=== PATIENT | female | born 1950 | race Caucasian/White ===

== ENCOUNTER → 2016-06-29 | Outpatient (CLI) | payer MEDICARE ==
--- NOTE | 2016-07-02 07:48 | MM ---
Reason for exam: additional evaluation requested from prior study. Last mammogram was performed 1 year and 5 months ago. History: Patient is postmenopausal and had first child at age 34. Breast lifts of both breasts, 2002. Took hormonal contraceptives for 2 years. Took progesterone for 3 years beginning at age 52. Physical Findings: Nurse did not find any significant physical abnormalities on exam. MG 3D Diag Mammo W/Cad JESUS ALBERTO Bilateral CC and MLO view(s) were taken. Prior study comparison: January 27, 2015, bilateral MG diagnostic mammo w CAD JESUS ALBERTO. October 23, 2013, bilateral MG diagnostic mammo w CAD JESUS ALBERTO. The breast tissue is heterogeneously dense. This may lower the sensitivity of mammography. Finding #1: There are typically benign round calcifications in both breasts. Finding #2: There is a 46 x 34 mm obscured oval mass in the anterior position of the right breast. There is a chronic nodularity bilaterally. Questionable new 9mm oval lesion middle depth medial position. These results were verbally communicated with the patient and result sheet given to the patient on 06/29/16. ASSESSMENT: Incomplete: need additional imaging evaluation, BI-RAD 0 RECOMMENDATION: Ultrasound of both breasts.
--- NOTE | 2016-07-02 07:49 | USB ---
Reason for exam: additional evaluation requested from abnormal screening. History: Patient is postmenopausal and had first child at age 34. Breast lifts of both breasts, 2002. Took hormonal contraceptives for 2 years. Took progesterone for 3 years beginning at age 52. US Breast Limited BILAT Right breast ultrasound demonstrates no cystic or solid lesion seen. Left breast ultrasound demonstrates no cystic or solid lesion seen. These results were verbally communicated with the patient and result sheet given to the patient on 06/29/16. ASSESSMENT: Benign, BI-RAD 2 RECOMMENDATION: Routine screening mammogram of both breasts in 1 year.
== END | disposition home or self-care (01) ==
LOC: RADMAMWWP 12:42
PROVIDERS: ATTEND Family Medicine
DX: R92.2 Inconclusive mammogram (principal); Z41.1 Encounter for cosmetic surgery
CPT/HCPCS: 76642; G0204; G0279

== ENCOUNTER 2017-05-09 15:23 | Emergency (ER) | payer MEDICARE ==
--- NOTE | 2017-05-09 17:29 | ED ---
General Adult HPI - General Chief complaint: Recheck/Abnormal Lab/Rx Stated complaint: Female Time Seen by Provider: 05/09/17 15:47 Source: patient, RN notes reviewed Mode of arrival: wheelchair Limitations: no limitations - History of Present Illness Initial comments: Patient 66-year-old female who presents emergency room today with chief complaint of swelling to the right groin. She does not that she had a cardiac cath performed yesterday morning. Patient does admit that she noticed some swelling to the area approximately an hour and a half ago. She states swelling seems to be improving as she was holding pressure to the area. She denies any other complaints or associated symptoms. Patient denies any recent fever, chills , shortness of breath, chest pain, back pain, numbness or tingling, dysuria or hematuria, constipation or diarrhea, headaches or visual changes, or any other complaints. - Related Data Home Medications Medication Instructions Recorded Confirmed Citalopram Hydrobromide [CeleXA] 40 mg PO DAILY 05/04/17 05/09/17 Cefuroxime Axetil [Ceftin] 500 mg PO BID 05/07/17 05/09/17 Previous Rx's Medication Instructions Recorded Ondansetron Odt [Zofran Odt] 4 mg PO Q8HR PRN #30 tab 05/05/17 metroNIDAZOLE [Flagyl] 500 mg PO TID #15 tab 05/05/17 Aspirin 81 mg PO DAILY #30 chew 05/09/17 Carvedilol [Coreg] 3.125 mg PO BID-W/MEALS #60 tab 05/09/17 Lisinopril [Zestril] 2.5 mg PO DAILY@1200 #30 tab 05/09/17 Nitroglycerin Sl Tabs [Nitrostat] 0.4 mg SUBLINGUAL Q5M PRN #25 tab 05/09/17 Allergies Allergy/AdvReac Type Severity Reaction Status Date / Time No Known Allergies Allergy Verified 05/09/17 16:11 Review of Systems ROS Statement: Those systems with pertinent positive or pertinent negative responses have been documented in the HPI. ROS Other: All systems not noted in ROS Statement are negative. Past Medical History Past Medical History: Coronary Artery Disease (CAD), COPD, Osteoarthritis (OA), Respiratory Disorder Additional Past Medical History / Comment(s): mild COPD, colitis, uti, anxiety History of Any Multi-Drug Resistant Organisms: None Reported Past Surgical History: Section, Ear Surgery, Heart Catheterization, Orthopedic Surgery, Tonsillectomy, Tubal Ligation Additional Past Surgical History / Comment(s): Right knee, x2, tubes in ears, lumbar fusion L2-S1 Past Anesthesia/Blood Transfusion Reactions: No Reported Reaction Past Psychological History: Anxiety Smoking Status: Former smoker - Past Family History Son(s) Family Medical History: No Reported History Additional Family Medical History / Comment(s): autism Mother History Unknown: Yes Family Medical History: CVA/TIA Father Additional Family Medical History / Comment(s): suicide at 47 Brother(s) Additional Family Medical History / Comment(s): from alcohol and drug use. Sister(s) Family Medical History: Hypertension General Exam - General Exam Comments Initial Comments: General: The patient is awake and alert, in no distress, and does not appear acutely ill. Eye: Pupils are equal, round and reactive to light, extra-ocular movements are intact. No nystagmus. There is normal conjunctiva bilaterally. No signs of icterus. Ears, nose, mouth and throat: There are moist mucous membranes and no oral lesions. Neck: The neck is supple, there is no tenderness or JVD. Cardiovascular: There is a regular rate and rhythm. No murmur, rub or gallop is appreciated. Respiratory: Lungs are clear to auscultation, respirations are non-labored, breath sounds are equal. No wheezes, stridor, rales, or rhonchi. Gastrointestinal: Soft, non-distended, non-tender abdomen without masses or organomegaly noted. There is no rebound or guarding present. No CVA tenderness. Bowel sounds are unremarkable. Musculoskeletal: Normal ROM. Some mild bruising and swelling to the right groin. No bruit. Strength 5/5. Sensation intact. Pulses equal bilaterally 2+. Neurological: A&O x 3. CN II-XII intact, There are no obvious motor or sensory deficits. Coordination appears grossly intact. Speech is normal. Skin: Skin is warm and dry and no rashes or lesions are noted. Psychiatric: Cooperative, appropriate mood & affect, normal judgment. Limitations: no limitations Course Vital Signs 05/09/17 05/09/17 15:25 18:04 Temperature 97.4 F L 98.0 F Pulse Rate 99 92 Respiratory 20 18 Rate Blood Pressure 126/84 149/77 O2 Sat by Pulse 98 98 Oximetry Medical Decision Making - Medical Decision Making Patient's ultrasound reviewed and does show no evidence of a pseudoaneurysm. Does show a area of hypoechoic fluid nonvascular measuring 2 x 1 cm. Results were discussed with the patient. At this time patient will be discharged home to follow-up with her timber faller tomorrow. Advised patient to continue with previous recommendations after cardiac cath. Advised return for any symptoms increase worsen or fail concerns. Disposition Clinical Impression: Hematoma Disposition: HOME SELF-CARE Condition: Good Instructions: Hematoma (ED) Additional Instructions: Please follow-up with the strategic sourcing specialist tomorrow as discussed. Please return here to the emergency room if there is any increased worsening symptoms or any other concerns. Referrals: Tal Almendarez MD [Primary Care Provider] - 1-2 days Diogo Bay MD [STAFF PHYSICIAN] - 1-2 days Time of Disposition: 18:32
--- NOTE | 2017-05-09 17:47 | US ---
EXAMINATION TYPE: US lower ext pseudo artery RT DATE OF EXAM: 05/09/2017 COMPARISON: NONE CLINICAL HISTORY: Pain. Right groin pain following heart cath yesterday EXAM PERFORMED: Grayscale and color Doppler duplex imaging performed of the groin, post cardiac brianna ter to assess for pseudoaneurysm. SIDE PERFORMED: Right Color and Waveform Doppler performed to assess for the presence of pseudoaneurysm; Is there ultrasound evidence of a pseudoaneurysm: no Is there evidence of AV shunting: no Is there a fluid collection present: 2.2 x 0.8 x 1.2cm hypoechoic non vascular area anterior to arter y IMPRESSION: NEGATIVE FOR PSEUDOANEURYSM.
[2017-05-09 18:06] VITALS: BP 149/77; PULSE 92; RESP 18; TEMP 98
== END 2017-05-09 18:46 | disposition home or self-care (01) ==
LOC: EC 15:23
DX: L76.32 Postprocedural hematoma of skin and subcutaneous tissue following other procedure (principal); Z87.891 Personal history of nicotine dependence; Z79.899 Other long term (current) drug therapy; Y83.8 Other surgical procedures as the cause of abnormal reaction of the patient, or of later complication, without mention of misadventure at the time of the procedure
CPT/HCPCS: 93975; 99283

== ENCOUNTER → 2018-01-01 | Outpatient (CLI) | payer MEDICARE ==
--- NOTE | 2018-01-01 13:55 | MM ---
Reason for exam: additional evaluation requested from prior study. Last mammogram was performed 1 year and 6 months ago. History: Patient is postmenopausal and had first child at age 34. Breast lifts of both breasts, 2002. Took hormonal contraceptives for 2 years. Took progesterone for 3 years beginning at age 52. Physical Findings: Nurse did not find any significant physical abnormalities on exam. MG 3D Diag Mammo W/Cad JESUS ALBERTO Bilateral CC and MLO view(s) were taken. Prior study comparison: June 29, 2016, bilateral MG 3d diag mammo w/cad JESUS ALBERTO. January 27, 2015, bilateral MG diagnostic mammo w CAD JESUS ALBERTO. The breast tissue is heterogeneously dense. This may lower the sensitivity of mammography. No significant new findings when compared with previous films. These results were verbally communicated with the patient and result sheet given to the patient on 01/01/18. ASSESSMENT: Benign, BI-RAD 2 RECOMMENDATION: Routine screening mammogram of both breasts in 1 year.
== END | disposition home or self-care (01) ==
LOC: RADMAMWWP 11:00
PROVIDERS: ATTEND Family Medicine
DX: R92.8 Other abnormal and inconclusive findings on diagnostic imaging of breast (principal)
CPT/HCPCS: 77066; G0279; 77062

== ENCOUNTER → 2018-01-23 | Outpatient (CLI) | payer MEDICARE ==
--- NOTE | 2018-01-23 13:53 | BD ---
EXAMINATION TYPE: Axial Bone Density DATE OF EXAM: 01/23/2018 COMPARISON: NONE CLINICAL HISTORY: Height: 63 Weight: 127.0 FRAX RISK QUESTIONS: Alcohol (3 or more units per day): no Family History (Parent hip fracture): no Glucocorticoids (More than 3mos): no (Ex: prednisone, prednisolone, methylprednisolone, dexamethasone, and hydrocortisone). History of Fracture in Adulthood: no Secondary Osteoporosis: 1. Type 1 Diabetes: no 2. Hyperthyroidism: no 3. Menopause before 45: no 4. Malnutrition: no 5. Chronic liver disease: no Rheumatoid Arthritis: no Current Tobacco Use: yes RISK FACTORS HISTORY OF: Surgery to Spine/Hip(right/left)/Wrist (right/left): lumbar surgery When: 2011 Active: sometimes Diet low in dairy products/other sources of calcium: yes Postmenopausal woman: age 49 Lost more than 2 inches in height since high school: just 2 inches MEDICATIONS: Additional History: EXAM MEASUREMENTS: Bone mineral densitometry was performed using the [employer] System. Bone mineral density about the R hip (g/cm2): 0.770 Bone mineral density about the L hip (g/cm2): 0.813 T Score values are as follows: -----R Neck: -1.9 -----L Neck: -1.6 -----R Total: -1.8 -----L Total: -1.6 Bone mineral density : baseline Bone mineral density about the L Wrist (g/cm2): 0.516 T Score values are as follows: -----Dist. R+U: -3.6 -----Prox. R+U: -2.4 -----Radius total: -2.6 Bone mineral density : baseline IMPRESSION: Osteopenia (T Score between -2.5 and -1) in the distal left forearm and bilateral hips. There is slightly increased risk of fracture and the patient may be considered for treatment. Re-Screen 2-5 years. NOTE: T-SCORE=SD OF THE YOUNG ADULT MEAN.
== END ==
LOC: RADBDWWP 12:36
PROVIDERS: ATTEND Family Medicine
DX: M85.851 Other specified disorders of bone density and structure, right thigh (principal); M85.852 Other specified disorders of bone density and structure, left thigh; M85.832 Other specified disorders of bone density and structure, left forearm; Z78.0 Asymptomatic menopausal state
CPT/HCPCS: 77080

== ENCOUNTER → 2018-03-24 | Outpatient (CLI) | payer MEDICARE ==
[2018-03-24 11:26] LABS: LDL Cholesterol,Calculated 126.8 mg/dL (0.0-131.0); VLDL Calculation 21.2 mg/dL (5.00-40.00)
== END | disposition home or self-care (01) ==
LOC: LABWHC1 06:57
PROVIDERS: ATTEND Internal Medicine Interventional Cardiology
DX: E78.2 Mixed hyperlipidemia (principal)
CPT/HCPCS: 36415; 80061; 84450; 84460

== ENCOUNTER → 2018-04-18 | Outpatient (CLI) | payer MEDICARE ==
--- NOTE | 2018-04-18 08:37 | MR ---
EXAMINATION TYPE: MR shoulder RT wo con DATE OF EXAM: 04/18/2018 7:47 AM COMPARISON: NONE HISTORY: M75.101 - Rot Cuff Tear or Rupture of Rt Shoulder TECHNIQUE: Multiplanar multispin echo imaging of the right shoulder was performed. FINDINGS: Rotator cuff : Moderate thickening and heterogeneity of the supraspinatus tendon compatible chronic t endinopathy. Partial undersurface tear noted at the insertion of the supraspinatus tendon. No evidenc e for full-thickness tear or rupture. Tendinosis also noted of the subscapularis tendon and infraspin atus tendon. Bursa: No bursal effusion or thickening is seen. Musculature: There is no muscular tear, contusion, or atrophy. Acromioclavicular joint : Moderate AC joint arthropathy. Small subacromial spur resulting in mild imp ingement. Osseous structures : There are no fractures or regions of abnormal bone marrow signal intensity. Subc hondral cyst humeral greater tuberosity. Long biceps tendon : The biceps tendon is normally situated within the bicipital groove. Tendinosis i ntra-articular biceps tendon with partial tear. Glenohumeral Joint fluid : There is no glenohumeral j oint effusion. Cartilage and Bone : No focal hyaline cartilage defects are noted. No Hill-Sachs, reverse Hill-Sachs, or bony Bankart lesions are seen. Labrum : There are no SLAP or soft tissue Bankart lesions. No paralabral cysts are seen. OTHER FINDINGS : none IMPRESSION: 1. Chronic tendinopathy rotator cuff as discussed above. Partial undersurface tear supraspinatus tend on. 2. Intra-articular tendinosis of the biceps tendon with partial tear noted.
== END | disposition home or self-care (01) ==
LOC: RADMRIMAIN 07:09
PROVIDERS: ATTEND Physician Assistant Medical
DX: M75.111 Incomplete rotator cuff tear or rupture of right shoulder, not specified as traumatic (principal); S46.211A Strain of muscle, fascia and tendon of other parts of biceps, right arm, initial encounter; M75.81 Other shoulder lesions, right shoulder

== ENCOUNTER → 2018-05-12 | Outpatient (CLI) | payer MEDICARE | LOC: LABWHC1 12:02 | PROVIDERS: ATTEND Physical Medicine & Rehabilitation | DX: Z01.812 Encounter for preprocedural laboratory examination (principal); N28.9 Disorder of kidney and ureter, unspecified | CPT/HCPCS: 36415; 82565; 84520 ==

== ENCOUNTER → 2018-08-08 | Outpatient (CLI) | payer MEDICARE ==
--- NOTE | 2018-08-08 10:47 | CT ---
EXAMINATION TYPE: CT lumbar spine wo con DATE OF EXAM: 08/08/2018 10:08 AM COMPARISON: None. HISTORY: Lumbar spondylosis per order. Back pain for years per patient. CT DLP: 780 mGycm Automated exposure control for dose reduction was used. Unenhanced CT of the lumbar spine was performed. Bone and soft tissue window settings are submitted as well as coronal and sagittal reconstructions. 5 lumbar type vertebra are identified. There is levoconvex scoliosis centered at L3 level. There is g rade 1 retrolisthesis of L2 on L3 measured 6 mm from posterior vertebral body margin sagittal image 2 2 there are posterior interpedicular rods and screws transfixing L2-S1 levels bilaterally, right-side d L2 screw extends into the L1-L2 disc space. Vertebral body heights are preserved. There is vacuum d isc phenomenon with mild to moderate anterior disc space narrowing L1-L2 level. There is advanced dis c space narrowing and vacuum disc phenomenon and endplate sclerosis with moderate right lateral spurr ing L2-L3 level. There is advanced disc space narrowing with moderate spurring and disc calcification right L3-L4 level. There is advanced disc space narrowing with disc calcification L4-L5 level diffus abad. There is moderate disc space narrowing and vacuum disc phenomenon and mild/moderate left lateral spurring left L5-S1 level. Axial images show the T12-L1 level to appear within normal limits. Axial images at the L1-L2 level show bilateral laminectomy defect and spinous process resection. Seen best on sagittal image 21 there is small central disc protrusion mildly effacing the anterior thecal sac. Bilateral neural foramina are patent. Axial images at the L2-L3 level show spondylolisthesis. There are bilateral laminectomy defects and s pinous process resection. Spinal canal is preserved. There is asymmetric [id number] right-sided neural foraminal narrowing. Axial images at the L3-L4 level shows bilateral laminectomy defects and spinous process resection. Th ere is mild broad disc bulge. There is asymmetric moderate right-sided neural foraminal narrowing. Le ft-sided neural foramen is patent. Axial images at the L4-L5 level show artifact from surgical hardware including posterior horizontal m etallic component making evaluation suboptimal at this level. Spinal canal is grossly patent. Axial images at L5-S1 level show artifact from surgical hardware. There are bilateral laminectomy def ects and spinous process resection. There is suspected left paracentral disc protrusion. Prominent ep idural fat is noted. There is moderate left-sided neural foraminal narrowing suspected. Right side sh ows more mild narrowing. There is moderate calcified plaque of aorta extending into branch vessels. IMPRESSION: Postsurgical change L2-S1 level. Underlying levoconvex scoliosis. Spondylolisthesis L2-L3 level. Multilevel degenerative changes as detailed above.
== END | disposition home or self-care (01) ==
LOC: RADCTMAIN 09:40
DX: M47.816 Spondylosis without myelopathy or radiculopathy, lumbar region (principal); M43.16 Spondylolisthesis, lumbar region; Z79.899 Other long term (current) drug therapy
CPT/HCPCS: 72131

== ENCOUNTER → 2018-09-15 | Outpatient (CLI) | payer MEDICARE ==
--- NOTE | 2018-09-16 09:18 | XR ---
EXAM TYPE: LUMBAR SPINE X RAY SERIES COMPARISON: 05/12/2013, 07/31/2018 HISTORY: Pain TECHNIQUE: 5 views are submitted including lateral flexion and extension views. FINDINGS: Extensive postsurgical changes are seen with curvature of the spine. Vascular calcifications noted. K yphosis of the spine at the level of the thoracolumbar junction noted. Retrolisthesis of L2 on L3 and L3 and L4 there is similar to the prior exam. Severe degenerative disc disease at the level L1-L2 tr anspedicular screw appears to extend through L2 into the disc space of L1-L2 on the lateral view. Cor relate clinically. Compared to the neutral view there does appear to be increased retrolisthesis of L2 relative to L3 on flexion and extension views. Correlate clinically. IMPRESSION: 1. Postsurgical changes as discussed above.
== END | disposition home or self-care (01) ==
LOC: RADXRMAIN 16:43
DX: M43.16 Spondylolisthesis, lumbar region (principal); M40.295 Other kyphosis, thoracolumbar region; Z98.890 Other specified postprocedural states
CPT/HCPCS: 72110

== ENCOUNTER → 2018-10-02 | Outpatient (CLI) | payer MEDICARE ==
[2018-10-02 15:52] LABS: Basophils % (A) 1 %; Eosinophils # (A) 0.2 k/uL (0-0.7); Eosinophils % (A) 2 %; HCT 35.9 % (34.0-46.0); HGB 11.6 gm/dL (11.4-16.0); Lymphocytes # (A) 1.9 k/uL (1.0-4.8); Lymphocytes % (A) 30 %; MCH 29.2 pg (25.0-35.0); MCHC 32.4 g/dL (31.0-37.0); MCV 90.1 fL (80.0-100.0); Mean Platelet Volume 6.5; Monocytes # (A) 0.3 k/uL (0-1.0); Monocytes % (A) 5 %; Neutrophils # (A) 3.7 k/uL (1.3-7.7); Neutrophils % (A) 60 %; Platelet Count 270 k/uL (150-450); RBC 3.98 m/uL (3.80-5.40); RDW 13.4 % (11.5-15.5); WBC 6.2 k/uL (3.8-10.6)
[2018-10-02 16:03] LABS: INR 0.9 (<1.2); Prothrombin Time 9.7 sec (9.0-12.0)
[2018-10-02 16:08] LABS: Appearance,Urine Clear (Clear); Bilirubin,Urine Negative (Negative); Blood,Urine Negative (Negative); Color,Urine Yellow; Glucose,Urine (UA) Negative (Negative); Ketones,Urine Negative (Negative); Leukocyte Esterase,Urine Negative (Negative); Nitrite,Urine Negative (Negative); PH, Urine 6.5 (5.0-8.0); Protein,Urine Negative (Negative); Specific Gravity,Urine 1.017 (1.001-1.035); Urobilinogen,Urine <2.0 mg/dL (<2.0)
[2018-10-02 19:04] LABS: Albumin 4.3 g/dL (3.80-4.90); Albumin/Globulin Ratio 2.69 (1.60-3.17); Anion Gap 8.1 mmol/L (4.00-12.00); Calcium 9.4 mg/dL (8.7-10.3); Carbon Dioxide 30.9 mmol/L (21.6-31.8); Globulin 1.6 g/dL (1.6-3.3); Potassium 4.2 mmol/L (3.5-5.5); Total Bilirubin 0.2 mg/dL (0.2-1.2); Total Protein 5.9 g/dL (6.2-8.2)
== END | disposition home or self-care (01) ==
LOC: LABWHC1 15:04
DX: Z01.818 Encounter for other preprocedural examination (principal); Z01.812 Encounter for preprocedural laboratory examination; M47.816 Spondylosis without myelopathy or radiculopathy, lumbar region
CPT/HCPCS: 36415; 80053; 81003; 85025; 85610; 85730; 93005

== ENCOUNTER 2018-10-19 09:11 | Emergency (ER) | payer MEDICARE ==
[2018-10-19 09:40] VITALS: TEMP 98.4
[2018-10-19] MEDS ORDERED: ORPHENADRINE 30 MG/ML 2 ML VIAL IVP STA (10:16)
[2018-10-19] MEDS ORDERED: HYDROmorphone 1 MG/ML 1 ML SYRINGE IVP STA ×2 (10:16→12:05)
[2018-10-19] MEDS ORDERED: SODIUM CHLORIDE 0.9% 1,000 ML IV ONE (10:16)
--- NOTE | 2018-10-19 10:21 | ED ---
Back Pain HPI - General Chief Complaint: Back Pain/Injury Stated Complaint: Post Op back pain Time Seen by Provider: 10/19/18 09:46 Source: patient, RN notes reviewed, old records reviewed Limitations: no limitations - History of Present Illness Initial Comments: Patient is a 68-year-old female presents emergency department today approximately 10 days after lumbar and thoracic spinal fusion surgery by Dr. Atkins at [facility]. Patient reports that she was discharged on Saturday. She states that she was healing well at home. She states that last night after resting she developed a sudden worsening lower back pain and spasming. She is on Percocet 5 mg every 4 hours and that has not been controlling her pain. She denies any saddle anesthesia or significant pain rating, legs. She denies any fall or trauma. She has been wearing her back brace as directed. Patient reports that she did have a lengthy surgery. Patient states that she's had no abdominal pain. She denies any fever. She states she's been in severe pain. - Related Data Home Medications Medication Instructions Recorded Confirmed Cyclobenzaprine [Flexeril] 1 - 2 tab PO TID 10/19/18 10/19/18 LORazepam [Ativan] 1 mg PO BID 10/19/18 10/19/18 Risedronate Sodium [Actonel] 35 mg PO Q7D 10/19/18 10/19/18 Rosuvastatin Calcium [Crestor] 5 mg PO DAILY 10/19/18 10/19/18 Sertraline [Zoloft] 100 mg PO DAILY 10/19/18 10/19/18 oxyCODONE-APAP 10-325MG [Percocet 1 tab PO Q6H PRN 10/19/18 10/19/18 10-325 mg] Previous Rx's Medication Instructions Recorded Carvedilol [Coreg] 3.125 mg PO BID-W/MEALS #60 tab 05/09/17 Lisinopril [Zestril] 2.5 mg PO DAILY@1200 #30 tab 05/09/17 Nitroglycerin Sl Tabs [Nitrostat] 0.4 mg SUBLINGUAL Q5M PRN #25 tab 05/09/17 Nitrofurantoin Monohyd/M-Cryst 100 mg PO Q12HR #14 cap 10/19/18 [Macrobid] Allergies Allergy/AdvReac Type Severity Reaction Status Date / Time No Known Allergies Allergy Verified 10/19/18 11:52 Review of Systems ROS Statement: Those systems with pertinent positive or pertinent negative responses have been documented in the HPI. ROS Other: All systems not noted in ROS Statement are negative. Past Medical History Past Medical History: Coronary Artery Disease (CAD), COPD, Osteoarthritis (OA), Respiratory Disorder Additional Past Medical History / Comment(s): mild COPD, colitis, uti, anxiety History of Any Multi-Drug Resistant Organisms: None Reported Past Surgical History: Section, Ear Surgery, Heart Catheterization, Orthopedic Surgery, Tonsillectomy, Tubal Ligation Additional Past Surgical History / Comment(s): Right knee, x2, tubes in ears, lumbar fusion L2-S1 Past Anesthesia/Blood Transfusion Reactions: No Reported Reaction Past Psychological History: Anxiety Smoking Status: Former smoker - Past Family History Son(s) Family Medical History: No Reported History Additional Family Medical History / Comment(s): autism Mother History Unknown: Yes Family Medical History: CVA/TIA Father Additional Family Medical History / Comment(s): suicide at 47 Brother(s) Additional Family Medical History / Comment(s): from alcohol and drug use. Sister(s) Family Medical History: Hypertension General Exam - General Exam Comments Initial Comments: This is a 68-year-old female. Crying. Patient appears in moderate discomfort. Patient is wearing a back brace. Limitations: no limitations General appearance: alert, in no apparent distress Head exam: Present: atraumatic, normocephalic, normal inspection Eye exam: Present: normal appearance, PERRL, EOMI. Absent: scleral icterus, conjunctival injection, periorbital swelling ENT exam: Present: normal exam, mucous membranes moist Neck exam: Present: normal inspection. Absent: tenderness, meningismus, lymphadenopathy Respiratory exam: Present: normal lung sounds bilaterally. Absent: respiratory distress, wheezes, rales, rhonchi, stridor Cardiovascular Exam: Present: regular rate, normal rhythm, normal heart sounds. Absent: systolic murmur, diastolic murmur, rubs, gallop, clicks GI/Abdominal exam: Present: soft, normal bowel sounds. Absent: distended, tenderness, guarding, rebound, rigid Extremities exam: Present: normal inspection, full ROM, normal capillary refill. Absent: tenderness, pedal edema, joint swelling, calf tenderness Back exam: Present: normal inspection, other (Pain incision site over her thoracic or lumbar spine. No evidence of erythema.) Neurological exam: Present: alert, oriented X3, CN II-XII intact Psychiatric exam: Present: normal affect, normal mood Skin exam: Present: warm, dry, intact, normal color. Absent: rash Course Vital Signs 10/19/18 10/19/18 09:38 12:30 Temperature 98.4 F Pulse Rate 118 H 112 H Respiratory 16 20 Rate Blood Pressure 149/73 165/93 O2 Sat by Pulse 98 96 Oximetry - Reevaluation(s) Reevaluation #1: 10/19/18 13:10 Discussed the case with on-call orthopedic surgeon Dr. Gonzalez. He recommended increasing patient's pain medication to 2 Percocet tabs every 4 hours, continued muscle relaxers. He stated be beneficial Patient be admitted for observation for pain management and until she can follow-up with her surgeon possibility of tomorrow or early this week. Medical Decision Making - Medical Decision Making Patient is a 68 year old female presetns today for evaluation for back pain related to surgery 2 weeks ago. She states pain happened suddenly last night. She denies any fall or trauma. She appears is moderate distres on arrival. Given IV fluids, pain mediaction Labs were reviewed, Hgb did decrease to 9.6, she denies bloody stools and this is likely post surgical. Patient has been tachycardic in ED. Blood culture completed. Discussed concern or thoracic back pain and concern for PE. CT angio chest is negative for PE, recon of spine shows no acute process, difficulty to identify due to overlying hardware from lumbar to thoracic spine. UA shows nitrates, will start patient on antibiotic, she did report to catheterizing during her recent hospital stay. Patient case discussed with oncall surgeon, Dr. Gonzalez, recommended increased pain medication or possible observation admission. Offered patient admission, she prefers to be discharged home as she sees her PCP tomorrow and Dr. Gonzalez states she can see the ortho clinic this week. He will inform Dr. Atkins of patient status. Patient felt improved after second dose of dilaudid and will be discharged with strict return parameters. - Lab Data Result diagrams: 10/19/18 10:29 10/19/18 10:29 Lab Results 10/19/18 10/19/18 10/19/18 Range/Units 10:29 10:29 11:15 WBC 11.2 H (3.8-10.6) k/uL RBC 3.23 L (3.80-5.40) m/uL Hgb 9.3 L D (11.4-16.0) gm/dL Hct 28.8 L (34.0-46.0) % MCV 89.0 (80.0-100.0) fL MCH 28.9 (25.0-35.0) pg MCHC 32.4 (31.0-37.0) g/dL RDW 14.3 (11.5-15.5) % Plt Count 738 H D (150-450) k/uL Neutrophils % 84 % Lymphocytes % 11 % Monocytes % 3 % Eosinophils % 1 % Basophils % 0 % Neutrophils # 9.4 H (1.3-7.7) k/uL Lymphocytes # 1.2 (1.0-4.8) k/uL Monocytes # 0.4 (0-1.0) k/uL Eosinophils # 0.1 (0-0.7) k/uL Basophils # 0.0 (0-0.2) k/uL Hypochromasia Slight Sodium 137 (137-145) mmol/L Potassium 4.4 (3.5-5.1) mmol/L Chloride 100 (98-107) mmol/L Carbon Dioxide 27 (22-30) mmol/L Anion Gap 10 mmol/L BUN 18 H (7-17) mg/dL Creatinine 0.54 (0.52-1.04) mg/dL Est GFR (CKD-EPI)AfAm >90 (>60 ml/min/1.73 sqM) Est GFR (CKD-EPI)NonAf >90 (>60 ml/min/1.73 sqM) Glucose 105 H (74-99) mg/dL Plasma Lactic Acid Zi (0.7-2.0) mmol/L Calcium 9.5 (8.4-10.2) mg/dL Total Bilirubin 0.2 (0.2-1.3) mg/dL AST 28 (14-36) U/L ALT 29 (9-52) U/L Alkaline Phosphatase 110 (38-126) U/L Total Protein 6.7 (6.3-8.2) g/dL Albumin 4.0 (3.5-5.0) g/dL Urine Color Light Yellow Urine Appearance Clear (Clear) Urine pH 7.0 (5.0-8.0) Ur Specific [place] 1.008 (1.001-1.035) Urine Protein Negative (Negative) Urine Glucose (UA) Negative (Negative) Urine Ketones Negative (Negative) Urine Blood Negative (Negative) Urine Nitrite Positive H (Negative) Urine Bilirubin Negative (Negative) Urine Urobilinogen <2.0 (<2.0) mg/dL Ur Leukocyte Esterase Small H (Negative) Urine RBC <1 (0-5) /hpf Urine WBC 2 (0-5) /hpf Ur Squamous Epith Cells <1 (0-4) /hpf Urine Bacteria Occasional H (None) /hpf Urine Mucus Rare H (None) /hpf 10/19/18 Range/Units 11:20 WBC (3.8-10.6) k/uL RBC (3.80-5.40) m/uL Hgb (11.4-16.0) gm/dL Hct (34.0-46.0) % MCV (80.0-100.0) fL MCH (25.0-35.0) pg MCHC (31.0-37.0) g/dL RDW (11.5-15.5) % Plt Count (150-450) k/uL Neutrophils % % Lymphocytes % % Monocytes % % Eosinophils % % Basophils % % Neutrophils # (1.3-7.7) k/uL Lymphocytes # (1.0-4.8) k/uL Monocytes # (0-1.0) k/uL Eosinophils # (0-0.7) k/uL Basophils # (0-0.2) k/uL Hypochromasia Sodium (137-145) mmol/L Potassium (3.5-5.1) mmol/L Chloride (98-107) mmol/L Carbon Dioxide (22-30) mmol/L Anion Gap mmol/L BUN (7-17) mg/dL Creatinine (0.52-1.04) mg/dL Est GFR (CKD-EPI)AfAm (>60 ml/min/1.73 sqM) Est GFR (CKD-EPI)NonAf (>60 ml/min/1.73 sqM) Glucose (74-99) mg/dL Plasma Lactic Acid Zi 0.9 (0.7-2.0) mmol/L Calcium (8.4-10.2) mg/dL Total Bilirubin (0.2-1.3) mg/dL AST (14-36) U/L ALT (9-52) U/L Alkaline Phosphatase (38-126) U/L Total Protein (6.3-8.2) g/dL Albumin (3.5-5.0) g/dL Urine Color Urine Appearance (Clear) Urine pH (5.0-8.0) Ur Specific [place] (1.001-1.035) Urine Protein (Negative) Urine Glucose (UA) (Negative) Urine Ketones (Negative) Urine Blood (Negative) Urine Nitrite (Negative) Urine Bilirubin (Negative) Urine Urobilinogen (<2.0) mg/dL Ur Leukocyte Esterase (Negative) Urine RBC (0-5) /hpf Urine WBC (0-5) /hpf Ur Squamous Epith Cells (0-4) /hpf Urine Bacteria (None) /hpf Urine Mucus (None) /hpf - Radiology Data Radiology results: report reviewed Disposition Clinical Impression: Postoperative back pain, UTI (urinary tract infection) Disposition: HOME SELF-CARE Condition: Good Instructions (If sedation given, give patient instructions): Acute Low Back Pain (ED) Additional Instructions: Rx is sent to her primary care pharmacy on file at [facility]. Patient should have close follow-up with primary care doctor tomorrow and with your surgeon. Return to the emergency department if any alarming signs or symptoms occur. Prescriptions: Nitrofurantoin Monohyd/M-Cryst [Macrobid] 100 mg PO Q12HR #14 cap Is patient prescribed a controlled substance at d/c from ED?: No Referrals: Tal Almendarez MD [Primary Care Provider] - 1-2 days Time of Disposition: 13:50
[2018-10-19] MEDS ORDERED: SODIUM CHLORIDE 0.9% 1,000 ML IV SCH (10:30)
[2018-10-19 10:50] LABS: Basophils % (A) 0 %; Eosinophils # (A) 0.1 k/uL (0-0.7); Eosinophils % (A) 1 %; HCT 28.8 % (34.0-46.0); Hypochromasia Slight; Lymphocytes # (A) 1.2 k/uL (1.0-4.8); Lymphocytes % (A) 11 %; MCH 28.9 pg (25.0-35.0); MCHC 32.4 g/dL (31.0-37.0); Mean Platelet Volume 6.6; Monocytes # (A) 0.4 k/uL (0-1.0); Monocytes % (A) 3 %; Neutrophils # (A) 9.4 k/uL (1.3-7.7); Neutrophils % (A) 84 %; RBC 3.23 m/uL (3.80-5.40); RDW 14.3 % (11.5-15.5); WBC 11.2 k/uL (3.8-10.6)
[2018-10-19 10:52] LABS: HGB 9.3 gm/dL (11.4-16.0); Platelet Count 738 k/uL (150-450)
[2018-10-19 11:00] LABS: ALT 29 U/L (9-52); AST 28 U/L (14-36); African American GFR (CKD) >90 (>60 ml/min/1.73 sqM); Alkaline Phosphatase 110 U/L (38-126); Anion Gap 10 mmol/L; Blood Urea Nitrogen 18 mg/dL (7-17); Calcium 9.5 mg/dL (8.4-10.2); Carbon Dioxide 27 mmol/L (22-30); Chloride 100 mmol/L (98-107); Glucose 105 mg/dL (74-99); Potassium 4.4 mmol/L (3.5-5.1); Sodium 137 mmol/L (137-145); Total Bilirubin 0.2 mg/dL (0.2-1.3); Total Protein 6.7 g/dL (6.3-8.2)
[2018-10-19 11:42] LABS: Appearance,Urine Clear (Clear); Bacteria,Urine Occasional /hpf; Bilirubin,Urine Negative (Negative); Blood,Urine Negative (Negative); Color,Urine Light Yellow; Glucose,Urine (UA) Negative (Negative); Ketones,Urine Negative (Negative); Leukocyte Esterase,Urine Small (Negative); Mucus,Urine Rare /hpf; Nitrite,Urine Positive (Negative); Protein,Urine Negative (Negative); RBC,Urine <1 /hpf (0-5); Specific Gravity,Urine 1.008 (1.001-1.035); Squamous Epithelial Cell,Urine <1 /hpf (0-4); Urobilinogen,Urine <2.0 mg/dL (<2.0); WBC,Urine 2 /hpf (0-5)
[2018-10-19 12:40] VITALS: BP 165/93; PULSE 112; RESP 20
--- NOTE | 2018-10-19 12:46 | CT ---
EXAMINATION TYPE: CT chest angio for PE, CT thor lumbar spine w con DATE OF EXAM: 10/19/2018 COMPARISON: Previous there is of the lumbar spine dated 08/08/2018. HISTORY: post op back pain CT DLP: 351.4 mGycm Automated exposure control for dose reduction was used. CONTRAST: CT Chest for pulmonary embolism performed with with IV Contrast, patient injected with 100 mL of Isov ue 370. FINDINGS: CHEST: There are bullous changes in the upper lobes bilaterally. The lungs are otherwise clear. There is no significant axillary, internal mammary or hilar adenopathy. There is some shotty mediasti nal adenopathy. There is no evidence of pulmonary embolus. The aorta is normal in caliber without evidence of dissect ion. There is no pleural or pericardial fluid. The heart is not enlarged. Within the abdomen there is streak artifact from the patient's lumbar fusion. No other abnormality is seen. IMPRESSION: 1. THIS EXAMINATION IS NEGATIVE FOR PULMONARY EMBOLUS. 2. BULLOUS CHANGE IN BOTH UPPER LOBES. THORACOLUMBAR SPINE: There has been extensive posterior fusion extending from T12 to L4. There is a retrograde listhesis o f L2 on L3 measuring approximately 8.7 mm. This is unchanged from previous. There is a mild levoscoli osis. Paraspinal soft tissues are normal with the exception of extensive vascular calcification. At T11-12, no significant compressive discopathy. Intervertebral foramina are widely maintained. The facets are unremarkable. At T12-L1, the examination is nondiagnostic. At L1-2, intervertebral foramina appear well maintained. There is no significant compressive discopat hy. The facets are obscured. At L2-3, the study is nondiagnostic. There is disc space loss. L3-4, there has been a laminectomy. Intervertebral foramina appear well maintained. The facets are ob scured. At L4-5, there is disc space loss. There is been a previous laminectomy. There is no significant comp ressive discopathy. The facets are obscured. At L5-S1, is been a laminectomy. There is some mild, bilateral intervertebral foraminal narrowing. Th ere are hypertrophic changes in the facets. IMPRESSION: 1. EXTENSIVE POSTSURGICAL CHANGE MAKING MANY OF THE LEVELS NONDIAGNOSTIC. 2. LEVOSCOLIOSIS. 3. STABLE ANTEGRADE LISTHESIS OF L2 ON L3.
== END 2018-10-19 14:29 | disposition home or self-care (01) ==
LOC: EC 09:11
DX: G89.18 Other acute postprocedural pain (principal); M54.5 Low back pain; N39.0 Urinary tract infection, site not specified; I25.10 Atherosclerotic heart disease of native coronary artery without angina pectoris; F41.9 Anxiety disorder, unspecified; Z95.818 Presence of other cardiac implants and grafts; Z87.891 Personal history of nicotine dependence; Z98.1 Arthrodesis status; Z79.899 Other long term (current) drug therapy
CPT/HCPCS: 36415; 80053; 83605; 85025; 81001; 87040; 72129; 72132; 71275; 99284; 96374; 96375; 96376; 96361 ×3; J2360; J1170; Q9967

== ENCOUNTER 2018-10-20 09:59 | Inpatient (IN) | payer MEDICARE ==
[2018-10-20 11:02] LABS: Basophils % (A) 0 %; Eosinophils % (A) 0 %; Lymphocytes # (A) 1.5 k/uL (1.0-4.8); Lymphocytes % (A) 9 %; MCH 28.7 pg (25.0-35.0); MCHC 32.4 g/dL (31.0-37.0); MCV 88.5 fL (80.0-100.0); Monocytes # (A) 0.8 k/uL (0-1.0); Monocytes % (A) 5 %; Neutrophils # (A) 14.3 k/uL (1.3-7.7); Neutrophils % (A) 85 %; Platelet Count 888 k/uL (150-450); RBC 3.84 m/uL (3.80-5.40); RDW 13.9 % (11.5-15.5); WBC 16.8 k/uL (3.8-10.6)
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
[2018-10-20 11:11] LABS: INR 0.9 (<1.2); Partial Thromboplastin Time 25.3 sec (22.0-30.0); Prothrombin Time 10.2 sec (9.0-12.0)
[2018-10-20 11:17] LABS: ALT 26 U/L (9-52); AST 31 U/L (14-36); African American GFR (CKD) >90 (>60 ml/min/1.73 sqM); Albumin 4.1 g/dL (3.5-5.0); Alkaline Phosphatase 115 U/L (38-126); Anion Gap 12 mmol/L; Blood Urea Nitrogen 21 mg/dL (7-17); Calcium 9.4 mg/dL (8.4-10.2); Carbon Dioxide 23 mmol/L (22-30); Chloride 100 mmol/L (98-107); Glucose 124 mg/dL (74-99); Sodium 135 mmol/L (137-145); Total Bilirubin 0.3 mg/dL (0.2-1.3); Total Protein 6.9 g/dL (6.3-8.2)
--- NOTE | 2018-10-20 11:35 | CT ---
EXAMINATION TYPE: CT brain desmond wo con DATE OF EXAM: 10/20/2018 COMPARISON: None HISTORY: 68-year-old female Syncope and fall today. CT DLP: 1194.4 mGycm Automated exposure control for dose reduction was used. Technique: Examination of the head was done in axial plane without intravenous contrast. Coronal and sagittal reconstructions performed. CT of the cervical spine was obtained in axial plane without intravenous injection of contrast mater ial. Coronal and sagittal reformatted images were obtained from the axial views for evaluation of f ractures, spinal alignment and canal. FINDINGS: Head: There is no evidence of acute intracranial hemorrhage, acute ischemic changes, mass, mass-effect, or extra-axial fluid collection. There is no effacement of cerebral sulci or basal subarachnoid cister ns. There is no hydrocephalus. There is no midline shift. Wylie-white matter distinction is preserv ed. Mild bifrontal atrophy. Benign basal ganglial calcifications in the right. Rightward nasal septal deviation. Divergent gaze suggesting underlying strabismus. Paranasal sinuses and mastoid air cells are well pneumatized. No calvarial fracture. Cervical spine: No craniocervical junction anomaly, predental space widening, or prevertebral soft tissue swelling. D egenerative changes at the C1 dens articulation. Reversal of the normal cervical lordosis with grade 1 anterolisthesis at C3-C4 and C4-C5 with multile sera hypertrophic facet arthropathy particularly on the left. Disc osteophyte complexes at C5-C6 and C6-C7 cause mild narrowing of the spinal canal. Moderate to severe neuroforaminal stenoses particularly at C5-C6 and C6-C7. No acute fracture of the cervical spine. Sagittal and coronal reformatted images confirm above findings. COMBINED IMPRESSION: 1. No acute intracranial abnormality seen. 2. No acute fracture of the cervical spine. Moderate spondylotic change with grade 1 anterolisthesis at C3-C4 and C4-C5.
--- NOTE | 2018-10-20 11:49 | CT ---
EXAMINATION TYPE: CT thor lumbar spine wo con DATE OF EXAM: 10/20/2018 COMPARISON: 10/19/2018 HISTORY: 68-year-old female with syncope and fall today. 4 days post op lumbar fusion. TECHNIQUE: Contiguous axial scanning of the thoracic and lumbar spine without IV contrast. Coronal an d sagittal reconstructions performed. CT DLP: 1019.6 mGycm Automated exposure control for dose reduction was used. FINDINGS: THORACIC SPINE: Vertebral body heights are preserved and alignment is maintained. There is a levoconvex curvature of the lumbar spine. No acute fracture seen of the thoracic spine. Centrilobular emphysema with biapical pleural-parenchymal scarring in the visualized chest. Lumbar spine: Vertebral body heights are preserved. Extensive laminectomy changes present from T12 through S1 level s. There is posterior fusion hardware from T12 through L4 levels. Right-sided L2 transpedicular screw tract is demonstrated as well as bilateral screw tracts at L5-S1 from prior fusion hardware. Interbody devices are present at L1-L2 and L2-L3 with stable positioning and no retropulsion. Grade 1, nearly grade 2 retrolisthesis at L2-L3 is unchanged. Posterior and laterally positioned bone graft fragments or lateral osseous fusion are redemonstrated. Extensive soft tissue swelling along the laminectomy beds from recent surgery. The overall appearanc e is unchanged. Unchanged positioning of the orthopedic hardware. No acute fracture of the lumbar spine is identified . IMPRESSION: 1. THORACIC SPINE: NO VERTEBRAL COMPRESSION COLLAPSE OR MALALIGNMENT. COPD. 2. LUMBAR SPINE: REDEMONSTRATED RECENT LATERAL OSSEOUS FUSION AND LAMINECTOMY CHANGES SPANNING FROM T 12-S1 LEVELS. THERE IS UNCHANGED POSITIONING OF THE POSTERIOR AND INTERBODY FUSION HARDWARE AND STABL E GRADE 1, NEARLY GRADE 2 RETROLISTHESIS AT L2-L3. NO ACUTE FRACTURE IS SEEN.
--- NOTE | 2018-10-20 13:20 | XR ---
EXAMINATION TYPE: XR chest 2V DATE OF EXAM: 10/20/2018 COMPARISON: 05/03/1970 TECHNIQUE: PA and lateral views submitted. HISTORY: Syncope FINDINGS: The lungs are clear and there is no pneumothorax, pleural effusion, or focal pneumonia. Hyperinflat ion noted and there is biapical pleural thickening. Vague nodular density left upper lobe measuring [address] chest recommended. Postsurgical changes involving vertebral column. Hyperinflation suggests C OPD. IMPRESSION: 1. COPD. There is a vague nodular density in the left upper lobe for which CT of the chest is recomme nded to exclude pulmonary nodule.
[2018-10-20 14:17] LABS: Creatine Kinase MB 1.6 ng/mL (0.0-2.4)
[2018-10-20] MEDS ORDERED: MORPHINE SULFATE 4 MG/ML SYRINGE IVP PRN (15:27)
[2018-10-20 15:48] LABS: Appearance,Urine Cloudy (Clear); Bacteria,Urine Occasional /hpf; Bilirubin,Urine Negative (Negative); Blood,Urine Trace (Negative); Color,Urine Yellow; Glucose,Urine (UA) Negative (Negative); Ketones,Urine 2+ (Negative); Leukocyte Esterase,Urine Large (Negative); Mucus,Urine Many /hpf; Nitrite,Urine Negative (Negative); PH, Urine 6.5 (5.0-8.0); Protein,Urine 1+ (Negative); RBC,Urine 8 /hpf (0-5); Specific Gravity,Urine 1.014 (1.001-1.035); Squamous Epithelial Cell,Urine 1 /hpf (0-4); Urobilinogen,Urine <2.0 mg/dL (<2.0); WBC,Urine 38 /hpf (0-5)
--- NOTE | 2018-10-20 19:08 | P.CNNES ---
History of Present Illness Consult date: 10/20/18 Reason for Consult: Syncope versus seizure. History of Present Illness: Patient is a 68-year-old female, was brought to the hospital by ambulance for a syncopal spell versus seizure. Patient's was present, who provided the history along with the patient. Patient apparently had undergone spinal fusion on 10/08/2018 at [facility]. Patient was discharged home on 10/13/2018. She has been having back pain. Yesterday patient was back in the ER from 9 AM to 3 PM for back pain and her medications were adjusted. Patient went home, was not feeling well, nauseated, not eating although she was trying to drink some fluids. Patient has not slept for a few nights prior. Last night patient went to sleep at 9 PM. At 9 AM she was still in the bed, and her left the room, and patient was sleeping. At around 9:20 AM, patient's heard a loud noise of a fall. He was about 20 feet away in another room. He immediately went inside and saw patient laying on the floor on her back, unresponsive, breathing but her eyes were open, fixed. Her teeth were slightly clenched, but she was not rigid, no convulsive activity noted. There was some loss of control of urine noted. No oral trauma noted. Patient's called the ambulance and patient was brought to the hospital. Patient states that she does remember waking up in the morning and saw the clock was 9:25 AM. Patient had an urged to go for urination. She states that she did get up, made a few steps and then does not remember what happened. Probably was a syncopal spell. Patient was probably dehydrated. Patient denies any slurred speech, facial droop, diplopia, loss of vision, numbness tingling or focal weakness. Patient's blood pressure on arrival was 131/67, pulse rate 115, respiration 18 and saturation 98%. Patient's blood test shows WBC 16.8, hemoglobin 11.0 and platelets 80 T8. Sodium 135 potassium 5.0, renal functions normal. Troponin borderline 0.046. UA showed large amount of leukocyte Estrace, 38 WBCs and occasional bacteria. Patient's also states that 3 days after her back surgery while she was still in the hospital. She had another syncopal type spell. She was getting physical therapy, when patient while walking head a same blank stare, eyes were fixed and was not responding. The therapist laid her down. Patient never passed out completely like this time. No other previous history of syncope or seizures. Patient had history of lumbar fusion in April 2012. The current surgery was revision of previous fusion. Review of Systems Back pain, weakness, nausea, decreased appetite. Denies any new numbness tingling focal weakness. Past Medical History Past Medical History: Coronary Artery Disease (CAD), COPD, Osteoarthritis (OA), Respiratory Disorder Additional Past Medical History / Comment(s): mild COPD, colitis, uti, anxiety History of Any Multi-Drug Resistant Organisms: None Reported Past Surgical History: Section, Ear Surgery, Heart Catheterization, Orthopedic Surgery, Tonsillectomy, Tubal Ligation Additional Past Surgical History / Comment(s): Right knee, x2, tubes in ears, lumbar fusion L2-S1 Past Anesthesia/Blood Transfusion Reactions: No Reported Reaction Past Psychological History: Anxiety Smoking Status: Former smoker Past Alcohol Use History: None Reported Past Drug Use History: None Reported - Past Family History Son(s) Family Medical History: No Reported History Additional Family Medical History / Comment(s): autism Mother History Unknown: Yes Family Medical History: CVA/TIA Father Additional Family Medical History / Comment(s): suicide at 47 Brother(s) Additional Family Medical History / Comment(s): from alcohol and drug use. Sister(s) Family Medical History: Hypertension Medications and Allergies Home Medications Medication Instructions Recorded Confirmed Type Carvedilol [Coreg] 3.125 mg PO BID-W/MEALS #60 tab 05/09/17 10/20/18 Rx Lisinopril [Zestril] 2.5 mg PO DAILY@1200 #30 tab 05/09/17 10/20/18 Rx Nitroglycerin Sl Tabs [Nitrostat] 0.4 mg SUBLINGUAL Q5M PRN #25 tab 05/09/17 10/20/18 Rx Cyclobenzaprine [Flexeril] 1 - 2 tab PO TID 10/19/18 10/20/18 History LORazepam [Ativan] 1 mg PO BID 10/19/18 10/20/18 History Nitrofurantoin Monohyd/M-Cryst 100 mg PO Q12HR #14 cap 10/19/18 10/20/18 Rx [Macrobid] Risedronate Sodium [Actonel] 35 mg PO Q7D 10/19/18 10/20/18 History Rosuvastatin Calcium [Crestor] 5 mg PO DAILY 10/19/18 10/20/18 History Sertraline [Zoloft] 100 mg PO DAILY 10/19/18 10/20/18 History oxyCODONE-APAP 10-325MG [Percocet 1 tab PO Q6H PRN 10/19/18 10/20/18 History 10-325 mg] Allergies Allergy/AdvReac Type Severity Reaction Status Date / Time No Known Allergies Allergy Verified 10/20/18 10:55 Physical Examination - Vital Signs Vital Signs: Vital Signs Temp Pulse Resp BP Pulse Ox 10/20/18 17:52 118 H 18 112/65 99 10/20/18 10:42 120 H 16 131/67 98 10/20/18 10:09 98.6 F 115 H 18 131/67 98 Intake and Output 10/20/18 10/20/18 10/20/18 06:59 14:59 22:59 Other: Weight 58.967 kg On examination patient is an elderly female, appears somewhat dehydrated, thin, in no acute distress, appears slightly encephalopathic. There is no carotid bruit or murmur. Peripheral pulses are present. Her speech and language functions are normal. On cranial nerve examination, pupils are round and reacting, visual lewis are full, extraocular muscles are intact. Face is symmetric and tongue protrudes the midline. Muscle strength is normal in the arms and legs. No ataxia, sensations are equal. Reflexes symmetric and plantars downgoing. Tone and bulk of muscles normal. Gait deferred. Results - Laboratory Findings CBC and BMP: 10/20/18 10:40 10/20/18 10:40 Abnormal Lab Findings: Abnormal Labs 10/20/18 10/20/18 10/20/18 10:40 10:40 10:40 WBC 16.8 H Hgb 11.0 L Plt Count 888 H Neutrophils # 14.3 H Sodium 135 L BUN 21 H Glucose 124 H Troponin I 0.046 H* Urine Appearance Urine Protein Urine Ketones Urine Blood Ur Leukocyte Esterase Urine RBC Urine WBC Urine Bacteria Urine Mucus 10/20/18 15:35 WBC Hgb Plt Count Neutrophils # Sodium BUN Glucose Troponin I Urine Appearance Cloudy H Urine Protein 1+ H Urine Ketones 2+ H Urine Blood Trace H Ur Leukocyte Esterase Large H Urine RBC 8 H Urine WBC 38 H Urine Bacteria Occasional H Urine Mucus Many H Assessment and Plan Assessment: * Syncopal spell, likely vasovagal, or orthostatic. Patient probably was dehydrated, hypovolemic and probable pain medication effect may also contributed to the syncope. Patient probably has UTI, which also contributed to the syncope. * Status post lumbar fusion 10/08/2018. * Leukocytosis. Probable UTI. Plan: * No further neurological workup indicated. * Hydration, increase nutritional intake. * Watch for orthostatics. * Treatment of possible UTI as per internal medicine. * We will follow clinically.
--- NOTE | 2018-10-20 19:18 | ECHOF ---
Referral Reason:hx stress induced cardiomyopathy, syncope MEASUREMENTS -------- HEIGHT: 160.0 cm WEIGHT: 59.0 kg BP: IVSd: 1.2 cm (0.6 - 1.1) LVIDd: 3.0 cm (3.9 - 5.3) LVPWd: 1.5 cm (0.6 - 1.1) IVSs: 1.5 cm LVIDs: 2.1 cm LVPWs: 1.8 cm Ao Diam: 3.1 cm (2.0 - 3.7) LA Diam: 2.0 cm (2.7 - 3.8) AV Cusp: 1.6 cm (1.5 - 2.6) EPSS: 0.3 cm MV E Alin: 0.65 m/s MV DecT: 114 ms MV A Alin: 0.80 m/s MV E/A Ratio: 0.81 RAP: 5.00 mmHg RVSP: 44.48 mmHg MV EF SLOPE: 117.02 mm/s (70 - 150) MV EXCURSION: 21.56 mm (> 18.000) FINDINGS -------- Resting tachycardia (HR>100bpm). This was a technically adequate study. The left ventricular size is normal. There is moderate concentric left ventricular hypertrophy. O verall left ventricular systolic function is normal with, an EF between 60 - 65 %. The right ventricle is normal in size. The left atrial size is normal. The right atrial size is normal. Interatrial and interventricular septum intact. Aortic valve is trileaflet and is mildly thickened. The mitral valve leaflets are mildly thickened. Mild mitral regurgitation is present. Mild tricuspid regurgitation present. There is mild pulmonary hypertension. The right ventricular systolic pressure, as measured by Doppler, is 44.48mmHg. There is no pulmonic regurgitation present. The aortic root size is normal. Normal inferior vena cava with normal inspiratory collapse consistent with estimated right atrial pre ssure of 5 mmHg. There is no pericardial effusion. CONCLUSIONS -------- 1. Resting tachycardia (HR>100bpm). 2. This was a technically adequate study. 3. The left ventricular size is normal. 4. There is moderate concentric left ventricular hypertrophy. 5. Overall left ventricular systolic function is normal with, an EF between 60 - 65 %. 6. The right ventricle is normal in size. 7. The left atrial size is normal. 8. The right atrial size is normal. 9. Interatrial and interventricular septum intact. 10. Aortic valve is trileaflet and is mildly thickened. 11. The mitral valve leaflets are mildly thickened. 12. Mild mitral regurgitation is present. 13. Mild tricuspid regurgitation present. 14. There is mild pulmonary hypertension. 15. The right ventricular systolic pressure, as measured by Doppler, is 44.48mmHg. 16. There is no pulmonic regurgitation present. 17. The aortic root size is normal. 18. Normal inferior vena cava with normal inspiratory collapse consistent with estimated right atrial pressure of 5 mmHg. 19. There is no pericardial effusion. EQUIPMENT MONITOR PHOTOTYPESETTING: Mayte Cr RDCS
[2018-10-20] MEDS ORDERED: cefTRIAXone IN SWFI 1,000 MG/10 ML SYRINGE IVP STA (19:27)
[2018-10-20] MEDS ORDERED: ACETAMINOPHEN TAB 325 MG TAB PO STA (19:55)
[2018-10-20] MEDS ORDERED: VANCOMYCIN IV PER PHARMACY 1 EACH MISC MISCELLANE PRN (20:03)
[2018-10-20] MEDS ORDERED: VANCOMYCIN 1,000 MG in SODIUM CHLORIDE 0.9% 250 ML IVPB STA (20:07)
[2018-10-20] MEDS ORDERED: NITROGLYCERIN SL TABS 0.4 MG TAB SUBLINGUAL PRN (22:10)
[2018-10-20 22:50] VITALS: BMI 23.1
[2018-10-20] MEDS: CARVEDILOL 3.125 MG TAB PO SCH (23:02)
[2018-10-20] MEDS: ENOXAPARIN 40 MG/0.4 ML SYRINGE SQ SCH (23:02)
[2018-10-20] MEDS: oxyCODONE-APAP 10-325MG 1 EACH TAB PO PRN (23:02)
[2018-10-20] MEDS: CYCLOBENZAPRINE 5 MG TAB PO SCH (23:02)
--- NOTE | 2018-10-20 23:16 | HP ---
HISTORY AND PHYSICAL DATE OF ADMISSION: 10/20/2018 DATE OF SERVICE: 10/20/2018 PRESENTING COMPLAINT: Fall. HISTORY OF PRESENTING COMPLAINT: This is a pleasant 68-year-old patient of Dr. Almendarez. Chronic stable medical conditions include stress cardiomyopathy, follows with Dr. Bay, osteoarthritis, anxiety. On October 08 of this year, the patient underwent T12-L3 surgery in the lower back at [facility] by Dr. Atkins. After about 4 days, patient was discharged home. The patient has been having pain at the operative site off and on. The patient apparently did have a followup and incision was healing well. Today, patient's heard a crash in the floor and found the patient back down on the floor. The patient only remembers getting out of bed and maybe walking to the bathroom. Does not remember after that. When came to her, she was somewhat dazed, dazed and then she did urinate on herself. The patient had some urinary frequency. There has been no discharge from the incision site. The charge nurse called me earlier today that they had gotten hold of Dr. Atkins who knew the patient pretty well, and he said there is no need to transfer the patient and currently treat her at our place and we will do the same. There is no chest pain. No palpitation. Patient has no trouble moving her limbs. Able to walk on her own to the bedside commode. Back pain does fluctuate. No respiratory symptoms. REVIEW OF SYSTEMS: CONSTITUTIONAL: Tired. HEENT: None. RESPIRATORY: None. GASTROINTESTINAL none. GENITOURINARY urinary frequency. DERMATOLOGICAL: Incision healing well. LYMPHATICS none. PSYCHIATRY a bit anxious. NEUROLOGICAL: None. PAST MEDICAL HISTORY: Stress cardiomyopathy, osteoarthritis, colitis, anxiety. PAST SURGICAL HISTORY: , ear surgery, cardiac catheterization, she was told no blockage, tubal ligation, right knee surgery, tubes in the ear, lumbar fusion, L2-S1. PSYCH HISTORY: Anxiety. SOCIAL HISTORY: The patient has quit smoking in 98%, started smoking in February of last year due to stress and hardly smoking though. . FAMILY HISTORY: Of autism. HOME MEDICATIONS: 1. Percocet 10 one tablet q.6 p.r.n. 2. Zoloft 100 mg p.o. daily. 3. Crestor 5 mg p.o. daily. 4. Actonel 35 mg every 7 days. 5. Nitrostat 0.4 sublingual q.5 p.r.n. 6. Macrobid 100 mg q.12. 7. Zestril 2.5 mg p.o. daily. 8. Ativan 1 mg b.i.d. 9. Flexeril 1-2 tablets t.i.d. 10.Coreg 3.125 p.o. b.i.d. ALLERGIES: None. PHYSICAL EXAMINATION: VITAL SIGNS: Temperature 101.2, pulse 124, respiratory 18, blood pressure 128/69, pulse Ox 97% on room air. GENERAL APPEARANCE: Average built, lying in bed, somewhat uncomfortable. EYES: Pupils equal. Conjunctivae normal. HEENT: External appearance of nose and ears normal. Oral cavity normal. NECK: JVD not raised. Mass not palpable. RESPIRATORY effort normal. LUNGS slightly decreased breath sounds. CARDIOVASCULAR: 1st and 2nd sounds normal. No edema. ABDOMEN: Soft, nontender. Liver and spleen not palpable. LYMPHATICS: No lymph nodes palpable in the neck and axilla. PSYCHIATRY: Alert and oriented times three. Mood and affect slightly anxious- appearing. NEUROLOGICAL: Pupils equal. Cranial nerves grossly intact. Power and sensation grossly intact. MUSCULOSKELETAL: Evidence of osteoarthritis especially in the hands. DERMATOLOGICAL: The patient's incision is healing well in the lower back with no evidence of any erythema, redness. INVESTIGATIONS: Reviewed in clinical context. White count 16.8, hemoglobin 11, platelets 88 potassium 5, BUN 21 creatinine 0.56. Troponin 0.046, 0.028. ProBNP 3050. UA positive for leukocyte esterase, WBCs, . ASSESSMENT: 1. Patient presented with sepsis, has urinary symptoms most likely urinary tract infection with cystitis secondary to Duffy catheter. Patient did have Duffy catheter placed during surgery it seems he says twice after that. 2. Thoracolumbar surgery on October 08, 2018, cannot entirely rule out infection at this site. The patient had come to the ER yesterday. CT scan could not tell one way or the other, but this incision is healing well. 3. Positive troponin in a patient with known cardiomyopathy, possibly from likely sepsis. Patient has no active cardiac symptoms. 4. Reactive thrombocytosis. 5. Anxiety, not otherwise specified. PLAN: At this point, patient is started on IV ceftriaxone. We will give vancomycin empirically, also get ID opinion. We will also have patient see the Cardiology. Order an EEG to rule out any seizure activity though highly doubt the same. Care was discussed at length with the patient. Questions were answered. Copy to Dr. Almendarez. KASIA / FABIOLA: [id number] /
[2018-10-21] MEDS: VANCOMYCIN 1,000 MG in SODIUM CHLORIDE 0.9% 250 ML IVPB SCH ×3 (04:06→21:22)
[2018-10-21] MEDS: oxyCODONE-APAP 10-325MG 1 EACH TAB PO PRN ×4 (04:34→23:30)
[2018-10-21 05:49] LABS: Cholesterol 173 mg/dL (<200); HDL Cholesterol 57 mg/dL (40-60); LDL Cholesterol,Calculated 99 mg/dL (0-99); Triglycerides 87 mg/dL (<150)
[2018-10-21] MEDS: CARVEDILOL 3.125 MG TAB PO SCH ×2 (06:09→18:03)
[2018-10-21] MEDS: ATORVASTATIN 10 MG TAB PO SCH (10:42)
[2018-10-21] MEDS: ASPIRIN 325 MG TAB PO SCH (10:42)
[2018-10-21] MEDS: LORazepam 1 MG TAB PO SCH ×2 (10:42→20:15)
[2018-10-21] MEDS: SERTRALINE 100 MG TAB PO SCH (10:42)
[2018-10-21] MEDS: CYCLOBENZAPRINE 5 MG TAB PO SCH ×3 (10:43→21:26)
--- NOTE | 2018-10-21 12:15 | P.CRDCN ---
History of Present Illness Consult date: 10/21/18 History of present illness: This is a 68-year-old female with history of of stress-induced Cardec myopathy and also mild coronary artery disease, who underwent surgery for back fusion at [facility]. He was discharged home after 3 days. Apparently last Saturday, that is about 3 days ago, patient came to the emergency room because of severe back pain. She spent several hours in the hospital here and were discharged home later afternoon. Patient went home and apparently slept most of the night. Around 9:25 AM, left her and went to the next room. Harshal hernandez had a sound and went back and saw her unresponsive on the floor. No apparent seizure activity noted. There is some incontinence of the urine. Patient claims that she got up to go to the bathroom and the next thing she knew was that she was on the floor. She was brought to the hospital for further evaluation. Her EKGs did not reveal any acute changes except sinus tachycardia. Her blood pressure on arrival was stable. She doesn't remember having any chest pain or shortness of breath. She did receive pain medication for the back. Patient also hasn't been eating for 24 hours. His felt that most probably had episode of fall most probably secondary to postural hypotension or vasovagal reaction. Neurologist felt that there is no evidence of seizure disorder. No further neurological workup is suggested at this time. Patient troponins are mildly elevated. Echocardiogram was performed and results are pending at this time. We'll continue to monitor her for any postural hypote nsion and also any arrhythmias. We'll also look for any segmental wall motion defects on the echocardiogram. If echo is normal without any wall motion abnormalities, patient probably could be discharged home within next 24 hours. Review of Systems As per the chart Past Medical History Past Medical History: Coronary Artery Disease (CAD), COPD, Osteoarthritis (OA), Respiratory Disorder Additional Past Medical History / Comment(s): mild COPD, colitis, uti, anxiety History of Any Multi-Drug Resistant Organisms: None Reported Past Surgical History: Section, Ear Surgery, Heart Catheterization, Orthopedic Surgery, Tonsillectomy, Tubal Ligation Additional Past Surgical History / Comment(s): Right knee, x2, tubes in ears, lumbar fusion L2-S1, l3-T12 fusin october 08 Past Anesthesia/Blood Transfusion Reactions: No Reported Reaction Past Psychological History: Anxiety Smoking Status: Former smoker Past Alcohol Use History: None Reported Additional Past Alcohol Use History / Comment(s): quit smoking 1997 but in this oct started smoking again (due to stress) smoked 1 cig per day then quit 2 04/23/17. Past Drug Use History: None Reported - Past Family History Son(s) Family Medical History: No Reported History Additional Family Medical History / Comment(s): autism Mother History Unknown: Yes Family Medical History: CVA/TIA Father Additional Family Medical History / Comment(s): suicide at 47 Brother(s) Additional Family Medical History / Comment(s): from alcohol and drug use. Sister(s) Family Medical History: Hypertension Medications and Allergies Home Medications Medication Instructions Recorded Confirmed Type Carvedilol [Coreg] 3.125 mg PO BID-W/MEALS #60 tab 05/09/17 10/20/18 Rx Lisinopril [Zestril] 2.5 mg PO DAILY@1200 #30 tab 05/09/17 10/20/18 Rx Nitroglycerin Sl Tabs [Nitrostat] 0.4 mg SUBLINGUAL Q5M PRN #25 tab 05/09/17 10/20/18 Rx Cyclobenzaprine [Flexeril] 1 - 2 tab PO TID 10/19/18 10/20/18 History LORazepam [Ativan] 1 mg PO BID 10/19/18 10/20/18 History Nitrofurantoin Monohyd/M-Cryst 100 mg PO Q12HR #14 cap 10/19/18 10/20/18 Rx [Macrobid] Risedronate Sodium [Actonel] 35 mg PO Q7D 10/19/18 10/20/18 History Rosuvastatin Calcium [Crestor] 5 mg PO DAILY 10/19/18 10/20/18 History Sertraline [Zoloft] 100 mg PO DAILY 10/19/18 10/20/18 History oxyCODONE-APAP 10-325MG [Percocet 1 tab PO Q6H PRN 10/19/18 10/20/18 History 10-325 mg] Allergies Allergy/AdvReac Type Severity Reaction Status Date / Time No Known Allergies Allergy Verified 10/20/18 10:55 Physical Exam Vitals: Vital Signs Temp Pulse Pulse Resp BP BP Pulse Ox 10/21/18 08:00 98.8 F 105 H 16 144/93 98 10/21/18 03:11 112 H 18 10/21/18 03:08 97.4 F L 112 H 18 150/87 99 10/21/18 00:00 122 H 18 10/20/18 23:57 99.0 F 122 H 18 128/88 95 10/20/18 23:01 98.4 F 115 H 18 141/82 100 10/20/18 22:39 98.4 F 115 H 18 141/82 100 10/20/18 21:06 98.8 F 10/20/18 20:24 121 H 18 128/69 97 10/20/18 19:54 101.2 F H 124 H 18 97 10/20/18 19:39 117 H 18 98 10/20/18 17:52 118 H 18 112/65 99 Intake and Output 10/20/18 10/21/18 10/21/18 22:59 06:59 14:59 Output Total 300 Balance -300 Output: Urine 300 Other: Voiding Method Bedside Commode # Voids 1 1 GENERAL EXAM: Patient is alert and oriented and doesn't appear to be in any acute distress HEENT: Normocephalic. Normal reaction of pupils, equal size, normal range of extraocular motion. No erythema or exudates in the throat. NECK: No masses, no nuchal rigidity. CHEST: No chest wall deformity. LUNGS: Equal air entry with no crackles or wheeze. HEART: S1 and S2 normal with no audible mumurs or gallops. Regular rhythm, femorals equal on both sides.. Distant heart sounds ABDOMEN: No hepatosplenomegaly, normal bowel sounds, no guarding or rigidity. SKIN: No rashes CENTRAL NERVOUS SYSTEM: No focal deficits. EXTREMITIES: No cyanosis, clubbing or edema. Results 10/20/18 10:40 10/20/18 10:40 Cardiac Enzymes 10/20/18 10/20/18 10/20/18 Range/Units 10:40 16:34 22:51 CK-MB (CK-2) 1.6 (0.0-2.4) ng/mL Troponin I 0.028 0.021 (0.000-0.034) ng/mL Lipids 10/20/18 Range/Units 10:40 Triglycerides 87 (<150) mg/dL Cholesterol 173 (<200) mg/dL HDL Cholesterol 57 (40-60) mg/dL Current Medications Generic Name Dose Route Start Last Admin Trade Name Freq PRN Reason Stop Dose Admin Aspirin 325 mg 10/21/18 09:00 10/21/18 10:42 Aspirin PO 325 mg DAILY BIRDIE Administration Atorvastatin Calcium 10 mg 10/21/18 09:00 10/21/18 10:42 Lipitor PO 10 mg DAILY BIRDIE Administration Carvedilol 3.125 mg 10/20/18 22:15 10/21/18 06:09 Coreg PO 3.125 mg BID-W/MEALS BIRDIE Administration Cyclobenzaprine HCl 5 mg 10/20/18 22:30 10/21/18 10:43 Flexeril PO 5 mg TID BIRDIE Administration Enoxaparin Sodium 40 mg 10/20/18 22:15 10/20/18 23:02 Lovenox SQ 40 mg HS BIRDIE Administration Vancomycin HCl 1,000 mg/ 250 mls @ 125 mls/hr 10/21/18 04:00 10/21/18 04:06 Sodium Chloride IVPB 125 mls/hr Q8H BIRDIE Administration Lisinopril 2.5 mg 10/21/18 12:00 Zestril PO DAILY@1200 BIRDIE Lorazepam 1 mg 10/21/18 09:00 10/21/18 10:42 Ativan PO 1 mg BID BIRDIE Administration Miscellaneous Information 0 each 10/22/18 03:00 Vancomycin Trough Due MISCELLANE 10/22/18 03:01 DIRECTED ONE Nitroglycerin 0.4 mg 10/20/18 22:10 Nitrostat SUBLINGUAL Q5M PRN Chest Pain Oxycodone/Acetaminophen 1 each 10/20/18 22:10 10/21/18 10:43 Percocet 10-325 PO 1 each Q6H PRN Administration Pain Sertraline HCl 100 mg 10/21/18 09:00 10/21/18 10:42 Zoloft PO 100 mg DAILY BIRDIE Administration Intake and Output 10/20/18 10/21/18 10/21/18 22:59 06:59 14:59 Output Total 300 Balance -300 Output: Urine 300 Other: Voiding Method Bedside Commode # Voids 1 1 10/20/18 10:40 10/20/18 10:40 EKG Interpretations (text) Sinus tachycardia Assessment and Plan (1) Elevated troponin Current Visit: Yes Status: Acute Code(s): R74.8 - ABNORMAL LEVELS OF OTHER SERUM ENZYMES SNOMED Code(s): 646278016 (2) Syncope Current Visit: Yes Status: Acute Code(s): R55 - SYNCOPE AND COLLAPSE SNOMED Code(s): 779697296 (3) Tachycardia Current Visit: Yes Status: Acute Code(s): R00.0 - TACHYCARDIA, UNSPECIFIED SNOMED Code(s): 9646398 (4) UTI (urinary tract infection) Current Visit: No Status: Acute Code(s): N39.0 - URINARY TRACT INFECTION, SITE NOT SPECIFIED SNOMED Code(s): 20665098 Plan: Her echocardiogram showed normal LV function. Continue monitor for any arrhythmias and check blood pressure for postural changes. Continue with hydration. Further examination depend upon the clinical course
--- NOTE | 2018-10-21 13:55 | P.PN ---
Subjective Progress Note Date: 10/21/18 Patient states she is feeling stronger. Denies any focal symptoms. Patient able to eat and drink, tolerating food and fluids well. No nausea anymore. Patient however has developed some fever, T-max was 101.2 at 8 PM last night Objective - Vital Signs Vital signs: Vital Signs Temp 98.1 F 10/21/18 12:00 Pulse 99 10/21/18 12:00 Resp 16 10/21/18 12:00 BP 109/60 10/21/18 12:00 Pulse Ox 99 10/21/18 12:00 Intake & Output 10/20/18 10/21/18 10/21/18 18:59 06:59 18:59 Output Total 300 Balance -300 Weight 58.967 kg Output: Urine 300 Other: Voiding Method Bedside Commode # Voids 1 - Exam Patient's mental status, speech and language functions are normal. Cranial nerves are normal. Muscle strength is normal in the arms and legs. No weakness in the knee extension, ankles and toes. Hip flexion also appears fairly normal although I did not have patient check with full strength because of recent surgery. Reflexes are symmetric and plantars downgoing. Tone and bulk of muscles normal. - Labs CBC & Chem 7: 10/20/18 10:40 10/20/18 10:40 Labs: Abnormal Lab Results - Last 24 Hours (Table) 10/20/18 Range/Units 15:35 Urine Appearance Cloudy H (Clear) Urine Protein 1+ H (Negative) Urine Ketones 2+ H (Negative) Urine Blood Trace H (Negative) Ur Leukocyte Esterase Large H (Negative) Urine RBC 8 H (0-5) /hpf Urine WBC 38 H (0-5) /hpf Urine Bacteria Occasional H (None) /hpf Urine Mucus Many H (None) /hpf Microbiology - Last 24 Hours (Table) 10/20/18 15:35 Urine Culture - Preliminary Urine,Voided Assessment and Plan Assessment: * Syncopal spell, likely vasovagal, or orthostatic. Patient probably was dehydrated, hypovolemic and probable pain medication effect may also contributed to the syncope. Patient probably has UTI, which also contributed to the syncope. * Status post lumbar fusion 10/08/2018. * Leukocytosis with new onset fever. Possible UTI versus surgical site infection. Plan: * EEG has been ordered, still pending. We will review the results. * Hydration, increase nutritional intake. * Watch for orthostatics. * Treatment of possible UTI as per internal medicine. Patient started on Rocephin and vancomycin. Urine cultures so far negative. * May need to follow-up with the surgeon, if leukocytosis persist and urine cultures stay negative. * We will follow clinically.
--- NOTE | 2018-10-21 17:56 | CT ---
EXAMINATION: CT brain wo con DATE AND TIME: 10/21/2018 5:19 PM CLINICAL INDICATION: [facility]; fall with hard impact to head TECHNIQUE: Standard departmental protocol.; 1074.4; COMPARISON: 10/20/2018 CT FINDINGS: High over the convexity just left of midline is a focus of 5 cm x 5 cm x 1 cm scalp soft tissue swell ing. The underlying calvarium is intact. Remainder of the skull evaluation is negative for fracture. There is no intracranial hemorrhage. There is no intracranial mass or mass effect. No definite new intra-axial or extra-axial attenuation defect. The paranasal sinuses, middle ear cavities, and mastoid sinus air cells are clear. The orbits are unremarkable. IMPRESSION: 1. Scalp hematoma. 2. No cranial or intracranial process.
[2018-10-21] MEDS: LISINOPRIL 2.5 MG TAB PO SCH (18:02)
--- NOTE | 2018-10-21 21:14 | P.CONS ---
History of Present Illness - Reason for Consult Consult date: 10/21/18 Sepsis Requesting physician: Royal Carroll - Chief Complaint Fever and follow-up x 1 day - History of Present Illness Patient is a 68-year-old female who recently did have extensive lumbar spine fusion done at [facility] on 10/08/2018 patient was subsequently discharged home on 10/13/2018, patient seemed to have some problem with postoperative back pain for the same reason the patient was seen at [facility] ER at a a day prior to presenting back to the hospital, on the day of presentation to the hospital apparently the patient woke up and went to the bathroom and did have a fall the heard the noise and found the patient to be on the floor stating no response in breathing and EMS was called and brought the patient to the ER with concern for possible syncopal versus seizure activity, there is no history of any fever at home, and the patient lumbar spine incision seems to be healing well with no evidence of any redness or any drainage from the who provided most of the history, patient subsequently did have a fever of 101F, the patient also have elevated but was 16,000 the patient did have CT of the thoracic lumbar spine with the patient was noticed to have postoperative changes of spinal fusion no evidence of any fluid collection, patient did receive 1 dose of Rocephin in the ER she was continued on vancomycin infection disease was consulted for further recommendation regarding antibiotic therapy. Patient fever has subsequently resolved, the patient is awake and alert and she noticed in the hospital, the patient denies any headache no URI symptoms no chest pain shortness of breath or cough denies any abdominal pain some nausea but no vomiting no diarrhea, pain in the back remains to be excruciating but no worsening and currently controlled with the pain medication Review of Systems Positive points has been mentioned in HPI rest of the systems are negative Past Medical History Past Medical History: Coronary Artery Disease (CAD), COPD, Osteoarthritis (OA), Respiratory Disorder Additional Past Medical History / Comment(s): mild COPD, colitis, uti, anxiety History of Any Multi-Drug Resistant Organisms: None Reported Past Surgical History: Section, Ear Surgery, Heart Catheterization, Orthopedic Surgery, Tonsillectomy, Tubal Ligation Additional Past Surgical History / Comment(s): Right knee, x2, tubes in ears, lumbar fusion L2-S1, l3-T12 fusin october 08 Past Anesthesia/Blood Transfusion Reactions: No Reported Reaction Past Psychological History: Anxiety Smoking Status: Former smoker Past Alcohol Use History: None Reported Additional Past Alcohol Use History / Comment(s): quit smoking 1997 but in this oct started smoking again (due to stress) smoked 1 cig per day then quit 2 04/23/17. Past Drug Use History: None Reported - Past Family History Son(s) Family Medical History: No Reported History Additional Family Medical History / Comment(s): autism Mother History Unknown: Yes Family Medical History: CVA/TIA Father Additional Family Medical History / Comment(s): suicide at 47 Brother(s) Additional Family Medical History / Comment(s): from alcohol and drug use. Sister(s) Family Medical History: Hypertension Medications and Allergies Home Medications Medication Instructions Recorded Confirmed Type Carvedilol [Coreg] 3.125 mg PO BID-W/MEALS #60 tab 05/09/17 10/20/18 Rx Lisinopril [Zestril] 2.5 mg PO DAILY@1200 #30 tab 05/09/17 10/20/18 Rx Nitroglycerin Sl Tabs [Nitrostat] 0.4 mg SUBLINGUAL Q5M PRN #25 tab 05/09/17 10/20/18 Rx Cyclobenzaprine [Flexeril] 1 - 2 tab PO TID 10/19/18 10/20/18 History LORazepam [Ativan] 1 mg PO BID 10/19/18 10/20/18 History Nitrofurantoin Monohyd/M-Cryst 100 mg PO Q12HR #14 cap 10/19/18 10/20/18 Rx [Macrobid] Risedronate Sodium [Actonel] 35 mg PO Q7D 10/19/18 10/20/18 History Rosuvastatin Calcium [Crestor] 5 mg PO DAILY 10/19/18 10/20/18 History Sertraline [Zoloft] 100 mg PO DAILY 10/19/18 10/20/18 History oxyCODONE-APAP 10-325MG [Percocet 1 tab PO Q6H PRN 10/19/18 10/20/18 History 10-325 mg] Allergies Allergy/AdvReac Type Severity Reaction Status Date / Time No Known Allergies Allergy Verified 10/20/18 10:55 Physical Exam Vitals: Vital Signs Temp Pulse Pulse Resp BP BP Pulse Ox 10/21/18 14:11 87 16 115/59 95 10/21/18 12:00 98.1 F 99 16 109/60 99 10/21/18 08:00 98.8 F 105 H 16 144/93 98 10/21/18 03:11 112 H 18 10/21/18 03:08 97.4 F L 112 H 18 150/87 99 10/21/18 00:00 122 H 18 10/20/18 23:57 99.0 F 122 H 18 128/88 95 10/20/18 23:01 98.4 F 115 H 18 141/82 100 10/20/18 22:39 98.4 F 115 H 18 141/82 100 10/20/18 21:06 98.8 F 10/20/18 20:24 121 H 18 128/69 97 10/20/18 19:54 101.2 F H 124 H 18 97 10/20/18 19:39 117 H 18 98 10/20/18 17:52 118 H 18 112/65 99 Intake and Output 10/21/18 10/21/18 10/21/18 06:59 14:59 22:59 Output Total 300 Balance -300 Output: Urine 300 Other: Voiding Method Bedside Commode # Voids 1 GENERAL DESCRIPTION: An elderly female lying in bed, no distress. No tachypnea or accessory muscle of respiration use. HEENT: Shows Pallor , no scleral icterus. Oral mucous membrane is dry. No pharyngeal erythema or thrush NECK: Trachea central, no thyromegaly. LUNGS: Unlabored breathing. Clear to auscultation anteriorly. No wheeze or crackle. HEART: S1, S2, regular rate and rhythm. No loud murmur ABDOMEN: Soft, no tenderness , guarding or rigidity, no organomegaly EXTREMITIES: No edema of feet. SKIN: No rash, no masses palpable. SPINE: The incision looks clean with some Steri-Strips still in place with no redness no drainage NEUROLOGICAL: The patient is awake, alert, oriented x3, mood and affect normal Results CBC & Chem 7: 10/20/18 10:40 10/20/18 10:40 Labs: Microbiology - Last 24 Hours (Table) 10/20/18 15:35 Urine Culture - Preliminary Urine,Voided Assessment and Plan Assessment: 1-patient admitted hospital after the patient did have all the question of possible syncopal episode versus seizure in this patient who did have a features of sepsis or trauma with a fever and elevated white count so far positive on i ncluding a positive UA with UTI not entirely excluded likely from enteric gram- negative pathogen, the patient recently did have extensive spinal surgery with fusion of the spine from T12 to S1, however currently there are no signs of inflammation at the incision site with no redness no drainage making it to be less likely source of infection we'll not entirely excluded and currently with no other clinical focus of infection chest x-ray clear abdominal soft on clinical examination (1) Sepsis Current Visit: Yes Status: Acute Code(s): A41.9 - SEPSIS, UNSPECIFIED ORGANISM SNOMED Code(s): 84401043 (2) UTI (urinary tract infection) Current Visit: No Status: Acute Code(s): N39.0 - URINARY TRACT INFECTION, SITE NOT SPECIFIED SNOMED Code(s): 20862499 Plan: 1-we will start the patient on Rocephin 1 g daily 2-discontinue the vancomycin 3-review the CT with the radiologist in the a.m. we will follow up on clinical condition and cultures to further adjust medication if needed Thank you for this consultation will follow this patient along with you at the bedside all his questions and concerns were answered in Layman terms Time with Patient: Greater than 30
[2018-10-21] MEDS: ENOXAPARIN 40 MG/0.4 ML SYRINGE SQ SCH (21:26)
[2018-10-22] MEDS ORDERED: VANCOMYCIN TROUGH DUE 1 EACH MISC MISCELLANE ONE (03:00)
[2018-10-22] MEDS: oxyCODONE-APAP 10-325MG 1 EACH TAB PO PRN ×3 (05:04→21:37)
[2018-10-22] MEDS: CARVEDILOL 3.125 MG TAB PO SCH ×2 (06:28→16:38)
--- NOTE | 2018-10-22 06:44 | PN ---
PROGRESS NOTE DATE OF SERVICE: 10/21/2018 PRESENTING COMPLAINT: Sepsis. INTERVAL HISTORY: This patient presented with UTI with sepsis also had a fall at home, felt to be weakness. Feels a bit better today. Back pain is better. Did tolerate some diet. Lying in bed. REVIEW OF SYSTEMS: Done for constitutional, cardiovascular, GI, pulmonary; relevant findings as above. CURRENT MEDICATIONS: Current medications are reviewed that include IV ceftriaxone. PHYSICAL EXAMINATION: On examination, afebrile this morning, pulse 105, respiration 16, blood pressure 144/93, pulse ox 98% on room air. GENERAL APPEARANCE: Lying in bed, awake. EYES: Pupils equal. Conjunctivae normal. NECK: JVD not raised. Mass not palpable. RESPIRATORY: Effort normal. LUNGS: Decreased breath sounds. CARDIOVASCULAR: First and second sounds normal. No edema. ABDOMEN: Soft, nontender. Liver and spleen not palpable. PSYCHIATRY: Alert and oriented x3. Mood and affect normal. DERMATOLOGICAL: Incision on the lower back healing well. INVESTIGATIONS: Troponin 0.028 and 0.021. Urine culture pending. ASSESSMENT: 1. Acute urinary tract infection with sepsis from cystitis secondary to recent Duffy catheterization. 2. Thoracolumbar surgery on October 08 that clinically does not appear to be infected. 3. Positive troponin in a patient with known cardiomyopathy, likely from sepsis. No active cardiac symptoms. 4. Reactive thrombocytosis. 5. Anxiety, not otherwise specified. PLAN: Patient was IV vancomycin, discontinued with ID, I agree. The patient is UTI. EEG is pending to rule out a seizure activity. Care was discussed with the patient. The patient does feel better this morning. Continue with IV antibiotics and fluids. The patient's 2D echocardiogram has come back showing EF 60% to 65% with no evidence of cardiomyopathy. MMODL / IJN: [id number] /
[2018-10-22 07:42] LABS: Basophils % (A) 0 %; Eosinophils # (A) 0.1 k/uL (0-0.7); Eosinophils % (A) 1 %; HCT 30.1 % (34.0-46.0); HGB 9.6 gm/dL (11.4-16.0); Hypochromasia Slight; Lymphocytes # (A) 1.4 k/uL (1.0-4.8); Lymphocytes % (A) 14 %; MCH 28.7 pg (25.0-35.0); MCHC 31.8 g/dL (31.0-37.0); MCV 90.2 fL (80.0-100.0); Mean Platelet Volume 6.5; Monocytes # (A) 0.6 k/uL (0-1.0); Monocytes % (A) 5 %; Neutrophils # (A) 8.1 k/uL (1.3-7.7); Neutrophils % (A) 78 %; Platelet Count 713 k/uL (150-450); RBC 3.33 m/uL (3.80-5.40); RDW 14.3 % (11.5-15.5); WBC 10.3 k/uL (3.8-10.6)
[2018-10-22 07:58] LABS: Chloride 105 mmol/L (98-107); Glucose 110 mg/dL (74-99); Potassium 4.4 mmol/L (3.5-5.1); Sodium 137 mmol/L (137-145)
[2018-10-22 07:59] LABS: African American GFR (CKD) >90 (>60 ml/min/1.73 sqM); Anion Gap 6 mmol/L; Blood Urea Nitrogen 24 mg/dL (7-17); Calcium 8.9 mg/dL (8.4-10.2); Carbon Dioxide 26 mmol/L (22-30)
[2018-10-22] MEDS: ATORVASTATIN 10 MG TAB PO SCH (08:50)
[2018-10-22] MEDS: SERTRALINE 100 MG TAB PO SCH (08:50)
[2018-10-22] MEDS: LORazepam 1 MG TAB PO SCH ×2 (08:50→21:38)
[2018-10-22] MEDS: CYCLOBENZAPRINE 5 MG TAB PO SCH ×3 (08:50→21:38)
[2018-10-22] MEDS: ASPIRIN 325 MG TAB PO SCH (08:50)
--- NOTE | 2018-10-22 12:10 | P.PN ---
Subjective Progress Note Date: 10/22/18 This is a 68-year-old female with history of of stress-induced Cardec myopathy and also mild coronary artery disease, who underwent surgery for back fusion at [facility]. He was discharged home after 3 days. Apparently last Saturday, that is about 3 days ago, patient came to the emergency room because of severe back pain. She spent several hours in the hospital here and were discharged home later afternoon. Patient went home and apparently slept most of the night. Around 9:25 AM, left her and went to the next room. Suddenly had a sound and went back and saw her unresponsive on the floor. No apparent seizure activity noted. There is some incontinence of the urine. Patient claims that she got up to go to the bathroom and the next thing she knew was that she was on the floor. She was brought to the hospital for further evaluation. Her EKGs did not reveal any acute changes except sinus tachycardia. Her blood pressure on arrival was stable. She doesn't remember having any chest pain or shortness of breath. She did receive pain medication for the back. Patient also hasn't been eating for 24 hours. His felt that most probably had episode of fall most probably secondary to postural hypotension or vasovagal reaction. Neurologist felt that there is no evidence of seizure disorder. No further neurological workup is suggested at this time. Patient troponins are mildly elevated. Echocardiogram was performed and results are pending at this time. We'll continue to monitor her for any postural hypotension and also any arrhythmias. We'll also look for any segmental wall motion defects on the echocardiogram. If echo is normal without any wall motion abnormalities, patient probably could be discharged home within next 24 hours. 10/22/2018 Patient was seen and examined this morning, appears somewhat groggy. No orthostatics have been documented, she apparently had a fall yesterday, got up out of bed and felt completely back on to her back hitting her head on the ground. CT of the brain was performed which did not revealany cranial or intracranial process, she did have evidence of a scalp hematoma.blood pressure this morning 106/60 with a heart rate in the 80s, 98% on room air.White blood cell count 10.3, hemoglobin 9.6, platelet count 713. Sodium 137, potassium 4.4, BUN 24 and creatinine 0.5.echocardiogram with Doppler study revealed an ejection fraction of 60-65%. Objective - Vital Signs Vital signs: Vital Signs Temp 97.4 F L 10/22/18 08:55 Pulse 82 10/22/18 08:55 Resp 16 10/22/18 08:55 BP 106/67 10/22/18 08:55 Pulse Ox 98 10/22/18 08:55 Intake & Output 10/21/18 10/22/18 10/22/18 18:59 06:59 18:59 Intake Total 120 Output Total 800 Balance -800 120 Weight 57.2 kg Intake: Oral 120 Output: Urine 800 Other: Voiding Method Bedside Commode Bedside Commode Bedside Commode - Exam GENERAL EXAM: Patient is alert and oriented and doesn't appear to be in any acute distress HEENT: Normocephalic. Normal reaction of pupils, equal size, normal range of extraocular motion. No erythema or exudates in the throat. NECK: No masses, no nuchal rigidity. CHEST: No chest wall deformity. LUNGS: Equal air entry with no crackles or wheeze. BACK:incision on her back is clean and dry, a couple Steri-Strips are still in place, no evidence of redness or swelling no drainage HEART: S1 and S2 normal with no audible mumurs or gallops. Regular rhythm, femorals equal on both sides.. Distant heart sounds ABDOMEN: No hepatosplenomegaly, normal bowel sounds, no guarding or rigidity. SKIN: No rashes CENTRAL NERVOUS SYSTEM: No focal deficits. EXTREMITIES: No cyanosis, clubbing or edema. - Labs CBC & Chem 7: 10/22/18 07:21 10/22/18 07:21 Labs: Abnormal Lab Results - Last 24 Hours (Table) 10/22/18 10/22/18 Range/Units 07:21 07:21 RBC 3.33 L (3.80-5.40) m/uL Hgb 9.6 L (11.4-16.0) gm/dL Hct 30.1 L (34.0-46.0) % Plt Count 713 H (150-450) k/uL Neutrophils # 8.1 H (1.3-7.7) k/uL BUN 24 H (7-17) mg/dL Creatinine 0.50 L (0.52-1.04) mg/dL Glucose 110 H (74-99) mg/dL Microbiology - Last 24 Hours (Table) 10/20/18 15:35 Urine Culture - Preliminary Urine,Voided Gram Neg Bacilli Assessment and Plan Plan: assessment and plan #1 syncope, no arrhythmias have been noted on the monitor, orthostatics have not been obtained. Patient did have a second syncopal episode here yesterday.No arrhythmia documented, no blood pressure obtained. #2 abnormal troponin, no significant rise and fall pattern, not suggestive of acute coronary syndrome. #3 UTI #4 recent back surgery #5 mild COPD #6 anxiety Plan We have asked the nurse to check orthostatic heart rate and blood pressure every shift, we'll continue to monitor for any arrhythmias. We will recommend monitoring the a shunt in the hospital for at least another 24 hours. DNP note has been reviewed, I agree with a documented findings and plan of care. Patient was seen and examined.
--- NOTE | 2018-10-22 12:23 | PN ---
PROGRESS NOTE DATE OF SERVICE: 10/22/2018 REASON FOR FOLLOWUP: Fever and a question of UTI versus surgical site infection. INTERVAL HISTORY: The patient overall feels better and has improved with no fever that has been recorded in the last 48 hours. The patient did have a fall yesterday with a hematoma to the scalp area. The patient continued complaining of pain to the lower back area, but no worsening. No chest pain, shortness of breath or cough. No abdominal pain or any diarrhea. PHYSICAL EXAMINATION: On examination, blood pressure 106/67 with a pulse of 82, temperature 97.4. She is 98% on room air. General description is an elderly female lying in bed in no distress. RESPIRATORY SYSTEM: Unlabored breathing, clear to auscultation anteriorly. HEART: S1, S2. Regular rate and rhythm. ABDOMEN: Soft, no tenderness. LABS: Hemoglobin 9.6, white count of 10.3 with a BUN of 24, creatinine 0.50. Blood culture has been negative. Vancomycin trough was low. Urine showing gram-negative. DIAGNOSTIC IMPRESSION AND PLAN: Patient admitted to the hospital with a fever with concern for possible urinary source. Clinical suspicion low for underlying surgical site infection as currently with no evidence of any erythema or worsening pain at the site or any drainage. The patient's fever responding to Rocephin that will be continued while waiting for the ID gram- negative in the urine and monitor clinical course closely. Continue supportive care. MMKELLIL / FABRICION: [id number] /
--- NOTE | 2018-10-22 13:44 | P.GSCN ---
History of Present Illness Consult date: 10/22/18 Reason for Consult: Scalp laceration History of present illness: This is a 68-year-old female who was being worked up for syncope. Patient gian arently fell in her hospital room last night. She has a small scalp laceration. There is no active bleeding. Patient denies a significant head/scalp pain. Past Medical History Past Medical History: Coronary Artery Disease (CAD), COPD, Osteoarthritis (OA), Respiratory Disorder Additional Past Medical History / Comment(s): mild COPD, colitis, uti, anxiety History of Any Multi-Drug Resistant Organisms: None Reported Past Surgical History: Section, Ear Surgery, Heart Catheterization, Orthopedic Surgery, Tonsillectomy, Tubal Ligation Additional Past Surgical History / Comment(s): Right knee, x2, tubes in ears, lumbar fusion L2-S1, l3-T12 fusin october 08 Past Anesthesia/Blood Transfusion Reactions: No Reported Reaction Past Psychological History: Anxiety Smoking Status: Former smoker Past Alcohol Use History: None Reported Additional Past Alcohol Use History / Comment(s): quit smoking 1997 but in this oct started smoking again (due to stress) smoked 1 cig per day then quit 2 04/23/17. Past Drug Use History: None Reported - Past Family History Son(s) Family Medical History: No Reported History Additional Family Medical History / Comment(s): autism Mother History Unknown: Yes Family Medical History: CVA/TIA Father Additional Family Medical History / Comment(s): suicide at 47 Brother(s) Additional Family Medical History / Comment(s): from alcohol and drug use. Sister(s) Family Medical History: Hypertension Medications and Allergies Home Medications Medication Instructions Recorded Confirmed Type Carvedilol [Coreg] 3.125 mg PO BID-W/MEALS #60 tab 05/09/17 10/20/18 Rx Lisinopril [Zestril] 2.5 mg PO DAILY@1200 #30 tab 05/09/17 10/20/18 Rx Nitroglycerin Sl Tabs [Nitrostat] 0.4 mg SUBLINGUAL Q5M PRN #25 tab 05/09/17 10/20/18 Rx Cyclobenzaprine [Flexeril] 1 - 2 tab PO TID 10/19/18 10/20/18 History LORazepam [Ativan] 1 mg PO BID 10/19/18 10/20/18 History Nitrofurantoin Monohyd/M-Cryst 100 mg PO Q12HR #14 cap 10/19/18 10/20/18 Rx [Macrobid] Risedronate Sodium [Actonel] 35 mg PO Q7D 10/19/18 10/20/18 History Rosuvastatin Calcium [Crestor] 5 mg PO DAILY 10/19/18 10/20/18 History Sertraline [Zoloft] 100 mg PO DAILY 10/19/18 10/20/18 History oxyCODONE-APAP 10-325MG [Percocet 1 tab PO Q6H PRN 10/19/18 10/20/18 History 10-325 mg] Allergies Allergy/AdvReac Type Severity Reaction Status Date / Time No Known Allergies Allergy Verified 10/20/18 10:55 Surgical - Exam Vital Signs Temp Pulse Resp BP Pulse Ox 98.6 F 115 H 18 131/67 98 10/20/18 10:09 10/20/18 10:09 10/20/18 10:09 10/20/18 10:09 10/20/18 10:09 - General well developed, no distress - Eyes PERRL - ENT normal pinna - Neck no masses - Integumentary 1 cm scalp laceration on the posterior scalp. There is no active bleeding. There is a well formed clot over the area. Results - Labs 10/22/18 07:21 10/22/18 07:21 Abnormal Lab Results - Last 24 Hours (Table) 10/22/18 10/22/18 Range/Units 07:21 07:21 RBC 3.33 L (3.80-5.40) m/uL Hgb 9.6 L (11.4-16.0) gm/dL Hct 30.1 L (34.0-46.0) % Plt Count 713 H (150-450) k/uL Neutrophils # 8.1 H (1.3-7.7) k/uL BUN 24 H (7-17) mg/dL Creatinine 0.50 L (0.52-1.04) mg/dL Glucose 110 H (74-99) mg/dL Microbiology - Last 24 Hours (Table) 10/20/18 15:35 Urine Culture - Preliminary Urine,Voided Gram Neg Bacilli Diabetes panel 10/22/18 Range/Units 07:21 Sodium 137 (137-145) mmol/L Potassium 4.4 (3.5-5.1) mmol/L Chloride 105 (98-107) mmol/L Carbon Dioxide 26 (22-30) mmol/L BUN 24 H (7-17) mg/dL Creatinine 0.50 L (0.52-1.04) mg/dL Glucose 110 H (74-99) mg/dL Calcium 8.9 (8.4-10.2) mg/dL Calcium panel 10/22/18 Range/Units 07:21 Calcium 8.9 (8.4-10.2) mg/dL Pituitary panel 10/22/18 Range/Units 07:21 Sodium 137 (137-145) mmol/L Potassium 4.4 (3.5-5.1) mmol/L Chloride 105 (98-107) mmol/L Carbon Dioxide 26 (22-30) mmol/L BUN 24 H (7-17) mg/dL Creatinine 0.50 L (0.52-1.04) mg/dL Glucose 110 H (74-99) mg/dL Calcium 8.9 (8.4-10.2) mg/dL Adrenal panel 10/22/18 Range/Units 07:21 Sodium 137 (137-145) mmol/L Potassium 4.4 (3.5-5.1) mmol/L Chloride 105 (98-107) mmol/L Carbon Dioxide 26 (22-30) mmol/L BUN 24 H (7-17) mg/dL Creatinine 0.50 L (0.52-1.04) mg/dL Glucose 110 H (74-99) mg/dL Calcium 8.9 (8.4-10.2) mg/dL Assessment and Plan Assessment: Small scalp laceration after fall. Patient does not require any surgical intervention at this point.
[2018-10-22] MEDS: LISINOPRIL 2.5 MG TAB PO SCH (14:42)
--- NOTE | 2018-10-22 15:08 | P.PN ---
Subjective Progress Note Date: 10/22/18 Patient states she is feeling stronger. She had showered recently. Overall feels much better. Appetite has improved. Still some back pain, but denies any drainage or inflammation of the scar tissue. Patient's urine now has grown gram-negative bacilli, greater than 100,000. Her foot WBC count has improved to 10.3, and she is afebrile. Denies any focal symptoms. No nausea anymore. Objective - Vital Signs Vital signs: Vital Signs Temp 97.6 F 10/22/18 12:00 Pulse 103 H 10/22/18 12:00 Resp 16 10/22/18 12:00 BP 148/80 10/22/18 14:26 Pulse Ox 98 10/22/18 12:00 Intake & Output 10/21/18 10/22/18 10/22/18 18:59 06:59 18:59 Intake Total 120 Output Total 800 Balance -800 120 Weight 57.2 kg Intake: Oral 120 Output: Urine 800 Other: Voiding Method Bedside Commode Bedside Commode Bedside Commode - Exam Patient's mental status, speech and language functions are normal. Cranial nerves are normal. Muscle strength is normal in the arms and legs. No weakness in the knee extension, ankles and toes. Hip flexion also appears fairly normal although I did not have patient check with full strength because of recent surgery. Reflexes are symmetric and plantars downgoing. Tone and bulk of muscles normal. - Labs CBC & Chem 7: 10/22/18 07:21 10/22/18 07:21 Labs: Abnormal Lab Results - Last 24 Hours (Table) 10/22/18 10/22/18 Range/Units 07:21 07:21 RBC 3.33 L (3.80-5.40) m/uL Hgb 9.6 L (11.4-16.0) gm/dL Hct 30.1 L (34.0-46.0) % Plt Count 713 H (150-450) k/uL Neutrophils # 8.1 H (1.3-7.7) k/uL BUN 24 H (7-17) mg/dL Creatinine 0.50 L (0.52-1.04) mg/dL Glucose 110 H (74-99) mg/dL Microbiology - Last 24 Hours (Table) 10/20/18 15:35 Urine Culture - Preliminary Urine,Voided Gram Neg Bacilli Assessment and Plan Assessment: * Syncopal spell, likely vasovagal, or orthostatic. Patient probably was dehydrated, hypovolemic and probable pain medication effect may also contributed to the syncope. Patient has UTI, probably contributing to the syncope. * Status post lumbar fusion 10/08/2018. * Leukocytosis with fever, most likely due to UTI. Urine cultures has grown gram-negative bacilli > 100,000. No signs of surgical site/hardware infection at this time. Plan: * EEG was performed today, which is normal. * Hydration, increase nutritional intake. * Watch for orthostatics. * Patient on Rocephin for UTI. * Infectious disease on board. * Patient neurologically stable.
--- NOTE | 2018-10-22 19:35 | EEG ---
ELECTROENCEPHALOGRAM REPORT DATE OF SERVICE: 10/22/2018. PREAMBLE: This is a 68-year-old female who came to the hospital for a syncopal spell versus seizure. Patient had recent back surgery on 10/08/2018, had a UTI. ELECTROENCEPHALOGRAM FINDINGS: This is a 21-channel awake digital EEG recording, accomplished utilizing the 10-20 international system with bipolar and referential montages. The background consists of well developed, well regulated, moderate amplitude activity in 8 Hz alpha. Background is posterior-dominant and seems to be reactive to eye opening and closing. Frequent myogenic artifacts were seen. Patient was drowsy with appearance of bilaterally symmetric theta frequency. Stage II sleep was attained with appearance of sleep spindles and vertex waves. Deeper stages of sleep were not attained. Photic driving response was not seen. No focal or generalized epileptiform activity was seen. IMPRESSION: This is a normal EEG during wakefulness, drowsiness and stage II sleep. No epileptiform activity was seen. MMODL / IJN: [id number] /
[2018-10-22] MEDS: ENOXAPARIN 40 MG/0.4 ML SYRINGE SQ SCH (21:38)
--- NOTE | 2018-10-22 22:13 | PN ---
PROGRESS NOTE DATE OF SERVICE: October 22, 2018 PRESENTING COMPLAINT: UTI with sepsis. INTERVAL HISTORY: Patient presented with a UTI with sepsis. Recently had back surgery done at [facility] by Dr. Atkins. Yesterday, took a fall in the room, had a scalp laceration. CT scan was negative. Seen by Dr. Ward. No need for any stitches. Overall feeling much better. Did tolerate some diet. REVIEW OF SYSTEMS: Done for constitutional, cardiovascular, GI, pulmonary; relevant findings as above. CURRENT MEDICATIONS: Reviewed that include IV ceftriaxone. PHYSICAL EXAMINATION: VITAL SIGNS: Afebrile. Pulse 103. Respirations 16, blood pressure 140/80, pulse ox 98% on room air. GENERAL APPEARANCE: Lying in bed. Looking better. EYES: Pupils are equal. Conjunctivae normal. NECK: JVD not raised. Mass not palpable. RESPIRATORY: Effort normal. LUNGS: Decreased breath sounds. CARDIOVASCULAR: 1st and 2nd sounds normal. No edema. ABDOMEN: Soft, nontender. Liver and spleen not palpable. SCALP: Small lacerations. PSYCHIATRY: Alert and oriented x3. Mood and affect normal. INVESTIGATIONS: CT scan showing scalp hematoma. White count 10.3, hemoglobin 9.6, potassium 4.4. Urine cultures growing gram-negative bacilli. ASSESSMENT: 1. Acute urinary tract infection with sepsis from cystitis secondary to recent Duffy catheterization during her recent hospitalization for surgery with gram-negative organism. 2. Thoracolumbar surgery on October 08 that does not appear to be infected. Incision is looking good. 3. Positive troponin from underlying sepsis. No acute coronary syndrome. 4. Reactive thrombocytosis. 5. The patient does not have any cardiomyopathy. 2D echo shows preserved LV function. 6. Anxiety not otherwise specified. 7. Scalp hematoma with laceration secondary to a fall, stable. PLAN: Continue with IV ceftriaxone. Overall doing much better. Encourage the patient to be out of bed in the chair. Once cultures are back, hoping patient can be discharged by tomorrow. MMODL / IJN: [id number] /
[2018-10-22 23:16] VITALS: RESP 18
[2018-10-23] MEDS: oxyCODONE-APAP 10-325MG 1 EACH TAB PO PRN ×2 (03:31→09:22)
[2018-10-23] MEDS: CARVEDILOL 3.125 MG TAB PO SCH (07:02)
[2018-10-23] MEDS: SERTRALINE 100 MG TAB PO SCH (08:30)
[2018-10-23] MEDS: CYCLOBENZAPRINE 5 MG TAB PO SCH (08:30)
[2018-10-23] MEDS: ATORVASTATIN 10 MG TAB PO SCH (08:30)
[2018-10-23] MEDS: LORazepam 1 MG TAB PO SCH (08:30)
[2018-10-23] MEDS ORDERED: ASPIRIN 81 MG PO SCH (09:00)
[2018-10-23 12:13] VITALS: BP 130/66; PULSE 100; TEMP 98.5
--- NOTE | 2018-10-23 12:13 | PN ---
PROGRESS NOTE DATE OF SERVICE: 10/23/2018 REASON FOR FOLLOWUP: Klebsiella urinary tract infection. INTERVAL HISTORY: The patient is currently afebrile. The patient overall is feeling better today. The patient denies having any chest pain or shortness of breath or cough. The patient's back pain has improved. No nausea, vomiting, or any diarrhea. PHYSICAL EXAMINATION: Blood pressure is 143/75 with a pulse of 95, temperature 98.4, she is 95% on room air. General description is an elderly female, lying in bed in no distress. RESPIRATORY SYSTEM: Unlabored breathing clear to auscultation. HEART: S1, S2. Regular rate and rhythm no tenderness extremities: No edema of the feet. LABS: Hemoglobin 9.6, white count 10.3, BUN of 24, creatinine 0.50. Urine with Klebsiella oxytoca sensitive pathogen. IMPRESSION/PLAN: The patient admitted to the hospital with fever, source likely Klebsiella urinary tract infection. Clinically doubt infection as the pain is in the lumbar spine site as the site looks clean and the patient improved without getting any specific treatment for the resistant gram positive, gram negative pathogen and culture has been negative. The patient has a short course of oral Cipro and close outpatient followup. Continue supportive care. MMODL / IJN: [id number] /
[2018-10-23] MEDS: LISINOPRIL 2.5 MG TAB PO SCH (12:28)
--- NOTE | 2018-10-23 12:46 | P.PN ---
Subjective Progress Note Date: 10/23/18 Patient states she is feeling stronger. Overall feels much better. Appetite has improved. Still some back pain, but denies any drainage or inflammation of the scar tissue. The back pain is getting better. Patient's urine now has grown Klebsiella Oxytoca. Her WBC count has improved to 10.3, and she is afebrile. Denies any focal symptoms. No nausea anymore. Objective - Vital Signs Vital signs: Vital Signs Temp 98.5 F 10/23/18 12:00 Pulse 100 10/23/18 12:00 Resp 18 10/23/18 12:00 BP 130/66 10/23/18 12:00 Pulse Ox 96 10/23/18 12:00 Intake & Output 10/22/18 10/23/18 10/23/18 18:59 06:59 18:59 Intake Total 120 236 Balance 120 236 Weight 57.9 kg Intake: Oral 120 236 Other: Voiding Method Bedside Commode Bedside Commode Bedside Commode # Voids 1 1 - Exam Patient's mental status, speech and language functions are normal. Cranial nerves are normal. Muscle strength is normal in the arms and legs. No weakness in the knee extension, ankles and toes. Hip flexion also appears fairly normal although I did not have patient check with full strength because of recent surgery. Reflexes are symmetric and plantars downgoing. Tone and bulk of muscles normal. - Labs CBC & Chem 7: 10/22/18 07:21 10/22/18 07:21 Labs: Microbiology - Last 24 Hours (Table) 10/20/18 15:35 Urine Culture - Final Urine,Voided Klebsiella oxytoca Assessment and Plan Assessment: * Syncopal spell, likely vasovagal, or orthostatic. Patient probably was dehydrated, hypovolemic and probable pain medication effect may also contributed to the syncope. Patient has UTI, probably contributing to the syncope. * Status post lumbar fusion 10/08/2018. * Acute UTI due to Klebsiella Oxytoca. Plan: * EEG was normal. No epileptiform activity seen. * Hydration, increase nutritional intake. * Watch for orthostatics. * Patient on Rocephin for UTI. * Infectious disease on board. * Patient neurologically stable.
--- NOTE | 2018-10-23 14:26 | P.PN ---
Subjective Progress Note Date: 10/23/18 This is a 68-year-old female with history of of stress-induced Cardec myopathy and also mild coronary artery disease, who underwent surgery for back fusion at [facility]. He was discharged home after 3 days. Apparently last Saturday, that is about 3 days ago, patient came to the emergency room because of severe back pain. She spent several hours in the hospital here and were discharged home later afternoon. Patient went home and apparently slept most of the night. Around 9:25 AM, left her and went to the next room. Suddenly had a sound and went back and saw her unresponsive on the floor. No apparent seizure activity noted. There is some incontinence of the urine. Patient claims that she got up to go to the bathroom and the next thing she knew was that she was on the floor. She was brought to the hospital for further evaluation. Her EKGs did not reveal any acute changes except sinus tachycardia. Her blood pressure on arrival was stable. She doesn't remember having any chest pain or shortness of breath. She did receive pain medication for the back. Patient also hasn't been eating for 24 hours. His felt that most probably had episode of fall most probably secondary to postural hypotension or vasovagal reaction. Neurologist felt that there is no evidence of seizure disorder. No further neurological workup is suggested at this time. Patient troponins are mildly elevated. Echocardiogram was performed and results are pending at this time. We'll continue to monitor her for any postural hypotension and also any arrhythmias. We'll also look for any segmental wall motion defects on the echocardiogram. If echo is normal without any wall motion abnormalities, patient probably could be discharged home within next 24 hours. 10/22/2018 Patient was seen and examined this morning, appears somewhat groggy. No orthostatics have been documented, she apparently had a fall yesterday, got up out of bed and felt completely back on to her back hitting her head on the ground. CT of the brain was performed which did not revealany cranial or intracranial process, she did have evidence of a scalp hematoma.blood pressure this morning 106/60 with a heart rate in the 80s, 98% on room air.White blood cell count 10.3, hemoglobin 9.6, platelet count 713. Sodium 137, potassium 4.4, BUN 24 and creatinine 0.5.echocardiogram with Doppler study revealed an ejection fraction of 60-65%. 10/23/2018 Patient was seen and examined this morning, she's more alert today, she did have orthostatics which were positive. It was explained to the patient, that she needs to have someone around when she gets up into a standing position, and she needs to move slowly. We will have the patient put bilateral ERIN hose stockings on, and start her on some midodrine today. If she remains stable in the afternoon today she may be able to be discharged home from our perspective. Objective - Vital Signs Vital signs: Vital Signs Temp 98.5 F 10/23/18 12:00 Pulse 100 10/23/18 12:00 Resp 18 10/23/18 12:00 BP 130/66 10/23/18 12:00 Pulse Ox 96 10/23/18 12:00 Intake & Output 10/22/18 10/23/18 10/23/18 18:59 06:59 18:59 Intake Total 120 236 Balance 120 236 Weight 57.9 kg Intake: Oral 120 236 Other: Voiding Method Bedside Commode Bedside Commode Bedside Commode # Voids 1 1 - Exam GENERAL EXAM: Patient is alert and oriented and doesn't appear to be in any acute distress HEENT: Normocephalic. Normal reaction of pupils, equal size, normal range of extraocular motion. No erythema or exudates in the throat. NECK: No masses, no nuchal rigidity. CHEST: No chest wall deformity. LUNGS: Equal air entry with no crackles or wheeze. BACK:incision on her back is clean and dry, a couple Steri-Strips are still in place, no evidence of redness or swelling no drainage HEART: S1 and S2 normal with no audible mumurs or gallops. Regular rhythm, femorals equal on both sides.. Distant heart sounds ABDOMEN: No hepatosplenomegaly, normal bowel sounds, no guarding or rigidity. SKIN: No rashes CENTRAL NERVOUS SYSTEM: No focal deficits. EXTREMITIES: No cyanosis, clubbing or edema. - Labs CBC & Chem 7: 10/22/18 07:21 10/22/18 07:21 Labs: Microbiology - Last 24 Hours (Table) 10/20/18 15:35 Urine Culture - Final Urine,Voided Klebsiella oxytoca Assessment and Plan Plan: assessment and plan #1 syncope, no arrhythmias have been noted on the monitor, orthostatics have not been obtained. Patient did have a second syncopal episode here yesterday.No arrhythmia documented, no blood pressure obtained. #2 abnormal troponin, no significant rise and fall pattern, not suggestive of acute coronary syndrome. #3 UTI #4 recent back surgery #5 mild COPD #6 anxiety Plan Positive orthostatics have been documented, we will recommend patient have bilateral ERIN hose stockings on and be initiated on midodrine, if she remains stable she may be able to be discharged home later today to follow-up in the office with Dr. Reed post discharge. DNP note has been reviewed, I agree with a documented findings and plan of care. Patient was seen and examined.
[2018-10-23] MEDS ORDERED: MIDODRINE 5 MG TAB PO SCH (17:30)
== END 2018-10-23 15:11 | disposition home or self-care (01) | DRG 698 ==
LOC: EC 09:59 → 3SCARD 13:18 → INTOOBSV 13:18 → 3SCARD 17:49 → OBSVTOIN 10-22 21:43
PROVIDERS: ADMIT Hospitalist; ATTEND Hospitalist
DX: T83.511A Infection and inflammatory reaction due to indwelling urethral catheter, initial encounter (principal); A41.59 Other Gram-negative sepsis; N30.00 Acute cystitis without hematuria; J44.9 Chronic obstructive pulmonary disease, unspecified; E86.0 Dehydration; E86.1 Hypovolemia; F41.9 Anxiety disorder, unspecified; G89.18 Other acute postprocedural pain; I25.10 Atherosclerotic heart disease of native coronary artery without angina pectoris; I95.1 Orthostatic hypotension; M19.90 Unspecified osteoarthritis, unspecified site; S01.01XA Laceration without foreign body of scalp, initial encounter; T50.995A Adverse effect of other drugs, medicaments and biological substances, initial encounter; R77.9 Abnormality of plasma protein, unspecified; G89.29 Other chronic pain; F17.200 Nicotine dependence, unspecified, uncomplicated; M54.9 Dorsalgia, unspecified; Z98.1 Arthrodesis status; Z79.891 Long term (current) use of opiate analgesic; Z79.899 Other long term (current) drug therapy; Z87.440 Personal history of urinary (tract) infections; Z82.49 Family history of ischemic heart disease and other diseases of the circulatory system; Z82.3 Family history of stroke; W19.XXXA Unspecified fall, initial encounter; Y92.009 Unspecified place in unspecified non-institutional (private) residence as the place of occurrence of the external cause; Y84.6 Urinary catheterization as the cause of abnormal reaction of the patient, or of later complication, without mention of misadventure at the time of the procedure; Y92.230 Patient room in hospital as the place of occurrence of the external cause
CPT/HCPCS: 36415; 70450; 71046; 72125; 72128; 72131; 80048; 80053; 80061; 80202; 81001; 82550; 82553; 83735; 83880; 84484; 85025; 85610; 85730; 87077; 87086; 87186; 93005; 93306; 95816; 96365; 96366; 96372; 96375; 99285

== ENCOUNTER → 2018-11-06 | Outpatient (CLI) | payer MEDICARE ==
--- NOTE | 2018-11-07 12:00 | XR ---
Thoracic spine HISTORY: Postop 2 views of the thoracic spine and 4 images Postop changes are noted at the thoracic lumbar spine. Gentle spinal curvature noted in the thoracic spine. Facet arthropathy and uncovertebral joint hypertrophy present in the cervical spine, anterolis thesis is present as well as retrolisthesis of the cervical spine. Slight kyphosis centered at the th oracic lumbar spine, lordosis in the mid thoracic spine. Bone mineralization is mildly reduced. Inter vertebral disc spaces in the thoracic spine mildly reduced at T8-9, T6-7. Mild multilevel spondylosis . IMPRESSION: Degenerative disc disease and postop changes.
--- NOTE | 2018-11-07 12:19 | XR ---
Lumbar spine HISTORY: Postop 3 views the lumbar spine, correlation to prior lumbosacral spine 09/15/2018 Patient shows posterior fusion changes at T12-L4. Intervertebral spacer is present at L1-2, L2-3. Mul tilevel laminectomies are present. Paraspinal bone graft material is noted. There is a spinal curvatu re. There is removal of previous fusion changes at L5 and S1. There is been removal of the L2 screws. The listhesis at L2-3 is stable. Superior endplate depression at L2 and L3 again noted. IMPRESSION: Neurosurgical follow-up.
== END | disposition home or self-care (01) ==
LOC: RADXRMAIN 15:46
DX: M51.34 Other intervertebral disc degeneration, thoracic region (principal)
CPT/HCPCS: 72070; 72100

== ENCOUNTER → 2019-01-20 | Outpatient (CLI) | payer MEDICARE ==
--- NOTE | 2019-01-20 16:14 | XR ---
Lumbar spine HISTORY: Spondylosis 3 views of the lumbar spine on 4 images correlated prior exam 11/06/2018 There is a mild levoscoliosis present. Patient shows postoperative change status post posterior thora cic lumbar spine fusion at T12-L4. Laminectomies present at L3, L4 and L5. Intervertebral spacing blo cks present at L1-2 and L2-3, there are paraspinal allograft changes. Superior endplate T12 shows mil d anterior wedging, screws course in close proximity to the disc space at this level. Loss of disc he ight present L3-4, L4-5 and L5-S1. IMPRESSION: Neurosurgical follow-up as described.
== END | disposition home or self-care (01) ==
LOC: RADXRMAIN 13:24
DX: M47.26 Other spondylosis with radiculopathy, lumbar region (principal); Z98.1 Arthrodesis status; Z98.890 Other specified postprocedural states
CPT/HCPCS: 72100

== ENCOUNTER → 2019-04-23 | Outpatient (CLI) | payer MEDICARE ==
--- NOTE | 2019-04-23 14:42 | XR ---
EXAM TYPE: LUMBAR SPINE X RAY SERIES COMPARISON: 01/20/2019 HISTORY: Postop TECHNIQUE: 4 views are submitted. FINDINGS: There is a mild levoscoliosis present. Patient shows postoperative change status post posterior thora cic lumbar spine fusion at T12-L4. Laminectomies present at L3, L4 and L5. Intervertebral spacing blo cks present at L1-2 and L2- 3, there are paraspinal allograft changes. Superior endplate T12 shows mi ld anterior wedging, screws course into the disc space at this level. Degenerative disc disease prese nt L3-4, L4-5 and L5-S1. Atherosclerotic change of the vasculature. IMPRESSION: 1. Stable postoperative changes. 2. Multilevel degenerative disc disease.
== END | disposition home or self-care (01) ==
LOC: RADXRMAIN 14:19
DX: M51.36 Other intervertebral disc degeneration, lumbar region (principal); Z98.890 Other specified postprocedural states
CPT/HCPCS: 72100

== ENCOUNTER → 2019-07-28 | Outpatient (CLI) | payer MEDICARE ==
--- NOTE | 2019-07-28 13:07 | XR ---
EXAMINATION TYPE: XR lumbar spine 2 or 3V DATE OF EXAM: 07/28/2019 CLINICAL HISTORY: M 47.26. Postoperative evaluation of the lumbar spine. TECHNIQUE: Frontal and lateral images of the lumbar spine are obtained. COMPARISON: 04/23/2019 FINDINGS: Levoscoliosis is again present in the lumbar spine. There is surgical fixation of T12-L4 wi th laminectomy defects at L3-L5. Heterotopic ossification is seen of the paraspinal regions. Interver tebral disc cages at L1-L2 and L2-L3. There is stable mild vertebral body height loss of T12 and retr olisthesis of L2 on L3 that are surgically fixated. Facet arthropathy and intervertebral disc space n arrowing at L4-L5 and L5-S1. No new hardware fracture. Lung bases are well aerated IMPRESSION: Stable postsurgical changes of the thoracolumbar spine, levoscoliosis of the lumbar spine , compression deformity of T12, retrolisthesis of L2 on L3 and degenerative disc disease of the lower lumbar spine.
== END | disposition home or self-care (01) ==
LOC: RADXRMAIN 12:38
PROVIDERS: ATTEND Physician Assistant Surgical
DX: M43.16 Spondylolisthesis, lumbar region (principal); M51.16 Intervertebral disc disorders with radiculopathy, lumbar region; M41.86 Other forms of scoliosis, lumbar region; Z98.890 Other specified postprocedural states
CPT/HCPCS: 72100

== ENCOUNTER 2019-09-17 15:40 | Emergency (ER) | payer MEDICARE ==
[2019-09-17] MEDS ORDERED: SODIUM CHLORIDE 0.9% 1,000 ML IV STA (16:15)
[2019-09-17] MEDS ORDERED: ONDANSETRON 4 MG/2 ML VIAL IVP STA (16:15)
[2019-09-17] MEDS ORDERED: LORazepam 2 MG/ML INJ IV STA (16:16)
--- NOTE | 2019-09-17 16:18 | ED ---
General Adult HPI - General Chief complaint: Nausea/Vomiting/Diarrhea Stated complaint: NVD Time Seen by Provider: 09/17/19 15:57 Source: EMS Mode of arrival: EMS Limitations: no limitations - History of Present Illness Initial comments: Dictation was produced using [employer] dictation software. please excuse any grammatical, word or spelling errors. This patient was cared for during a federal and state declared state of emergency secondary to Covid 19 Chief Complaint: 69-year-old male past medical history of stress cardiomyopathy, coronary artery disease and chronic pain presents with nausea, vomiting and diarrhea. History of Present Illness: A 69-year-old female she is brought in by EMS for symptoms of nausea vomiting and diarrhea. Patient states that she's had symptoms like this in the past. She reports that these are stress induced. Patient states she's been stressed out about her 2 sons because one is a heroin addict another one requires a lot of attention secondary to autism. States that she felt overwhelmed and begin immediately experiencing nausea vomiting diarrhea. She states her emesis is nonbloody not bilious. Denies any fever, chills or night sweats. She does have history of stress. He may opt to be secondary to anxiety. She does take metoprolol for this. Patient has no complaints. States that since being emergency department and feeling better. The ROS documented in this emergency department record has been reviewed and confirmed by me. Those systems with pertinent positive or negative responses have been documented in the HPI. All other systems are other negative and/or noncontributory. PHYSICAL EXAM: General Impression: Alert and oriented x3, not in acute distress HEENT: Normocephalic atraumatic, extra-ocular movements intact, pupils equal and reactive to light bilaterally, dry mucous membranes Cardiovascular: Heart regular rate and rhythm Chest: Able to complete full sentences, no retractions, no tachypnea Abdomen: abdomen soft, non-tender, non-distended, no organomegaly Musculoskeletal: Pulses present and equal in all extremities, no peripheral edema Motor: no focal deficits noted Neurological: CN II-XII grossly intact, no focal motor or sensory deficits noted Skin: Intact with no visualized rashes Psych: Normal affect and mood ED course: 69-year-old female presents with chief complaint of anxiety induced nausea vomiting diarrhea. Ends upon arrival are within acceptable limits. Patient has findings of dehydration with dry mucous membranes. Patient given intravenous fluids, anxiolytics and antiemetic. Laboratory evaluation obtained. CBC unremarkable. Metabolic panel is negative. Patient reevaluated at bedside found to be stable medical condition. She is tolerating oral bedside. Patient clear for discharge. Family member at bedside reports that patient has really bad stress-induced symptoms. Patient clear for discharge advised follow-up with primary care physician for outpatient management of anxiety new symptoms. - Related Data Home Medications Medication Instructions Recorded Confirmed Cyclobenzaprine [Flexeril] 1 - 2 tab PO TID 10/19/18 10/20/18 LORazepam [Ativan] 1 mg PO BID 10/19/18 10/20/18 Risedronate Sodium [Actonel] 35 mg PO Q7D 10/19/18 10/20/18 Rosuvastatin Calcium [Crestor] 5 mg PO DAILY 10/19/18 10/20/18 Sertraline [Zoloft] 100 mg PO DAILY 10/19/18 10/20/18 oxyCODONE-APAP 10-325MG [Percocet 1 tab PO Q6H PRN 10/19/18 10/20/18 10-325 mg] Previous Rx's Medication Instructions Recorded Carvedilol [Coreg] 3.125 mg PO BID-W/MEALS #60 tab 05/09/17 Lisinopril [Zestril] 2.5 mg PO DAILY@1200 #30 tab 05/09/17 Nitroglycerin Sl Tabs [Nitrostat] 0.4 mg SUBLINGUAL Q5M PRN #25 tab 05/09/17 Aspirin 81 mg PO DAILY chew 10/23/18 Ciprofloxacin HCl [Cipro] 500 mg PO Q12HR #14 tablet 10/23/18 Midodrine [ProAmatine] 2.5 mg PO AC-TID #90 tab 10/23/18 Allergies Allergy/AdvReac Type Severity Reaction Status Date / Time No Known Allergies Allergy Verified 09/17/19 15:49 Review of Systems ROS Statement: Those systems with pertinent positive or pertinent negative responses have been documented in the HPI. ROS Other: All systems not noted in ROS Statement are negative. Past Medical History Past Medical History: Coronary Artery Disease (CAD), COPD, Osteoarthritis (OA), Respiratory Disorder Additional Past Medical History / Comment(s): mild COPD, colitis, uti, anxiety History of Any Multi-Drug Resistant Organisms: None Reported Past Surgical History: Back Surgery, Section, Ear Surgery, Heart Catheterization, Orthopedic Surgery, Tonsillectomy, Tubal Ligation Additional Past Surgical History / Comment(s): Right knee, x2, tubes in ears, lumbar fusion L2-S1, l3-T12 fusin october 08 Past Anesthesia/Blood Transfusion Reactions: No Reported Reaction Past Psychological History: Anxiety Smoking Status: Former smoker Past Alcohol Use History: None Reported Past Drug Use History: None Reported - Past Family History Son(s) Family Medical History: No Reported History Additional Family Medical History / Comment(s): autism Mother History Unknown: Yes Family Medical History: CVA/TIA Father Additional Family Medical History / Comment(s): suicide at 47 Brother(s) Additional Family Medical History / Comment(s): from alcohol and drug use. Sister(s) Family Medical History: Hypertension General Exam Limitations: no limitations Course Vital Signs 09/17/19 09/17/19 15:44 17:30 Temperature 96.3 F L Pulse Rate 65 69 Respiratory 20 16 Rate Blood Pressure 160/84 110/67 O2 Sat by Pulse 99 94 L Oximetry Medical Decision Making - Lab Data Result diagrams: 09/17/19 15:50 09/17/19 17:35 Lab Results 09/17/19 09/17/19 Range/Units 15:50 17:35 WBC 7.9 (3.8-10.6) k/uL RBC 4.99 (3.80-5.40) m/uL Hgb 15.7 (11.4-16.0) gm/dL Hct 46.5 H (34.0-46.0) % MCV 93.2 (80.0-100.0) fL MCH 31.5 (25.0-35.0) pg MCHC 33.8 (31.0-37.0) g/dL RDW 13.8 (11.5-15.5) % Plt Count 267 (150-450) k/uL Neutrophils % 69 % Lymphocytes % 23 % Monocytes % 5 % Eosinophils % 1 % Basophils % 1 % Neutrophils # 5.4 (1.3-7.7) k/uL Lymphocytes # 1.8 (1.0-4.8) k/uL Monocytes # 0.4 (0-1.0) k/uL Eosinophils # 0.1 (0-0.7) k/uL Basophils # 0.1 (0-0.2) k/uL Sodium 139 (137-145) mmol/L Potassium 4.3 (3.5-5.1) mmol/L Chloride 105 (98-107) mmol/L Carbon Dioxide 25 (22-30) mmol/L Anion Gap 9 mmol/L BUN 23 H (7-17) mg/dL Creatinine 0.54 (0.52-1.04) mg/dL Est GFR (CKD-EPI)AfAm >90 (>60 ml/min/1.73 sqM) Est GFR (CKD-EPI)NonAf >90 (>60 ml/min/1.73 sqM) Glucose 93 (74-99) mg/dL Calcium 9.6 (8.4-10.2) mg/dL Total Bilirubin 0.4 (0.2-1.3) mg/dL AST 31 (14-36) U/L ALT 14 (4-34) U/L Alkaline Phosphatase 86 (38-126) U/L Total Protein 7.6 (6.3-8.2) g/dL Albumin 4.8 (3.5-5.0) g/dL Disposition Clinical Impression: Nausea & vomiting Disposition: HOME SELF-CARE Condition: Good Instructions (If sedation given, give patient instructions): Acute Nausea and Vomiting (ED), Anxiety (ED) Is patient prescribed a controlled substance at d/c from ED?: No Referrals: Tal Almendarez MD [Primary Care Provider] - 1-2 days Time of Disposition: 18:16
[2019-09-17 16:34] LABS: Basophils # (A) 0.1 k/uL (0-0.2); Basophils % (A) 1 %; Eosinophils # (A) 0.1 k/uL (0-0.7); Eosinophils % (A) 1 %; HCT 46.5 % (34.0-46.0); HGB 15.7 gm/dL (11.4-16.0); Lymphocytes # (A) 1.8 k/uL (1.0-4.8); Lymphocytes % (A) 23 %; MCH 31.5 pg (25.0-35.0); MCHC 33.8 g/dL (31.0-37.0); MCV 93.2 fL (80.0-100.0); Mean Platelet Volume 7.7; Monocytes # (A) 0.4 k/uL (0-1.0); Monocytes % (A) 5 %; Neutrophils # (A) 5.4 k/uL (1.3-7.7); Neutrophils % (A) 69 %; Platelet Count 267 k/uL (150-450); RBC 4.99 m/uL (3.80-5.40); RDW 13.8 % (11.5-15.5); WBC 7.9 k/uL (3.8-10.6)
[2019-09-17 17:58] LABS: ALT 14 U/L (4-34); AST 31 U/L (14-36); African American GFR (CKD) >90 (>60 ml/min/1.73 sqM); Albumin 4.8 g/dL (3.5-5.0); Alkaline Phosphatase 86 U/L (38-126); Anion Gap 9 mmol/L; Blood Urea Nitrogen 23 mg/dL (7-17); Calcium 9.6 mg/dL (8.4-10.2); Carbon Dioxide 25 mmol/L (22-30); Chloride 105 mmol/L (98-107); Glucose 93 mg/dL (74-99); Non-African American GFR(CKD) >90 (>60 ml/min/1.73 sqM); Potassium 4.3 mmol/L (3.5-5.1); Sodium 139 mmol/L (137-145); Total Bilirubin 0.4 mg/dL (0.2-1.3); Total Protein 7.6 g/dL (6.3-8.2)
[2019-09-17 18:55] VITALS: BP 127/72; PULSE 72; RESP 18; TEMP 98.2
== END 2019-09-17 18:55 | disposition home or self-care (01) ==
LOC: EC 15:40
DX: R11.2 Nausea with vomiting, unspecified (principal); R19.7 Diarrhea, unspecified; I25.10 Atherosclerotic heart disease of native coronary artery without angina pectoris; F41.9 Anxiety disorder, unspecified; E86.0 Dehydration; Z79.899 Other long term (current) drug therapy; Z87.891 Personal history of nicotine dependence
CPT/HCPCS: 36415; 80053; 85025; 99284; 96374; 96375; 96361 ×2; J2060; J2405

== ENCOUNTER → 2019-10-30 | Outpatient (CLI) | payer MEDICARE ==
--- NOTE | 2019-10-30 08:26 | CT ---
EXAMINATION TYPE: CT lumbar spine wo con DATE OF EXAM: 10/30/2019 COMPARISON: 10/20/2018 HISTORY: Spondylosis with radiculopathy, lumbar region CT DLP: [address] of the lumbar spine was performed. Bone and soft tissue window settings are submitted as well as coronal and sagittal reconstructions. L1-L2: Lumbar laminectomy redemonstrated. Intervertebral body spacers unchanged in position. Alignmen t is anatomic. Streak artifact limits evaluation. No evidence for obvious recurrent disease. L2-L3: Decompressive lumbar laminectomy and lateral fusion. Pedicular screws noted to be in place. In tervertebral body spacer noted. 9 mm retrolisthesis of L2 on L3 is stable. Streak artifact limits ev aluation. No evidence for obvious recurrent disease. L3-L4: Decompressive laminectomy changes. Changes of lateral fusion. Pedicular screws in place. Align ment is stable and anatomic. L4-L5: Decompressive laminectomy changes. Changes of lateral fusion. Pedicular screws in place. Align ment is stable with retrolisthesis of L5 is identified. L5-S1: Decompressive laminectomy changes. Changes of lateral fusion. Alignment is stable and anatomic . No paraspinal masses are identified. Lumbar segments are free of fracture. IMPRESSION: 1. Stable appearance of the lumbar spine with extensive changes of decompressive laminectomy and late ral fusion. High-grade grade 1 retrolisthesis L2 on L3 and moderate grade grade 1 retrolisthesis L4 a nd L5 remain stable.
--- NOTE | 2019-10-30 08:37 | CT ---
EXAMINATION TYPE: CT thoracic spine wo con DATE OF EXAM: 10/30/2019 COMPARISON: 10/20/2018 HISTORY: Spondylosis with radiculopathy, thoracic region CT DLP: 1059 mGycm Automated exposure control for dose reduction was used. Unenhanced CT of the thoracic spine was performed from T1 through T12-L1. Axial coronal and sagittal images are reviewed. Bone and soft tissue window settings are submitted. FINDINGS: Lumbar laminectomy with pedicular screws at T12. Vacuum disc noted at T11-T12 compatible with severe degenerative disc disease. Mild posterior disc bulge without herniation. Remaining levels are within normal limits. There is no evidence for central stenosis or obvious disc herniation. No fracture or m alalignment. No paraspinal mass. No bony destructive process. Upper lobe parenchymal scarring. Scatte red emphysematous changes. IMPRESSION: DEGENERATIVE CHANGES NOTED GREATEST AT T11-T12 WITH VACUUM DISC AND MILD DISC BULGING. NO HERNIATION OR CENTRAL STENOSIS. POSTOPERATIVE CHANGES AT T12-L1.
== END | disposition home or self-care (01) ==
LOC: RADCTMAIN 06:45
DX: M51.24 Other intervertebral disc displacement, thoracic region (principal); M47.26 Other spondylosis with radiculopathy, lumbar region; M47.814 Spondylosis without myelopathy or radiculopathy, thoracic region
CPT/HCPCS: 72128; 72131

== ENCOUNTER → 2019-11-11 | Outpatient (CLI) | payer MEDICARE ==
--- NOTE | 2019-11-12 11:31 | MM ---
Reason for exam: screening (asymptomatic). Last mammogram was performed 1 year and 10 months ago. History: Patient is postmenopausal and had first child at age 34. Family history of breast cancer in maternal aunt. Breast lifts of both breasts, 2002. Took hormonal contraceptives for 2 years. Took progesterone for 3 years beginning at age 52. Physical Findings: A clinical breast exam by your physician is recommended on an annual basis and results should be correlated with mammographic findings. MG 3D Screening Mammo W/Cad Bilateral CC and MLO view(s) were taken. XCCL view(s) were taken of the right breast. Prior study comparison: January 01, 2018, bilateral MG 3d diag mammo w/cad [facility]. June 29, 2016, bilateral MG 3d diag mammo w/cad [facility]. The breast tissue is extremely dense which could obscure a lesion on mammography. Stable benign calcifications. There is chronic nodularity bilaterally. No significant changes when compared with prior studies. ASSESSMENT: Benign, BI-RAD 2 RECOMMENDATION: Routine screening mammogram of both breasts in 1 year.
== END | disposition home or self-care (01) ==
LOC: RADMAMWWP 10:42
PROVIDERS: ATTEND Family Medicine
DX: Z12.31 Encounter for screening mammogram for malignant neoplasm of breast (principal); Z78.0 Asymptomatic menopausal state
CPT/HCPCS: 77063; 77067

== ENCOUNTER → 2019-11-20 | Outpatient (CLI) | payer MEDICARE ==
--- NOTE | 2019-11-20 12:34 | BD ---
EXAMINATION TYPE: Axial Bone Density DATE OF EXAM: 11/20/2019 COMPARISON: 01/23/2018 CLINICAL HISTORY: Height: 63 IN Weight: 133 LBS RISK FACTORS HISTORY OF: Surgery to Spine: YES T12- S1 When: 2019 Active: YES Diet low in dairy products/other sources of calcium: YES Postmenopausal woman: AGE 50 Take estrogen and/or progesterone medications: NOT NOW How long: AGE 48-50 MEDICATIONS: Osteoporosis Medications: YES Which medication: Actonel How Lon YEARS Additional Medications: ACTONEL, CALCIUM, VIT D, ZOLOFT, CRESTOR, HEART MED, MAGNESIUM, EXAM MEASUREMENTS: Bone mineral densitometry was performed using the [employer] System. L-SPINE SURGERY 2019 Bone mineral density about the R hip (g/cm2): 0.771 Bone mineral density about the L hip (g/cm2): 0.811 T Score values are as follows: -----R Neck: -1.9 -----L Neck: -1.6 -----R Total: -1.7 -----L Total: -1.3 Bone mineral density has: Increased 2.4% since study of: 01/23/2018 Bone mineral density about the L Wrist (g/cm2): 0.535 T Score values are as follows: -----Dist. R+U: -3.0 -----Prox. R+U: -2.4 -----Radius total: -2.3 Bone mineral density has: Increased 0.4% since study of: 01/23/2018 IMPRESSION: Osteopenia. NOTE: T-SCORE=SD OF THE YOUNG ADULT MEAN.
== END | disposition home or self-care (01) ==
LOC: RADBDWWP 09:58
PROVIDERS: ATTEND Family Medicine
DX: M85.80 Other specified disorders of bone density and structure, unspecified site (principal); Z78.0 Asymptomatic menopausal state
CPT/HCPCS: 77080

== ENCOUNTER → 2020-01-01 | Outpatient (CLI) | payer MEDICARE ==
--- NOTE | 2020-01-01 13:30 | XR ---
EXAMINATION TYPE: XR lumbar spine 2 or 3V DATE OF EXAM: 01/01/2020 CLINICAL HISTORY: History of multiple spinal surgeries. Exploration of previous fusion with removal o f hardware. History of osteoporosis. TECHNIQUE: Frontal and lateral images of the lumbar spine obtained. COMPARISON: Lumbar radiograph 07/28/2019. FINDINGS: There are bilateral posterior fixation rods, bilateral transpedicular screws at L3, L2 T12 , T11, and T10, with nonvisualization of the superior aspects of the fixation hardware. Interbody spa cer devices are seen at L2-3, L1-2 and T11-12. There are diffuse laminectomy changes. There are 5 lum bar type vertebral bodies identified. The lumbar spine shows levocurvature. No evidence of acute fra cture or dislocation. Grade 1 retrolisthesis of L2 on L3. Compression deformity of T12 redemonstrated . No significant compression deformity of the lumbar spine. Abdominal aortic vascular calcifications. IMPRESSION: 1. Postsurgical changes as above. 2. No acute fracture or dislocation is seen in the lumbar spine.
== END | disposition home or self-care (01) ==
LOC: RADXRMAIN 10:36 → EDSTATUS 10:41
DX: Z47.89 Encounter for other orthopedic aftercare (principal); Z98.1 Arthrodesis status
CPT/HCPCS: 72100

== ENCOUNTER → 2020-02-11 | Outpatient (CLI) | payer MEDICARE ==
--- NOTE | 2020-02-11 14:28 | XR ---
EXAM TYPE: LUMBAR SPINE X RAY SERIES COMPARISON: 01/01/2020 HISTORY: Pain TECHNIQUE: 4 views are submitted. FINDINGS: Postsurgical change involving the thoracolumbar junction with evidence of previous vertebroplasty. Tr anspedicular screws appear similar in appearance to prior exam with multilevel severe degenerative di sc disease again noted. Retrolisthesis of L2 relative to L3 is similar to the prior exam. Multilevel foraminal encroachment suspected. Vascular calcifications noted. Scoliotic curvature of the spine see n. Suggestion of laminectomy involving the lower lumbar spine. IMPRESSION: 1. Extensive postsurgical changes appear similar to the prior exam.
--- NOTE | 2020-02-11 14:30 | XR ---
EXAMINATION TYPE: XR thoracic spine 2V DATE OF EXAM: 02/11/2020 COMPARISON: NONE HISTORY: Pain TECHNIQUE: 3 views submitted FINDINGS: Extensive postsurgical changes involving the thoracolumbar junction similar to the prior exam. Eviden ce of previous vertebroplasty noted there is multilevel degenerative disc disease. No new compression deformities. Alignment is similar to the prior lumbar spine x-ray. Multilevel severe degenerative disc disease of the cervical spine with retrolisthesis of C5 relative to C6. Anterolisthesis of C3 relative to C4 and C4 relative to C5 noted on the lateral view of the up per thoracic spine. Biapical lung pleural thickening noted. IMPRESSION: 1. Extensive postsurgical change with multilevel degenerative disc disease. 2. Incidental note made of multilevel severe degenerative disc disease of the cervical spine.
== END | disposition home or self-care (01) ==
LOC: RADXRMAIN 13:41
DX: M47.26 Other spondylosis with radiculopathy, lumbar region (principal); M51.34 Other intervertebral disc degeneration, thoracic region; Z98.1 Arthrodesis status
CPT/HCPCS: 72070; 72100

== ENCOUNTER → 2020-04-15 | Outpatient (CLI) | payer MEDICARE ==
--- NOTE | 2020-04-15 15:38 | XR ---
Lumbar spine and thoracic spine HISTORY: Spinal fusion, history spondylosis Frontal and lateral views of the thoracic and 4 images and lumbar spine on 3 images submitted and cor related prior lumbar thoracic spine 02/11/2020 Posterior thoracic lumbar fusion at T9-L3 is noted, intervertebral spacing blocks present at L2-3, L1 -2, T11-12. There is a spinal curvature as noted on prior exam. Vacuum disc phenomenon present L5-S1, loss of disc height present L4-5, L5-S1, L3-4, L2-3, slight kyphosis centered at L2-3. Laminectomies present at L5, L4 and L3. Cement present at T11 and T12, T9 and T10 at the posterior vertebral vijay s, screw insertions. Stable alignment. No lucencies present along the screws. Generative disc changes noted incidentally with cervical spine. IMPRESSION: Stable neurosurgical follow-up.
== END | disposition home or self-care (01) ==
LOC: RADXRMAIN 11:31
DX: M47.26 Other spondylosis with radiculopathy, lumbar region (principal)
CPT/HCPCS: 72070; 72100

== ENCOUNTER → 2020-04-15 | Outpatient (CLI) | payer MEDICARE ==
[2020-04-15 21:18] LABS: African American GFR (CKD) 88.4 (60.0-200.0); Anion Gap 10.3 mmol/L (4.00-12.00); BUN/Creat Ratio 27.5 Ratio (12.00-20.00); Calcium 9.9 mg/dL (8.7-10.3); Carbon Dioxide 26.7 mmol/L (21.6-31.8); Non-African American GFR(CKD) 76.3 (60.0-200.0); Potassium 4.9 mmol/L (3.5-5.5)
== END | disposition home or self-care (01) ==
LOC: LABWHC1 12:12
PROVIDERS: ATTEND Internal Medicine Endocrinology, Diabetes & Metabolism
DX: M81.0 Age-related osteoporosis without current pathological fracture (principal)
CPT/HCPCS: 36415; 80048; 82306; 83937; 83970

== ENCOUNTER → 2020-07-25 | Outpatient (CLI) | payer MEDICARE ==
--- NOTE | 2020-07-25 14:16 | XR ---
EXAM TYPE: LUMBAR SPINE X RAY SERIES COMPARISON: 04/15/2020 HISTORY: Pain TECHNIQUE: 4 views are submitted. FINDINGS: A stable postsurgical change involving the thoracolumbar spine with scoliosis. Multilevel severe dege nerative disc disease. Findings are similar the prior exam. There is vascular calcifications. IMPRESSION: 1. Stable postoperative change with levoscoliosis and multilevel severe degenerative disc disease.
--- NOTE | 2020-07-25 14:17 | XR ---
EXAMINATION TYPE: XR thoracic spine 2V DATE OF EXAM: 07/25/2020 COMPARISON: 04/15/2020 HISTORY: Back pain TECHNIQUE: 3 views submitted FINDINGS: Postsurgical change involving the lower thoracic spine. Chronic appearing wedge deformity involving t he thoracolumbar junction. Mild multilevel degenerative disc disease at remaining levels with diffuse osteopenia. Findings are similar to the prior exam. IMPRESSION: 1. Postoperative changes stable. 2. Multilevel mild degenerative disc disease 3. Diffuse osteopenia
== END ==
LOC: RADXRMAIN 13:43
PROVIDERS: ATTEND Physician Assistant Surgical
DX: M51.34 Other intervertebral disc degeneration, thoracic region (principal); M51.36 Other intervertebral disc degeneration, lumbar region; M85.80 Other specified disorders of bone density and structure, unspecified site
CPT/HCPCS: 72070; 72100

== ENCOUNTER → 2020-08-18 | Outpatient (CLI) | payer MEDICARE ==
[2020-08-18 20:10] LABS: HCT 43.9 % (37.2-46.3); HGB 14.2 g/dL (12.0-15.0); MCH 30.5 pg (27.0-32.0); MCHC 32.3 g/dL (32.0-37.0); MCV 94.4 fL (80.0-97.0); Mean Platelet Volume 10.5 fL (9.5-12.2); Platelet Count 277 X 10*3/uL (140-440); RBC 4.65 X 10*6/uL (4.10-5.20); RDW 13.2 % (11.5-14.5); WBC 7.24 X 10*3/uL (4.50-10.00)
[2020-08-19 00:38] LABS: African American GFR (CKD) 88.4 (60.0-200.0); Albumin 4.9 g/dL (3.80-4.90); Albumin/Globulin Ratio 2.88 (1.60-3.17); Anion Gap 10.5 mmol/L (4.00-12.00); BUN/Creat Ratio 22.5 Ratio (12.00-20.00); Calcium 9.6 mg/dL (8.7-10.3); Carbon Dioxide 27.5 mmol/L (21.6-31.8); Chol/HDL Ratio 2.44; Globulin 1.7 g/dL (1.6-3.3); Non-African American GFR(CKD) 76.3 (60.0-200.0); Potassium 4.4 mmol/L (3.5-5.5); Total Bilirubin 0.2 mg/dL (0.3-1.2); Total Protein 6.6 g/dL (6.2-8.2)
== END | disposition home or self-care (01) ==
LOC: LABWHC1 11:24
PROVIDERS: ATTEND Family Medicine
DX: Z00.01 Encounter for general adult medical examination with abnormal findings (principal); R53.83 Other fatigue; E66.3 Overweight
CPT/HCPCS: 36415; 80053; 80061; 82306; 82523; 83970; 85027

== ENCOUNTER → 2020-08-18 | Outpatient (CLI) | payer MEDICARE | END | disposition home or self-care (01) | LOC: LABWHC1 11:28 | PROVIDERS: ATTEND Internal Medicine Endocrinology, Diabetes & Metabolism | DX: Z53.9 Procedure and treatment not carried out, unspecified reason (principal) ==

== ENCOUNTER → 2021-07-05 | Outpatient (CLI) | payer MEDICARE ==
[2021-07-05 15:06] LABS: African American GFR (CKD) 87.8 (60.0-200.0); Anion Gap 9.8 mmol/L (10.00-18.00); BUN/Creat Ratio 25.88 Ratio (12.00-20.00); Blood Urea Nitrogen 20.7 mg/dL (9.0-27.0); Calcium 9.4 mg/dL (8.7-10.3); Carbon Dioxide 28.2 mmol/L (20.0-27.5); Non-African American GFR(CKD) 75.8 (60.0-200.0); Potassium 5.4 mmol/L (3.5-5.5)
== END | disposition home or self-care (01) ==
LOC: LABWHC1 08:48
PROVIDERS: ATTEND Internal Medicine Endocrinology, Diabetes & Metabolism
DX: M81.0 Age-related osteoporosis without current pathological fracture (principal)
CPT/HCPCS: 36415; 80048; 82306; 82523; 83970

== ENCOUNTER → 2021-08-09 | Outpatient (CLI) | payer MEDICARE ==
--- NOTE | 2021-08-09 09:23 | XR ---
Lumbar spine and thoracic HISTORY: Spondylosis with radiculopathy and back pain 3 views the lumbar spine and 3 views of the thoracic spine correlated prior exam 07/26/2019 The postop changes are again noted status post posterior fusion at the thoracic spine. Multilevel burks inectomies again seen, intervertebral spacing blocks are present, there is multilevel spondylosis, misty mbar vertebral bodies show stable height, reduced bone mineralization, stable alignment. Vertebral pl asty or cement administration change is present within thoracic vertebral bodies at the sites of the transpedicular screw placements within the vertebral bodies. There is a spinal curvature. Paraspinal graft material is again noted. Multilevel loss of disc height noted. Degenerative disc changes again noted in the cervical spine, suspect an anterolisthesis C4-5 likely s imilar to prior exam. IMPRESSION: Postop changes, degenerative disc disease, osteopenia and spinal curvature.
[2021-08-09 10:43] LABS: HCT 42.9 % (37.2-46.3); MCH 30.9 pg (27.0-32.0); MCHC 32.6 g/dL (32.0-37.0); MCV 94.7 fL (80.0-97.0); Mean Platelet Volume 10.4 fL (9.5-12.2); NRBC Per 100 WBC 0 /100 WBCS (0.0-0.0); Platelet Count 224 X 10*3/uL (140-440); RBC 4.53 X 10*6/uL (4.10-5.20); RDW 13.2 % (11.5-14.5); WBC 6.21 X 10*3/uL (4.50-10.00)
[2021-08-09 14:12] LABS: ALT 13 U/L (8-44); AST 19 U/L (13-35); African American GFR (CKD) 87.8 (60.0-200.0); Albumin 4.6 g/dL (3.8-4.9); Albumin/Globulin Ratio 2.09 (1.60-3.17); Alkaline Phosphatase 71 U/L (41-126); BUN/Creat Ratio 28.75 Ratio (12.00-20.00); Calcium 9.4 mg/dL (8.7-10.3); Carbon Dioxide 26.4 mmol/L (20.0-27.5); Chloride 105 mmol/L (96-109); Globulin 2.2 g/dL (1.6-3.3); Glucose 94 mg/dL (70-110); LDL Cholesterol,Calculated 83.5 mg/dL (0.0-131.0); Non-African American GFR(CKD) 75.8 (60.0-200.0); Potassium 4.1 mmol/L (3.5-5.5); Sodium 143 mmol/L (135-145); Total Bilirubin <0.15 mg/dL (0.30-1.20); Total Protein 6.8 g/dL (6.2-8.2)
--- NOTE | 2021-08-11 08:53 | MM ---
Reason for exam: screening (asymptomatic). Last mammogram was performed 1 year and 9 months ago. History: Patient is postmenopausal and had first child at age 34. Family history of breast cancer in maternal aunt at age 60. Breast lifts of both breasts, 2002. Took hormonal contraceptives for 2 years. Took progesterone for 3 years beginning at age 52. Physical Findings: A clinical breast exam by your physician is recommended on an annual basis and results should be correlated with mammographic findings. MG 3D Screening Mammo W/Cad Bilateral CC and MLO view(s) were taken. Prior study comparison: November 11, 2019, bilateral MG 3d screening mammo w/cad. January 01, 2018, bilateral MG 3d diag mammo w/cad [facility]. The breast tissue is extremely dense which could obscure a lesion on mammography. There are benign appearing diffuse round calcifications bilaterally. No significant changes when compared with prior studies. ASSESSMENT: Benign, BI-RAD 2 RECOMMENDATION: Routine screening mammogram of both breasts in 1 year.
== END | disposition home or self-care (01) ==
LOC: RADMAMWWP 07:10
PROVIDERS: ATTEND Family Medicine
DX: Z00.01 Encounter for general adult medical examination with abnormal findings (principal); Z12.31 Encounter for screening mammogram for malignant neoplasm of breast; M50.121 Cervical disc disorder at C4-C5 level with radiculopathy; M43.8X6 Other specified deforming dorsopathies, lumbar region; M85.88 Other specified disorders of bone density and structure, other site; E66.3 Overweight; R53.83 Other fatigue; Z80.3 Family history of malignant neoplasm of breast; Z78.0 Asymptomatic menopausal state
CPT/HCPCS: 72070; 72100; 77063; 77067; 80053; 80061; 85027

== ENCOUNTER → 2021-12-06 | Day surgery (SDC) | payer MEDICARE ==
[2021-12-05 12:59] VITALS: BMI 20.3
[~2021-12-06] MED LIST: LIDOCAINE 1% (10MG/ML) FOR IV START INTRADERMA PRN; LIDOCAINE 2% INJ 20 MG/ML (2 ML VIAL) ONE; PROPOFOL 10 MG/ML 20 ML VIAL IV ONE
[2021-12-06] MEDS: LACTATED RINGERS 1,000 ML IV SCH ×2 (09:49→10:26)
[2021-12-06 09:52] VITALS: TEMP 97.9
--- NOTE | 2021-12-06 11:03 | P.PCN ---
Date of Procedure: 12/06/21 Procedure(s) Performed: Brief history: Patient is a pleasant 71-year-old white female scheduled for an elective upper endoscopy as well as colonoscopy as a part of evaluation of intermittent episodes of abdominal pain, diarrhea and prior history of colon polyps. She also has gastroesophageal reflux symptoms. Procedure performed: Esophagogastroduodenoscopy biopsy Colonoscopy Preoperative diagnosis: GERD Intermittent diarrhea and prior history of colon polyps Anesthesia: MAC Procedure: After informed consent was obtained from the patient was brought into the endoscopy unit and IV sedation was administered by anesthesia under continuous monitoring. Initially upper endoscopy was done. The Olympus GF 160 video endoscope was inserted inserted into the mouth and esophagus intubated without any difficulty and was gradually advanced into the stomach and duodenum and carefully examined. The bulb and second part of the duodenum appeared normal. Biopsies were done from the duodenum to rule out celiac disease.. The scope was then withdrawn into the stomach adequately insufflated with air and upon careful examination the antrum had mild diffuse gastritis and biopsies were done from this area. The body, cardia and fundus appeared normal. The scope was then withdrawn into the esophagus. The GE junction was located at 40 cm to the incisors. Small sliding type hiatal hernia noted. It appeared regular with no erythema erosions or ulcerations. Rest of the esophagus appeared normal. Patient tolerated the procedure well. At this time the patient continued to remain sedation. Initial digital rectal examination was normal. Olympus CF 160 video colonoscope was then inserted into the rectum and gradually advanced to the cecum without any difficulty. Careful examination was performed as the scope was gradually being withdrawn. The prep was excellent. The cecum, ascending colon, transverse colon, descending colon, sigmoid colon and rectum appeared normal. Retroflexion was performed in the rectum and no lesions were noted. Patient tolerated the procedure well. Impression: 1. Upper endoscopy revealed mild antral gastritis and small hiatal hernia 2. Colonoscopy was within normal limits with no evidence of colorectal neoplasia Recommendations: Findings of this examination were discussed with the patient as well gina family. She was advised to follow with the biopsy results. Recommend repeat colonoscopy in 5 years because of the prior history of colon polyps.
[2021-12-06 11:08] VITALS: RESP 16
[2021-12-06 11:27] VITALS: BP 128/75; PULSE 62
== END ==
LOC: ORWHC2ENDO 09:04
PROVIDERS: ATTEND Internal Medicine Gastroenterology
DX: K21.9 Gastro-esophageal reflux disease without esophagitis (principal); K29.70 Gastritis, unspecified, without bleeding; K44.9 Diaphragmatic hernia without obstruction or gangrene; R19.7 Diarrhea, unspecified; Z86.010 Personal history of colon polyps; I25.10 Atherosclerotic heart disease of native coronary artery without angina pectoris; I10 Essential (primary) hypertension; E78.5 Hyperlipidemia, unspecified; J44.9 Chronic obstructive pulmonary disease, unspecified; F41.9 Anxiety disorder, unspecified; Z87.891 Personal history of nicotine dependence; Z79.899 Other long term (current) drug therapy
CPT/HCPCS: 88305; 45378; 43239; J2704; J2001

== ENCOUNTER 2022-07-22 20:48 | Emergency (ER) | payer MEDICARE ==
[2022-07-22 21:03] VITALS: BP 154/75; PULSE 69; RESP 16; TEMP 97.8
[2022-07-22] MEDS ORDERED: SODIUM CHLORIDE 0.9% 1,000 ML IV ONE (21:26)
[2022-07-22] MEDS ORDERED: ONDANSETRON 4 MG/2 ML VIAL IVP STA (21:27)
[2022-07-22 22:15] LABS: Appearance,Urine Clear (Clear); Bilirubin,Urine Negative (Negative); Blood,Urine Negative (Negative); Color,Urine Light Yellow; Glucose,Urine (UA) Negative (Negative); Ketones,Urine Trace (Negative); Leukocyte Esterase,Urine Negative (Negative); Nitrite,Urine Negative (Negative); Protein,Urine Negative (Negative); Specific Gravity,Urine 1.007 (1.001-1.035); Urobilinogen,Urine <2.0 mg/dL (<2.0)
[2022-07-22 22:17] LABS: Basophils % (A) 0 %; Eosinophils % (A) 1 %; HCT 42.1 % (34.0-46.0); HGB 14.1 gm/dL (11.4-16.0); Lymphocytes # (A) 1.3 k/uL (1.0-4.8); Lymphocytes % (A) 23 %; MCH 30.6 pg (25.0-35.0); MCHC 33.5 g/dL (31.0-37.0); MCV 91.3 fL (80.0-100.0); Mean Platelet Volume 7.7; Monocytes # (A) 0.4 k/uL (0-1.0); Monocytes % (A) 6 %; Neutrophils % (A) 69 %; Platelet Count 282 k/uL (150-450); RBC 4.61 m/uL (3.80-5.40); RDW 12.8 % (11.5-15.5); WBC 5.8 k/uL (3.8-10.6)
[2022-07-22 22:29] LABS: Partial Thromboplastin Time 24.9 sec (22.0-30.0); Prothrombin Time 10.5 sec (9.0-12.0)
--- NOTE | 2022-07-22 22:29 | ED ---
General Adult HPI - General Chief complaint: Nausea/Vomiting/Diarrhea Stated complaint: Weakness Time Seen by Provider: 07/22/22 21:07 Source: patient Mode of arrival: wheelchair - History of Present Illness Initial comments: This is a 71-year-old female with a past medical history including hypertension and chronic back pain presented to the emergency department for increasing weakness. The patient stated that she was diagnosed with COVID-19 one week ago and stated that she was improving however around 3 PM this afternoon she started to feel increasingly weak and "that she does fall to the ground because she was so weak." The patient denied a shortness of breath or difficulty in breathing however but stated that she had some mild suprapubic tenderness. The patient de nied any fevers or chills but did state that she was nauseous. The patient has not been eating and drinking well over the last several days as she has lost her appetite. The patient denied any other acute pain or complaints at this time. - Related Data Home Medications Medication Instructions Recorded Confirmed Rosuvastatin Calcium [Crestor] 5 mg PO DAILY 10/19/18 07/22/22 Sertraline [Zoloft] 150 mg PO DAILY 10/19/18 07/22/22 oxyCODONE-APAP 10-325MG [Percocet 1 tab PO Q6H PRN 10/19/18 07/22/22 10-325 mg] Cholecalciferol [Vitamin D3 (25 50 mcg PO DAILY 12/05/21 07/22/22 Mcg = 1000 Iu)] Magnesium 400 mg PO DAILY 12/05/21 07/22/22 Metoprolol Succinate (ER) [Toprol 12.5 mg PO DAILY 12/05/21 07/22/22 Xl] diazePAM [Valium] 5 mg PO BID PRN 12/05/21 07/22/22 Calcium Carbonate 1,500 mg PO DAILY 07/22/22 07/22/22 Omeprazole [PriLOSEC] 20 mg PO DAILY PRN 07/22/22 07/22/22 fentaNYL 50MCG/HR PATCH [Duragesic 1 patch TRANSDERM Q72H 07/22/22 07/22/22 50MCG/HR] Previous Rx's Medication Instructions Recorded Ondansetron Odt [Zofran Odt] 4 mg PO Q8HR PRN #20 tab 03/13/23 Allergies Allergy/AdvReac Type Severity Reaction Status Date / Time No Known Allergies Allergy Verified 07/22/22 21:44 Review of Systems ROS Statement: Those systems with pertinent positive or pertinent negative responses have been documented in the HPI. ROS Other: All systems not noted in ROS Statement are negative. Past Medical History Past Medical History: Coronary Artery Disease (CAD), COPD, Osteoarthritis (OA), Respiratory Disorder Additional Past Medical History / Comment(s): having abd cramping intermittently, no apetite and 10lb wt loss, hx mild COPD, colitis,UTIs History of Any Multi-Drug Resistant Organisms: None Reported Past Surgical History: Back Surgery, Section, Ear Surgery, Heart Catheterization, Orthopedic Surgery, Tonsillectomy, Tubal Ligation Additional Past Surgical History / Comment(s): Right knee, x2, tubes in ears, lumbar fusion L2-S1, T9-L3 fusion october 08 Past Anesthesia/Blood Transfusion Reactions: No Reported Reaction Past Psychological History: Anxiety Smoking Status: Former smoker Past Alcohol Use History: None Reported Past Drug Use History: None Reported - Past Family History Son(s) Family Medical History: No Reported History Additional Family Medical History / Comment(s): autism Mother History Unknown: Yes Family Medical History: CVA/TIA Father Additional Family Medical History / Comment(s): suicide at 47 Brother(s) Additional Family Medical History / Comment(s): from alcohol and drug use. Sister(s) Family Medical History: Hypertension General Exam Limitations: no limitations General appearance: alert, in no apparent distress Head exam: Present: atraumatic, normocephalic, normal inspection Eye exam: Present: normal appearance, PERRL Pupils: Present: normal accommodation ENT exam: Present: normal exam, normal oropharynx, mucous membranes moist Neck exam: Present: normal inspection, full ROM Respiratory exam: Present: normal lung sounds bilaterally Cardiovascular Exam: Present: regular rate, normal rhythm, normal heart sounds GI/Abdominal exam: Present: soft, normal bowel sounds Extremities exam: Present: normal inspection, full ROM Back exam: Present: normal inspection, full ROM Neurological exam: Present: alert, oriented X3, CN II-XII intact Psychiatric exam: Present: normal affect, normal mood Skin exam: Present: warm, dry Course Vital Signs 07/22/22 20:55 Temperature 97.8 F Pulse Rate 69 Respiratory 16 Rate Blood Pressure 154/75 O2 Sat by Pulse 98 Oximetry EKG Findings - EKG Comments: EKG Findings:: In EKG was obtained and was interpreted by myself showing a rate of 58, PA interval of 122, QRS duration of 92 and QTC of 45. This EKG shows a sinus bradycardia with no ST segment elevation or depression noted. Medical Decision Making - Medical Decision Making Was pt. sent in by a medical professional or institution (, PA, SALES ASSOCIATE, urgent care, hospital, or fci...) When possible be specific @ -No Did you speak to anyone other than the patient for history (EMS, parent, family, police, friend...)? What history was obtained from this source @ -Yes, patient's Did you review nursing and triage notes (agree or disagree)? Why? @ -I reviewed and agree with nursing and triage notes Were old charts reviewed (outside hosp., previous admission, EMS record, old EKG, old radiological studies, urgent care reports/EKG's, fci records)? Report findings @ -No old charts were reviewed Differential Diagnosis (chest pain, altered mental status, abdominal pain women, abdominal pain men, vaginal bleeding, weakness, fever, dyspnea, syncope, headache, dizziness, GI bleed, back pain, seizure, CVA, palpatations, mental health)? @ -Pneumonia, UTI, dehydration EKG interpreted by me (3pts min.). @ -As above X-rays interpreted by me (1pt min.). @ -Chest x-ray was obtained and was interpreted by myself showing evidence of COPD. There is no active lung disease. CT interpreted by me (1pt min.). @ -CTA of the chest was obtained and was interpreted by myself showing emphysema. There was bilateral apical pleural and pulmonary scarring. There was no evidence of pulmonary embolism. No suspicious pulmonary mass. There is no significant change from the old exam. There was however a incidental finding of apparent development of bilateral hydronephrosis compared to old exam. The patient denied of any abnormalities noted in her creatinine or kidney function and did not complain of any back pain. U/S interpreted by me (1pt. min.). @ -None done What testing was considered but not performed or refused? (CT, X-rays, U/S, labs)? Why? @ -None What meds were considered but not given or refused? Why? @ -None Did you discuss the management of the patient with other professionals (professionals i.e. , PA, SALES ASSOCIATE, lab, RT, psych nurse, psychiatric social worker supervisor, neurology teacher, teacher, chief credit officer, supportive employment case manager)? Give summary @ -No Was smoking cessation discussed for >3mins.? @ -No Was critical care preformed (if so, how long)? @ -No Were there social determinants of health that impacted care today? How? (Homelessness, low income, unemployed, alcoholism, drug addiction, transportation, low edu. Level, literacy, decrease access to med. care, alf, rehab)? @ -No Was there de-escalation of care discussed even if they declined (Discuss DNR or withdrawal of care, Hospice)? DNR status @ -No What co-morbidities impacted this encounter? (DM, HTN, Smoking, COPD, CAD, Cancer, CVA, ARF, Chemo, Hep., AIDS, mental health diagnosis, sleep apnea, morbid obesity)? @ -Hypertension, chronic back pain status post surgeries Was patient admitted / discharged? Hospital course, mention meds given and route, prescriptions, significant lab abnormalities, going to OR and other pertinent info. @ -The patient was seen and evaluated emergency department. Physical exam, the patient was resting in bed without any acute distress. Vital signs were stable. Laboratory workup was obtained and was largely within normal limits however d- dimer level was 1.11 therefore a CTA of the chest was obtained. All imaging was negative including CT of the chest and chest x-ray. The patient did receive 4 mg of Zofran and 1 L of normal saline fluid. The patient was told of the n egative workup and was extremely thankful and relieved. The patient stated that she felt improved with the fluids and was able to tolerate by mouth in the emergency department. The patient likely had mild weakness secondary to dehydration and lingering symptoms of COVID-19. The patient did however test positive for COVID-19 in the emergency department. The patient was stable and all other questions were answered appropriately. The patient was discharged home in stable condition with her . Undiagnosed new problem with uncertain prognosis? @ -No Drug Therapy requiring intensive monitoring for toxicity (Heparin, Nitro, Insulin, Cardizem)? @ -No Were any procedures done? @ -No Diagnosis/symptom? @ -COVID-19 with mild weakness and dehydration Acute, or Chronic, or Acute on Chronic? @ -Acute Uncomplicated (without systemic symptoms) or Complicated (systemic symptoms)? @ -Uncomplicated Side effects of treatment? @ -No Exacerbation, Progression, or Severe Exacerbation? @ -No Poses a threat to life or bodily function? How? (Chest pain, [place], [place], pneumonia, PE, COPD, DKA, ARF, appy, cholecystitis, CVA, Diverticulitis, Homicidal, Suicidal, threat to staff... and all critical care pts) @ -No - Lab Data Result diagrams: 07/22/22 22:07 07/22/22 22:07 Lab Results 07/22/22 07/22/22 07/22/22 Range/Units 22:07 22:07 22:07 WBC 5.8 (3.8-10.6) k/uL RBC 4.61 (3.80-5.40) m/uL Hgb 14.1 (11.4-16.0) gm/dL Hct 42.1 (34.0-46.0) % MCV 91.3 (80.0-100.0) fL MCH 30.6 (25.0-35.0) pg MCHC 33.5 (31.0-37.0) g/dL RDW 12.8 (11.5-15.5) % Plt Count 282 (150-450) k/uL MPV 7.7 Neutrophils % 69 % Lymphocytes % 23 % Monocytes % 6 % Eosinophils % 1 % Basophils % 0 % Neutrophils # 4.0 (1.3-7.7) k/uL Lymphocytes # 1.3 (1.0-4.8) k/uL Monocytes # 0.4 (0-1.0) k/uL Eosinophils # 0.0 (0-0.7) k/uL Basophils # 0.0 (0-0.2) k/uL PT (9.0-12.0) sec INR (<1.2) APTT (22.0-30.0) sec D-Dimer (<0.60) mg/L FEU Sodium 139 (137-145) mmol/L Potassium 4.0 (3.5-5.1) mmol/L Chloride 103 (98-107) mmol/L Carbon Dioxide 27 (22-30) mmol/L Anion Gap 9 mmol/L BUN 14 (7-17) mg/dL Creatinine 0.56 (0.52-1.04) mg/dL Est GFR (CKD-EPI)AfAm >90 (>60 ml/min/1.73 sqM) Est GFR (CKD-EPI)NonAf >90 (>60 ml/min/1.73 sqM) Glucose 93 (74-99) mg/dL Calcium 9.1 (8.4-10.2) mg/dL Magnesium 1.8 (1.6-2.3) mg/dL Total Bilirubin 0.4 (0.2-1.3) mg/dL AST 24 (14-36) U/L ALT 17 (4-34) U/L Alkaline Phosphatase 73 (38-126) U/L Troponin I <0.012 (0.000-0.034) ng/mL NT-Pro-B Natriuret Pep pg/mL Total Protein 6.4 (6.3-8.2) g/dL Albumin 4.0 (3.5-5.0) g/dL Lipase 204 (23-300) U/L Urine Color Urine Appearance (Clear) Urine pH (5.0-8.0) Ur Specific [place] (1.001-1.035) Urine Protein (Negative) Urine Glucose (UA) (Negative) Urine Ketones (Negative) Urine Blood (Negative) Urine Nitrite (Negative) Urine Bilirubin (Negative) Urine Urobilinogen (<2.0) mg/dL Ur Leukocyte Esterase (Negative) Influenza Type A (PCR) (Not Detectd) Influenza Type B (PCR) (Not Detectd) RSV (PCR) (Not Detectd) SARS-CoV-2 (PCR) (Not Detectd) 07/22/22 07/22/22 07/22/22 Range/Units 22:07 22:07 22:07 WBC (3.8-10.6) k/uL RBC (3.80-5.40) m/uL Hgb (11.4-16.0) gm/dL Hct (34.0-46.0) % MCV (80.0-100.0) fL MCH (25.0-35.0) pg MCHC (31.0-37.0) g/dL RDW (11.5-15.5) % Plt Count (150-450) k/uL MPV Neutrophils % % Lymphocytes % % Monocytes % % Eosinophils % % Basophils % % Neutrophils # (1.3-7.7) k/uL Lymphocytes # (1.0-4.8) k/uL Monocytes # (0-1.0) k/uL Eosinophils # (0-0.7) k/uL Basophils # (0-0.2) k/uL PT 10.5 (9.0-12.0) sec INR 1.0 (<1.2) APTT 24.9 (22.0-30.0) sec D-Dimer 1.11 H (<0.60) mg/L FEU Sodium (137-145) mmol/L Potassium (3.5-5.1) mmol/L Chloride (98-107) mmol/L Carbon Dioxide (22-30) mmol/L Anion Gap mmol/L BUN (7-17) mg/dL Creatinine (0.52-1.04) mg/dL Est GFR (CKD-EPI)AfAm (>60 ml/min/1.73 sqM) Est GFR (CKD-EPI)NonAf (>60 ml/min/1.73 sqM) Glucose (74-99) mg/dL Calcium (8.4-10.2) mg/dL Magnesium (1.6-2.3) mg/dL Total Bilirubin (0.2-1.3) mg/dL AST (14-36) U/L ALT (4-34) U/L Alkaline Phosphatase (38-126) U/L Troponin I (0.000-0.034) ng/mL NT-Pro-B Natriuret Pep 412 pg/mL Total Protein (6.3-8.2) g/dL Albumin (3.5-5.0) g/dL Lipase (23-300) U/L Urine Color Light Yellow Urine Appearance Clear (Clear) Urine pH 7.0 (5.0-8.0) Ur Specific [place] 1.007 (1.001-1.035) Urine Protein Negative (Negative) Urine Glucose (UA) Negative (Negative) Urine Ketones Trace H (Negative) Urine Blood Negative (Negative) Urine Nitrite Negative (Negative) Urine Bilirubin Negative (Negative) Urine Urobilinogen <2.0 (<2.0) mg/dL Ur Leukocyte Esterase Negative (Negative) Influenza Type A (PCR) (Not Detectd) Influenza Type B (PCR) (Not Detectd) RSV (PCR) (Not Detectd) SARS-CoV-2 (PCR) (Not Detectd) 07/22/22 Range/Units 22:07 WBC (3.8-10.6) k/uL RBC (3.80-5.40) m/uL Hgb (11.4-16.0) gm/dL Hct (34.0-46.0) % MCV (80.0-100.0) fL MCH (25.0-35.0) pg MCHC (31.0-37.0) g/dL RDW (11.5-15.5) % Plt Count (150-450) k/uL MPV Neutrophils % % Lymphocytes % % Monocytes % % Eosinophils % % Basophils % % Neutrophils # (1.3-7.7) k/uL Lymphocytes # (1.0-4.8) k/uL Monocytes # (0-1.0) k/uL Eosinophils # (0-0.7) k/uL Basophils # (0-0.2) k/uL PT (9.0-12.0) sec INR (<1.2) APTT (22.0-30.0) sec D-Dimer (<0.60) mg/L FEU Sodium (137-145) mmol/L Potassium (3.5-5.1) mmol/L Chloride (98-107) mmol/L Carbon Dioxide (22-30) mmol/L Anion Gap mmol/L BUN (7-17) mg/dL Creatinine (0.52-1.04) mg/dL Est GFR (CKD-EPI)AfAm (>60 ml/min/1.73 sqM) Est GFR (CKD-EPI)NonAf (>60 ml/min/1.73 sqM) Glucose (74-99) mg/dL Calcium (8.4-10.2) mg/dL Magnesium (1.6-2.3) mg/dL Total Bilirubin (0.2-1.3) mg/dL AST (14-36) U/L ALT (4-34) U/L Alkaline Phosphatase (38-126) U/L Troponin I (0.000-0.034) ng/mL NT-Pro-B Natriuret Pep pg/mL Total Protein (6.3-8.2) g/dL Albumin (3.5-5.0) g/dL Lipase (23-300) U/L Urine Color Urine Appearance (Clear) Urine pH (5.0-8.0) Ur Specific [place] (1.001-1.035) Urine Protein (Negative) Urine Glucose (UA) (Negative) Urine Ketones (Negative) Urine Blood (Negative) Urine Nitrite (Negative) Urine Bilirubin (Negative) Urine Urobilinogen (<2.0) mg/dL Ur Leukocyte Esterase (Negative) Influenza Type A (PCR) Not Detected (Not Detectd) Influenza Type B (PCR) Not Detected (Not Detectd) RSV (PCR) Not Detected (Not Detectd) SARS-CoV-2 (PCR) Detected A (Not Detectd) Disposition Clinical Impression: COVID, Dehydration Disposition: HOME SELF-CARE Condition: Stable Instructions (If sedation given, give patient instructions): Dehydration (DC) Prescriptions: Ondansetron Odt [Zofran Odt] 4 mg PO Q8HR PRN #20 tab PRN Reason: Nausea Is patient prescribed a controlled substance at d/c from ED?: No Referrals: Tal Almendarez MD [Primary Care Provider] - 1-2 days Time of Disposition: 23:45
[2022-07-22 22:34] LABS: ALT 17 U/L (4-34); AST 24 U/L (14-36); African American GFR (CKD) >90 (>60 ml/min/1.73 sqM); Alkaline Phosphatase 73 U/L (38-126); Anion Gap 9 mmol/L; Blood Urea Nitrogen 14 mg/dL (7-17); Calcium 9.1 mg/dL (8.4-10.2); Carbon Dioxide 27 mmol/L (22-30); Chloride 103 mmol/L (98-107); Glucose 93 mg/dL (74-99); Lipase 204 U/L (23-300); Magnesium 1.8 mg/dL (1.6-2.3); Non-African American GFR(CKD) >90 (>60 ml/min/1.73 sqM); Sodium 139 mmol/L (137-145); Total Bilirubin 0.4 mg/dL (0.2-1.3); Total Protein 6.4 g/dL (6.3-8.2)
--- NOTE | 2022-07-22 23:04 | XR ---
EXAMINATION TYPE: XR chest 2V DATE OF EXAM: 07/22/2022 COMPARISON: 10/20/2018 HISTORY: Short of breath TECHNIQUE: 2 views FINDINGS: Heart is normal. Lungs are clear of infiltrate. No heart failure. There is pulmonary hyperi nflation and flattening of the diaphragm. There is posterior fusion surgery at the thoracolumbar junc tion. There is multilevel vertebroplasty. IMPRESSION: There is evidence of COPD. No acute lung disease. Thoracolumbar posterior fusion surgery with revision compared to old exams. Normal heart.
--- NOTE | 2022-07-22 23:38 | CT ---
EXAMINATION TYPE: CT angio chest DATE OF EXAM: 07/22/2022 COMPARISON: 10/19/2018 HISTORY: elevated d-dimer CT DLP: 290.5 mGycm Automated exposure control for dose reduction was used. CONTRAST: Performed with IV Contrast, patient injected with 85 mL of Isovue 370. There are Three-D postprocessed images. There are some bullous pulmonary emphysema. There is some pleural thickening at the lung apices bilat erally. There is multilevel thoracolumbar spine posterior fusion surgery. No pleural effusion. There are no hilar masses. Heart size is normal. No pericardial effusion. There is normal contrast opacification of the pulmonary arteries. No filling defect. Thoracic aorta i s intact. No aneurysm or dissection. There is apparent enlargement of the left and right renal pelvis of the partly visualized kidneys. IMPRESSION: There is emphysema. Bilateral apical pleural and pulmonary scarring. No evidence of pulmonary embolism. No suspicious pulmonary mass. No significant change compared to ol d exam. There is apparent development of bilateral hydronephrosis compared to old exam.
== END 2022-07-23 00:13 | disposition home or self-care (01) ==
LOC: EC 20:48
DX: U07.1 COVID-19 (principal); E86.0 Dehydration; I10 Essential (primary) hypertension; I25.10 Atherosclerotic heart disease of native coronary artery without angina pectoris; J44.9 Chronic obstructive pulmonary disease, unspecified; M19.90 Unspecified osteoarthritis, unspecified site; F41.9 Anxiety disorder, unspecified; Z87.891 Personal history of nicotine dependence; Z79.899 Other long term (current) drug therapy
CPT/HCPCS: 36415; 93005; 85379; 83880; 80053; 83690; 83735; 84484; 85025; 85610; 85730; 81003; 87636; 71046; 71275; 99285; 96374; 96361; J2405; Q9967

== ENCOUNTER → 2022-10-02 | Outpatient (CLI) | payer MEDICARE ==
[2022-10-02 15:10] LABS: HCT 46.2 % (37.2-46.3); HGB 14.9 g/dL (12.0-15.0); MCH 30.5 pg (27.0-32.0); MCHC 32.3 g/dL (32.0-37.0); MCV 94.5 fL (80.0-97.0); Mean Platelet Volume 10.5 fL (9.5-12.2); NRBC Per 100 WBC 0 /100 WBCS (0.0-0.0); Platelet Count 245 X 10*3/uL (140-440); RBC 4.89 X 10*6/uL (4.10-5.20); RDW 13.5 % (11.5-14.5); WBC 6.28 X 10*3/uL (4.50-10.00)
[2022-10-02 15:30] LABS: ALT 11 U/L (8-44); AST 16 U/L (13-35); African American GFR (CKD) 101.7 (60.0-200.0); Albumin 4.7 g/dL (3.8-4.9); Albumin/Globulin Ratio 2.35 (1.60-3.17); Alkaline Phosphatase 68 U/L (41-126); BUN/Creat Ratio 32.29 Ratio (12.00-20.00); Blood Urea Nitrogen 22.6 mg/dL (9.0-27.0); Calcium 10.5 mg/dL (8.7-10.3); Carbon Dioxide 30.1 mmol/L (20.0-27.5); Chloride 106 mmol/L (96-109); Chol/HDL Ratio 2.73 Ratio; Glucose 106 mg/dL (70-110); LDL Cholesterol,Calculated 82.7 mg/dL (0.0-131.0); Non-African American GFR(CKD) 87.8 (60.0-200.0); Potassium 4.7 mmol/L (3.5-5.5); Sodium 147 mmol/L (135-145); Total Protein 6.7 g/dL (6.2-8.2)
== END | disposition home or self-care (01) ==
LOC: LABWHC1 08:09
PROVIDERS: ATTEND Family Medicine
DX: Z00.01 Encounter for general adult medical examination with abnormal findings (principal); E66.3 Overweight; R53.83 Other fatigue
CPT/HCPCS: 36415; 80053; 80061; 85027

== ENCOUNTER → 2023-05-21 | Outpatient (CLI) | payer MEDICARE ==
--- NOTE | 2023-05-21 16:07 | XR ---
EXAMINATION TYPE: XR lumbar spine 3V DATE OF EXAM: 05/21/2023 Comparison: 08/10/2019 Clinical History: 72-year-old female M47.816 LUMBAR SPONDYLOSIS Findings: Extensive thoracolumbar fusion hardware redemonstrated with multiple vertebroplasty changes as well. As compared to 08/09/2021, the posterior fusion has been extended down to S1. Grade 1 retrolisthesis L 2-L3 with some focal kyphosis here. At this current calcifications throughout the abdominal aorta. La minectomy changes throughout the lumbar spine. Impression: As compared to 08/09/2021, the posterior fusion beginning at the mid thoracic spine has now been exten ded down through the S1 level. Multilevel vertebroplasty changes redemonstrated. Fixed grade 1 retrol isthesis L2-L3.
== END | disposition home or self-care (01) ==
LOC: RADXRMAIN 13:06
PROVIDERS: ATTEND Neurological Surgery
DX: M47.816 Spondylosis without myelopathy or radiculopathy, lumbar region (principal); M43.16 Spondylolisthesis, lumbar region; Z98.1 Arthrodesis status
CPT/HCPCS: 72100

== ENCOUNTER → 2023-07-23 | Outpatient (CLI) | payer MEDICARE ==
[2023-07-23 13:46] LABS: Basophils % (A) 0 %; Eosinophils % (A) 0 %; HCT 40.9 % (34.0-46.0); Lymphocytes # (A) 1.1 k/uL (1.0-4.8); Lymphocytes % (A) 13 %; MCH 29.7 pg (25.0-35.0); MCHC 31.9 g/dL (31.0-37.0); MCV 93.2 fL (80.0-100.0); Mean Platelet Volume 7.6; Monocytes # (A) 0.4 k/uL (0-1.0); Monocytes % (A) 5 %; Neutrophils % (A) 82 %; Platelet Count 315 k/uL (150-450); RBC 4.39 m/uL (3.80-5.40); RDW 14.3 % (11.5-15.5); WBC 8.6 k/uL (3.8-10.6)
== END | disposition home or self-care (01) ==
LOC: LABWHC1 11:47
PROVIDERS: ATTEND Internal Medicine Interventional Cardiology
DX: Z00.00 Encounter for general adult medical examination without abnormal findings (principal); M35.00 Sjogren syndrome, unspecified
CPT/HCPCS: 36415; 85025

== ENCOUNTER → 2023-07-23 | Outpatient (CLI) | payer MEDICARE ==
--- NOTE | 2023-07-24 10:56 | XR ---
EXAMINATION TYPE: XR lumbar spine 2 or 3V DATE OF EXAM: 07/23/2023 12:42 PM CLINICAL INDICATION:Female, 72 years old with history of Z98.1 Arthrodesis status; COMPARISON: 05/21/2023 TECHNIQUE: XR lumbar spine 2 or 3V - Frontal, lateral and coned in L5-S1 lateral views of the spine. FINDINGS: Extensive postsurgical changes throughout the spine hardware appears intact. Discectomy greg nges are also present with vertebroplasty changes. There is moderate degeneration changes throughout spine with disc space narrowing, osteophyte formation and facet arthropathy. IMPRESSION: 1. Since of postsurgical changes without evidence for hardware failure. 2. Moderate to severe degeneration changes throughout spine.
== END | disposition home or self-care (01) ==
LOC: RADXRMAIN 12:18
PROVIDERS: ATTEND Neurological Surgery
DX: M47.817 Spondylosis without myelopathy or radiculopathy, lumbosacral region (principal); Z98.1 Arthrodesis status
CPT/HCPCS: 72100

== ENCOUNTER → 2023-08-06 | Outpatient (CLI) | payer MEDICARE ==
[2023-08-06 16:35] LABS: BUN/Creat Ratio 33.86 Ratio (12.00-20.00); Blood Urea Nitrogen 23.7 mg/dL (9.0-27.0); Calcium 9.8 mg/dL (8.7-10.3); Carbon Dioxide 31.6 mmol/L (21.6-31.8); Chloride 103 mmol/L (96-109); Glucose 121 mg/dL (70-110); Potassium 3.5 mmol/L (3.5-5.5); Sodium 145 mmol/L (135-145)
== END | disposition home or self-care (01) ==
LOC: LABWHC1 08:57
PROVIDERS: ATTEND Internal Medicine Endocrinology, Diabetes & Metabolism
DX: M81.0 Age-related osteoporosis without current pathological fracture (principal)
CPT/HCPCS: 36415; 80048; 82306

== ENCOUNTER → 2023-10-24 | Outpatient (CLI) | payer MEDICARE ==
--- NOTE | 2023-10-28 23:01 | MM ---
Reason for Exam: Screening (asymptomatic). Last mammogram was performed 1 year(s) and 1 month(s) ago. Patient History: Menarche at age 15. First Full-Term at age 34. Late child-bearing (after 30). Postmenopausal. Progesterone for 3 years from age 52 until age 55. Patient used Hormonal Contraceptives for 2 years. Maternal aunt had breast cancer, age 60. Risk Values: Jessy 5 year model risk: 2.4%. NCI Lifetime model risk: 6.6%. Prior Study Comparison: 11/11/2019 Bilateral Screening Mammogram, [facility]. 08/09/2021 Bilateral Screening Mammogram, [facility]. 09/13/2022 Bilateral MG 3D screening mammo w/cad, [facility]. Tissue Density: The breasts are extremely dense, which lowers the sensitivity of mammography. Findings: Analyzed By CAD. The pattern is symmetrical. Benign spherical calcifications are present bilaterally. Coarse calcifications within the left breast No suspicious groups of microcalcifications, spiculated or lobular masses, architectural distortion or other secondary signs of malignancy are mammographically apparent. Overall Assessment: Benign, BI-RAD 2 Management: Screening Mammogram of both breasts in 1 year. A negative mammogram report should not preclude additional follow up of suspicious palpable abnormalities. Patient should continue monthly self breast exam. A clinical breast exam by your physician is recommended on an annual basis and results should be correlated with mammographic findings. Note on Jessy scores and lifetime risk: 1. A Jessy score greater than 3% is considered moderate risk. If this is the case, consider specialist referral to assess eligibility for a risk reducing agent. 2. If overall lifetime risk for the development of breast cancer is 20% or higher, the patient may qualify for future screening with alternating mammogram and breast MRI. Electronically signed and approved by: Jose Maria Reed D.O. Radiologis
== END | disposition home or self-care (01) ==
LOC: RADMAMWWP 11:02
PROVIDERS: ATTEND Family Medicine
DX: Z12.31 Encounter for screening mammogram for malignant neoplasm of breast (principal); Z78.0 Asymptomatic menopausal state; Z80.3 Family history of malignant neoplasm of breast
CPT/HCPCS: 77063; 77067

== ENCOUNTER 2023-12-09 17:30 | Emergency (ER) | payer MEDICARE ==
--- NOTE | 2023-12-09 18:05 | ED ---
General Adult HPI - General Chief complaint: Nausea/Vomiting/Diarrhea Stated complaint: HTN Time Seen by Provider: 12/09/23 17:58 Source: patient Mode of arrival: wheelchair Limitations: no limitations - History of Present Illness Initial comments: Patient presents to the ED with her for evaluation. Patient states that she has been nauseated and generally weak since earlier today. Patient also reports vomiting once on her way to the ED today. Patient's states that the patient had a blood pressure reading of 215/144 just prior to coming to the ED today. Patient also admits to having epigastric abdominal pain since earlier today. Patient denies trauma or injury, fever or chills, headache, focal numbness/weakness/neuro deficit, chest pain or pressure, dyspnea, cough or cold symptoms, palpitations, dizziness, lower abdominal pain, back or flank pain, diarrhea or constipation, bloody or melanotic stool, hematemesis, dysuria/he maturia/urinary frequency/urinary symptoms, leg or calf swelling or pain, or any other symptoms or complaints. - Related Data Home Medications Medication Instructions Recorded Confirmed Rosuvastatin Calcium [Crestor] 5 mg PO DAILY 10/19/18 07/22/22 Sertraline [Zoloft] 150 mg PO DAILY 10/19/18 07/22/22 oxyCODONE-APAP 10-325MG [Percocet 1 tab PO Q6H PRN 10/19/18 07/22/22 10-325 mg] Cholecalciferol [Vitamin D3 (25 50 mcg PO DAILY 12/05/21 07/22/22 Mcg = 1000 Iu)] Magnesium 400 mg PO DAILY 12/05/21 07/22/22 Metoprolol Succinate (ER) [Toprol 12.5 mg PO DAILY 12/05/21 07/22/22 Xl] diazePAM [Valium] 5 mg PO BID PRN 12/05/21 07/22/22 Calcium Carbonate 1,500 mg PO DAILY 07/22/22 07/22/22 Omeprazole [PriLOSEC] 20 mg PO DAILY PRN 07/22/22 07/22/22 fentaNYL 50MCG/HR PATCH [Duragesic 1 patch TRANSDERM Q72H 07/22/22 07/22/22 50MCG/HR] Previous Rx's Medication Instructions Recorded Ondansetron Odt [Zofran Odt] 4 mg PO Q8HR PRN #20 tab 07/23/22 Ciprofloxacin HCl [Cipro] 250 mg PO Q12HR 5 Days #10 tab 12/09/23 Allergies Allergy/AdvReac Type Severity Reaction Status Date / Time No Known Allergies Allergy Verified 12/09/23 17:42 Review of Systems ROS Statement: Those systems with pertinent positive or pertinent negative responses have been documented in the HPI. ROS Other: All systems not noted in ROS Statement are negative. Past Medical History Past Medical History: Coronary Artery Disease (CAD), COPD, Osteoarthritis (OA), Respiratory Disorder Additional Past Medical History / Comment(s): having abd cramping inter mittently, no apetite and 10lb wt loss, hx mild COPD, colitis,UTIs History of Any Multi-Drug Resistant Organisms: None Reported Past Surgical History: Back Surgery, Section, Ear Surgery, Heart Catheterization, Orthopedic Surgery, Tonsillectomy, Tubal Ligation Additional Past Surgical History / Comment(s): Right knee, x2, tubes in ears, lumbar fusion L2-S1, T9-L3 fusion october 08 Past Anesthesia/Blood Transfusion Reactions: No Reported Reaction Past Psychological History: Anxiety Smoking Status: Former smoker Past Alcohol Use History: None Reported Past Drug Use History: None Reported - Past Family History Son(s) Family Medical History: No Reported History Additional Family Medical History / Comment(s): autism Mother History Unknown: Yes Family Medical History: CVA/TIA Father Additional Family Medical History / Comment(s): suicide at 47 Brother(s) Additional Family Medical History / Comment(s): from alcohol and drug use. Sister(s) Family Medical History: Hypertension General Exam Limitations: no limitations General appearance: alert, anxious Head exam: Present: atraumatic, normocephalic Eye exam: Present: normal appearance, PERRL, EOMI ENT exam: Present: mucous membranes moist Neck exam: Present: other (Trachea is in midline) Respiratory exam: Present: normal lung sounds bilaterally. Absent: respiratory distress, wheezes, rales, rhonchi, stridor Cardiovascular Exam: Present: regular rate, normal rhythm, normal heart sounds, other (Normal radial pulses bilaterally) GI/Abdominal exam: Present: soft, normal bowel sounds, other (Moderate epigastric tenderness). Absent: distended, guarding, rebound Extremities exam: Absent: tenderness, pedal edema, calf tenderness Back exam: Absent: CVA tenderness (R), CVA tenderness (L) Neurological exam: Present: alert, oriented X3, CN II-XII intact. Absent: motor sensory deficit Psychiatric exam: Present: anxious Skin exam: Present: warm, dry, normal color Course Vital Signs 12/09/23 12/09/23 12/09/23 17:39 17:53 18:08 Temperature 97.0 F L 97.7 F Pulse Rate 69 61 Respiratory 18 18 Rate Blood Pressure 188/93 172/81 177/84 O2 Sat by Pulse 98 99 Oximetry 12/09/23 12/09/23 19:40 20:59 Temperature 97.9 F Pulse Rate 62 64 Respiratory 20 18 Rate Blood Pressure 158/81 133/81 O2 Sat by Pulse 96 93 L Oximetry - Reevaluation(s) Reevaluation #1: 12/09/23 21:42 Bladder scan was performed and shows only about 120 cc of urine in patient's bladder. Patient states that she is now feeling much better, she wishes to be discharged home. Patient's blood pressure has now improved. Patient now has a soft and nontender abdominal exam. Patient and are aware of the elva herndon's test results. Patient was counseled about nausea/vomiting, abdominal pain, hypertension and UTIs. She was clearly explained return and follow-up instructions. She was instructed to follow-up closely with her primary care provider. She feels comfortable with this plan. EKG Findings - EKG Comments: EKG Findings:: ED physician interpretation (interpreted by me): Normal sinus rhythm, no ectopy, ventricular rate of 66 bpm, normal [place] and QRS intervals, normal QT interval, normal axis, no ST or T wave abnormality Medical Decision Making - Medical Decision Making Was pt. sent in by a medical professional or institution (, [facility], RN CASE MANAGEMENT, urgent care, hospital, or detention...) When possible be specific @ -No Did you speak to anyone other than the patient for history (EMS, parent, family, police, friend...)? What history was obtained from this source @ -No Did you review nursing and triage notes (agree or disagree)? Why? @ -I reviewed and agree with nursing and triage notes Were old charts reviewed (outside hosp., previous admission, EMS record, old EKG, old radiological studies, urgent care reports/EKG's, detention records)? Report findings @ -No old charts were reviewed Differential Diagnosis (chest pain, altered mental status, abdominal pain women, abdominal pain men, vaginal bleeding, weakness, fever, dyspnea, syncope, headache, dizziness, GI bleed, back pain, seizure, CVA, palpatations, mental health, musculoskeletal)? @ -Differential Abdominal Pain Women: Appendicitis, Cholecystitis, diverticulitis, colitis, enteritis, ischemic bowel, pancreatitis, hepatitis, UTI, gastroenteritis, AAA, incarcerated hernia, bowel obstruction, constipation, inflammatory bowel disease, peptic ulcer disease, splenic infarction, perforated viscus, nausea, vomiting, dehydration, electrolyte abnormality, renal disease, viral illness, food toxicity, hy pertension, anxiety, this is not meant to be an all-inclusive list EKG interpreted by me (3pts min.). @ -As above X-rays interpreted by me (1pt min.). @ -Chest x-ray was reviewed myself and shows no acute cardiopulmonary disease. I agree with the radiologist's interpretation as above. CT interpreted by me (1pt min.). @ -CT abdomen/pelvis with IV contrast shows no definite acute abdominal proce ss. I agree with the radiologist's interpretation as above. U/S interpreted by me (1pt. min.). @ -None done What testing was considered but not performed or refused? (CT, X-rays, U/S, labs)? Why? @ -None What meds were considered but not given or refused? Why? @ -None Did you discuss the management of the patient with other professionals (professionals i.e. , PA, RN CASE MANAGEMENT, lab, RT, psych nurse, social media marketing analyst, trimming department blocker, teacher, small business banking officer, comp field case manager)? Give summary @ -No Was smoking cessation discussed for >3mins.? @ -No Was critical care preformed (if so, how long)? @ -No Were there social determinants of health that impacted care today? How? (Homelessness, low income, unemployed, alcoholism, drug addiction, transportation, low edu. Level, literacy, decrease access to med. care, fci, rehab)? @ -No Was there de-escalation of care discussed even if they declined (Discuss DNR or withdrawal of care, Hospice)? DNR status @ -No What co-morbidities impacted this encounter? (DM, HTN, Smoking, COPD, CAD, Cancer, CVA, ARF, Chemo, Hep., AIDS, mental health diagnosis, sleep apnea, mo rbid obesity)? @ -None Was patient admitted / discharged? Hospital course, mention meds given and r oute, prescriptions, significant lab abnormalities, going to OR and other pertinent info. @ -Patient reports improvement in her symptoms with ED management. Patient's blood pressure has improved while in the ED. Patient's lactic acid level is minimally elevated and her UA is suggestive of UTI. The rest of the patient's labs are fairly unremarkable. Patient is afebrile and without leukocytosis. Patient's troponin is negative. Patient's CT abdomen/pelvis with IV contrast does not show any definitive acute abdominal process. Patient's bladder scan reveals only 120 cc of urine in the patient's bladder. Patient wishes to be discharged home. I do not suspect an emergent medical condition at this time. Will discharge patient home with an antibiotic course for her UTI. Patient feels comfortable with this plan. Undiagnosed new problem with uncertain prognosis? @ -No Drug Therapy requiring intensive monitoring for toxicity (Heparin, Nitro, Insulin, Cardizem)? @ -No Were any procedures done? @ -No Diagnosis/symptom? @ -Hypertension, abdominal pain, nausea/vomiting, UTI Acute, or Chronic, or Acute on Chronic? @ -Default Uncomplicated (without systemic symptoms) or Complicated (systemic symptoms)? @ -Default Side effects of treatment? @ -No Exacerbation, Progression, or Severe Exacerbation? @ -No Poses a threat to life or bodily function? How? (Chest pain, USA, PA, pneumonia, PE, COPD, DKA, ARF, appy, cholecystitis, CVA, Diverticulitis, Homicidal, Suicidal, threat to staff... and all critical care pts) @ -No - Lab Data Result diagrams: 12/09/23 18:39 12/09/23 18:39 Lab Results 12/09/23 12/09/23 12/09/23 Range/Units 18:39 18:39 18:39 WBC 9.0 (3.8-10.6) k/uL RBC 4.94 (3.80-5.40) m/uL Hgb 15.0 (11.4-16.0) gm/dL Hct 45.2 (34.0-46.0) % MCV 91.6 (80.0-100.0) fL MCH 30.3 (25.0-35.0) pg MCHC 33.1 (31.0-37.0) g/dL RDW 13.4 (11.5-15.5) % Plt Count 322 (150-450) k/uL MPV 8.3 Neutrophils % 67 % Lymphocytes % 25 % Monocytes % 6 % Eosinophils % 0 % Basophils % 0 % Neutrophils # 6.0 (1.3-7.7) k/uL Lymphocytes # 2.2 (1.0-4.8) k/uL Monocytes # 0.5 (0-1.0) k/uL Eosinophils # 0.0 (0-0.7) k/uL Basophils # 0.0 (0-0.2) k/uL PT 10.7 (10.0-12.5) sec INR 1.0 (<1.2) APTT 24.0 (22.0-30.0) sec Sodium 139 (137-145) mmol/L Potassium 3.5 (3.5-5.1) mmol/L Chloride 101 (98-107) mmol/L Carbon Dioxide 26 (22-30) mmol/L Anion Gap 12 mmol/L BUN 19 H (7-17) mg/dL Creatinine 0.62 (0.52-1.04) mg/dL Est GFR (CKD-EPI)AfAm >90 (>60 ml/min/1.73 sqM) Est GFR (CKD-EPI)NonAf >90 (>60 ml/min/1.73 sqM) Glucose 135 H (74-99) mg/dL Lactic Ac Sepsis Rflx Plasma Lactic Acid Zi (0.7-2.0) mmol/L Calcium 10.3 H (8.4-10.2) mg/dL Total Bilirubin 0.5 (0.2-1.3) mg/dL AST 29 (14-36) U/L ALT 13 (4-34) U/L Alkaline Phosphatase 103 (38-126) U/L Troponin I (0.000-0.034) ng/mL Total Protein 7.4 (6.3-8.2) g/dL Albumin 4.9 (3.5-5.0) g/dL Amylase 50 (30-110) U/L Lipase 58 (23-300) U/L Urine Color Urine Appearance (Clear) Urine pH (5.0-8.0) Ur Specific [place] (1.001-1.035) Urine Protein (Negative) Urine Glucose (UA) (Negative) Urine Ketones (Negative) Urine Blood (Negative) Urine Nitrite (Negative) Urine Bilirubin (Negative) Urine Urobilinogen (<2.0) mg/dL Ur Leukocyte Esterase (Negative) Urine RBC (0-5) /hpf Urine WBC (0-5) /hpf Urine WBC Clumps (None) /hpf Urine Bacteria (None) /hpf Urine Mucus (None) /hpf 12/09/23 12/09/23 12/09/23 Range/Units 18:39 18:39 19:26 WBC (3.8-10.6) k/uL RBC (3.80-5.40) m/uL Hgb (11.4-16.0) gm/dL Hct (34.0-46.0) % MCV (80.0-100.0) fL MCH (25.0-35.0) pg MCHC (31.0-37.0) g/dL RDW (11.5-15.5) % Plt Count (150-450) k/uL MPV Neutrophils % % Lymphocytes % % Monocytes % % Eosinophils % % Basophils % % Neutrophils # (1.3-7.7) k/uL Lymphocytes # (1.0-4.8) k/uL Monocytes # (0-1.0) k/uL Eosinophils # (0-0.7) k/uL Basophils # (0-0.2) k/uL PT (10.0-12.5) sec INR (<1.2) APTT (22.0-30.0) sec Sodium (137-145) mmol/L Potassium (3.5-5.1) mmol/L Chloride (98-107) mmol/L Carbon Dioxide (22-30) mmol/L Anion Gap mmol/L BUN (7-17) mg/dL Creatinine (0.52-1.04) mg/dL Est GFR (CKD-EPI)AfAm (>60 ml/min/1.73 sqM) Est GFR (CKD-EPI)NonAf (>60 ml/min/1.73 sqM) Glucose (74-99) mg/dL Lactic Ac Sepsis Rflx Y Plasma Lactic Acid Zi 2.1 H* (0.7-2.0) mmol/L Calcium (8.4-10.2) mg/dL Total Bilirubin (0.2-1.3) mg/dL AST (14-36) U/L ALT (4-34) U/L Alkaline Phosphatase (38-126) U/L Troponin I <0.012 (0.000-0.034) ng/mL Total Protein (6.3-8.2) g/dL Albumin (3.5-5.0) g/dL Amylase (30-110) U/L Lipase (23-300) U/L Urine Color Urine Appearance (Clear) Urine pH (5.0-8.0) Ur Specific [place] (1.001-1.035) Urine Protein (Negative) Urine Glucose (UA) (Negative) Urine Ketones (Negative) Urine Blood (Negative) Urine Nitrite (Negative) Urine Bilirubin (Negative) Urine Urobilinogen (<2.0) mg/dL Ur Leukocyte Esterase (Negative) Urine RBC (0-5) /hpf Urine WBC (0-5) /hpf Urine WBC Clumps (None) /hpf Urine Bacteria (None) /hpf Urine Mucus (None) /hpf 12/09/23 Range/Units 20:50 WBC (3.8-10.6) k/uL RBC (3.80-5.40) m/uL Hgb (11.4-16.0) gm/dL Hct (34.0-46.0) % MCV (80.0-100.0) fL MCH (25.0-35.0) pg MCHC (31.0-37.0) g/dL RDW (11.5-15.5) % Plt Count (150-450) k/uL MPV Neutrophils % % Lymphocytes % % Monocytes % % Eosinophils % % Basophils % % Neutrophils # (1.3-7.7) k/uL Lymphocytes # (1.0-4.8) k/uL Monocytes # (0-1.0) k/uL Eosinophils # (0-0.7) k/uL Basophils # (0-0.2) k/uL PT (10.0-12.5) sec INR (<1.2) APTT (22.0-30.0) sec Sodium (137-145) mmol/L Potassium (3.5-5.1) mmol/L Chloride (98-107) mmol/L Carbon Dioxide (22-30) mmol/L Anion Gap mmol/L BUN (7-17) mg/dL Creatinine (0.52-1.04) mg/dL Est GFR (CKD-EPI)AfAm (>60 ml/min/1.73 sqM) Est GFR (CKD-EPI)NonAf (>60 ml/min/1.73 sqM) Glucose (74-99) mg/dL Lactic Ac Sepsis Rflx Plasma Lactic Acid Zi (0.7-2.0) mmol/L Calcium (8.4-10.2) mg/dL Total Bilirubin (0.2-1.3) mg/dL AST (14-36) U/L ALT (4-34) U/L Alkaline Phosphatase (38-126) U/L Troponin I (0.000-0.034) ng/mL Total Protein (6.3-8.2) g/dL Albumin (3.5-5.0) g/dL Amylase (30-110) U/L Lipase (23-300) U/L Urine Color Colorless Urine Appearance Cloudy H (Clear) Urine pH 7.0 (5.0-8.0) Ur Specific [place] 1.026 (1.001-1.035) Urine Protein Trace H (Negative) Urine Glucose (UA) Negative (Negative) Urine Ketones Trace H (Negative) Urine Blood Small H (Negative) Urine Nitrite Positive H (Negative) Urine Bilirubin Negative (Negative) Urine Urobilinogen <2.0 (<2.0) mg/dL Ur Leukocyte Esterase Large H (Negative) Urine RBC 7 H (0-5) /hpf Urine WBC 45 H (0-5) /hpf Urine WBC Clumps Rare H (None) /hpf Urine Bacteria Occasional H (None) /hpf Urine Mucus Many H (None) /hpf - Radiology Data Chest x-ray: No acute cardiopulmonary disease/process. CT abdomen/pelvis with IV contrast: 1. No definitive evidence for acute abdominal process. No evidence for bowel o bstruction or abnormality involving the stomach, visualized. 2. Dilation of the renal collecting systems bilaterally no obstructing calculus visualized. Evaluation limited due to extensive surgical changes. 3. Colonic diverticulosis. 4. Extensive surgical changes spine which appears intact. Disposition Clinical Impression: Nausea and vomiting, Hypertension, Abdominal pain, UTI (urinary tract infection) Disposition: HOME SELF-CARE Condition: Stable Instructions (If sedation given, give patient instructions): Urinary Tract Infection in Women (ED), Acute Nausea and Vomiting (ED), Chronic Hypertension (ED), Abdominal Pain (ED) Additional Instructions: Return to the ER immediately should you develop new or worsening pain, numbness or weakness, a fever, persistent vomiting, feeling dizzy or faint, or new or worsening symptoms. Follow-up closely with your primary care provider. Prescriptions: Ciprofloxacin HCl [Cipro] 250 mg PO Q12HR 5 Days #10 tab Is patient prescribed a controlled substance at d/c from ED?: No Referrals: Tal Almendarez MD [Primary Care Provider] - 1-2 days Time of Disposition: 21:47
[2023-12-09] MEDS: SODIUM CHLORIDE 0.9% 500 ML 500 ML IV STA (18:40)
[2023-12-09] MEDS: ONDANSETRON 4 MG/2 ML VIAL IVP STA (18:44)
[2023-12-09] MEDS: HYDROmorphone 0.5 MG/0.5 ML SYRINGE IVP STA ×2 (18:46→21:09)
[2023-12-09] MEDS: LORazepam 2 MG/ML INJ IV STA (18:54)
[2023-12-09 19:11] LABS: Basophils % (A) 0 %; Eosinophils % (A) 0 %; HCT 45.2 % (34.0-46.0); Lymphocytes # (A) 2.2 k/uL (1.0-4.8); Lymphocytes % (A) 25 %; MCH 30.3 pg (25.0-35.0); MCHC 33.1 g/dL (31.0-37.0); MCV 91.6 fL (80.0-100.0); Mean Platelet Volume 8.3; Monocytes # (A) 0.5 k/uL (0-1.0); Monocytes % (A) 6 %; Neutrophils % (A) 67 %; Platelet Count 322 k/uL (150-450); RBC 4.94 m/uL (3.80-5.40); RDW 13.4 % (11.5-15.5)
[2023-12-09 19:22] LABS: ALT 13 U/L (4-34); AST 29 U/L (14-36); African American GFR (CKD) >90 (>60 ml/min/1.73 sqM); Albumin 4.9 g/dL (3.5-5.0); Alkaline Phosphatase 103 U/L (38-126); Amylase 50 U/L (30-110); Anion Gap 12 mmol/L; Blood Urea Nitrogen 19 mg/dL (7-17); Calcium 10.3 mg/dL (8.4-10.2); Carbon Dioxide 26 mmol/L (22-30); Chloride 101 mmol/L (98-107); Glucose 135 mg/dL (74-99); Lipase 58 U/L (23-300); Non-African American GFR(CKD) >90 (>60 ml/min/1.73 sqM); Potassium 3.5 mmol/L (3.5-5.1); Sodium 139 mmol/L (137-145); Total Bilirubin 0.5 mg/dL (0.2-1.3); Total Protein 7.4 g/dL (6.3-8.2)
--- NOTE | 2023-12-09 19:27 | XR ---
EXAMINATION TYPE: XR chest 1V portable DATE OF EXAM: 12/09/2023 7:15 PM CLINICAL INDICATION:Female, 73 years old with history of abdominal pain; [facility] COMPARISON: Chest radiographs fro 07/22/2022 TECHNIQUE: XR chest 1V portable Frontal view of the chest. FINDINGS: Lungs/Pleura: There is no evidence of pleural effusion, focal consolidation, or pneumothorax. Pulmonary vascularity: Unremarkable. Heart/mediastinum: Cardiomediastinal silhouette is unremarkable. Musculoskeletal: No acute osseous pathology. Surgical changes of the spine with hardware intact. Other findings: None IMPRESSION: No acute cardiopulmonary disease/process.
[2023-12-09 19:36] LABS: Prothrombin Time 10.7 sec (10.0-12.5)
[2023-12-09 19:41] VITALS: TEMP 97.9
[2023-12-09] MEDS: SODIUM CHLORIDE 0.9% 500 ML 500 ML IV ONE (20:58)
--- NOTE | 2023-12-09 20:58 | CT ---
EXAMINATION TYPE: CT abdomen pelvis w con CT DLP: 661.5 mGycm, Automated exposure control for dose reduction was used. DATE OF EXAM: 12/09/2023 8:48 PM COMPARISON: None. CLINICAL INDICATION:Female, 73 years old with history of abdominal pain, vomiting; abd jean carlos/ hypertens ion TECHNIQUE: Axial CT abdomen pelvis w con;Sagittal and coronal reformats were created on a separate w orkstation. Contrast used:100 ml mL of Isovue 300 with IV Contrast, (none if empty) Oral contrast used: without Oral Contrast (none if empty) FINDINGS: LOWER CHEST: Unremarkable ABDOMEN LIVER: Unremarkable GALLBLADDER AND BILE DUCTS: Unremarkable. PANCREAS: Unremarkable. SPLEEN: Unremarkable. ADRENAL GLANDS: Unremarkable. KIDNEYS AND URETERS: Dilation of the renal collecting systems bilaterally right greater than left. No affecting cartilage definitively visualized. Limited evaluation due to patient's extensive back hard fuentes. No evidence of hydronephrosis or renal calculus. The ureters are unremarkable. PELVIS BLADDER: Unremarkable REPRODUCTIVE: Unremarkable. ABDOMEN & PELVIS STOMACH AND BOWEL: No evidence of bowel obstruction. Scattered colonic diverticula. PERITONEUM/RETROPERITONEUM: No evidence of pneumoperitoneum or free fluid. VASCULATURE: No evidence of aortic aneurysm. MUSCULOSKELETAL: No acute osseous abnormalities, extensive surgical changes to the spine with vertebr oplasty changes. Hardware appears intact. LYMPH NODES: No gross evidence for lymphadenopathy. SOFT TISSUE/ABDOMINAL WALL: Unremarkable IMPRESSION: Evaluation limited by streak artifact from fixation hardware in the spine. 1. No definitive evidence for acute abdominal process. No evidence for bowel obstruction or abnormal ity involving the stomach, visualized. 2. Dilation of the renal collecting systems bilaterally no obstructing calculus visualized. Evaluati on limited due to extensive surgical changes. 3. Colonic diverticulosis. 4. Extensive surgical changes spine which appears intact.
[2023-12-09 21:01] VITALS: BP 133/81; PULSE 64; RESP 18
[2023-12-09 21:23] LABS: Appearance,Urine Cloudy (Clear); Bacteria,Urine Occasional /hpf; Bilirubin,Urine Negative (Negative); Blood,Urine Small (Negative); Color,Urine Colorless; Glucose,Urine (UA) Negative (Negative); Ketones,Urine Trace (Negative); Leukocyte Esterase,Urine Large (Negative); Mucus,Urine Many /hpf; Nitrite,Urine Positive (Negative); Protein,Urine Trace (Negative); RBC,Urine 7 /hpf (0-5); Specific Gravity,Urine 1.026 (1.001-1.035); Urobilinogen,Urine <2.0 mg/dL (<2.0); WBC,Urine 45 /hpf (0-5)
[2023-12-09] MEDS: CIPROFLOXACIN HCL 250 MG TAB PO STA (22:04)
== END 2023-12-09 22:08 | disposition home or self-care (01) ==
LOC: EC 17:30
DX: N39.0 Urinary tract infection, site not specified (principal); I10 Essential (primary) hypertension; K57.30 Diverticulosis of large intestine without perforation or abscess without bleeding; Z87.891 Personal history of nicotine dependence; Z79.899 Other long term (current) drug therapy
CPT/HCPCS: 51798; 36415; 80053; 82150; 83605; 83690; 84484; 85025; 85610; 85730; 81001; 71045; 74177; 99285; 96374; 96375 ×2; 96376; 96361 ×3; J2060; J2405; J1170; Q9967

== ENCOUNTER 2023-12-12 05:58 | Emergency (ER) | payer MEDICARE ==
--- NOTE | 2023-12-12 06:57 | ED ---
General Adult HPI - General Source: patient, RN notes reviewed Mode of arrival: wheelchair Limitations: no limitations <Faby Gama - Last Filed: 12/12/23 06:55> <Tal Dillon - Last Filed: 12/12/23 09:36> - General Chief complaint: Extremity Problem,Nontraumatic Stated complaint: Lft Arm Pain, Nausea Time Seen by Provider: 12/12/23 06:56 - History of Present Illness Initial comments: Quick Note: This is a 73-year-old female who presents to the emergency department for weakness, nausea, and left arm pain. Symptoms started 3 days ago. She was evaluated here at that time and discharged home. States that she continues to feel very weak and nauseous. She is also having left arm pain. States that this is typically intermittent but seems to be getting worse. Wonders if it may be related to a prior rotator cuff injury. Denies any chest pain. When asked about shortness of breath, states that she feels like she is hyperventilating. (Faby Gama) This is a 73-year-old female who presents to the emergency department complaining that she has been having left arm pain for months. Patient states it comes and goes down her whole arm and it only last for 1 to 2 seconds. Patient states it does not appear to be worsened with movement. Patient denies any neck pain. Patient denies any numbness or weakness. Patient states has been getting worse for the last week. Patient states on Saturday she started having significant nausea and vomiting she came to the emergency department at that time. Patient states she woke up this morning and continues to be nauseated and this is associated with the arm pain that her was unaware of was the reason they came in today. Patient denies any chest pain difficulty breathing or shortness of breath. Patient has any fever or chills. Patient states she is very anxious and feels as though she is hyperventilating. Patient denies any abdominal pain. Patient denies any vomiting today but had 1 small bout of diarrhea. Patient currently has no arm pain (Tal Dillon) - Related Data Home Medications Medication Instructions Recorded Confirmed Rosuvastatin Calcium [Crestor] 5 mg PO DAILY 10/19/18 07/22/22 Sertraline [Zoloft] 150 mg PO DAILY 10/19/18 07/22/22 oxyCODONE-APAP 10-325MG [Percocet 1 tab PO Q6H PRN 10/19/18 07/22/22 10-325 mg] Cholecalciferol [Vitamin D3 (25 50 mcg PO DAILY 12/05/21 07/22/22 Mcg = 1000 Iu)] Magnesium 400 mg PO DAILY 12/05/21 07/22/22 Metoprolol Succinate (ER) [Toprol 12.5 mg PO DAILY 12/05/21 07/22/22 Xl] diazePAM [Valium] 5 mg PO BID PRN 12/05/21 07/22/22 Calcium Carbonate 1,500 mg PO DAILY 07/22/22 07/22/22 Omeprazole [PriLOSEC] 20 mg PO DAILY PRN 07/22/22 07/22/22 fentaNYL 50MCG/HR PATCH [Duragesic 1 patch TRANSDERM Q72H 07/22/22 07/22/22 50MCG/HR] Previous Rx's Medication Instructions Recorded Ondansetron Odt [Zofran Odt] 4 mg PO Q8HR PRN #20 tab 07/23/22 Ciprofloxacin HCl [Cipro] 250 mg PO Q12HR 5 Days #10 tab 12/09/23 Allergies Allergy/AdvReac Type Severity Reaction Status Date / Time No Known Allergies Allergy Verified 12/12/23 06:06 Review of Systems ROS Other: All systems not noted in ROS Statement are negative. <Faby Gama - Last Filed: 12/12/23 06:55> ROS Other: All systems not noted in ROS Statement are negative. <Tal Dillon - Last Filed: 12/12/23 09:36> ROS Statement: Those systems with pertinent positive or pertinent negative responses have been documented in the HPI. Past Medical History Past Medical History: Coronary Artery Disease (CAD), COPD, Osteoarthritis (OA), Respiratory Disorder Additional Past Medical History / Comment(s): having abd cramping intermittently, no apetite and 10lb wt loss, hx mild COPD, colitis,UTIs History of Any Multi-Drug Resistant Organisms: None Reported Past Surgical History: Back Surgery, Section, Ear Surgery, Heart Catheterization, Orthopedic Surgery, Tonsillectomy, Tubal Ligation Additional Past Surgical History / Comment(s): Right knee, x2, tubes i n ears, lumbar fusion L2-S1, T9-L3 fusion october 08 Past Anesthesia/Blood Transfusion Reactions: No Reported Reaction Past Psychological History: Anxiety Smoking Status: Former smoker Past Alcohol Use History: None Reported Past Drug Use History: None Reported - Past Family History Son(s) Family Medical History: No Reported History Additional Family Medical History / Comment(s): autism Mother History Unknown: Yes Family Medical History: CVA/TIA Father Additional Family Medical History / Comment(s): suicide at 47 Brother(s) Additional Family Medical History / Comment(s): from alcohol and drug use. Sister(s) Family Medical History: Hypertension <Faby Gama - Last Filed: 12/12/23 06:55> General Exam Limitations: no limitations <Faby Gama - Last Filed: 12/12/23 06:55> <Tal Dillon - Last Filed: 12/12/23 09:36> - General Exam Comments Initial Comments: Visual Physical Exam Vital signs reviewed General: Well-appearing, nontoxic, no acute distress. Head: Normocephalic, atraumatic Eyes: PERRLA, EOMI ENT: Airway patent Chest: Nonlabored breathing Skin: No visual rash, normal skin tone Neuro: Alert and oriented 3 Musculoskeletal: No gross abnormalities (Faby Gama) GENERAL: Patient is well-developed and well-nourished. Patient is nontoxic and well- hydrated and is in no acute distress. ENT: Neck is soft and supple. No significant lymphadenopathy is noted. Oropharynx is clear. Moist mucous membranes. Neck has full range of motion without eliciting any pain. EYES: The sclera were anicteric and conjunctiva were pink and moist. Extraocular movements were intact and pupils were equal round and reactive to light. Eyelids were unremarkable. PULMONARY: Unlabored respirations. Good breath sounds bilaterally. No audible rales rhonchi or wheezing was noted. CARDIOVASCULAR: There is a regular rate and rhythm without any murmurs gallops or rubs. ABDOMEN: Soft and nontender with normal bowel sounds. SKIN: Skin is clear with no lesions or rashes and otherwise unremarkable. NEUROLOGIC: Patient is alert and oriented x3. Cranial nerves II through XII are grossly intact. Motor and sensory are also intact. Normal speech, volume and content. Symmetrical smile. MUSCULOSKELETAL: Normal extremities with adequate strength and full range of motion. LYMPHATICS: No significant lymphadenopathy is noted PSYCHIATRIC: Mildly anxious (Tal Dillon) Course Vital Signs 12/12/23 12/12/23 06:04 08:21 Temperature 97.6 F Pulse Rate 96 58 L Respiratory 16 18 Rate Blood Pressure 144/83 155/78 O2 Sat by Pulse 96 98 Oximetry Medical Decision Making <Faby Gama - Last Filed: 12/12/23 06:55> - Lab Data Result diagrams: 12/12/23 08:08 12/12/23 08:08 <Tal Dillon - Last Filed: 12/12/23 09:36> - Medical Decision Making I performed the QuickNote portion of this chart. Signed Faby Gama PA-C. (Faby Gama) EKG is interpreted by myself. EKG shows a sinus rhythm at 73 bpm QRS is 98 QT interval 379 QTc is 405. Patient's EKG shows no ST segment elevation or dep ression. Was pt. sent in by a medical professional or institution (ELVA Ernst, PACKING AND STAMPING MACHINE OPERATOR, urgent care, hospital, or residential...) When possible be specific @ -No Did you speak to anyone other than the patient for history (EMS, parent, family, police, friend...)? What history was obtained from this source @ -No Did you review nursing and triage notes (agree or disagree)? Why? @ -I reviewed and agree with nursing and triage notes Were old charts reviewed (outside hosp., previous admission, EMS record, old EKG, old radiological studies, urgent care reports/EKG's, residential records)? Report findings @ -No old charts were reviewed Differential Diagnosis? @ -Gastritis, gastroenteritis, anxiety, radiculopathy, this is not an all- inclusive list EKG interpreted by me (3pts min.). @ -As above X-rays interpreted by me (1pt min.). @ -Chest x-ray shows no acute abnormality CT interpreted by me (1pt min.). @ -None done U/S interpreted by me (1pt. min.). @ -None done What testing was considered but not performed or refused? (CT, X-rays, U/S, labs)? Why? @ -None What meds were considered but not given or refused? Why? @ -None Did you discuss the management of the patient with other professionals (professionals i.e. , PA, PACKING AND STAMPING MACHINE OPERATOR, lab, RT, psych nurse, social work administrator, nuclear power reactor operator, teacher, chief nursing officer, vocational case manager)? Give summary @ -No Was smoking cessation discussed for >3mins.? @ -No Was critical care preformed (if so, how long)? @ -No Were there social determinants of health that impacted care today? How? (Homelessness, low income, unemployed, alcoholism, drug addiction, transportation, low edu. Level, literacy, decrease access to med. care, correction, rehab)? @ -No Was there de-escalation of care discussed even if they declined (Discuss DNR or withdrawal of care, Hospice)? DNR status @ -No What co-morbidities impacted this encounter? (DM, HTN, Smoking, COPD, CAD, Cancer, CVA, ARF, Chemo, Hep., AIDS, mental health diagnosis, sleep apnea, morbid obesity)? @ -None Was patient admitted / discharged? Hospital course, mention meds given and route, prescriptions, significant lab abnormalities, going to OR and other pertinent info. @ -I evaluated the patient after all her labs came back and I discussed those results with the patient and her and patient's potassium was slightly low so she was given 40 mill once of potassium. Patient felt comfortable going home she was having no symptoms at this time. Patient also received a liter of fluid. Undiagnosed new problem with uncertain prognosis? @ -No Drug Therapy requiring intensive monitoring for toxicity (Heparin, Nitro, Insulin, Cardizem)? @ -No Were any procedures done? @ -No Diagnosis/symptom? @ -Acute nausea Acute, or Chronic, or Acute on Chronic? @ -Acute Uncomplicated (without systemic symptoms) or Complicated (systemic symptoms)? @ -Uncomplicated Side effects of treatment? @ -No Exacerbation, Progression, or Severe Exacerbation? @ -No Poses a threat to life or bodily function? How? (Chest pain, [place], [place], pneumonia, PE, COPD, DKA, ARF, appy, cholecystitis, CVA, Diverticulitis, Homicidal, Suicidal, threat to staff... and all critical care pts) @ -No Diagnosis/symptom? @ -Radicular arm pain Acute, or Chronic, or Acute on Chronic? @ -Acute Uncomplicated (without systemic symptoms) or Complicated (systemic symptoms)? @ -Uncomplicated Side effects of treatment? @ -None Exacerbation, Progression, or Severe Exacerbation] @ -No Poses a threat to life or bodily function? @ -No Diagnosis/symptom? @ -Hypokalemia Acute, or Chronic, or Acute on Chronic? @ -Acute Uncomplicated (without systemic symptoms) or Complicated (systemic symptoms)? @ -Uncomplicated Side effects of treatment? @ -None Exacerbation, Progression, or Severe Exacerbation] @ -No Poses a threat to life or bodily function? @ -No Diagnosis/symptom? @ -Anxiety Acute, or Chronic, or Acute on Chronic? @ -Acute Uncomplicated (without systemic symptoms) or Complicated (systemic symptoms)? @ -Uncomplicated Side effects of treatment? @ -None Exacerbation, Progression, or Severe Exacerbation] @ -No Poses a threat to life or bodily function? @ -No (Tal Dillon) - Lab Data Lab Results 12/12/23 12/12/23 12/12/23 Range/Units 08:08 08:08 08:08 WBC 5.8 (3.8-10.6) k/uL RBC 4.90 (3.80-5.40) m/uL Hgb 14.9 (11.4-16.0) gm/dL Hct 45.2 (34.0-46.0) % MCV 92.4 (80.0-100.0) fL MCH 30.5 (25.0-35.0) pg MCHC 33.0 (31.0-37.0) g/dL RDW 13.3 (11.5-15.5) % Plt Count 265 (150-450) k/uL MPV 7.2 Neutrophils % 72 % Lymphocytes % 20 % Monocytes % 6 % Eosinophils % 1 % Basophils % 0 % Neutrophils # 4.2 (1.3-7.7) k/uL Lymphocytes # 1.2 (1.0-4.8) k/uL Monocytes # 0.3 (0-1.0) k/uL Eosinophils # 0.1 (0-0.7) k/uL Basophils # 0.0 (0-0.2) k/uL PT 11.5 (10.0-12.5) sec INR 1.1 (<1.2) APTT 25.3 (22.0-30.0) sec Sodium 141 (137-145) mmol/L Potassium 3.2 L (3.5-5.1) mmol/L Chloride 102 (98-107) mmol/L Carbon Dioxide 31 H (22-30) mmol/L Anion Gap 8 mmol/L BUN 19 H (7-17) mg/dL Creatinine 0.55 (0.52-1.04) mg/dL Est GFR (CKD-EPI)AfAm >90 (>60 ml/min/1.73 sqM) Est GFR (CKD-EPI)NonAf >90 (>60 ml/min/1.73 sqM) Glucose 96 (74-99) mg/dL Plasma Lactic Acid Zi (0.7-2.0) mmol/L Calcium 9.7 (8.4-10.2) mg/dL Magnesium 2.0 (1.6-2.3) mg/dL Total Bilirubin 0.5 (0.2-1.3) mg/dL AST 27 (14-36) U/L ALT 13 (4-34) U/L Alkaline Phosphatase 86 (38-126) U/L Troponin I (0.000-0.034) ng/mL Total Protein 6.8 (6.3-8.2) g/dL Albumin 4.4 (3.5-5.0) g/dL Urine Color Urine Appearance (Clear) Urine pH (5.0-8.0) Ur Specific [place] (1.001-1.035) Urine Protein (Negative) Urine Glucose (UA) (Negative) Urine Ketones (Negative) Urine Blood (Negative) Urine Nitrite (Negative) Urine Bilirubin (Negative) Urine Urobilinogen (<2.0) mg/dL Ur Leukocyte Esterase (Negative) 12/12/23 12/12/23 12/12/23 Range/Units 08:08 08:08 09:07 WBC (3.8-10.6) k/uL RBC (3.80-5.40) m/uL Hgb (11.4-16.0) gm/dL Hct (34.0-46.0) % MCV (80.0-100.0) fL MCH (25.0-35.0) pg MCHC (31.0-37.0) g/dL RDW (11.5-15.5) % Plt Count (150-450) k/uL MPV Neutrophils % % Lymphocytes % % Monocytes % % Eosinophils % % Basophils % % Neutrophils # (1.3-7.7) k/uL Lymphocytes # (1.0-4.8) k/uL Monocytes # (0-1.0) k/uL Eosinophils # (0-0.7) k/uL Basophils # (0-0.2) k/uL PT (10.0-12.5) sec INR (<1.2) APTT (22.0-30.0) sec Sodium (137-145) mmol/L Potassium (3.5-5.1) mmol/L Chloride (98-107) mmol/L Carbon Dioxide (22-30) mmol/L Anion Gap mmol/L BUN (7-17) mg/dL Creatinine (0.52-1.04) mg/dL Est GFR (CKD-EPI)AfAm (>60 ml/min/1.73 sqM) Est GFR (CKD-EPI)NonAf (>60 ml/min/1.73 sqM) Glucose (74-99) mg/dL Plasma Lactic Acid Zi 1.1 (0.7-2.0) mmol/L Calcium (8.4-10.2) mg/dL Magnesium (1.6-2.3) mg/dL Total Bilirubin (0.2-1.3) mg/dL AST (14-36) U/L ALT (4-34) U/L Alkaline Phosphatase (38-126) U/L Troponin I <0.012 (0.000-0.034) ng/mL Total Protein (6.3-8.2) g/dL Albumin (3.5-5.0) g/dL Urine Color Light Yellow Urine Appearance Clear (Clear) Urine pH 6.5 (5.0-8.0) Ur Specific [place] 1.019 (1.001-1.035) Urine Protein Negative (Negative) Urine Glucose (UA) Negative (Negative) Urine Ketones 1+ H (Negative) Urine Blood Negative (Negative) Urine Nitrite Negative (Negative) Urine Bilirubin Negative (Negative) Urine Urobilinogen <2.0 (<2.0) mg/dL Ur Leukocyte Esterase Negative (Negative) Disposition <Vogley,Faby - Last Filed: 12/12/23 06:55> Is patient prescribed a controlled substance at d/c from ED?: No Time of Disposition: 09:35 <Tal Dillon - Last Filed: 12/12/23 09:36> Clinical Impression: Anxiety, Acute vomiting, Radiculopathy of arm, Hypokalemia Disposition: HOME SELF-CARE Referrals: Tal Almendarez MD [Primary Care Provider] - 1-2 days
--- NOTE | 2023-12-12 07:47 | XR ---
EXAMINATION TYPE: XR chest 2V DATE OF EXAM: 12/12/2023 COMPARISON: 12/09/2023 HISTORY: Shortness of breath TECHNIQUE: Frontal and lateral views of the chest are obtained. FINDINGS: Scattered senescent parenchymal changes noted. Hyperinflation compatible with COPD. No evidence for infiltrate. No evidence for atelectasis. Heart size is stable. Mediastinal structures are stable and grossly unremarkable. No evidence for hilar prominence. Degenerative changes dorsal spine. IMPRESSION: 1. No evidence for acute pulmonary disease.
[2023-12-12] MEDS: SODIUM CHLORIDE 0.9% 1,000 ML IV STA (08:16)
[2023-12-12] MEDS: ONDANSETRON 4 MG/2 ML VIAL IVP STA (08:17)
[2023-12-12] MEDS: LORazepam 2 MG/ML INJ IV STA (08:19)
[2023-12-12 08:23] LABS: Basophils % (A) 0 %; Eosinophils # (A) 0.1 k/uL (0-0.7); Eosinophils % (A) 1 %; HCT 45.2 % (34.0-46.0); HGB 14.9 gm/dL (11.4-16.0); Lymphocytes # (A) 1.2 k/uL (1.0-4.8); Lymphocytes % (A) 20 %; MCH 30.5 pg (25.0-35.0); MCV 92.4 fL (80.0-100.0); Mean Platelet Volume 7.2; Monocytes # (A) 0.3 k/uL (0-1.0); Monocytes % (A) 6 %; Neutrophils # (A) 4.2 k/uL (1.3-7.7); Neutrophils % (A) 72 %; Platelet Count 265 k/uL (150-450); RDW 13.3 % (11.5-15.5); WBC 5.8 k/uL (3.8-10.6)
[2023-12-12 08:32] LABS: INR 1.1 (<1.2); Partial Thromboplastin Time 25.3 sec (22.0-30.0); Prothrombin Time 11.5 sec (10.0-12.5)
[2023-12-12 08:34] LABS: ALT 13 U/L (4-34); AST 27 U/L (14-36); African American GFR (CKD) >90 (>60 ml/min/1.73 sqM); Albumin 4.4 g/dL (3.5-5.0); Alkaline Phosphatase 86 U/L (38-126); Anion Gap 8 mmol/L; Blood Urea Nitrogen 19 mg/dL (7-17); Calcium 9.7 mg/dL (8.4-10.2); Carbon Dioxide 31 mmol/L (22-30); Chloride 102 mmol/L (98-107); Glucose 96 mg/dL (74-99); Non-African American GFR(CKD) >90 (>60 ml/min/1.73 sqM); Potassium 3.2 mmol/L (3.5-5.1); Sodium 141 mmol/L (137-145); Total Bilirubin 0.5 mg/dL (0.2-1.3); Total Protein 6.8 g/dL (6.3-8.2)
[2023-12-12 09:17] LABS: Appearance,Urine Clear (Clear); Bilirubin,Urine Negative (Negative); Blood,Urine Negative (Negative); Color,Urine Light Yellow; Glucose,Urine (UA) Negative (Negative); Ketones,Urine 1+ (Negative); Leukocyte Esterase,Urine Negative (Negative); Nitrite,Urine Negative (Negative); PH, Urine 6.5 (5.0-8.0); Protein,Urine Negative (Negative); Specific Gravity,Urine 1.019 (1.001-1.035); Urobilinogen,Urine <2.0 mg/dL (<2.0)
[2023-12-12 10:20] VITALS: BP 113/78; PULSE 61; RESP 16; TEMP 99.1
[2023-12-12] MEDS: POTASSIUM CHLORIDE ER 20 MEQ TAB.ER PO STA (10:21)
== END 2023-12-12 10:30 | disposition home or self-care (01) ==
LOC: EC 05:58
DX: E87.6 Hypokalemia (principal); M54.10 Radiculopathy, site unspecified; F41.9 Anxiety disorder, unspecified; R11.2 Nausea with vomiting, unspecified; Z87.891 Personal history of nicotine dependence
CPT/HCPCS: 99284 ×2; 96374 ×2; 96375 ×2; 96361 ×2; 51798; 36415; 93005; 80053; 83605; 83735; 84484; 85025; 85610; 85730; 81003; 71046; 51701; J2060; J2405

== ENCOUNTER → 2023-12-26 | Outpatient (CLI) | payer MEDICARE | END | disposition home or self-care (01) | LOC: LABWHC1 10:33 | DX: Z00.01 Encounter for general adult medical examination with abnormal findings (principal); E66.3 Overweight; M81.0 Age-related osteoporosis without current pathological fracture; R53.83 Other fatigue | CPT/HCPCS: 36415; 80053; 80061; 82306; 83970; 85027 ==

== ENCOUNTER 2024-01-12 19:42 | Emergency (ER) | payer MEDICARE ==
[2024-01-12 19:54] VITALS: TEMP 97.6
[2024-01-12] MEDS: ONDANSETRON 4 MG/2 ML VIAL IVP STA (20:56)
[2024-01-12] MEDS: LORazepam 2 MG/ML INJ IV STA ×2 (20:56→22:41)
[2024-01-12 20:58] LABS: Basophils % (A) 0 %; Eosinophils # (A) 0.1 k/uL (0-0.7); Eosinophils % (A) 1 %; HCT 41.6 % (34.0-46.0); HGB 13.9 gm/dL (11.4-16.0); Lymphocytes # (A) 1.8 k/uL (1.0-4.8); Lymphocytes % (A) 19 %; MCH 30.4 pg (25.0-35.0); MCHC 33.4 g/dL (31.0-37.0); MCV 91.2 fL (80.0-100.0); Monocytes # (A) 0.5 k/uL (0-1.0); Monocytes % (A) 5 %; Neutrophils # (A) 7.1 k/uL (1.3-7.7); Neutrophils % (A) 74 %; Platelet Count 320 k/uL (150-450); RBC 4.57 m/uL (3.80-5.40); RDW 13.3 % (11.5-15.5); WBC 9.6 k/uL (3.8-10.6)
--- NOTE | 2024-01-12 21:02 | ED ---
Chest Pain HPI - General Source: patient, family, RN notes reviewed Mode of arrival: ambulatory Limitations: no limitations <Deana Rosado - Last Filed: 01/12/24 23:33> <Cookie Montoya - Last Filed: 01/13/24 01:29> - General Chief Complaint: Chest Pain Stated Complaint: vomitting Time Seen by Provider: 01/12/24 20:58 - History of Present Illness Initial Comments: 73-year-old female presenting with nausea x 1 day with associated vomiting and chest tightness. States she has had the symptoms several times in the past month and has had multiple ER visits for this. She has been following closely with Dr. Bay outpatient. Denies shortness of breath, fever, chills, abdominal pain, urinary symptoms, nasal congestion, cough. Denies blood thinners. States she has been on fentanyl patches for chronic back pain and was due to change the patch today. States she has had similar symptoms when she is due for change and believes symptoms may be due to withdrawal. She took a Percocet this morning for chronic back pain. (Deana Rosado) - Related Data Home Medications Medication Instructions Recorded Confirmed Rosuvastatin Calcium [Crestor] 5 mg PO DAILY 10/19/18 07/22/22 Sertraline [Zoloft] 150 mg PO DAILY 10/19/18 07/22/22 oxyCODONE-APAP 10-325MG [Percocet 1 tab PO Q6H PRN 10/19/18 07/22/22 10-325 mg] Cholecalciferol [Vitamin D3 (25 50 mcg PO DAILY 12/05/21 07/22/22 Mcg = 1000 Iu)] Magnesium 400 mg PO DAILY 12/05/21 07/22/22 Metoprolol Succinate (ER) [Toprol 12.5 mg PO DAILY 12/05/21 07/22/22 Xl] diazePAM [Valium] 5 mg PO BID PRN 12/05/21 07/22/22 Calcium Carbonate 1,500 mg PO DAILY 07/22/22 07/22/22 Omeprazole [PriLOSEC] 20 mg PO DAILY PRN 07/22/22 07/22/22 fentaNYL 50MCG/HR PATCH [Duragesic 1 patch TRANSDERM Q72H 07/22/22 07/22/22 50MCG/HR] Previous Rx's Medication Instructions Recorded Ondansetron Odt [Zofran Odt] 4 mg PO Q8HR PRN #20 tab 07/23/22 Ciprofloxacin HCl [Cipro] 250 mg PO Q12HR 5 Days #10 tab 12/09/23 Allergies Allergy/AdvReac Type Severity Reaction Status Date / Time No Known Allergies Allergy Verified 01/12/24 19:49 Review of Systems ROS Other: All systems not noted in ROS Statement are negative. <Deana Rosado - Last Filed: 01/12/24 23:33> ROS Other: All systems not noted in ROS Statement are negative. <Cookie Montoya - Last Filed: 01/13/24 01:29> ROS Statement: Those systems with pertinent positive or pertinent negative responses have been documented in the HPI. EKG Findings - EKG Results: EKG: interpreted by ERMD (EKG reveals normal sinus rhythm with occasional PACs, no ST changes. Ventricular rate 70 bpm, AR interval 121, QRS duration 101, QT/QTc 420/442) <Deana Rosado - Last Filed: 01/12/24 23:33> Past Medical History Past Medical History: Coronary Artery Disease (CAD), COPD, Osteoarthritis (OA), Respiratory Disorder Additional Past Medical History / Comment(s): having abd cramping intermittently, no apetite and 10lb wt loss, hx mild COPD, colitis,UTIs History of Any Multi-Drug Resistant Organisms: None Reported Past Surgical History: Back Surgery, Section, Ear Surgery, Heart Catheterization, Orthopedic Surgery, Tonsillectomy, Tubal Ligation Additional Past Surgical History / Comment(s): Right knee, x2, tubes in ears, lumbar fusion L2-S1, T9-L3 fusion october 08 Past Anesthesia/Blood Transfusion Reactions: No Reported Reaction Past Psychological History: Anxiety Smoking Status: Former smoker Past Alcohol Use History: None Reported Past Drug Use History: None Reported - Past Family History Son(s) Family Medical History: No Reported History Additional Family Medical History / Comment(s): autism Mother History Unknown: Yes Family Medical History: CVA/TIA Father Additional Family Medical History / Comment(s): suicide at 47 Brother(s) Additional Family Medical History / Comment(s): from alcohol and drug use. Sister(s) Family Medical History: Hypertension <Deana Rosado - Last Filed: 01/12/24 23:33> General Exam Limitations: no limitations General appearance: alert, in no apparent distress, anxious Head exam: Present: atraumatic, normocephalic, normal inspection Eye exam: Present: normal appearance, PERRL, EOMI. Absent: scleral icterus, conjunctival injection, periorbital swelling Neck exam: Present: normal inspection. Absent: tenderness, meningismus, lymphadenopathy Respiratory exam: Present: normal lung sounds bilaterally. Absent: respiratory distress, wheezes, rales, rhonchi, stridor Cardiovascular Exam: Present: regular rate, normal rhythm, normal heart sounds. Absent: systolic murmur, diastolic murmur, rubs, gallop, clicks GI/Abdominal exam: Present: soft, normal bowel sounds. Absent: distended, tenderness, guarding, rebound, rigid Extremities exam: Present: normal inspection, full ROM, normal capillary refill. Absent: tenderness, pedal edema, joint swelling, calf tenderness Neurological exam: Present: alert, oriented X3 Psychiatric exam: Present: normal affect, normal mood, anxious Skin exam: Present: warm, dry, intact, normal color. Absent: rash <Deana Rosado - Last Filed: 01/12/24 23:33> Course Vital Signs 01/12/24 01/12/24 01/12/24 19:49 21:52 23:08 Temperature 97.6 F Pulse Rate 69 64 68 Respiratory 29 H 18 18 Rate Blood Pressure 173/78 140/82 116/71 O2 Sat by Pulse 100 92 L 97 Oximetry 01/12/24 23:55 Temperature Pulse Rate 80 Respiratory 18 Rate Blood Pressure 121/76 O2 Sat by Pulse 97 Oximetry Chest Pain MDM <Deana Rosado - Last Filed: 01/12/24 23:33> <Cookie Montoya - Last Filed: 01/13/24 01:29> - MDM Was pt. sent in by a medical professional or institution (, PA, DECORATIVE ENGRAVER, urgent care, hospital, or [facility]...) When possible be specific @ -[No] Did you speak to anyone other than the patient for history (EMS, parent, family, police, friend...)? What history was obtained from this source @ -Patient's family supplemented history Did you review nursing and triage notes (agree or disagree)? Why? @ -[I reviewed and agree with nursing and triage notes] Were old charts reviewed (outside hosp., previous admission, EMS record, old EKG, old radiological studies, urgent care reports/EKG's, [facility] records)? Report findings @ -Previous ER visits reviewed Differential Diagnosis (chest pain, altered mental status, abdominal pain women, abdominal pain men, vaginal bleeding, weakness, fever, dyspnea, syncope, headache, dizziness, GI bleed, back pain, seizure, CVA, palpatations, mental health, musculoskeletal)? @ -Differential Chest Pain: Stable Angina, Unstable Angina, STEMI, NSTEMI Aortic Dissection, Pneumothorax, Musculoskeletal, Esophageal Spasm GERD, Cholecystitis, Pancreatitis, Zoster, this is not meant to be an all-inclusive list. EKG interpreted by me (3pts min.). @ -[As above] X-rays interpreted by me (1pt min.). @ -Chest x-ray reveals no acute process CT interpreted by me (1pt min.). @ -[None done] U/S interpreted by me (1pt. min.). @ -[None done] What testing was considered but not performed or refused? (CT, X-rays, U/S, labs)? Why? @ -[None] What meds were considered but not given or refused? Why? @ -[None] Did you discuss the management of the patient with other professionals (professionals i.e. , PA, DECORATIVE ENGRAVER, lab, RT, psych nurse, rn social work, application tester, teacher, chief juvenile probation officer, case packer and sealer)? Give summary @ -[No] Was smoking cessation discussed for >3mins.? @ -[No] Was critical care preformed (if so, how long)? @ -[No] Were there social determinants of health that impacted care today? How? (Homelessness, low income, unemployed, alcoholism, drug addiction, transportation, low edu. Level, literacy, decrease access to med. care, penitentiary, rehab)? @ -[No] Was there de-escalation of care discussed even if they declined (Discuss DNR or withdrawal of care, Hospice)? DNR status @ -[No] What co-morbidities impacted this encounter? (DM, HTN, Smoking, COPD, CAD, Cancer, CVA, ARF, Chemo, Hep., AIDS, mental health diagnosis, sleep apnea, morbid obesity)? @ -[None] Was patient admitted / discharged? Hospital course, mention meds given and route, prescriptions, significant lab abnormalities, going to OR and other pertinent info. @ -Patient was discharged. Patient was seen and evaluated for nausea/vomiting x 1 day with associated chest tightness and anxiety. Patient states she has had same symptoms several times in the past few months which were contributed to her anxiety. Patient states symptoms improved with Ativan. Patient has been following closely with Dr. Bay outpatient. Patient is initially very anxious and tachypneic upon examination. Patient was given IV Ativan and Zofran as well as IV fluids. Bladder scan revealed 400 mL, straight cath was performed at this time. Lab work including CBC, CMP, troponin, lactic acid, lipase returned unremarkable. Urine is unremarkable. EKG reveals normal sinus rhythm with occasional PACs, no ST changes. Chest x-ray reveals no acute process. Upon reevaluation, patient states symptoms have improved and she has been able to urinate with no issues since straight cath was performed. Patient feels stable for discharge at this time. Case signed out to Dr. Montoya pending repeat troponin. (Deana Rosado) Patient presented to myself by PA. Signed out to myself pending repeat troponin. Repeat troponin less than 0.012. On my assessment patient is no longer in chest pain. States symptoms were consistent with prior panic attack. Patient has an appointment with her supervisor machine setter Dr. Reed this coming week. She was offered observation status however preferred discharge home. Patient discharged in stable condition. In my medical judgment there is currently no evidence of an immediate life- threatening or surgical condition. Discharge is therefore indicated at this time. Discharge treatment instructions, follow up instructions, and appropriate emergency department return precautions were discussed with the patient and/or medical decision maker. Patient and/or medical decision maker expressed understanding of and agreed with the treatment plan, follow up instructions, and emergency department return precaution. All patient's and/or medical decision maker's questions were answered. (Cookie Montoya) Disposition <Deana Rosado - Last Filed: 01/12/24 23:33> Is patient prescribed a controlled substance at d/c from ED?: No <Cookie Montoya - Last Filed: 01/13/24 01:29> Clinical Impression: Chest pain Disposition: HOME SELF-CARE Condition: Good Instructions (If sedation given, give patient instructions): Chest Pain (ED) Additional Instructions: Every disease is a spectrum and a small chance still exists that a serious condition could develop, for this reason, please monitor yourself closely for new, changing or worsening symptoms, return of symptoms, difficulty in breathing, chest pain associated with sweatiness, radiation into your back jaw or arms fever, inability to tolerate/keep down fluids or your medications, inability to follow up with outpatient providers as instructed and should you experience these symptoms or should you have any further concerns for your wellbeing please return to the ED or call 911 immediately. PLEASE call your primary care physician as soon as possible to arrange / discuss plan for followup appointment. Appointment in the next 1-3 days is strongly encouraged if possible. PLEASE let us know here before you leave if there is anything further we can do to be of any assistance. Take care and feel Better! Referrals: Tal Almendarez MD [Primary Care Provider] - 1-2 days
[2024-01-12 21:25] LABS: Appearance,Urine Clear (Clear); Bilirubin,Urine Negative (Negative); Blood,Urine Negative (Negative); Color,Urine Colorless; Glucose,Urine (UA) Negative (Negative); Ketones,Urine Trace (Negative); Leukocyte Esterase,Urine Negative (Negative); Nitrite,Urine Negative (Negative); PH, Urine 7.5 (5.0-8.0); Protein,Urine Negative (Negative); Specific Gravity,Urine 1.007 (1.001-1.035); Urobilinogen,Urine <2.0 mg/dL (<2.0)
--- NOTE | 2024-01-12 21:26 | XR ---
EXAMINATION TYPE: XR chest 2V DATE OF EXAM: 01/12/2024 9:16 PM CLINICAL INDICATION: Female, 73 years old with history of chest pain; COMPARISON: Chest radiographs from 12/12/2023 TECHNIQUE: XR chest 2V Frontal view of the chest. FINDINGS: Lungs/Pleura: There is flattening of the diaphragm with increased lucency of the lungs. No evidence o f pneumothorax, pleural effusion or focal consolidation. Pulmonary vascularity: Unremarkable. Heart/mediastinum: Cardiomediastinal silhouette is unremarkable. Musculoskeletal: No acute osseous pathology. There is lower spine fixation hardware is present. Other findings: None Lines/Tubes: IMPRESSION: 1. No acute cardiopulmonary disease process. 2. COPD changes.
[2024-01-12 21:49] LABS: ALT 15 U/L (4-34); AST 27 U/L (14-36); African American GFR (CKD) >90 (>60 ml/min/1.73 sqM); Albumin 4.7 g/dL (3.5-5.0); Alkaline Phosphatase 99 U/L (38-126); Anion Gap 8 mmol/L; Blood Urea Nitrogen 17 mg/dL (7-17); Calcium 10.7 mg/dL (8.4-10.2); Carbon Dioxide 30 mmol/L (22-30); Chloride 96 mmol/L (98-107); Glucose 111 mg/dL (74-99); Lipase 114 U/L (23-300); Non-African American GFR(CKD) 87 (>60 ml/min/1.73 sqM); Potassium 3.6 mmol/L (3.5-5.1); Sodium 134 mmol/L (137-145); Total Bilirubin 0.5 mg/dL (0.2-1.3); Total Protein 7.1 g/dL (6.3-8.2)
[2024-01-12 21:52] VITALS: RESP 18
[2024-01-12 23:57] VITALS: BP 121/76; PULSE 80
== END 2024-01-13 00:16 | disposition home or self-care (01) ==
LOC: EC 19:42
DX: R07.9 Chest pain, unspecified (principal); Z87.891 Personal history of nicotine dependence
CPT/HCPCS: 36415; 93005; 80053; 83605; 83690; 84484; 85025; 81003; 71046; 99285; 96374; 96375; 96376; J2060; J2405

== ENCOUNTER 2024-01-13 19:38 | Emergency (ER) | payer MEDICARE ==
[2024-01-13 19:48] VITALS: TEMP 98
--- NOTE | 2024-01-13 19:51 | ED ---
General Adult HPI - General Chief complaint: Recheck/Abnormal Lab/Rx Stated complaint: weakness Time Seen by Provider: 01/13/24 19:50 Source: patient, RN notes reviewed Mode of arrival: wheelchair Limitations: no limitations - History of Present Illness Initial comments: 73-year-old female presents emergency department for reevaluation of multiple complaints including headache, nausea, weakness. Patient was evaluated emergency department yesterday and discharged home in stable condition. She states that her symptoms of dyspnea have improved however today she is experiencing anxiety, elevated blood pressures of systolics in the 170s and diastolics in the 90s. Currently, patient is denying symptoms of shortness of breath, difficulty breathing, chest pain, chest pressure, heart palpitations, acute neurological deficits. Patient states that she experiencing a mild posterior headache with no radiating pain. Patient states that she also has se tamiko anxiety and is worried being in the hospital at this time. - Related Data Home Medications Medication Instructions Recorded Confirmed Rosuvastatin Calcium [Crestor] 5 mg PO DAILY 10/19/18 07/22/22 Sertraline [Zoloft] 150 mg PO DAILY 10/19/18 07/22/22 oxyCODONE-APAP 10-325MG [Percocet 1 tab PO Q6H PRN 10/19/18 07/22/22 10-325 mg] Cholecalciferol [Vitamin D3 (25 50 mcg PO DAILY 12/05/21 07/22/22 Mcg = 1000 Iu)] Magnesium 400 mg PO DAILY 12/05/21 07/22/22 Metoprolol Succinate (ER) [Toprol 12.5 mg PO DAILY 12/05/21 07/22/22 Xl] diazePAM [Valium] 5 mg PO BID PRN 12/05/21 07/22/22 Calcium Carbonate 1,500 mg PO DAILY 07/22/22 07/22/22 Omeprazole [PriLOSEC] 20 mg PO DAILY PRN 07/22/22 07/22/22 fentaNYL 50MCG/HR PATCH [Duragesic 1 patch TRANSDERM Q72H 07/22/22 07/22/22 50MCG/HR] Previous Rx's Medication Instructions Recorded Ondansetron Odt [Zofran Odt] 4 mg PO Q8HR PRN #20 tab 07/23/22 Ciprofloxacin HCl [Cipro] 250 mg PO Q12HR 5 Days #10 tab 12/09/23 Allergies Allergy/AdvReac Type Severity Reaction Status Date / Time No Known Allergies Allergy Verified 01/13/24 19:48 Review of Systems ROS Statement: Those systems with pertinent positive or pertinent negative responses have been documented in the HPI. ROS Other: All systems not noted in ROS Statement are negative. Past Medical History Past Medical History: Coronary Artery Disease (CAD), COPD, Osteoarthritis (OA), Respiratory Disorder Additional Past Medical History / Comment(s): having abd cramping intermittently, no apetite and 10lb wt loss, hx mild COPD, colitis,UTIs History of Any Multi-Drug Resistant Organisms: None Reported Past Surgical History: Back Surgery, Section, Ear Surgery, Heart Catheterization, Orthopedic Surgery, Tonsillectomy, Tubal Ligation Additional Past Surgical History / Comment(s): Right knee, x2, tubes in ears, lumbar fusion L2-S1, T9-L3 fusion october 08 Past Anesthesia/Blood Transfusion Reactions: No Reported Reaction Past Psychological History: Anxiety Smoking Status: Light tobacco smoker Past Alcohol Use History: None Reported Past Drug Use History: None Reported - Past Family History Son(s) Family Medical History: No Reported History Additional Family Medical History / Comment(s): autism Mother History Unknown: Yes Family Medical History: CVA/TIA Father Additional Family Medical History / Comment(s): suicide at 47 Brother(s) Additional Family Medical History / Comment(s): from alcohol and drug use. Sister(s) Family Medical History: Hypertension General Exam Limitations: no limitations General appearance: alert, in no apparent distress, anxious Head exam: Present: atraumatic, normocephalic, normal inspection Eye exam: Present: normal appearance, PERRL, EOMI. Absent: scleral icterus, conjunctival injection, periorbital swelling ENT exam: Present: normal exam, mucous membranes moist Neck exam: Present: normal inspection. Absent: tenderness, meningismus, lymphadenopathy Respiratory exam: Present: normal lung sounds bilaterally. Absent: respiratory distress, wheezes, rales, rhonchi, stridor Cardiovascular Exam: Present: regular rate, normal rhythm, normal heart sounds. Absent: systolic murmur, diastolic murmur, rubs, gallop, clicks GI/Abdominal exam: Present: soft, normal bowel sounds. Absent: distended, tenderness, guarding, rebound, rigid Extremities exam: Present: normal inspection, full ROM, normal capillary refill. Absent: tenderness, pedal edema, joint swelling, calf tenderness Back exam: Present: normal inspection Neurological exam: Present: alert, oriented X3, CN II-XII intact Skin exam: Present: warm, dry, intact, normal color. Absent: rash Course Vital Signs 01/13/24 01/13/24 19:44 21:40 Temperature 98.0 F Pulse Rate 69 78 Respiratory 18 16 Rate Blood Pressure 161/82 127/56 O2 Sat by Pulse 98 98 Oximetry Medical Decision Making - Medical Decision Making Was pt. sent in by a medical professional or institution (, PA, IMMUNOHEMATOLOGIST, urgent care, hospital, or prison...) When possible be specific @ -No Did you speak to anyone other than the patient for history (EMS, parent, family, police, friend...)? What history was obtained from this source @ -No Did you review nursing and triage notes (agree or disagree)? Why? @ -I reviewed and agree with nursing and triage notes Were old charts reviewed (outside hosp., previous admission, EMS record, old EKG, old radiological studies, urgent care reports/EKG's, prison records)? Report findings @ -I reviewed the patient's previous emergency department visit note from 01/12/2024 where she was discharged in stable condition instructed to follow-up with her primary care provider, EKG, labs including repeat troponin were all within normal limits and unremarkable. Differential Diagnosis (chest pain, altered mental status, abdominal pain women, abdominal pain men, vaginal bleeding, weakness, fever, dyspnea, syncope, headache, dizziness, GI bleed, back pain, seizure, CVA, palpatations, mental health, musculoskeletal)? @ -Differential Weakness: Hypoglycemia, shock, sepsis, hyponatremia, anemia, infection, IA, ETOH, adverse medicine reaction, overdose, stroke, this is not meant to be an all-inclusive list. EKG interpreted by me (3pts min.). @ -EKG completed at 2046, sinus bradycardia with sinus arrhythmia, ventricular e]rate of 59, [place] interval 120, QTc 442. No acute signs of ischemia. X-rays interpreted by me (1pt min.). @ -None done CT interpreted by me (1pt min.). @ -CT brain no acute intracranial process. U/S interpreted by me (1pt. min.). @ -None done What testing was considered but not performed or refused? (CT, X-rays, U/S, paul sierra)? Why? @ -None What meds were considered but not given or refused? Why? @ -None Did you discuss the management of the patient with other professionals (professionals i.e. , PA, IMMUNOHEMATOLOGIST, lab, RT, psych nurse, forensic social worker, manufacturing engineer paint, teacher, special loan officer, manager case management)? Give summary @ -No Was smoking cessation discussed for >3mins.? @ -No Was critical care preformed (if so, how long)? @ -No Were there social determinants of health that impacted care today? How? (Homelessness, low income, unemployed, alcoholism, drug addiction, transportation, low edu. Level, literacy, decrease access to med. care, [facility], rehab)? @ -No Was there de-escalation of care discussed even if they declined (Discuss DNR or withdrawal of care, Hospice)? DNR status @ -No What co-morbidities impacted this encounter? (DM, HTN, Smoking, COPD, CAD, Cancer, CVA, ARF, Chemo, Hep., AIDS, mental health diagnosis, sleep apnea, morbid obesity)? @ -None Was patient admitted / discharged? Hospital course, mention meds given and route, prescriptions, significant lab abnormalities, going to OR and other pertinent info. @ - 73-year-old female with headache, anxiety, hypertension. On my evaluation of the patient she is mildly anxious however there are no acute signs of distress. Blood pressure is mildly elevated at 161/82, O2 saturation 98 on room air. The brain no acute process, CBC, CMP, troponin within normal limits. troponin is not trended due to patient not presenting with symptoms of chest pain, shortness of breath, difficulty breathing. On reevaluation, patient's anxiety has lately improved and blood pressure is stable in the 120s over high 50s. Patient states that she feels comfortable going home and following up as scheduled with her physician this week for further evaluation. All questions were answered at bedside and strict return parameters daisy with the patient she is verbalized understanding. Discussed with Dr. Montoya Undiagnosed new problem with uncertain prognosis? @ -No Drug Therapy requiring intensive monitoring for toxicity (Heparin, Nitro, Insulin, Cardizem)? @ -No Were any procedures done? @ -No Diagnosis/symptom? @ -Weakness, anxiety, hypertension Acute, or Chronic, or Acute on Chronic? @ -Acute Uncomplicated (without systemic symptoms) or Complicated (systemic symptoms)? @ -Uncomplicated Side effects of treatment? @ -No Exacerbation, Progression, or Severe Exacerbation? @ -No Poses a threat to life or bodily function? How? (Chest pain, USA, IA, pneumonia, PE, COPD, DKA, ARF, appy, cholecystitis, CVA, Diverticulitis, Homicidal, Suicidal, threat to staff... and all critical care pts) @ -No - Lab Data Result diagrams: 01/13/24 20:23 01/13/24 20:23 Lab Results 01/13/24 01/13/24 01/13/24 Range/Units 20:23 20:23 20:23 WBC 6.5 (3.8-10.6) k/uL RBC 4.23 (3.80-5.40) m/uL Hgb 13.1 (11.4-16.0) gm/dL Hct 38.8 (34.0-46.0) % MCV 91.7 (80.0-100.0) fL MCH 31.0 (25.0-35.0) pg MCHC 33.8 (31.0-37.0) g/dL RDW 13.5 (11.5-15.5) % Plt Count 284 (150-450) k/uL MPV 7.4 Neutrophils % 67 % Lymphocytes % 24 % Monocytes % 6 % Eosinophils % 0 % Basophils % 2 % Neutrophils # 4.3 (1.3-7.7) k/uL Lymphocytes # 1.5 (1.0-4.8) k/uL Monocytes # 0.4 (0-1.0) k/uL Eosinophils # 0.0 (0-0.7) k/uL Basophils # 0.1 (0-0.2) k/uL Sodium 137 (137-145) mmol/L Potassium 3.6 (3.5-5.1) mmol/L Chloride 101 (98-107) mmol/L Carbon Dioxide 31 H (22-30) mmol/L Anion Gap 5 mmol/L BUN 16 (7-17) mg/dL Creatinine 0.67 (0.52-1.04) mg/dL Est GFR (CKD-EPI)AfAm >90 (>60 ml/min/1.73 sqM) Est GFR (CKD-EPI)NonAf 89 (>60 ml/min/1.73 sqM) Glucose 96 (74-99) mg/dL Calcium 10.1 (8.4-10.2) mg/dL Magnesium 1.8 (1.6-2.3) mg/dL Total Bilirubin 0.4 (0.2-1.3) mg/dL AST 28 (14-36) U/L ALT 13 (4-34) U/L Alkaline Phosphatase 66 (38-126) U/L Total Protein 6.6 (6.3-8.2) g/dL Albumin 4.2 (3.5-5.0) g/dL Lipase 98 (23-300) U/L Urine Color Colorless Urine Appearance Clear (Clear) Urine pH 7.0 (5.0-8.0) Ur Specific [place] 1.003 (1.001-1.035) Urine Protein Negative (Negative) Urine Glucose (UA) Negative (Negative) Urine Ketones Negative (Negative) Urine Blood Negative (Negative) Urine Nitrite Negative (Negative) Urine Bilirubin Negative (Negative) Urine Urobilinogen <2.0 (<2.0) mg/dL Ur Leukocyte Esterase Negative (Negative) Disposition Clinical Impression: Anxiety, Hypertension Disposition: HOME SELF-CARE Condition: Good Additional Instructions: Return to the emergency department for any new or worsening symptoms. recommend you follow-up this week with your physician as scheduled for further evaluation. Is patient prescribed a controlled substance at d/c from ED?: No Referrals: Tal Almendarez MD [Primary Care Provider] - 1-2 days Time of Disposition: 21:45
[2024-01-13] MEDS: SODIUM CHLORIDE 0.9% 1,000 ML IV STA (20:19)
[2024-01-13] MEDS: ONDANSETRON 4 MG/2 ML VIAL IVP STA (20:19)
[2024-01-13] MEDS: LORazepam 2 MG/ML INJ IV STA (20:19)
[2024-01-13 21:09] LABS: Basophils # (A) 0.1 k/uL (0-0.2); Basophils % (A) 2 %; Eosinophils % (A) 0 %; HCT 38.8 % (34.0-46.0); HGB 13.1 gm/dL (11.4-16.0); Lymphocytes # (A) 1.5 k/uL (1.0-4.8); Lymphocytes % (A) 24 %; MCHC 33.8 g/dL (31.0-37.0); MCV 91.7 fL (80.0-100.0); Mean Platelet Volume 7.4; Monocytes # (A) 0.4 k/uL (0-1.0); Monocytes % (A) 6 %; Neutrophils # (A) 4.3 k/uL (1.3-7.7); Neutrophils % (A) 67 %; Platelet Count 284 k/uL (150-450); RBC 4.23 m/uL (3.80-5.40); RDW 13.5 % (11.5-15.5); WBC 6.5 k/uL (3.8-10.6)
--- NOTE | 2024-01-13 21:10 | CT ---
EXAMINATION TYPE: CT brain wo con DATE OF EXAM: 01/13/2024 COMPARISON: 10/21/2018 INDICATION: Patient c/o HTN, abd pain, nausea, dizziness. patient was seen here last night for same t cari. DLP: 1109.8 mGycm, Automated exposure control for dose reduction was used. CONTRAST: None CT of the brain is performed utilizing 3 mm thick sections through the posterior fossa and 3 mm thick sections through the remaining calvarium. Study is performed within 24 hours of arrival to the hosp [facility]. No abnormal hyperdensity is present to suggest an acute intracranial hemorrhage. No mass lesion is evident. No acute infarcts are evident. Ventricles and sulci are appropriate for the patient age. Paranasal sinuses and mastoid air cells within the [id number] are clear. IMPRESSION: 1. No acute intracranial process. Follow up MRI can be performed as clinically indicated.
[2024-01-13 21:15] LABS: Appearance,Urine Clear (Clear); Bilirubin,Urine Negative (Negative); Blood,Urine Negative (Negative); Color,Urine Colorless; Glucose,Urine (UA) Negative (Negative); Ketones,Urine Negative (Negative); Leukocyte Esterase,Urine Negative (Negative); Nitrite,Urine Negative (Negative); Protein,Urine Negative (Negative); Specific Gravity,Urine 1.003 (1.001-1.035); Urobilinogen,Urine <2.0 mg/dL (<2.0)
[2024-01-13 21:24] LABS: ALT 13 U/L (4-34); AST 28 U/L (14-36); African American GFR (CKD) >90 (>60 ml/min/1.73 sqM); Albumin 4.2 g/dL (3.5-5.0); Alkaline Phosphatase 66 U/L (38-126); Anion Gap 5 mmol/L; Blood Urea Nitrogen 16 mg/dL (7-17); Calcium 10.1 mg/dL (8.4-10.2); Carbon Dioxide 31 mmol/L (22-30); Chloride 101 mmol/L (98-107); Glucose 96 mg/dL (74-99); Lipase 98 U/L (23-300); Magnesium 1.8 mg/dL (1.6-2.3); Non-African American GFR(CKD) 89 (>60 ml/min/1.73 sqM); Potassium 3.6 mmol/L (3.5-5.1); Sodium 137 mmol/L (137-145); Total Bilirubin 0.4 mg/dL (0.2-1.3); Total Protein 6.6 g/dL (6.3-8.2)
[2024-01-13 21:41] VITALS: BP 127/56; PULSE 78; RESP 16
== END 2024-01-13 22:04 | disposition home or self-care (01) ==
LOC: EC 19:38
CPT/HCPCS: 36415; 70450; 80053; 81003; 83690; 83735; 85025; 93005; 96361; 96374; 96375; 99284

== ENCOUNTER 2024-01-15 07:22 | Inpatient (IN) | payer MEDICARE ==
[2024-01-15] MEDS: SODIUM CHLORIDE 0.9% 1,000 ML IV ONE (07:57)
[2024-01-15] MEDS: ONDANSETRON 4 MG/2 ML VIAL IVP STA ×2 (07:59→11:52)
[2024-01-15] MEDS: HYDROmorphone 0.5 MG/0.5 ML SYRINGE IVP STA ×2 (08:02→10:28)
[2024-01-15 08:37] LABS: ALT 13 U/L (4-34); AST 30 U/L (14-36); African American GFR (CKD) >90 (>60 ml/min/1.73 sqM); Albumin 4.9 g/dL (3.5-5.0); Alkaline Phosphatase 85 U/L (38-126); Anion Gap 11 mmol/L; Blood Urea Nitrogen 13 mg/dL (7-17); Carbon Dioxide 27 mmol/L (22-30); Chloride 99 mmol/L (98-107); Glucose 159 mg/dL (74-99); Magnesium 1.9 mg/dL (1.6-2.3); Non-African American GFR(CKD) 90 (>60 ml/min/1.73 sqM); Potassium 3.2 mmol/L (3.5-5.1); Sodium 137 mmol/L (137-145); Total Bilirubin 0.6 mg/dL (0.2-1.3); Total Protein 7.5 g/dL (6.3-8.2)
[2024-01-15 08:38] LABS: Basophils % (A) 1 %; Eosinophils # (A) 0.1 k/uL (0-0.7); Eosinophils % (A) 1 %; HCT 44.9 % (34.0-46.0); HGB 14.8 gm/dL (11.4-16.0); Lymphocytes # (A) 1.7 k/uL (1.0-4.8); Lymphocytes % (A) 25 %; MCH 30.2 pg (25.0-35.0); MCHC 32.9 g/dL (31.0-37.0); MCV 91.9 fL (80.0-100.0); Mean Platelet Volume 7.5; Monocytes # (A) 0.4 k/uL (0-1.0); Monocytes % (A) 5 %; Neutrophils # (A) 4.5 k/uL (1.3-7.7); Neutrophils % (A) 67 %; Platelet Count 302 k/uL (150-450); RBC 4.89 m/uL (3.80-5.40); RDW 13.4 % (11.5-15.5); WBC 6.7 k/uL (3.8-10.6)
[2024-01-15 08:49] LABS: Partial Thromboplastin Time 21.7 sec (22.0-30.0); Prothrombin Time 10.8 sec (10.0-12.5)
--- NOTE | 2024-01-15 08:49 | ED ---
General Adult HPI - General Chief complaint: Nausea/Vomiting/Diarrhea Stated complaint: Vomiting Time Seen by Provider: 01/15/24 07:31 Source: patient, RN notes reviewed, old records reviewed Mode of arrival: wheelchair Limitations: no limitations - History of Present Illness Initial comments: 73-year-old female presents for reevaluation of nausea vomiting, diarrhea. Patient also notes that her blood pressure was elevated and she had recent medication adjustment to increase her Norvasc. Patient denies central chest pain. She does report generalized abdominal discomfort secondary to vomiting. She is currently being weaned off fentanyl patch. She takes Percocet for pain at home this is chronic pain related to multiple low back surgeries. No fever. No headache currently. Patient has been seen in the emergency department twice with similar complaints over the past 1 week. - Related Data Home Medications Medication Instructions Recorded Confirmed Rosuvastatin Calcium [Crestor] 5 mg PO DAILY 10/19/18 01/15/24 Sertraline [Zoloft] 150 mg PO DAILY 10/19/18 01/15/24 oxyCODONE-APAP 10-325MG [Percocet 1 tab PO TID PRN 10/19/18 01/15/24 10-325 mg] Cholecalciferol [Vitamin D3 (25 50 mcg PO DAILY 12/05/21 01/15/24 Mcg = 1000 Iu)] Metoprolol Succinate (ER) [Toprol 12.5 mg PO DAILY 12/05/21 01/15/24 Xl] diazePAM [Valium] 5 mg PO BID PRN 12/05/21 01/15/24 Calcium Carbonate 1,500 mg PO DAILY 07/22/22 01/15/24 fentaNYL 50MCG/HR PATCH [Duragesic 1 patch TRANSDERM Q72H 07/22/22 01/15/24 50MCG/HR] Losartan-Hctz 50-12.5 mg [Hyzaar 1 tab PO BID 01/15/24 01/15/24 50-12.5] Magnesium Oxide [Magox 400] 400 mg PO DAILY 01/15/24 01/15/24 Ondansetron [Zofran] 4 mg PO TID PRN 01/15/24 01/15/24 amLODIPine [Norvasc] 2.5 mg PO BID 01/15/24 01/15/24 Allergies Allergy/AdvReac Type Severity Reaction Status Date / Time No Known Allergies Allergy Verified 01/15/24 09:30 Review of Systems ROS Statement: Those systems with pertinent positive or pertinent negative responses have been documented in the HPI. ROS Other: All systems not noted in ROS Statement are negative. Past Medical History Past Medical History: Coronary Artery Disease (CAD), COPD, Osteoarthritis (OA), Respiratory Disorder Additional Past Medical History / Comment(s): having abd cramping intermittently, no apetite and 10lb wt loss, hx mild COPD, colitis,UTIs History of Any Multi-Drug Resistant Organisms: None Reported Past Surgical History: Back Surgery, Section, Ear Surgery, Heart Catheterization, Orthopedic Surgery, Tonsillectomy, Tubal Ligation Additional Past Surgical History / Comment(s): Right knee, x2, tubes in ears, lumbar fusion L2-S1, T9-L3 fusion october 08 Past Anesthesia/Blood Transfusion Reactions: No Reported Reaction Past Psychological History: Anxiety Smoking Status: Light tobacco smoker Past Alcohol Use History: None Reported Past Drug Use History: None Reported - Past Family History Son(s) Family Medical History: No Reported History Additional Family Medical History / Comment(s): autism Mother History Unknown: Yes Family Medical History: CVA/TIA Father Additional Family Medical History / Comment(s): suicide at 47 Brother(s) Additional Family Medical History / Comment(s): from alcohol and drug use. Sister(s) Family Medical History: Hypertension General Exam Limitations: no limitations General appearance: alert, in distress Head exam: Present: atraumatic, normocephalic Eye exam: Present: normal appearance, PERRL ENT exam: Present: mucous membranes dry Neck exam: Present: normal inspection. Absent: tenderness, meningismus Respiratory exam: Present: normal lung sounds bilaterally. Absent: respiratory distress Cardiovascular Exam: Present: regular rate, normal rhythm GI/Abdominal exam: Present: soft Extremities exam: Present: normal inspection, normal capillary refill Neurological exam: Present: alert, oriented X3 Psychiatric exam: Present: anxious Skin exam: Present: warm, dry, intact Course Vital Signs 01/15/24 01/15/24 01/15/24 07:22 08:16 09:00 Temperature 97.3 F L 98.6 F Pulse Rate 72 62 63 Respiratory 18 18 24 Rate Blood Pressure 181/89 181/94 173/88 O2 Sat by Pulse 96 96 Oximetry Medical Decision Making - Medical Decision Making Was pt. sent in by a medical professional or institution ([facility], [employer], urgent care, hospital, or prison...) When possible be specific @ -No Did you speak to anyone other than the patient for history (EMS, parent, family, police, friend...)? What history was obtained from this source @ -No Did you review nursing and triage notes (agree or disagree)? Why? @ -I reviewed and agree with nursing and triage notes Were old charts reviewed (outside hosp., previous admission, EMS record, old EKG, old radiological studies, urgent care reports/EKG's, prison records)? Report findings @ -No old charts were reviewed Differential Diagnosis (chest pain, altered mental status, abdominal pain women, abdominal pain men, vaginal bleeding, weakness, fever, dyspnea, syncope, headache, dizziness, GI bleed, back pain, seizure, CVA, palpatations, mental health, musculoskeletal)? @ -Not applicable EKG interpreted by me (3pts min.). @Narrow complex rhythm rate of 61, MN interval 114, QRS duration 91, QTc [address] segment elevation. X-rays interpreted by me (1pt min.). @Chest x-ray negative for acute cardiopulmonary findings CT interpreted by me (1pt min.). @ -None done U/S interpreted by me (1pt. min.). @ -None done What testing was considered but not performed or refused? (CT, X-rays, U/S, labs)? Why? @ -None What meds were considered but not given or refused? Why? @ -None Did you discuss the management of the patient with other professionals (professionals i.e. [facility] Ernst, [employer]ER, lab, RT, psych nurse, hospice social worker, control center operator, teacher, civil preparedness training officer, case packer)? Give summary @ -Dr. Bernal, will admit Was smoking cessation discussed for >3mins.? @ -No Was critical care preformed (if so, how long)? @ -No Were there social determinants of health that impacted care today? How? (Homelessness, low income, unemployed, alcoholism, drug addiction, transportation, low edu. Level, literacy, decrease access to med. care, [facility], rehab)? @ -No Was there de-escalation of care discussed even if they declined (Discuss DNR or withdrawal of care, Hospice)? DNR status @ -No What co-morbidities impacted this encounter? (DM, HTN, Smoking, COPD, CAD, Cancer, CVA, ARF, Chemo, Hep., AIDS, mental health diagnosis, sleep apnea, morbid obesity)? @ -None Was patient admitted / discharged? Hospital course, mention meds given and route, prescriptions, significant lab abnormalities, going to [facility] and other [facility] [place] info. @ -Patient admitted for dehydration, intractable nausea vomiting, likely secondary to opiate withdrawal. This is the third hospital evaluation. Patient will be admitted for symptom control. Potassium is replaced. She is placed on IV fluids, Zofran, and Ativan. Undiagnosed new problem with uncertain prognosis? @ -No Drug Therapy requiring intensive monitoring for toxicity (Heparin, Nitro, Insulin, Cardizem)? @ -No Were any procedures done? @ -No Diagnosis/symptom? @ -Intractable nausea vomiting, dehydration Acute, or Chronic, or Acute on Chronic? @Acute Uncomplicated (without systemic symptoms) or Complicated (systemic symptoms)? @ -Default Side effects of treatment? @ -No Exacerbation, Progression, or Severe Exacerbation? @ -No Poses a threat to life or bodily function? How? (Chest pain, [place], [place], pneumonia, PE, COPD, DKA, ARF, appy, cholecystitis, CVA, Diverticulitis, Homicidal, Suicidal, threat to staff... and all critical care pts) @ -[ Low Risk - Lab Data Result diagrams: 01/15/24 08:15 01/15/24 08:15 Lab Results 01/15/24 01/15/24 01/15/24 Range/Units 08:15 08:15 08:15 WBC 6.7 (3.8-10.6) k/uL RBC 4.89 (3.80-5.40) m/uL Hgb 14.8 (11.4-16.0) gm/dL Hct 44.9 (34.0-46.0) % MCV 91.9 (80.0-100.0) fL MCH 30.2 (25.0-35.0) pg MCHC 32.9 (31.0-37.0) g/dL RDW 13.4 (11.5-15.5) % Plt Count 302 (150-450) k/uL MPV 7.5 Neutrophils % 67 % Lymphocytes % 25 % Monocytes % 5 % Eosinophils % 1 % Basophils % 1 % Neutrophils # 4.5 (1.3-7.7) k/uL Lymphocytes # 1.7 (1.0-4.8) k/uL Monocytes # 0.4 (0-1.0) k/uL Eosinophils # 0.1 (0-0.7) k/uL Basophils # 0.0 (0-0.2) k/uL PT 10.8 (10.0-12.5) sec INR 1.0 (<1.2) APTT 21.7 L (22.0-30.0) sec Sodium (137-145) mmol/L Potassium (3.5-5.1) mmol/L Chloride (98-107) mmol/L Carbon Dioxide (22-30) mmol/L Anion Gap mmol/L BUN (7-17) mg/dL Creatinine (0.52-1.04) mg/dL Est GFR (CKD-EPI)AfAm (>60 ml/min/1.73 sqM) Est GFR (CKD-EPI)NonAf (>60 ml/min/1.73 sqM) Glucose (74-99) mg/dL Lactic Ac Sepsis Rflx Plasma Lactic Acid Zi (0.7-2.0) mmol/L Calcium (8.4-10.2) mg/dL Magnesium (1.6-2.3) mg/dL Total Bilirubin (0.2-1.3) mg/dL AST (14-36) U/L ALT (4-34) U/L Alkaline Phosphatase (38-126) U/L Troponin I (0.000-0.034) ng/mL Total Protein (6.3-8.2) g/dL Albumin (3.5-5.0) g/dL Urine Color Colorless Urine Appearance Clear (Clear) Urine pH 7.5 (5.0-8.0) Ur Specific [place] 1.008 (1.001-1.035) Urine Protein Negative (Negative) Urine Glucose (UA) 1+ H (Negative) Urine Ketones 1+ H (Negative) Urine Blood Negative (Negative) Urine Nitrite Negative (Negative) Urine Bilirubin Negative (Negative) Urine Urobilinogen <2.0 (<2.0) mg/dL Ur Leukocyte Esterase Negative (Negative) 01/15/24 01/15/24 01/15/24 Range/Units 08:15 08:15 08:15 WBC (3.8-10.6) k/uL RBC (3.80-5.40) m/uL Hgb (11.4-16.0) gm/dL Hct (34.0-46.0) % MCV (80.0-100.0) fL MCH (25.0-35.0) pg MCHC (31.0-37.0) g/dL RDW (11.5-15.5) % Plt Count (150-450) k/uL MPV Neutrophils % % Lymphocytes % % Monocytes % % Eosinophils % % Basophils % % Neutrophils # (1.3-7.7) k/uL Lymphocytes # (1.0-4.8) k/uL Monocytes # (0-1.0) k/uL Eosinophils # (0-0.7) k/uL Basophils # (0-0.2) k/uL PT (10.0-12.5) sec INR (<1.2) APTT (22.0-30.0) sec Sodium 137 (137-145) mmol/L Potassium 3.2 L (3.5-5.1) mmol/L Chloride 99 (98-107) mmol/L Carbon Dioxide 27 (22-30) mmol/L Anion Gap 11 mmol/L BUN 13 (7-17) mg/dL Creatinine 0.65 (0.52-1.04) mg/dL Est GFR (CKD-EPI)AfAm >90 (>60 ml/min/1.73 sqM) Est GFR (CKD-EPI)NonAf 90 (>60 ml/min/1.73 sqM) Glucose 159 H (74-99) mg/dL Lactic Ac Sepsis Rflx Plasma Lactic Acid Zi 2.1 H* (0.7-2.0) mmol/L Calcium 10.0 (8.4-10.2) mg/dL Magnesium 1.9 (1.6-2.3) mg/dL Total Bilirubin 0.6 (0.2-1.3) mg/dL AST 30 (14-36) U/L ALT 13 (4-34) U/L Alkaline Phosphatase 85 (38-126) U/L Troponin I <0.012 (0.000-0.034) ng/mL Total Protein 7.5 (6.3-8.2) g/dL Albumin 4.9 (3.5-5.0) g/dL Urine Color Urine Appearance (Clear) Urine pH (5.0-8.0) Ur Specific [place] (1.001-1.035) Urine Protein (Negative) Urine Glucose (UA) (Negative) Urine Ketones (Negative) Urine Blood (Negative) Urine Nitrite (Negative) Urine Bilirubin (Negative) Urine Urobilinogen (<2.0) mg/dL Ur Leukocyte Esterase (Negative) 01/15/24 Range/Units 08:52 WBC (3.8-10.6) k/uL RBC (3.80-5.40) m/uL Hgb (11.4-16.0) gm/dL Hct (34.0-46.0) % MCV (80.0-100.0) fL MCH (25.0-35.0) pg MCHC (31.0-37.0) g/dL RDW (11.5-15.5) % Plt Count (150-450) k/uL MPV Neutrophils % % Lymphocytes % % Monocytes % % Eosinophils % % Basophils % % Neutrophils # (1.3-7.7) k/uL Lymphocytes # (1.0-4.8) k/uL Monocytes # (0-1.0) k/uL Eosinophils # (0-0.7) k/uL Basophils # (0-0.2) k/uL PT (10.0-12.5) sec INR (<1.2) APTT (22.0-30.0) sec Sodium (137-145) mmol/L Potassium (3.5-5.1) mmol/L Chloride (98-107) mmol/L Carbon Dioxide (22-30) mmol/L Anion Gap mmol/L BUN (7-17) mg/dL Creatinine (0.52-1.04) mg/dL Est GFR (CKD-EPI)AfAm (>60 ml/min/1.73 sqM) Est GFR (CKD-EPI)NonAf (>60 ml/min/1.73 sqM) Glucose (74-99) mg/dL Lactic Ac Sepsis Rflx Y Plasma Lactic Acid Zi (0.7-2.0) mmol/L Calcium (8.4-10.2) mg/dL Magnesium (1.6-2.3) mg/dL Total Bilirubin (0.2-1.3) mg/dL AST (14-36) U/L ALT (4-34) U/L Alkaline Phosphatase (38-126) U/L Troponin I (0.000-0.034) ng/mL Total Protein (6.3-8.2) g/dL Albumin (3.5-5.0) g/dL Urine Color Urine Appearance (Clear) Urine pH (5.0-8.0) Ur Specific [place] (1.001-1.035) Urine Protein (Negative) Urine Glucose (UA) (Negative) Urine Ketones (Negative) Urine Blood (Negative) Urine Nitrite (Negative) Urine Bilirubin (Negative) Urine Urobilinogen (<2.0) mg/dL Ur Leukocyte Esterase (Negative) Disposition Clinical Impression: Dehydration, Intractable nausea and vomiting Disposition: ADMITTED IP TO THIS HOSP Condition: Stable Is patient prescribed a controlled substance at d/c from ED?: No Referrals: Tal Almendarez MD [Primary Care Provider] - 1-2 days Time of Disposition: 11:55
[2024-01-15 08:58] LABS: Appearance,Urine Clear (Clear); Bilirubin,Urine Negative (Negative); Blood,Urine Negative (Negative); Color,Urine Colorless; Glucose,Urine (UA) 1+ (Negative); Ketones,Urine 1+ (Negative); Leukocyte Esterase,Urine Negative (Negative); Nitrite,Urine Negative (Negative); PH, Urine 7.5 (5.0-8.0); Protein,Urine Negative (Negative); Specific Gravity,Urine 1.008 (1.001-1.035); Urobilinogen,Urine <2.0 mg/dL (<2.0)
--- NOTE | 2024-01-15 09:10 | XR ---
EXAMINATION TYPE: XR chest 2V DATE OF EXAM: 01/15/2024 9:04 AM CLINICAL INDICATION: Female, 73 years old with history of Weakness; [facility] COMPARISON: Chest radiographs from 01/12/2024 TECHNIQUE: XR chest 2V Frontal view of the chest. FINDINGS: Lungs/Pleura: There is flattening of the diaphragm with increased lucency of the lungs. No evidence o f pneumothorax, pleural effusion or focal consolidation. Pulmonary vascularity: Unremarkable. Heart/mediastinum: Cardiomediastinal silhouette is unremarkable. Musculoskeletal: No acute osseous pathology. There is lower spine fixation hardware is present. IMPRESSION: 1. No acute cardiopulmonary disease process. 2. COPD changes.
[2024-01-15] MEDS: POTASSIUM CHLORIDE 10 MEQ in WATER FOR INJECTION 1 100ML.BAG IVPB SCH (09:18)
[2024-01-15] MEDS ORDERED: ONDANSETRON 4 MG/2 ML VIAL IVP PRN (11:52)
[2024-01-15] MEDS: LORazepam 2 MG/ML INJ IV STA (11:52)
[2024-01-15] MEDS ORDERED: ACETAMINOPHEN TAB 325 MG TAB PO PRN (11:52)
[2024-01-15] MEDS ORDERED: NALOXONE 0.4 MG/ML 1 ML VIAL IV PRN (11:52)
[2024-01-15] MEDS: TRIMETHOBENZAMIDE 100 MG/ML 2 ML VIAL IM STA (11:58)
[2024-01-15] MEDS: SODIUM CHLORIDE 0.9% 1,000 ML IV SCH (13:50)
--- NOTE | 2024-01-15 14:59 | CT ---
EXAMINATION TYPE: CT thor lumbar spine wo con DATE OF EXAM: 01/15/2024 COMPARISON: Lumbar spine 10/30/2019 and 10/20/2018 HISTORY: 73-year-old female with acute on chronic pain, extreme back pain, history of T9-S1 fusion TECHNIQUE: Contiguous axial scanning of the thoracic and lumbar spine without IV contrast. Coronal an d sagittal reconstructions performed. CT DLP: 809.8 mGycm Automated exposure control for dose reduction was used. FINDINGS: There is reversal of the normal lumbar lordosis with straightening of the normal cervical kyphosis. Post surgical change of T9-S1 posterior fusion. Multiple levels of kyphoplasty including T9-T12 level s. Wide laminectomies from T9 through the sacrum. Grade 2 anterolisthesis at L2-L3 remains unchanged. Grade 1 retrolisthesis L4-L5 is unchanged. Moderate degenerative disc disease above the fusion at T8-T9. Metal artifact limits assessment of the spinal canal at this level. We note that overall flexion from the upper lumbar spine has significantly increased compared to 10/20. No vertebral compression collapse. On the left, there is moderate neuroforaminal stenosis at L5-S1. On the right, moderate neuroforaminal stenosis at L1-L2. Background moderate emphysema. There appears to be new right-sided hydronephrosis and moderate to sev ere. No prevertebral paravertebral soft tissue abnormality seen. Scattered sigmoid diverticulosis. IMPRESSION: 1. NO VERTEBRAL COMPRESSION COLLAPSE. 2. EXTENSIVE POSTSURGICAL CHANGE OF T9-S1 POSTERIOR FUSION. WIDE LAMINECTOMIES FROM T9 through the sa ruy. 3. Compared to 2019, relative flexion along the upper lumbar spine is new though no compression defor mity or new spondylolisthesis is seen. 4. There is moderate degenerative disc disease that has developed above the fusion at T8-T9. 5. Unchanged fixed grade 2 retrolisthesis L2-L3 and fixed grade 1 retrolisthesis L4-L5. 6. There appears to be new moderate to severe hydronephrosis on the right. Correlate with symptoms. R enal ultrasound and/or CT urogram as clinically indicated.
--- NOTE | 2024-01-15 15:22 | P.HPIM ---
History of Present Illness H&P Date: 01/15/24 History of Presenting Illness: Patient is a very pleasant 73-year-old female with past medical history of CAD status post stent, hypertension, hyperlipidemia, osteoarthritis, and chronic back pain status post multiple spinal surgeries with fusions from T9-S1. Patient presented to the emergency department with acute on chronic back pain accompanied by intractable nausea and vomiting. Patient reports after her most recent back surgery in 2022 she was placed on fentanyl patches for pain management. Patient reports she was afraid to be on this medication long-term and requested to start being weaned off. Patient reports she was initially on 100 mcg patch every 72 hours and reports this dose has slowly been weaned down over the past couple months to 75, 62.5, and on Saturday began 50 mcg patches. Patient reports also on Saturday she began experiencing intractable nausea and vomiting. She states she has had 2 emergency department visits secondary to this intractable nausea and vomiting in which she received antiemetic medications and fluids and discharged home. Patient states in addition to this intractable nausea and vomiting she is having 10 out of 10 uncontrolled back pain from her mid back to lumbar spine accompanied by generalized bilateral lower extremity weakness and difficulties ambulating. Patient reports she can only stand for a few moments before she falls to her knees in excruciating pain and has never experienced this level of nausea in her lifetime. Patient denies having any recent falls or injuries, states she was informed that this intractable nausea and vomiting and uncontrolled pain was secondary to her attempts at weaning down her medication and symptoms of withdrawal. Patient states she does not understand because this has been a slow process over the past couple months. She denies having any fevers, chills, dizziness, lightheadedness, changes in vision or hearing, chest pain, palpitations, shortness of breath, cough or congestion, abdominal pain, changes in or difficulties with urinary or bowel function, denies having any involuntary loss of bowel or bladder, denies saddlebag anesthesias, and denies experiencing any numbness or focal weakness in her extremities. Patient reports her neurosurgeon was Dr. Atkins at [facility], but was killed in 2022. Upon arrival to our facility, patient underwent evaluation in the emergency department. Vital signs upon arrival show blood pressure 181/89, heart rate 72, respiratory rate 18, temp 97.3 F, and SpO2 of 96% on room air. EKG was completed showing sinus mechanism at 61 bpm with no noted T wave or ST abnormalities showing no signs of acute ischemia upon personal review and interpretation. Chest x-ray showing changes of COPD but negative for acute cardiopulmonary process. Labs completed and reviewed. CBC unremarkable. Coagulation profile showing low PTT of 21.7 otherwise normal findings. BMP showing hypokalemia with potassium of 3.2 otherwise normal findings. Blood glucose 159. Initial lactic acid 2.1. Magnesium 1.9. Liver profile unremarkable. Troponin negative at less than 0.012. Urinalysis positive for glucose and ketones negative for infection. Patient admitted under our services with consultation to pain management. Review of systems: Pertinent positives and negatives as discussed in HPI, a complete review of systems was performed and all other systems are negative. Physical exam: Vital signs reviewed and stable. General: Nontoxic, no distress and appears stated age. Derm: Skin warm and dry, normal coloration for ethnicity. Head: Atraumatic, normocephalic and symmetric. Eyes: EOM's intact, no lid lag, and anicteric sclera Mouth: no lip lesions, mucus membranes moist Cardiovascular: regular rate and rhythm with normal S1S2, no murmur, positive posterior tibial pulses bilaterally, and cap refill < 2 seconds. Lungs: Respirations even, regular, and unlabored on room air. Lungs CTA bilaterally, no rhonchi, no rales, no wheezing, and no accessory muscle usage. Abdominal: soft, nontender to palpation, no guarding, no appreciable organomegaly Ext: Movement and sensation intact. No gross muscle atrophy, no edema, no contractures Neuro: Speech clear, face symmetrical and CN II-XII grossly intact with no noted focal neuro deficits Psych: Alert and oriented to person, place, time, and situation. Appropriate and pleasant affect. Assessment and Plan of Care: Acute on chronic mid and lower back pain with history of multiple spinal surgeries Intractable nausea and vomiting Lactic acidosis Hypokalemia -Symptomatic care and pain managment. Continue fentanyl patch 50 mcg every 72 hours and IV Dilaudid as needed for severe intractable breakthrough pain -Order placed for Tigan 100 mg IM x 1 dose and Compazine 10 mg IVP every 6 hours as needed for nausea and vomiting. -Order placed for stat CT of thoracic and lumbar spine. -Consult placed to pain management. -Lactic acidosis resolved after IV fluid hydration with repeat lactate of 0.9. -Continue with gentle IV fluid hydration with 0.9% normal saline at 75 cc/h. -Fall precautions in place. -Potassium was replaced with a total of 40 mEq of potassium chloride IVPB, we will continue close monitoring of electrolytes with repeat a.m. labs. CAD status post stent Hypertension Hyperlipidemia -Continue daily medication regimen with amlodipine 2.5 mg twice daily, atorvastatin 10 mg daily, losartan/hydrochlorothiazide 50-12.5 mg twice daily and metoprolol 12.5 mg daily. Anxiety and depression Continue Zoloft 150 mg daily. Data and imaging reviewed: As stated above in HPI The patient is admitted with an anticipated less than 2 midnight stay for evaluation of acute on chronic lower back pain and reports of intractable nausea and vomiting x 4 days CODE STATUS: Full code DVT prophylaxis: SCDs Anticipated discharge date: Pending clinical course Anticipated discharge place: Home Patient was seen independently by Nurse Practitioner. This document was prepared using [employer] dictation software. Please allow for errors in lens engraver while rare they do occur. . .Mark Goff CUTTER OPERATOR [employer] SHINGLE rendered care for this patient independently, reviewed the findings and plan as documented in the note above. I did not physically speak with or examine the patient on this date. Past Medical History Past Medical History: Coronary Artery Disease (CAD), COPD, Osteoarthritis (OA), Respiratory Disorder Additional Past Medical History / Comment(s): having abd cramping intermittently , no apetite and 10lb wt loss, hx mild COPD, colitis,UTIs History of Any Multi-Drug Resistant Organisms: None Reported Past Surgical History: Back Surgery, Section, Ear Surgery, Heart Catheterization, Orthopedic Surgery, Tonsillectomy, Tubal Ligation Additional Past Surgical History / Comment(s): Right knee, x2, tubes in ears, lumbar fusion L2-S1, T9-L3 fusion october 08 Past Anesthesia/Blood Transfusion Reactions: No Reported Reaction Past Psychological History: Anxiety Smoking Status: Light tobacco smoker Past Alcohol Use History: None Reported Past Drug Use History: None Reported - Past Family History Son(s) Family Medical History: No Reported History Additional Family Medical History / Comment(s): autism Mother History Unknown: Yes Family Medical History: CVA/TIA Father Additional Family Medical History / Comment(s): suicide at 47 Brother(s) Additional Family Medical History / Comment(s): from alcohol and drug use. Sister(s) Family Medical History: Hypertension Medications and Allergies Home Medications Medication Instructions Recorded Confirmed Type Rosuvastatin Calcium [Crestor] 5 mg PO DAILY 10/19/18 01/15/24 History Sertraline [Zoloft] 150 mg PO DAILY 10/19/18 01/15/24 History oxyCODONE-APAP 10-325MG [Percocet 1 tab PO TID PRN 10/19/18 01/15/24 History 10-325 mg] Cholecalciferol [Vitamin D3 (25 50 mcg PO DAILY 12/05/21 01/15/24 History Mcg = 1000 Iu)] Metoprolol Succinate (ER) [Toprol 12.5 mg PO DAILY 12/05/21 01/15/24 History Xl] diazePAM [Valium] 5 mg PO BID PRN 12/05/21 01/15/24 History Calcium Carbonate 1,500 mg PO DAILY 07/22/22 01/15/24 History fentaNYL 50MCG/HR PATCH [Duragesic 1 patch TRANSDERM Q72H 07/22/22 01/15/24 History 50MCG/HR] Losartan-Hctz 50-12.5 mg [Hyzaar 1 tab PO BID 01/15/24 01/15/24 History 50-12.5] Magnesium Oxide [Magox 400] 400 mg PO DAILY 01/15/24 01/15/24 History Ondansetron [Zofran] 4 mg PO TID PRN 01/15/24 01/15/24 History amLODIPine [Norvasc] 2.5 mg PO BID 01/15/24 01/15/24 History Allergies Allergy/AdvReac Type Severity Reaction Status Date / Time No Known Allergies Allergy Verified 01/15/24 09:30 Physical Exam Vitals: Vital Signs Temp Pulse Resp BP Pulse Ox 01/15/24 09:00 63 24 173/88 01/15/24 08:16 98.6 F 62 18 181/94 96 01/15/24 07:22 97.3 F L 72 18 181/89 96 Intake and Output 01/14/24 01/15/24 01/15/24 22:59 06:59 14:59 Other: Weight 45.359 kg Results CBC & Chem 7: 01/16/24 10:27 01/16/24 10:27 Labs: Abnormal Lab Results - Last 24 Hours (Table) 01/15/24 01/15/24 01/15/24 Range/Units 08:15 08:15 08:15 APTT 21.7 L (22.0-30.0) sec Potassium 3.2 L (3.5-5.1) mmol/L Glucose 159 H (74-99) mg/dL Plasma Lactic Acid Zi (0.7-2.0) mmol/L Urine Glucose (UA) 1+ H (Negative) Urine Ketones 1+ H (Negative) 01/15/24 Range/Units 08:15 APTT (22.0-30.0) sec Potassium (3.5-5.1) mmol/L Glucose (74-99) mg/dL Plasma Lactic Acid Zi 2.1 H* (0.7-2.0) mmol/L Urine Glucose (UA) (Negative) Urine Ketones (Negative)
[2024-01-15] MEDS: oxyCODONE-APAP 10-325MG 1 EACH TAB PO PRN (16:12)
--- NOTE | 2024-01-15 18:15 | US ---
EXAMINATION TYPE: US kidneys/renal and bladder DATE OF EXAM: 01/15/2024 COMPARISON: CT today CLINICAL INDICATION: Female, 73 years old with history of CT showing severe hydronephrosis on right r ec US; hydro seen on CT EXAM MEASUREMENTS: Right Kidney: 10.5 x 6.4 x 4.5 cm Left Kidney: 8.9 x 3.9 x 3.2 cm Limited due to rib shadows Right Kidney: Hydronephrosis as seen on CT Left Kidney: There is a 0.5 x 0.3cm echogenic foci seen in the inferior pole of the left kidney. This may be a nonobstructing renal stone. Superior pole obscured by rib shadows Bladder: Anechoic. Appears wnl Bilateral Jets seen: Not visualized today IMPRESSION: 1. Marked right hydronephrosis
[2024-01-15] MEDS: amLODIPine 2.5 MG TAB PO SCH (21:07)
[2024-01-15] MEDS: LOSARTAN-HCTZ 50-12.5 MG 1 EACH TAB PO SCH (21:08)
[2024-01-16] MEDS: LORazepam 2 MG/ML INJ IV PRN (02:16)
[2024-01-16] MEDS: SERTRALINE 50 MG TAB PO SCH (08:03)
[2024-01-16] MEDS: CALCIUM CARB-VIT D 500 MG-5 MCG TAB PO SCH (08:03)
[2024-01-16] MEDS: ATORVASTATIN 10 MG TAB PO SCH (08:04)
[2024-01-16] MEDS: METOPROLOL SUCCINATE (ER) 25 MG TAB.ER.24H PO SCH (08:04)
[2024-01-16] MEDS: MAGNESIUM OXIDE 400 MG TAB PO SCH (08:05)
[2024-01-16] MEDS: diazePAM 5 MG TAB PO PRN (08:05)
[2024-01-16] MEDS: CHOLECALCIFEROL 25 MCG (1000 IU) TABLET PO SCH (08:05)
[2024-01-16 11:07] LABS: HCT 44.1 % (34.0-46.0); HGB 13.8 gm/dL (11.4-16.0); Hypochromasia Marked; MCH 30.7 pg (25.0-35.0); MCHC 31.3 g/dL (31.0-37.0); Mean Platelet Volume 7.4; Platelet Count 240 k/uL (150-450); RDW 13.6 % (11.5-15.5); WBC 5.8 k/uL (3.8-10.6)
[2024-01-16 11:09] LABS: African American GFR (CKD) >90 (>60 ml/min/1.73 sqM); Anion Gap 9 mmol/L; Blood Urea Nitrogen 14 mg/dL (7-17); Calcium 9.3 mg/dL (8.4-10.2); Carbon Dioxide 25 mmol/L (22-30); Chloride 105 mmol/L (98-107); Glucose 96 mg/dL (74-99); Non-African American GFR(CKD) >90 (>60 ml/min/1.73 sqM); Potassium 3.7 mmol/L (3.5-5.1); Sodium 139 mmol/L (137-145)
--- NOTE | 2024-01-16 11:11 | P.PN ---
Subjective Progress Note Date: 01/16/24 Hospital Course: Patient is a very pleasant 73-year-old female with past medical history of CAD status post stent, hypertension, hyperlipidemia, osteoarthritis, and chronic back pain status post multiple spinal surgeries with fusions from T9-S1. Patient presented to the emergency department with acute on chronic back pain accompanied by intractable nausea and vomiting. Patient reports after her most recent back surgery in 2022 she was placed on fentanyl patches for pain management. Patient reports she was afraid to be on this medication long-term and requested to start being weaned off. Patient reports she was initially on 100 mcg patch every 72 hours and reports this dose has slowly been weaned down over the past couple months to 75, 62.5, and on Saturday began 50 mcg patches. Patient reports also on Saturday she began experiencing intractable nausea and vomiting. She states she has had 2 emergency department visits secondary to this intractable nausea and vomiting in which she received antiemetic medications and fluids and discharged home. Patient states in addition to this intractable nausea and vomiting she is having 10 out of 10 uncontrolled back pain from her mid back to lumbar spine accompanied by generalized bilateral lower extremity weakness and difficulties ambulating. Patient reports she can only stand for a few moments before she falls to her knees in excruciating pain and has never experienced this level of nausea in her lifetime. Patient denies having any recent falls or injuries, states she was informed that this intr actable nausea and vomiting and uncontrolled pain was secondary to her attempts at weaning down her medication and symptoms of withdrawal. Patient states she does not understand because this has been a slow process over the past couple months. She denies having any fevers, chills, dizziness, lightheadedness, changes in vision or hearing, chest pain, palpitations, shortness of breath, cough or congestion, abdominal pain, changes in or difficulties with urinary or bowel function, denies having any involuntary loss of bowel or bladder, denies saddlebag anesthesias, and denies experiencing any numbness or focal weakness in her extremities. Patient reports her neurosurgeon was Dr. Atkins at [facility], but was killed in 2022. Upon arrival to our facility, patient underwent evaluation in the emergency department. Vital signs upon arrival show blood pressure 181/89, heart rate 72, respiratory rate 18, temp 97.3 F, and SpO2 of 96% on room air. EKG was completed showing sinus mechanism at 61 bpm with no noted T wave or ST abnormalities showing no signs of acute ischemia upon personal review and interpretation. Chest x-ray showing changes of COPD but negative for acute cardiopulmonary process. Labs completed and reviewed. CBC unremarkable. Coagulation profile showing low PTT of 21.7 otherwise normal findings. BMP showing hypokalemia with potassium of 3.2 otherwise normal findings. Blood glucose 159. Initial lactic acid 2.1. Magnesium 1.9. Liver profile unremarkable. Troponin negative at less than 0.012. Urinalysis positive for glucose and ketones negative for infection. Patient admitted under our services with consultation to pain management.CT of thoracic and lumbar spine was completed showing extensive postsurgical changes with wide laminectomies from T9 through the sacrum, negative for new compression deformity or new spondylolithiasis, moderate degenerative disc disease that has developed above the fusion at T8-T9 and reports of new moderate to severe hydronephrosis. Renal ultrasound then completed showing marked right hydronephrosis. Orthospine surg julia and urology were consulted at this time. Physical exam: Patient seen and fully evaluated at bedside this morning. She reports being medicated with Tigan her nausea has significantly improved and no further episodes of vomiting. Patient reports mild to moderate back pain this morning but states pain has also improved. She continues to deny having any focal numbness/tingling/weakness in her extremities, involuntary loss of bowel or bladder, or experiencing any saddlebag anesthesias. Vital signs reviewed and stable. General: Nontoxic, no distress and appears stated age. Derm: Skin warm and dry, normal coloration for ethnicity. Head: Atraumatic, normocephalic and symmetric. Eyes: EOM's intact, no lid lag, and anicteric sclera Mouth: no lip lesions, mucus membranes moist Cardiovascular: regular rate and rhythm with normal S1S2, no murmur, positive posterior tibial pulses bilaterally, and cap refill < 2 seconds. Lungs: Respirations even, regular, and unlabored on room air. Lungs CTA bilaterally, no rhonchi, no rales, no wheezing, and no accessory muscle usage. Abdominal: soft, nontender to palpation, no guarding, no appreciable organomegaly Ext: Movement and sensation intact. No gross muscle atrophy, no edema, no contractures Neuro: Speech clear, face symmetrical and CN II-XII grossly intact with no noted focal neuro deficits Psych: Alert and oriented to person, place, time, and situation. Appropriate and pleasant affect. Assessment and Plan of Care: Acute on chronic mid and lower back pain with history of multiple spinal surgeries Intractable nausea and vomiting Lactic acidosis Hypokalemia -Symptomatic care and pain managment. Continue fentanyl patch 50 mcg every 72 hours and IV Dilaudid as needed for severe intractable breakthrough pain -Compazine 10 mg IVP every 6 hours as needed for nausea and vomiting. -CT of thoracic and lumbar spine was completed showing extensive postsurgical changes with wide laminectomies from T9 through the sacrum, negative for new compression deformity or new spondylolithiasis, moderate degenerative disc disease that has developed above the fusion at T8-T9 and reports of new moderate to severe hydronephrosis. -Ultrasound kidneys and bladder completed showing marked right hydronephrosis. -Consult was placed to urology secondary to moderate to severe right sided hydronephrosis. -Consult placed to orthospine surgery team secondary to new findings of moderate to severe degenerative disc disease that has developed above the fusion at T8- T9. -Consult placed to pain management for evaluation and recommendations. -Lactic acidosis resolved after IV fluid bolus with repeat lactate of 0.9. -Continue with gentle IV fluid hydration with 0.9% normal saline at 75 cc/h. -Fall precautions in place. -Potassium was replaced with a total of 40 mEq of potassium chloride IVPB, we will continue close monitoring of electrolytes with repeat a.m. labs. CAD status post stent Hypertension Hyperlipidemia -Continue daily medication regimen with amlodipine 2.5 mg twice daily, atorvastatin 10 mg daily, losartan/hydrochlorothiazide 50-12.5 mg twice daily and metoprolol 12.5 mg daily. Anxiety and depression Continue Zoloft 150 mg daily and Valium 5 mg twice daily as needed for anxiety. Data and imaging reviewed: -CT of thoracic and lumbar spine was completed showing extensive postsurgical changes with wide laminectomies from T9 through the sacrum, negative for new compression deformity or new spondylolithiasis, moderate degenerative disc disease that has developed above the fusion at T8-T9 and reports of new moderate to severe hydronephrosis. -Renal ultrasound then completed showing marked right hydronephrosis. -CBC and BMP have been drawn and currently pending results. Will follow-up on results once available. -Morning labs reviewed. Blood pressure 128/108, heart rate 68, respiratory rate 14, temp 98.7 F, and SpO2 of 92% on room air. CODE STATUS: Full code DVT prophylaxis: SCDs Anticipated discharge date: Pending clinical course Anticipated discharge place: Home Patient was seen independently by Nurse Practitioner. This document was prepared using [employer] dictation software. Please allow for errors in web ui software engineer while rare they do occur. Mark Goff GENERATION MECHANIC HELPER rendered care for this patient independently, reviewed the findings and plan as documented in the note above. I did not physically speak with or examine the patient on this date. Objective - Vital Signs Vital signs: Vital Signs Temp 98.7 F 01/16/24 07:46 Pulse 68 01/16/24 07:46 Resp 14 01/16/24 07:46 BP 128/108 01/16/24 07:46 Pulse Ox 92 L 01/16/24 07:46 FiO2 Intake & Output 01/15/24 01/16/24 01/16/24 18:59 06:59 18:59 Intake Total 100 Output Total 300 Balance 100 -300 Weight 45.359 kg Intake: Intake, IV Titration 100 Amount Sodium Chloride 0.9% 1, 100 000 ml @ 75 mls/hr IV . [id number] [facility] Rx#:[id number] Output: Urine 300 Other: Voiding Method Toilet Toilet # Voids 1 - Labs CBC & Chem 7: 01/16/24 10:27 01/16/24 10:27 Labs: Abnormal Lab Results - Last 24 Hours (Table) 01/15/24 01/15/24 01/15/24 Range/Units 08:15 08:15 08:15 APTT 21.7 L (22.0-30.0) sec Potassium 3.2 L (3.5-5.1) mmol/L Glucose 159 H (74-99) mg/dL Plasma Lactic Acid Zi (0.7-2.0) mmol/L Urine Glucose (UA) 1+ H (Negative) Urine Ketones 1+ H (Negative) 01/15/24 Range/Units 08:15 APTT (22.0-30.0) sec Potassium (3.5-5.1) mmol/L Glucose (74-99) mg/dL Plasma Lactic Acid Zi 2.1 H* (0.7-2.0) mmol/L Urine Glucose (UA) (Negative) Urine Ketones (Negative)
[2024-01-16 12:06] VITALS: BMI 18.3
--- NOTE | 2024-01-16 12:16 | P.GSCN ---
History of Present Illness Consult date: 01/16/24 Reason for Consult: Right hydronephrosis History of present illness: 73-year-old female with multiple previous spinal surgeries, admitted to the hospital with back pain associated with nausea and vomiting. She had a CT lumbar that showed evidence of hydronephrosis and subsequently this was confirmed with a renal ultrasound. At this time she denies any flank pain, no previous history of kidney stones. Denies any gross hematuria or dysuria. No previous logical surgeries. CT lumbar did not completely evaluate the ureter, but there was evidence of hydronephrosis which was seen. Review of Systems - Constitutional Denies fever, Denies weight loss - Cardiovascular Denies chest pain, Denies shortness of breath - Respiratory Denies cough, Denies 7 - Gastrointestinal Reports abdominal pain, Reports nausea, Reports vomiting - Genitourinary Genitourinary: Denies dysuria, Denies hematuria - Integumentary Denies rash, Denies unusual bruising - Neurological Denies headaches, Denies syncope Past Medical History Past Medical History: Coronary Artery Disease (CAD), COPD, Hypertension, Osteoarthritis (OA), Respiratory Disorder Additional Past Medical History / Comment(s): having abd cramping intermittently, no apetite and 10lb wt loss, hx mild COPD, colitis,UTIs History of Any Multi-Drug Resistant Organisms: None Reported Past Surgical History: Back Surgery, Section, Ear Surgery, Heart Ca theterization, Orthopedic Surgery, Tonsillectomy, Tubal Ligation Additional Past Surgical History / Comment(s): Right knee, x2, tubes in ears, lumbar fusion L2-S1, T9-L3 fusion october 08 Past Anesthesia/Blood Transfusion Reactions: No Reported Reaction Past Psychological History: Anxiety Smoking Status: Former smoker, Light tobacco smoker Past Alcohol Use History: None Reported Additional Past Alcohol Use History / Comment(s): quit smoking 1997 but in this oct started smoking again (due to stress) smoked 1 cig per day then quit 7. Past Drug Use History: None Reported - Past Family History Son(s) Family Medical History: No Reported History Additional Family Medical History / Comment(s): autism Mother History Unknown: Yes Family Medical History: CVA/TIA Father Additional Family Medical History / Comment(s): suicide at 47 Brother(s) Additional Family Medical History / Comment(s): from alcohol and drug use. Sister(s) Family Medical History: Hypertension Medications and Allergies Home Medications Medication Instructions Recorded Confirmed Type Rosuvastatin Calcium [Crestor] 5 mg PO DAILY 10/19/18 01/15/24 History Sertraline [Zoloft] 150 mg PO DAILY 10/19/18 01/15/24 History oxyCODONE-APAP 10-325MG [Percocet 1 tab PO TID PRN 10/19/18 01/15/24 History 10-325 mg] Cholecalciferol [Vitamin D3 (25 50 mcg PO DAILY 12/05/21 01/15/24 History Mcg = 1000 Iu)] Metoprolol Succinate (ER) [Toprol 12.5 mg PO DAILY 12/05/21 01/15/24 History Xl] diazePAM [Valium] 5 mg PO BID PRN 12/05/21 01/15/24 History Calcium Carbonate 1,500 mg PO DAILY 07/22/22 01/15/24 History fentaNYL 50MCG/HR PATCH [Duragesic 1 patch TRANSDERM Q72H 07/22/22 01/15/24 History 50MCG/HR] Losartan-Hctz 50-12.5 mg [Hyzaar 1 tab PO BID 01/15/24 01/15/24 History 50-12.5] Magnesium Oxide [Magox 400] 400 mg PO DAILY 01/15/24 01/15/24 History Ondansetron [Zofran] 4 mg PO TID PRN 01/15/24 01/15/24 History amLODIPine [Norvasc] 2.5 mg PO BID 01/15/24 01/15/24 History Allergies Allergy/AdvReac Type Severity Reaction Status Date / Time No Known Allergies Allergy Verified 01/15/24 09:30 Surgical - Exam Vital Signs Temp Pulse Resp BP Pulse Ox 97.3 F L 72 18 181/89 96 01/15/24 07:22 01/15/24 07:22 01/15/24 07:22 01/15/24 07:22 01/15/24 07:22 - General no distress, moderate pain - Eyes normal ocular movement, no pale - ENT normal nares, normal mucosa - Respiratory normal expansion, normal respiratory effort - Abdomen Abdomen: soft, non tender - Psychiatric oriented to time, oriented to person, oriented to place Results - Labs 01/16/24 10:27 01/16/24 10:27 Diabetes panel 01/16/24 Range/Units 10:27 Sodium 139 (137-145) mmol/L Potassium 3.7 (3.5-5.1) mmol/L Chloride 105 (98-107) mmol/L Carbon Dioxide 25 (22-30) mmol/L BUN 14 (7-17) mg/dL Creatinine 0.53 (0.52-1.04) mg/dL Glucose 96 (74-99) mg/dL Calcium 9.3 (8.4-10.2) mg/dL Calcium panel 01/16/24 Range/Units 10:27 Calcium 9.3 (8.4-10.2) mg/dL Pituitary panel 01/16/24 Range/Units 10:27 Sodium 139 (137-145) mmol/L Potassium 3.7 (3.5-5.1) mmol/L Chloride 105 (98-107) mmol/L Carbon Dioxide 25 (22-30) mmol/L BUN 14 (7-17) mg/dL Creatinine 0.53 (0.52-1.04) mg/dL Glucose 96 (74-99) mg/dL Calcium 9.3 (8.4-10.2) mg/dL Adrenal panel 01/16/24 Range/Units 10:27 Sodium 139 (137-145) mmol/L Potassium 3.7 (3.5-5.1) mmol/L Chloride 105 (98-107) mmol/L Carbon Dioxide 25 (22-30) mmol/L BUN 14 (7-17) mg/dL Creatinine 0.53 (0.52-1.04) mg/dL Glucose 96 (74-99) mg/dL Calcium 9.3 (8.4-10.2) mg/dL Assessment and Plan Assessment: 73-year-old female with back pain intractable nausea and vomiting, CT lumbar showed evidence of right-sided hydronephrosis which was confirmed on ultrasound. Kidney function is stable she is not having any flank pain at this time. -Will obtain a CT urogram to further characterize
--- NOTE | 2024-01-16 13:02 | P.CNOR ---
History of Present Illness - [facility] Consult date: 01/16/24 Consult reason: low back pain History of present illness: Patient is a 73-year-old female who presented to [facility] on 01/15/2024 after being in the ER 2 nights prior with mid to right sided flank pain/back pain, nausea and vomiting. Patient was admitted to the hospital for further workup of these issues, there was concern for right-sided hydronephrosis. Patient is being followed by internal medicine and also consult for urology. Patient has had significant thoracic/lumbar surgery, orthopedic t eam was consulted also. Patient was evaluated today at bedside, her is present. Patient is resting comfortably in her hospital bed. Patient has had very extensive thoracic/lumbar surgery by Dr. Atkins in his partner at [facility]. Patient's first back surgery was about 30 years ago was a simple laminectomy, since 2013 she has had multiple fusion surgeries involving the thoracic and lumbar spine. Patient's most recent surgery was in April [address] Atkins's partner. Patient has been doing relatively well since that surgery. She notes no acute back pain at this time, she always has some level discomfort throughout her thoracic and lumbar spine. She feels that she has chronic weakness in her back. Patient denies any new onset lower extremity weakness, numbness or tingling, loss of bowel or bladder function. She denies any numbness or tingling to the bilateral upper extremities. Patient denies any perineal or genital numbness or tingling at this time. Patient denies any recent trauma. Review of Systems Constitutional: Reports as per HPI Past Medical History Past Medical History: Coronary Artery Disease (CAD), COPD, Hypertension, Osteoarthritis (OA), Respiratory Disorder Additional Past Medical History / Comment(s): having abd cramping intermitt ently, no apetite and 10lb wt loss, hx mild COPD, colitis,UTIs History of Any Multi-Drug Resistant Organisms: None Reported Past Surgical History: Back Surgery, Section, Ear Surgery, Heart Catheterization, Orthopedic Surgery, Tonsillectomy, Tubal Ligation Additional Past Surgical History / Comment(s): Right knee, x2, tubes in ears, lumbar fusion L2-S1, T9-L3 fusion october 08 Past Anesthesia/Blood Transfusion Reactions: No Reported Reaction Past Psychological History: Anxiety Smoking Status: Former smoker, Light tobacco smoker Past Alcohol Use History: None Reported Additional Past Alcohol Use History / Comment(s): quit smoking 1997 but in this oct started smoking again (due to stress) smoked 1 cig per day then quit 04/23/17. Past Drug Use History: None Reported - Past Family History Son(s) Family Medical History: No Reported History Additional Family Medical History / Comment(s): autism Mother History Unknown: Yes Family Medical History: CVA/TIA Father Additional Family Medical History / Comment(s): suicide at 47 Brother(s) Additional Family Medical History / Comment(s): from alcohol and drug use. Sister(s) Family Medical History: Hypertension Medications and Allergies Home Medications Medication Instructions Recorded Confirmed Type Rosuvastatin Calcium [Crestor] 5 mg PO DAILY 10/19/18 01/15/24 History Sertraline [Zoloft] 150 mg PO DAILY 10/19/18 01/15/24 History oxyCODONE-APAP 10-325MG [Percocet 1 tab PO TID PRN 10/19/18 01/15/24 History 10-325 mg] Cholecalciferol [Vitamin D3 (25 50 mcg PO DAILY 12/05/21 01/15/24 History Mcg = 1000 Iu)] Metoprolol Succinate (ER) [Toprol 12.5 mg PO DAILY 12/05/21 01/15/24 History Xl] diazePAM [Valium] 5 mg PO BID PRN 12/05/21 01/15/24 History Calcium Carbonate 1,500 mg PO DAILY 07/22/22 01/15/24 History fentaNYL 50MCG/HR PATCH [Duragesic 1 patch TRANSDERM Q72H 07/22/22 01/15/24 History 50MCG/HR] Losartan-Hctz 50-12.5 mg [Hyzaar 1 tab PO BID 01/15/24 01/15/24 History 50-12.5] Magnesium Oxide [Magox 400] 400 mg PO DAILY 01/15/24 01/15/24 History Ondansetron [Zofran] 4 mg PO TID PRN 01/15/24 01/15/24 History amLODIPine [Norvasc] 2.5 mg PO BID 01/15/24 01/15/24 History Allergies Allergy/AdvReac Type Severity Reaction Status Date / Time No Known Allergies Allergy Verified 01/15/24 09:30 Physical Examination Gen: AOx3, NAD VSS stable at this time Integument: Well-healed incision from mid thoracic to sacral/lumbar region, no areas of erythema, no fluctuance is appreciated. I am able to appreciate some of the fusion hardware in the thoracic spine, no skin changes noted in those areas Palpation: Mild tenderness with palpation of the paraspinal region of the thoracic and lumbar spine ROM: Full range of motion in all major muscle groups of the bilateral upper and lower extremities, no focal deficits appreciated Sensory Exam: Senory exam to light touch is intact C5-T1 Senosry exam to light touch is intact L2-S1 Motor: 5/5 strength appreciated the bilateral upper extremities with shoulder elevation, shoulder abduction, elbow extension, elbow flexion, wrist extension, wrist flexion, 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 5/5 strength appreciated bilateral lower extremities with hip flexion, knee exte nsion, knee flexion, plantarflexion, dorsiflexion, EHL, FHL Reflexes: 2/4 in all UE and LE Negative Jacquelyn's bilaterally Negative clonus bilaterally Special Test: Negative straight leg raise bilaterally Results - Labs Labs: H & H 01/15/24 01/16/24 Range/Units 08:15 10:27 Hgb 14.8 13.8 (11.4-16.0) gm/dL Hct 44.9 44.1 (34.0-46.0) % Coagulation 01/15/24 Range/Units 08:15 INR 1.0 (<1.2) Result Diagrams: 01/16/24 10:27 01/16/24 10:27 Assessment and Plan Assessment: Right sided low back/flank pain Nausea and vomiting Multiple thoracic/lumbar surgeries, hardware from T9-S1, stable Adjacent segment disease T8-T9 Other medical comorbidities Plan: Imaging: Thoracic or lumbar CT without contrast was reviewed along with reports. No acute fractures or dislocations. Degenerative disc changes/adjacent segment disease appreciated T8/T9. Hardware appears stable, will review images with my attending Plan: I was able to discuss the case, this to include with physical exam findings and imaging studies my attending Dr. Henao, no orthopedic surgical intervention is recommended at this time Recommend patient follow-up with her current surgeon, our follow-up information will be placed in chart for as needed follow-up Recommend protected weightbearing, patient normally will utilize a walker or cane if needed, she normally ambulates with no assistive devices. Pain control, recommend patient remain on her current medications DVT prophylaxis per primary medical service Medical specialty recommendations appreciated Please contact our orthopedic service with any further questions regarding this patient Time with Patient: Less than 30
--- NOTE | 2024-01-16 14:19 | CT ---
EXAMINATION TYPE: CT urogram wo/w con CT DLP: 1288 mGycm, Automated exposure control for dose reduction was used. DATE OF EXAM: 01/16/2024 1:47 PM COMPARISON: 12/09/2023 CLINICAL INDICATION: Female, 73 years old with history of Hydronephrosis; PHH, Hydronephrosis. TECHNIQUE: Urogram with imaging of the abdomen and pelvis. Coronal and sagittal reformats were performed. 2D and 3D reconstructions are performed to assist visualization of the urinary tract on a separate workstat ion. Contrast used:100 ml mL of Isovue 370 with IV Contrast, Oral contrast used: None. FINDINGS: LOWER CHEST: No significant findings. GENITOURINARY: RIGHT KIDNEY AND URETER: No calculi. Extrarenal dilation of the renal pelvis and proximal system. No renal mass or other lesions. Limited distal ureter secondary to lack of excreted IV contrast with candace t said urothelial lesions: no filling defect, dilation, stricture or wall thickening. LEFT KIDNEY AND URETER: No calculi. Mild dilation of the left renal pelvis nonobstructing calculus.. No renal mass or other lesions. No urothelial lesions: no filling defect, dilation, stricture or wall thickening. URINARY BLADDER: Not optimally distended. Limited evaluation secondary to partial filling of the blad gayatri with excreted IV contrast. No calculi or obvious mass. REPRODUCTIVE: Unremarkable. ABDOMEN LIVER: Unremarkable. GALLBLADDER AND BILE DUCTS: Unremarkable PANCREAS: Unremarkable. SPLEEN: Unremarkable. ADRENAL GLANDS: Unremarkable. STOMACH AND BOWEL: . No evidence of bowel obstruction. Scattered colonic diverticula. PERITONEUM: No evidence of pneumoperitoneum, free fluid, or adenopathy. VASCULATURE: Moderate atherosclerotic calcifications are present throughout the abdominal aorta and i ts branches. No evidence of aortic aneurysm. MUSCULOSKELETAL: No acute osseous abnormalities with fixation hardware in the spine appears intact. LYMPH NODES: No gross evidence for lymphadenopathy. SOFT TISSUE/ABDOMINAL WALL: Unremarkable IMPRESSION: 1. Poor excretion of contrast within the right collecting system with dilation of the collecting sys tem proximally. The right ureter is poorly visualized possibly due to patient body habitus/anatomy an d poor excretion of contrast possibly due to obstructed ureter from mass effect of patient's body hab itus. Consider Lasix renogram nuclear medicine study. No evidence of urolithiasis or renal/urothelial neoplasm. 2. Colonic diverticulosis.
--- NOTE | 2024-01-16 14:53 | P.PAINPG ---
Objective - Vital Signs Vital signs: Vital Signs Temp 97.4 F L 01/16/24 14:00 Pulse 54 L 01/16/24 14:00 Resp 14 01/16/24 14:00 BP 116/64 01/16/24 14:00 Pulse Ox 91 L 01/16/24 14:00 FiO2 Intake & Output 01/15/24 01/16/24 01/16/24 18:59 06:59 18:59 Intake Total 100 Output Total 300 Balance 100 -300 Weight 45.359 kg 45.359 kg Intake: Intake, IV Titration 100 Amount Sodium Chloride 0.9% 1, 100 000 ml @ 75 mls/hr IV . [id number] BIRDIE Rx#:[id number] Output: Urine 300 Other: Voiding Method Toilet Toilet Toilet # Voids 1 - Labs CBC & Chem 7: 01/16/24 10:27 01/16/24 10:27 PQRS Measure Charge Sheet Comment: HISTORY OF PRESENT ILLNESS: A 73 yr old inpatient female w son at side presents today w severe and chronic R sided back pain secondary to post T9-S1 fusion, T9-T12 kyphoplasty and R hydronephrosis for evaluation. Pt states pain level is provoked at 5 /10 in intensity, constant, localized in the R side of back, achy in character without shooting pain. Pain has no provocative factors. Pain is alleviated by medications (Fentanyl 50mcg/hr q72h, Percocet q6h prn), repositioning and rest . Pt has a scheduled CT abdomen today. She has not needed to request Percocet today and is sitting upright on bed without distress. PMH: OA, CAD, COPD, HTN, Anxiety PSH: T9-S1 fusion, T9-T12 kyphoplasty, C - section x2, Ear tubes SH: Former tobacco user, No ETOH abuse, No illicit drug use FH: Non contributory All: See list Meds: See list REVIEW OF ORGAN SYSTEMS: CONSTITUTIONAL: No fevers or chills. No recent weight loss. NEUROLOGICAL: + numbness and tingling along the distal extremities. No seizure disorders or headaches. MUSCULOSKELETAL: + pain PSYCHIATRIC: Denies current depression or suicidal thoughts. Physical Examinations : Constitutional : Cooperative , not in acute distress . Neurologic : Cranial nerve II to XII intact. No focal n eurological deficits. Psychiatric : alert & oriented x 3. Matching mood & appropriate affect. Judgment & insight intact. Musculoskeletal : Cervical Spine Motor strength in the deltoid and biceps: Normal right side. Normal Left side Motor strength biceps and the wrist extensors: Normal right side . Normal left side Motor strength in the triceps muscle: Normal right side. Normal left side Deep tendon reflexes: Normal at the biceps. Normal at Brachioradialis. Normal at triceps Vertebral body tenderness to deep p alpation over Cervical facet loading test: positive bilaterally Spurling test: positive bilaterally Neck distraction test: positive bilaterally Jacquelyn sign: positive bilaterally Thoracolumbar spine +well healed incisional scars intact Motor strength lower extremities ,thigh and legs 5/5 Right side , 5/5 Left side Deep tendon reflexes : Normal Knee Jerk. Normal Ankle Jerk Vertebral body tenderness over Rosales Test positive Lumbar facet Loading Test: positive Right / positive Left Range of motion of the lumbar spine Flexion 30 degrees, extension 10 degrees Straight Leg Raise test: Left/ Right positive at degrees Armand test: positive right / positive left. Severe tenderness over the Sacroiliac joint on the Right / Left sides Gaenslen test: positive bilaterally Seated flexion test: positive bilaterally. Sacral spine : Severe tenderness over the Sacroiliac joint: right side / left side Range of motion: Flexion of the lumbar spine <60 degrees Range of motion: Extension of the lumbar spine <20 degrees Gaenslen's Test positive Armand test: positive right side / left side Thigh Thrust Test Sacral Thrust Test Imaging: CT non contrast lumbar spine from 01/15/24 reviewed Assessment/ Plan : R sided thoracolumbar pain Recommendation of continuation of current treatment plan. No changes in pain management at this time. All questions answered. I have spent greater than 30 minutes on patient care today. Dr Alfonso was available by phone for the evaluation of this patient. The time was used to review the medical records including relevant urine studies and Prescription history (MAPs), review of the available imaging, evaluation and examination of the patient, coordination of care with the medical staff and if applicable referring physicians, as well as creation of the medical record PQRS Narrative: Smoking Status Former smoker Blood Pressure [Supine] 116/64 Blood Pressure 123/98 Pain Intensity [Back] 0 Pain Intensity 4 Pain Scale Used Numeric (1 - 10) Scale Used Numeric (1 - 10) Home Medications: Ambulatory Orders Rosuvastatin Calcium [Crestor] 5 mg PO DAILY 10/19/18 Sertraline [Zoloft] 150 mg PO DAILY 10/19/18 oxyCODONE-APAP 10-325MG [Percocet 10-325 mg] 1 tab PO TID PRN 10/19/18 Cholecalciferol [Vitamin D3 (25 Mcg = 1000 Iu)] 50 mcg PO DAILY 12/05/21 Metoprolol Succinate (ER) [Toprol Xl] 12.5 mg PO DAILY 12/05/21 diazePAM [Valium] 5 mg PO BID PRN 12/05/21 Calcium Carbonate 1,500 mg PO DAILY 07/22/22 fentaNYL 50MCG/HR PATCH [Duragesic 50MCG/HR] 1 patch TRANSDERM Q72H 07/22/22 Losartan-Hctz 50-12.5 mg [Hyzaar 50-12.5] 1 tab PO BID 01/15/24 Magnesium Oxide [Magox 400] 400 mg PO DAILY 01/15/24 Ondansetron [Zofran] 4 mg PO TID PRN 01/15/24 amLODIPine [Norvasc] 2.5 mg PO BID 01/15/24 Controlled Substance Measures - Controlled Substance Measures Is patient prescribed a controlled substance at discharge?: No
[2024-01-17] MEDS: PROCHLORPERAZINE INJ 10 MG/2 ML VIAL IVP PRN (04:44)
[2024-01-17 09:36] LABS: ALT 11 U/L (8-44); AST 20 U/L (13-35); Albumin/Globulin Ratio 2.35 Ratio (1.60-3.17); Alkaline Phosphatase 62 U/L (41-126); Blood Urea Nitrogen 11.7 mg/dL (9.0-27.0); Calcium 9.1 mg/dL (8.7-10.3); Carbon Dioxide 27.3 mmol/L (21.6-31.8); Chloride 107 mmol/L (96-109); Globulin 1.7 g/dL (1.6-3.3); Glucose 88 mg/dL (70-110); Magnesium 1.8 mg/dL (1.5-2.4); Potassium 3.6 mmol/L (3.5-5.5); Sodium 144 mmol/L (135-145); Total Bilirubin 0.3 mg/dL (0.3-1.2); Total Protein 5.7 g/dL (6.2-8.2)
[2024-01-17 09:54] LABS: HGB 13.4 g/dL (12.0-15.0); MCH 30.7 pg (27.0-32.0); MCHC 34.4 g/dL (32.0-37.0); MCV 89.2 FL (80.0-97.0); Mean Platelet Volume 10.4 FL (9.5-12.2); NRBC Per 100 WBC 0 X 10*3/uL (0.00-0.01); Platelet Count 253 X 10*3/uL (140-440); RBC 4.37 X 10*6/uL (4.10-5.20); RDW 13.9 % (11.5-14.5); WBC 6.41 X 10*3/uL (4.50-10.00)
[2024-01-17] MEDS: valACYclovir HCL 500 MG TAB PO SCH (15:45)
--- NOTE | 2024-01-17 16:51 | P.PN ---
Subjective Progress Note Date: 01/17/24 Hospital Course: Patient is a very pleasant 73-year-old female with past medical history of CAD status post stent, hypertension, hyperlipidemia, osteoarthritis, and chronic back pain status post multiple spinal surgeries with fusions from T9-S1. Patient presented to the emergency department with acute on chronic back pain accompanied by intractable nausea and vomiting. Upon arrival to our facility, patient underwent evaluation in the emergency department. Vital signs upon arrival show blood pressure 181/89, heart rate 72, respiratory rate 18, temp 97.3 F, and SpO2 of 96% on room air. EKG was completed showing sinus mechanism at 61 bpm with no noted T wave or ST abnormalities showing no signs of acute ischemia upon personal review and interpretation. Chest x-ray showing changes of COPD but negative for acute cardiopulmonary process. Labs completed and reviewed. CBC unremarkable. Coagulation profile showing low PTT of 21.7 otherwise normal findings. BMP showing hypokalemia with potassium of 3.2 otherwise normal findings. Blood glucose 159. Initial lactic acid 2.1. Magnesium 1.9. Liver profile unremarkable. Troponin negative at less than 0.012. Urinalysis positive for glucose and ketones negative for infection. Patient admitted under our services with consultation to pain management.CT of thoracic and lumbar spine was completed showing extensive postsurgical changes with wide laminectomies from T9 through the sacrum, negative for new compression deformity or new spondylolithiasis, moderate degenerative disc disease that has developed above the fusion at T8-T9 and reports of new moderate to severe hydronephrosis. Renal ultrasound then completed showing marked right hydronephrosis. [facility] surgery and urology were consulted at this time. Orthopedic surgery evaluated recommending patient follow-up outpatient with [facility] and clearing patient from their perspective for discharge. Pain management consulted and evaluated recommending patient continue with current pain medication regimen with fentanyl patch 50 mcg. Urology evaluated recommending patient undergo cystoscopy with stent placement. Physical exam: Patient seen and fully evaluated at bedside this morning. Patient and at bedside reports patient having a rough morning with pain and nausea but denies any further episodes of vomiting. Patient denies any other complaints. Updated on plan for cystoscopy with stent placement tomorrow and denies having any questions, needs, or concerns. Vital signs reviewed and stable. General: Nontoxic, no distress and appears stated age. Derm: Skin warm and dry, normal coloration for ethnicity. Head: Atraumatic, normocephalic and symmetric. Eyes: EOM's intact, no lid lag, and anicteric sclera Mouth: no lip lesions, mucus membranes moist Cardiovascular: regular rate and rhythm with normal S1S2, no murmur, positive posterior tibial pulses bilaterally, and cap refill < 2 seconds. Lungs: Respirations even, regular, and unlabored on room air. Lungs CTA bilaterally, no rhonchi, no rales, no wheezing, and no accessory muscle usage. Abdominal: soft, nontender to palpation, no guarding, no appreciable organomegaly Ext: Movement and sensation intact. No gross muscle atrophy, no edema, no contractures Neuro: Speech clear, face symmetrical and CN II-XII grossly intact with no noted focal neuro deficits Psych: Alert and oriented to person, place, time, and situation. Appropriate and pleasant affect. Assessment and Plan of Care: Acute on chronic mid and lower back pain with history of multiple spinal surgeries Intractable nausea and vomiting Hypokalemia -Symptomatic care and pain managment. Continue fentanyl patch 50 mcg every 72 hours and IV Dilaudid as needed for severe intractable breakthrough pain -Compazine 10 mg IVP every 6 hours as needed for nausea and vomiting. -CT of thoracic and lumbar spine was completed showing extensive postsurgical ch anges with wide laminectomies from T9 through the sacrum, negative for new compression deformity or new spondylolithiasis, moderate degenerative disc disease that has developed above the fusion at T8-T9 and reports of new moderate to severe hydronephrosis. -Ultrasound kidneys and bladder completed showing marked right hydronephrosis. -CT urogram with and without contrast was completed showing poor excretion of contrast within the right collecting system with dilation of the collecting system proximally right ureter was poorly visualized. -Orthopedic surgery evaluated recommending patient follow-up outpatient with neurosurgeon and clearing patient from their perspective for discharge. -Pain management consulted and evaluated recommending patient continue with current pain medication regimen with fentanyl patch 50 mcg. -Urology evaluated recommending patient undergo cystoscopy with stent placement. -Continue with gentle IV fluid hydration with 0.9% normal saline at 75 cc/h. -Fall precautions in place. CAD status post stent Hypertension Hyperlipidemia -Continue daily medication regimen with amlodipine 2.5 mg twice daily, atorvastatin 10 mg daily, losartan/hydrochlorothiazide 50-12.5 mg twice daily and metoprolol 12.5 mg daily. Anxiety and depression Continue Zoloft 150 mg daily and Valium 5 mg twice daily as needed for anxiety. Lactic acidosis, resolved after IV fluid hydration. Hypokalemia, replaced and resolved. Data and imaging reviewed: -CT urogram with and without contrast was completed and radiology report reviewed showing poor excretion of contrast within the right collecting system with dilation of the collecting system proximally right ureter was poorly visualized. -Labs Reviewed. CBC and BMP are unremarkable. Magnesium 1.8. -Vital signs reviewed. Blood pressure was elevated this morning but patient having nausea and reports of pain and medicated at this time. Vital signs showing blood pressure 184/82, heart rate 61, respiratory rate 21, temp 98.2 F, and SpO2 of 92% on room air. CODE STATUS: Full code DVT prophylaxis: SCDs Anticipated discharge date: Pending clinical course Anticipated discharge place: Home Patient was seen independently by Nurse Practitioner. This document was prepared using [employer] dictation software. Please allow for errors in purchasing manager/sales while rare they do occur. . I reviewed the documentation as provided by the KARIN above, who is the original author of this note. I agree with the documented assessment and plan, with the following changes: none Objective - Vital Signs Vital signs: Vital Signs Temp 98.2 F 01/17/24 08:00 Pulse 61 01/17/24 08:00 Resp 21 01/17/24 08:00 BP 184/82 01/17/24 08:00 Pulse Ox 92 L 01/17/24 08:00 FiO2 Intake & Output 01/16/24 01/17/24 01/17/24 18:59 06:59 18:59 Intake Total 540 Balance 540 Weight 45.359 kg Intake: Oral 540 Other: Voiding Method Toilet # Voids 1 - Labs CBC & Chem 7: 01/17/24 03:35 01/17/24 03:35
--- NOTE | 2024-01-17 21:47 | P.PN ---
Subjective Continues to have nausea and vomiting, she still denies any flank pain at this time. CT urogram which showed evidence of an obstructive right kidney with severe hydronephrosis, no contrast seen draining past the proximal ureter. Objective - Vital Signs Vital signs: Vital Signs Temp 97.4 F L 01/17/24 19:49 Pulse 63 01/17/24 19:49 Resp 14 01/17/24 19:49 BP 148/73 01/17/24 19:49 Pulse Ox 97 01/17/24 19:49 FiO2 Intake & Output 01/17/24 01/17/24 01/18/24 06:59 18:59 06:59 Intake Total 1440 Balance 1440 Weight 45.359 kg Intake: Intake, IV Titration 900 Amount Sodium Chloride 0.9% 1, 900 000 ml @ 75 mls/hr IV . [id number] [facility] Rx#:[id number] Oral 540 Other: Voiding Method Toilet # Voids 1 # Bowel Movements 1 - Constitutional General appearance: Present: no acute distress - Gastrointestinal General gastrointestinal: Present: soft. Absent: distended, tenderness - Psychiatric Psychiatric: Present: A&O x's 3 - Labs CBC & Chem 7: 01/17/24 03:35 01/17/24 03:35 Labs: Abnormal Lab Results - Last 24 Hours (Table) 01/17/24 Range/Units 03:35 Total Protein 5.7 L (6.2-8.2) g/dL Assessment and Plan Assessment: 73-year-old female with back pain intractable nausea and vomiting, CT lumbar showed evidence of right-sided hydronephrosis which was confirmed on ultrasound. Kidney function is stable she is not having any flank pain at this time. But continues to have nausea and vomiting. Discussed with her hydronephrosis could be contributing to her nausea and vomiting given the finding on CT urogram of severe hydronephrosis I do recommend further evaluation, at this point we will proceed with right-sided diagnostic ureteroscopy with stent insertion and possible balloon dilation given obstruction is visualized. Risk of bleeding infection injury of the ureter were discussed with her in details. Discussed potential that she might have persistent nausea even with addressing her hydronephrosis. NPO past MN OR for cystoscopy, right ureteroscopy, retrograde pyelogram, possible balloon dilation and stent insertion
[2024-01-18] MEDS ORDERED: MIDAZOLAM 2 MG/2 ML VIAL ONE (08:09)
[2024-01-18] MEDS ORDERED: PROPOFOL 10 MG/ML 20 ML VIAL IV ONE (08:09)
[2024-01-18] MEDS ORDERED: ROCURONIUM 10 MG/ML (5 ML VIAL) IV ONE (08:09)
[2024-01-18] MEDS ORDERED: ceFAZolin 1 GM/50 ML BAG (PMX) ONE (08:09)
[2024-01-18] MEDS ORDERED: ePHEDrine 50 MG/ML 1 ML VIAL ONE (08:09)
[2024-01-18] MEDS ORDERED: DEXAMETHASONE SOD PHOSPHATE 4 MG/ML 1 ML VIAL ONE (08:09)
[2024-01-18] MEDS ORDERED: ONDANSETRON 4 MG/2 ML VIAL ONE (08:09)
[2024-01-18] MEDS ORDERED: SUGAMMADEX SODIUM 200 MG/2 ML SDV IV ONE (08:09)
[2024-01-18] MEDS ORDERED: SUCCINYLCHOLINE CHLORIDE 200 MG/10 ML VIAL IV ONE (08:09)
[2024-01-18] MEDS ORDERED: fentaNYL (PF) 50 MCG/ML 2 ML AMP ONE (08:09)
[2024-01-18] MEDS: LACTATED RINGERS 1,000 ML IV ONE (08:12)
[2024-01-18] MEDS: SODIUM CHLORIDE 0.9% 100 ML with ceFAZolin 2,000 MG IV ONE (08:36)
[2024-01-18] MEDS: IOPAMIDOL-370 100ML BTL MISCELLANE ONE (08:39)
--- NOTE | 2024-01-18 09:41 | P.PN ---
Subjective Progress Note Date: 01/18/24 He continues to have nausea and vomiting, creatinine is 0.6 Objective - Vital Signs Vital signs: Vital Signs Temp 96.8 F L 01/18/24 08:59 Pulse 59 L 01/18/24 09:29 Resp 18 01/18/24 09:29 BP 147/67 01/18/24 09:29 Pulse Ox 94 L 01/18/24 09:29 FiO2 Intake & Output 01/17/24 01/18/24 01/18/24 18:59 06:59 18:59 Intake Total 1440 1140 950 Output Total 5 Balance 1440 1140 945 Weight 45.359 kg 45.359 kg Intake: IV 950 Intake, IV Titration 900 900 Amount Sodium Chloride 0.9% 1, 900 900 000 ml @ 75 mls/hr IV . [id number] [facility] Rx#:[id number] Oral 540 240 Output: Estimated Blood Loss 5 Other: Voiding Method Toilet # Voids 2 # Bowel Movements 1 - Constitutional General appearance: Present: no acute distress - Gastrointestinal General gastrointestinal: Present: soft. Absent: distended, tenderness - Psychiatric Psychiatric: Present: A&O x's 3 - Labs CBC & Chem 7: 01/17/24 03:35 01/17/24 03:35 Assessment and Plan Assessment: 73-year-old female with back pain intractable nausea and vomiting, CT lumbar dirk wed evidence of right-sided hydronephrosis which was confirmed on ultrasound. Kidney function is stable she is not having any flank pain at this time. But continues to have nausea and vomiting. Discussed with her hydronephrosis could be contributing to her nausea and vomiting given the finding on CT urogram of severe hydronephrosis I do recommend further evaluation, at this point we will proceed with right-sided diagnostic ureteroscopy with stent insertion and possible balloon dilation given obstruction is visualized. Risk of bleeding infection injury of the ureter were discussed with her in details. Discussed potential that she might have persistent nausea even with addressing her hydr onephrosis. OR for cystoscopy, right ureteroscopy, retrograde pyelogram, possible balloon dilation and stent insertion
--- NOTE | 2024-01-18 09:44 | P.OP ---
Date of Procedure: 01/18/24 Preoperative Diagnosis: Right hydronephrosis Postoperative Diagnosis: Same Procedure(s) Performed: Cystoscopy, right retrograde pyelogram, stent insertion Implants: 6 [place] by 24 cm stent in the right ureter Anesthesia: BRONWYN Surgeon: Betito Chavira Estimated Blood Loss (ml): 5 Pathology: none sent Condition: stable Disposition: PACU Indications for Procedure: 73-year-old female with back pain intractable nausea and vomiting, CT lumbar showed evidence of right-sided hydronephrosis which was confirmed on ultrasound. Kidney function is stable she is not having any flank pain at this time. But continues to have nausea and vomiting. Discussed with her hydronephrosis could be contributing to her nausea and vomiting given the finding on CT urogram of severe hydronephrosis I do recommend further evaluation, at this point we will proceed with right-sided diagnostic ureteroscopy with stent insertion and possible balloon dilation given obstruction is visualized. Risk of bleeding infection injury of the ureter were discussed with her in details. Discussed potential that she might have persistent nausea even with addressing her hydronephrosis. Operative Findings: Severe right-sided hydronephrosis, complete looping of the right proximal ureter, no filling defect was appreciated on retrograde pyelogram Description of Procedure: Patient brought the operating room, general anesthesia was induced. She was prepped and draped in sterile fashion and placed in a dorsolithotomy position. Cystoscopy with a 21 [place] sheath was inserted per urethra, cystoscopy was performed showed no abnormality within the bladder. Attention was then carried to the right ureteral orifice which was intubated with a 6 [place] open-ended catheter, retrograde pyelogram was performed which showed a normal course of the mid l and distal ureter without any filling defect. Along the proximal ureter right below the level of the UPJ there was a complete looping of the ureter, but no filling defect or narrowing was appreciated, there was severe hydronephrosis. At this time I advanced the wire through the catheter and the catheter was removed with the wire in place. Upon placing the wire the ureter did straighten out, at this point a ureteral stent was passed over the wire, the proximal curl was visualized on fluoroscopy and the distal curl was visualized using the cystoscope. There was a hydronephrotic drip seen from the stent. The patient was awakened from anesthesia and taken to recovery in stable condition, at this point we will leave the stent in for 6 weeks, she will undergo a repeat retrogr dorina pyelogram as an outpatient to assess for resolution of the hydronephrosis
[2024-01-18 10:08] LABS: Blood Urea Nitrogen 15.9 mg/dL (9.0-27.0); Calcium 8.7 mg/dL (8.7-10.3); Carbon Dioxide 27.1 mmol/L (21.6-31.8); Chloride 106 mmol/L (96-109); Glucose 92 mg/dL (70-110); Magnesium 1.8 mg/dL (1.5-2.4); Potassium 3.2 mmol/L (3.5-5.5); Sodium 143 mmol/L (135-145)
[2024-01-18 10:56] LABS: HCT 36.1 % (37.2-46.3); HGB 12.4 g/dL (12.0-15.0); MCH 31.1 pg (27.0-32.0); MCHC 34.3 g/dL (32.0-37.0); MCV 90.5 FL (80.0-97.0); Mean Platelet Volume 10.6 FL (9.5-12.2); NRBC Per 100 WBC 0 X 10*3/uL (0.00-0.01); Platelet Count 231 X 10*3/uL (140-440); RBC 3.99 X 10*6/uL (4.10-5.20); RDW 13.6 % (11.5-14.5); WBC 5.73 X 10*3/uL (4.50-10.00)
[2024-01-18] MEDS: KETOROLAC 15 MG/ML 1 ML VIAL IVP SCH (12:36)
--- NOTE | 2024-01-18 14:47 | P.PN ---
Subjective Progress Note Date: 01/18/24 Hospital Course: Patient is a very pleasant 73-year-old female with past medical history of CAD status post stent, hypertension, hyperlipidemia, osteoarthritis, and chronic back pain status post multiple spinal surgeries with fusions from T9-S1. Patient presented to the emergency department with acute on chronic back pain accompanied by intractable nausea and vomiting. Upon arrival to our facility, patient underwent evaluation in the emergency department. Vital signs upon arrival show blood pressure 181/89, heart rate 72, respiratory rate 18, temp 97.3 F, and SpO2 of 96% on room air. EKG was completed showing sinus mechanism at 61 bpm with no noted T wave or ST abnormalities showing no signs of acute ischemia upon personal review and interpretation. Chest x-ray showing changes of COPD but negative for acute cardiopulmonary process. Labs completed and reviewed. CBC unremarkable. Coagulation profile showing low PTT of 21.7 otherwise normal findings. BMP showing hypokalemia with potassium of 3.2 otherwise normal findings. Blood glucose 159. Initial lactic acid 2.1. Magnesium 1.9. Liver profile unremarkable. Troponin negative at less than 0.012. Urinalysis positive for glucose and ketones negative for infection. Patient admitted under our services with consultation to pain management.CT of thoracic and lumbar spine was completed showing extensive postsurgical changes with wide laminectomies from T9 through the sacrum, negative for new compression deformity or new spondylolithiasis, moderate degenerative disc disease that has developed above the fusion at T8-T9 and reports of new moderate to severe hydronephrosis. Renal ultrasound then completed showing marked right hydronephrosis. [facility] surgery and urology were consulted at this time. Orthopedic surgery evaluated recommending patient follow-up outpatient with [facility] and clearing patient from their perspective for discharge. Pain management consulted and evaluated recommending patient continue with current pain medication regimen with fentanyl patch [address] urogram with and without contrast was completed and radiology report reviewed showing poor excretion of contrast within the right collecting system with dilation of the collecting system proximally right ureter was poorly visualized. Urology evaluated and took patient for cystoscopy with right retrograde pyelogram and stent placement. Physical exam: Patient seen and fully evaluated at bedside shortly after returning from cystoscopy with stent placement. She reports urinary frequency and dysuria since procedure. Patient also reports continued pain and discomfort in lower back right flank region. Vital signs reviewed and stable. General: Nontoxic, no distress and appears stated age. Derm: Skin warm and dry, normal coloration for ethnicity. Head: Atraumatic, normocephalic and symmetric. Eyes: EOM's intact, no lid lag, and anicteric sclera Mouth: no lip lesions, mucus membranes moist Cardiovascular: regular rate and rhythm with normal S1S2, no murmur, positive posterior tibial pulses bilaterally, and cap refill < 2 seconds. Lungs: Respirations even, regular, and unlabored on room air. Lungs CTA bilaterally, no rhonchi, no rales, no wheezing, and no accessory muscle usage. Abdominal: soft, nontender to palpation, no guarding, no appreciable organomegaly Ext: Movement and sensation intact. No gross muscle atrophy, no edema, no contractures Neuro: Speech clear, face symmetrical and CN II-XII grossly intact with no noted focal neuro deficits Psych: Alert and oriented to person, place, time, and situation. Appropriate and pleasant affect. Assessment and Plan of Care: Acute on chronic mid and lower back pain with history of multiple spinal surgeries Intractable nausea and vomiting Hypokalemia -Symptomatic care and pain managment. Continue fentanyl patch 50 mcg every 72 hours and IV Toradol 15 mg every 6 hours with Percocet 10/325 mg tablets every 8 hours as needed for breakthrough pain. -Compazine 10 mg IVP every 6 hours as needed for nausea and vomiting. -Orthopedic surgery evaluated recommending patient follow-up outpatient with neurosurgeon and clearing patient from their perspective for discharge. -Pain management consulted and evaluated recommending patient continue with current pain medication regimen with fentanyl patch 50 mcg. -Urology evaluated and took patient for cystoscopy with right retrograde pyelogr am and stent placement. -Continue with gentle IV fluid hydration with 0.9% normal saline at 75 cc/h for an additional 24 hours. -Fall precautions in place. CAD status post stent Hypertension Hyperlipidemia -Continue daily medication regimen with amlodipine 2.5 mg twice daily, atorvastatin 10 mg daily, losartan/hydrochlorothiazide 50-12.5 mg twice daily and metoprolol 12.5 mg daily. Anxiety and depression Continue Zoloft 150 mg daily and Valium 5 mg twice daily as needed for anxiety. Lactic acidosis, resolved after IV fluid hydration. Hypokalemia, replaced and resolved. Data and imaging reviewed: -Reviewed operative notes. Patient successfully underwent cystoscopy with right retrograde pyelogram and stent placement. -Labs Reviewed. CBC unremarkable. BMP showing hypokalemia with potassium of 3.2. Magnesium 1.8. -Vital signs reviewed. Blood pressure 147/67, heart rate 59, respiratory rate 18, temp 97.6 F, and SpO2 of 94% on room air. CODE STATUS: Full code DVT prophylaxis: SCDs Anticipated discharge date: Likely tomorrow pending clearance from urology Anticipated discharge place: Home Patient was seen independently by Nurse Practitioner. This document was prepared using [email or web address] dictation software. Please allow for errors in pharmacist hospital while rare they do occur. . I reviewed the documentation as provided by the KARIN above, who is the original author of this note. I agree with the documented assessment and plan, with the following changes: none Objective - Vital Signs Vital signs: Vital Signs Temp 97.8 F 01/18/24 07:10 Pulse 61 01/18/24 07:10 Resp 15 01/18/24 07:10 BP 154/72 01/18/24 07:10 Pulse Ox 93 L 01/18/24 07:10 FiO2 Intake & Output 01/17/24 01/18/24 01/18/24 18:59 06:59 18:59 Intake Total 1440 1140 Balance 1440 1140 Weight 45.359 kg Intake: Intake, IV Titration 900 900 Amount Sodium Chloride 0.9% 1, 900 900 000 ml @ 75 mls/hr IV . [id number] [facility] Rx#:[id number] Oral 540 240 Other: Voiding Method Toilet # Voids 2 # Bowel Movements 1 - Labs CBC & Chem 7: 01/19/24 04:30 01/19/24 04:30 Labs: Abnormal Lab Results - Last 24 Hours (Table) 01/17/24 Range/Units 03:35 Total Protein 5.7 L (6.2-8.2) g/dL
[2024-01-18] MEDS: POTASSIUM CHLORIDE ER 20 MEQ TAB.ER PO STA (15:32)
[2024-01-18] MEDS: ZINC OXIDE PASTE (Z-GUARD) 1 APPLIC TOPICAL PRN (15:32)
[2024-01-19 07:34] VITALS: BP 133/57; PULSE 54; RESP 16; TEMP 98.3
[2024-01-19 09:34] LABS: HGB 12.2 g/dL (12.0-15.0); MCH 30.8 pg (27.0-32.0); MCHC 33.9 g/dL (32.0-37.0); MCV 90.9 FL (80.0-97.0); Mean Platelet Volume 10.3 FL (9.5-12.2); NRBC Per 100 WBC 0 X 10*3/uL (0.00-0.01); Platelet Count 225 X 10*3/uL (140-440); RBC 3.96 X 10*6/uL (4.10-5.20); WBC 8.09 X 10*3/uL (4.50-10.00)
--- NOTE | 2024-01-19 10:01 | P.DS ---
Providers Date of admission: 01/17/24 10:20 Expected date of discharge: 01/19/24 Attending physician: Cornelio Bernal MD Consults: 01/15/24 11:36 Consult Physician Routine Consulting Provider: Gina Alfonso Consult Reason/Comments: pain management Do you want consulting provider notified?: Yes 01/15/24 16:30 Consult Physician Routine Consulting Provider: Jj Henao Consult Reason/Comments: acute on chronic lower back pain, ext sx hx (Dr. Atkins) Do you want consulting provider notified?: Yes 01/15/24 16:34 Consult Physician Routine Consulting Provider: Sandoval Eldridge Consult Reason/Comments: acute severe right sided hydronephrosis Do you want consulting provider notified?: Yes Primary care physician: [facility] Course: Discharge Diagnosis: Right-sided Hydronephrosis. Urology evaluated and took patient for cystoscopy with right retrograde pyelogram and stent placement. This resulted in significant improvement of pain and patient had no further episodes of nausea or vomiting. Acute on chronic mid and lower back pain with history of multiple spinal surgeries. Likely secondary to right-sided hydronephrosis as pain much improved and resolved after cystoscopy and stent placement. Intractable nausea and vomiting.. Resolved. Hypokalemia, replaced and repeat morning labs unavailable at time of discharge. CAD status post stent. Continue daily medication regimen with amlodipine 2.5 mg twice daily, atorvastatin 10 mg daily, losartan/hydrochlorothiazide 50-12.5 mg twice daily and metoprolol 12.5 mg daily. Hypertension. Continue daily medication regimen with amlodipine 2.5 mg twice daily, losartan/hydrochlorothiazide 50-12.5 mg twice daily and metoprolol 12.5 mg daily. Hyperlipidemia. Continue daily medication regimen with atorvastatin 10 mg daily. Anxiety and depression. Continue Zoloft 150 mg daily and Valium 5 mg twice daily as needed for anxiety. Lactic acidosis, resolved after IV fluid hydration. Hospital Course: Patient is a very pleasant 73-year-old female with past medical history of CAD status post stent, hypertension, hyperlipidemia, osteoarthritis, and chronic back pain status post multiple spinal surgeries with fusions from T9-S1. Patient presented to the emergency department with acute on chronic back pain accompanied by intractable nausea and vomiting. Upon arrival to our facility, patient underwent evaluation in the emergency department. Vital signs upon arrival show blood pressure 181/89, heart rate 72, respiratory rate 18, temp 97.3 F, and SpO2 of 96% on room air. EKG was completed showing sinus mechanism at 61 bpm with no noted T wave or ST abnormalities showing no signs of acute ischemia upon personal review and interpretation. Chest x-ray showing changes of COPD but negative for acute cardiopulmonary process. Labs completed and reviewed. CBC unremarkable. Coagulation profile showing low PTT of 21.7 otherwise normal findings. BMP showing hypokalemia with potassium of 3.2 otherwise normal findings. Blood glucose 159. Initial lactic acid 2.1. Magnesium 1.9. Liver profile unremarkable. Troponin negative at less than 0.01 2. Urinalysis positive for glucose and ketones negative for infection. Patient admitted under our services with consultation to pain management.CT of thoracic and lumbar spine was completed showing extensive postsurgical changes with wide laminectomies from T9 through the sacrum, negative for new compression deformity or new spondylolithiasis, moderate degenerative disc disease that has developed above the fusion at T8-T9 and reports of new moderate to severe hydronephrosis. Renal ultrasound then completed showing marked right hydronephrosis. [facility]ospine surgery and urology were consulted at this time. Orthopedic surgery evaluated recommending patient follow-up outpatient with neurosurgeon and clearing patient from their perspective for discharge. Pain management consulted and evaluated recommending patient continue with current pain medication regimen with fentanyl patch [address] urogram with and without contrast was completed and radiology report reviewed showing poor excretion of contrast within the right collecting system with dilation of the collecting system proximally right ureter was poorly visualized. Urology evaluated and took patient for cystoscopy with right retr ograde pyelogram and stent placement. Patient again monitored overnight. She reports feeling much better this morning. She had no further episodes of nausea or vomiting and reports lower back pain now controlled and back at baseline. Patient has been cleared by orthopedic surgery and urology. She is medically stable for discharge at this time. Discussed with patient she will need to follow-up outpatient with PCP in 1 to 2 days, neurology in 1 to 2 weeks, and with her neurosurgeon later this week as scheduled. Physical exam: Vital signs reviewed and stable. General: Nontoxic, no distress and appears stated age. Derm: Skin warm and dry, normal coloration for ethnicity. Head: Atraumatic, normocephalic and symmetric. Eyes: EOM's intact, no lid lag, and anicteric sclera Mouth: no lip lesions, mucus membranes moist Cardiovascular: regular rate and rhythm with normal S1S2, no murmur, positive posterior tibial pulses bilaterally, and cap refill < 2 seconds. Lungs: Respirations even, regular, and unlabored on room air. Lungs CTA bilaterally, no rhonchi, no rales, no wheezing, and no accessory muscle usage. Abdominal: soft, nontender to palpation, no guarding, no appreciable organomegaly Ext: Movement and sensation intact. No gross muscle atrophy, no edema, no contractures Neuro: Speech clear, face symmetrical and CN II-XII grossly intact with no noted focal neuro deficits Psych: Alert and oriented to person, place, time, and situation. Appropriate and pleasant affect. A total of 37 minutes of time were spent preparing this complex discharge summary. Pt was discharged on 01/19/2024 at 10 AM. Patient was seen independently by Nurse Practitioner. This document was prepared using [employer] dictation software. 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 . I reviewed the documentation as provided by the KARIN above, who is the original author of this note. I agree with the documented assessment and plan, with the following changes: none Patient Condition at Discharge: Stable Plan - Discharge Summary Discharge Rx Participant: Yes New Discharge Prescriptions: New Prochlorperazine [Compazine] 10 mg PO Q6H PRN #30 tab PRN Reason: Nausea And Vomiting Continue oxyCODONE-APAP 10-325MG [Percocet 10-325 mg] 1 tab PO TID PRN PRN Reason: Pain Rosuvastatin Calcium [Crestor] 5 mg PO DAILY Sertraline [Zoloft] 150 mg PO DAILY diazePAM [Valium] 5 mg PO BID PRN PRN Reason: Anxiety Metoprolol Succinate (ER) [Toprol XL] 12.5 mg PO DAILY fentaNYL 50MCG/HR PATCH [Duragesic 50MCG/HR] 1 patch TRANSDERM Q72H Magnesium Oxide [Magox 400] 400 mg PO DAILY Ondansetron [Zofran] 4 mg PO TID PRN PRN Reason: Nausea And Vomiting Cholecalciferol [Vitamin D3 (25 Mcg = 1000 Iu)] 50 mcg PO DAILY Calcium Carbonate 1,500 mg PO DAILY amLODIPine [Norvasc] 2.5 mg PO BID Losartan-Hctz 50-12.5 mg [Hyzaar 50-12.5] 1 tab PO BID valACYclovir HCL [Valtrex] 500 mg PO BID Discharge Medication List Rosuvastatin Calcium [Crestor] 5 mg PO DAILY 10/19/18 [History] Sertraline [Zoloft] 150 mg PO DAILY 10/19/18 [History] oxyCODONE-APAP 10-325MG [Percocet 10-325 mg] 1 tab PO TID PRN 10/19/18 [History] Cholecalciferol [Vitamin D3 (25 Mcg = 1000 Iu)] 50 mcg PO DAILY 12/05/21 [History] Metoprolol Succinate (ER) [Toprol XL] 12.5 mg PO DAILY 12/05/21 [History] diazePAM [Valium] 5 mg PO BID PRN 12/05/21 [History] Calcium Carbonate 1,500 mg PO DAILY 07/22/22 [History] fentaNYL 50MCG/HR PATCH [Duragesic 50MCG/HR] 1 patch TRANSDERM Q72H 07/22/22 [History] Losartan-Hctz 50-12.5 mg [Hyzaar 50-12.5] 1 tab PO BID 01/15/24 [History] Magnesium Oxide [Magox 400] 400 mg PO DAILY 01/15/24 [History] Ondansetron [Zofran] 4 mg PO TID PRN 01/15/24 [History] amLODIPine [Norvasc] 2.5 mg PO BID 01/15/24 [History] valACYclovir HCL [Valtrex] 500 mg PO BID 01/17/24 [History] Prochlorperazine [Compazine] 10 mg PO Q6H PRN #30 tab 01/19/24 [Rx] Follow up Appointment(s)/Referral(s): Tal Almendarez MD [Primary Care Provider] - 1-2 days Betito Chavira MD [STAFF PHYSICIAN] - 1 Week Patient Instructions/Handouts: Hydronephrosis (DC) Activity/Diet/Wound Care/Special Instructions: Activity: As tolerated. Take breaks as needed. Diet: Heart healthy and carb consistent diet. Avoid salts, or foods with hidden salts such as canned or boxed foods and frozen dinners. Extra salt makes your heart work harder and traps the fluid in your body for longer. Special Instructions: Take all of your medications as directed and remember to keep all of your doctor's appointments and follow-up as needed. As discussed with you by orthopedic surgery, recommend following up outpatient with Dr. Atkins's partner at [facility] for further evaluation and surgical recommendations of changes noted to lumbar spine on CT. Thank you for allowing us to participate in your care, it was TRULY a pleasure having you for our patient!!! . Discharge Disposition: HOME SELF-CARE
[2024-01-19 10:02] LABS: BUN/Creat Ratio 22.12 Ratio (12.00-20.00); Blood Urea Nitrogen 17.7 mg/dL (9.0-27.0); Carbon Dioxide 26.6 mmol/L (21.6-31.8); Chloride 103 mmol/L (96-109); Glucose 95 mg/dL (70-110); Magnesium 1.5 mg/dL (1.5-2.4); Potassium 3.1 mmol/L (3.5-5.5); Sodium 142 mmol/L (135-145)
--- NOTE | 2024-01-19 10:39 | P.PN ---
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 She was identified to have right hydro, Dr abebe placed a stent yesterday and her n/v has disappeared Objective - Vital Signs Vital signs: Vital Signs Temp 98.3 F 01/19/24 07:06 Pulse 54 L 01/19/24 07:06 Resp 16 01/19/24 07:06 BP 133/57 01/19/24 07:06 Pulse Ox 95 01/19/24 07:06 FiO2 Intake & Output 01/18/24 01/19/24 01/19/24 18:59 06:59 18:59 Intake Total 2510 1650 240 Output Total 5 Balance 2505 1650 240 Weight 45.359 kg Intake: IV 950 Intake, IV Titration 900 Amount Sodium Chloride 0.9% 1, 900 000 ml @ 75 mls/hr IV . [id number] BIRDIE Rx#:[id number] Oral 1560 750 240 Output: Estimated Blood Loss 5 Other: Voiding Method Toilet Toilet # Voids 3 4 - Labs CBC & Chem 7: 01/19/24 04:30 01/19/24 04:30 Labs: Abnormal Lab Results - Last 24 Hours (Table) 01/18/24 01/19/24 01/19/24 Range/Units 03:31 04:30 04:30 RBC 3.99 L 3.96 L (4.10-5.20) X 10*6/uL Hct 36.1 L 36.0 L (37.2-46.3) % Potassium 3.1 L (3.5-5.5) mmol/L Anion Gap 12.40 H (4.00-12.00) mmol/L BUN/Creatinine Ratio 22.12 H (12.00-20.00) Ratio Assessment and Plan Assessment: Impression. Right hydro causing chronic n/v, sp stent placement with resolution Plan: ok to d/c home with stent fu with Dr abebe in a couple of weeks Will need another cysto retrograde and possible ureteroscopy to assess the cause of the hydronephrosis.
--- NOTE | 2024-02-11 18:21 | FL ---
EXAMINATION TYPE: FL urography retrograde COMPARISON: Pre Operative Images if available both CT/MRI or plain film CLINICAL INDICATION: Female, 73 years old with history of Cysto for rt kidney stone; TECHNIQUE: FL urography retrograde, multiple fluoroscopic images provided for procedure. Total fluoroscopy time: 1.25 minutes Total submitted images to PACS: 5.48 DAP: 6.0471 mGym2 Gycm2 uGym2 cGycm2 FINDINGS: Multiple intraoperative fluoroscopic images were taken resulting in ureteral stent placement with rig ht superior pigtail in appropriate position projecting over the renal pelvis. Mild dilation of the ri ght renal pelvis. No immediate intraoperative complication. Multilevel degeneration changes throughout the spine. Fixation hardware in the spine appears intact. IMPRESSION: 1. No evidence for intraoperative complication. 2. Please see the operative/procedural note for further details. [facility], , 02/11/2024 6:18 PM
== END 2024-01-19 12:40 | disposition home or self-care (01) | DRG 660 ==
LOC: EC 07:22 → 6NMEDSUR 11:53 → 1SOBS 15:49 → 5NMEDONC 01-16 17:14 → OBSVTOIN 01-17 10:20
PROVIDERS: ADMIT Student in an Organized Health Care Education/Training Program; ATTEND Student in an Organized Health Care Education/Training Program
PROC: 0T768DZ Dilation of Right Ureter with Intraluminal Device, Via Natural or Artificial Opening Endoscopic (ICD-10-PCS; principal; 2024-01-18 08:00)
PROC: BT1D1ZZ Fluoroscopy of Right Kidney, Ureter and Bladder using Low Osmolar Contrast (ICD-10-PCS; 2024-01-18 08:00)
DX: N13.30 Unspecified hydronephrosis (principal); E87.20 Acidosis, unspecified; I10 Essential (primary) hypertension; F32.A Depression, unspecified; J44.9 Chronic obstructive pulmonary disease, unspecified; M19.90 Unspecified osteoarthritis, unspecified site; E86.0 Dehydration; M51.34 Other intervertebral disc degeneration, thoracic region; E87.6 Hypokalemia; I25.10 Atherosclerotic heart disease of native coronary artery without angina pectoris; E78.5 Hyperlipidemia, unspecified; F41.9 Anxiety disorder, unspecified; G89.29 Other chronic pain; Z95.5 Presence of coronary angioplasty implant and graft; Z79.899 Other long term (current) drug therapy; Z98.1 Arthrodesis status; Z87.891 Personal history of nicotine dependence
CPT/HCPCS: 36415; 71046; 72128; 72131; 74178; 74400; 74420; 76770; 80048; 80053; 81003; 83605; 83735; 84484; 85025; 85027; 85610; 85730; 93005; 96361; 96365; 96366; 96372; 96375; 99285

== ENCOUNTER → 2024-02-04 | Outpatient (CLI) | payer MEDICARE ==
--- NOTE | 2024-02-07 19:15 | BD ---
EXAMINATION TYPE: Axial Bone Density DATE OF EXAM: 02/04/2024 CLINICAL HISTORY: 73 years old Female. ICD-10 CODE: M81.0 AGE-RELATED OSTEOPOROSIS Height: 62 Weight: 102 FRAX RISK QUESTIONS: Family History (Parent hip fracture): no History of Fracture in Adulthood: no Secondary Osteoporosis: yes 3. Menopause before 45: yes RISK FACTORS HISTORY OF: Spine Fracture: yes When: 2022 Surgery to Spine yes When: MEDICATIONS: Thyroid Medications: no Osteoporosis Medications: no EXAM MEASUREMENTS: Bone mineral densitometry was performed using the [facility]. Bone mineral density about the R hip (g/cm2): 0.763 Bone mineral density about the L hip (g/cm2): 0.838 T Score values are as follows: -----R Neck: -2.0 -----L Neck: -1.7 -----R Total: -1.9 -----L Total: -1.3 Z Score values are as follows: -----R Neck: 0.2 -----L Neck: 0.5 -----R Total: 0.0 -----L Total: 0.6 Bone mineral density has: Decreased 0.1% since study of: 01/03/2022 Bone mineral density about the L Wrist (g/cm2): 0.505 T Score values are as follows: -----Dist. R+U: -3.7 -----Prox. R+U: -2.5 -----Radius total: -2.8 Z Score values are as follows: -----Dist. R+U: -1.8 -----Prox. R+U: -0.6 -----Radius total: -0.9 Bone mineral density has: Decreased -1.4% since study of: 01/03/2022 FRAX%s: The graph provided illustrates a 16% chance for a major osteoporotic fx and a 3.5% chance for the hips probability for fx in 10 years time. IMPRESSION: Osteoporosis (T Score less than -2.5). There is increased fracture risk and therapy is usually indicated based on age. Re-Screen 1-2 years. NOTE: T-SCORE=SD OF THE YOUNG ADULT MEAN. [facility], , 02/07/2024 7:12 PM
== END | disposition home or self-care (01) ==
LOC: RADBDWWP 16:26
PROVIDERS: ATTEND Internal Medicine Endocrinology, Diabetes & Metabolism
DX: M81.0 Age-related osteoporosis without current pathological fracture
CPT/HCPCS: 77080

== ENCOUNTER 2024-02-12 06:28 | Observation (INO) | payer MEDICARE ==
[2024-02-12] MEDS: SODIUM CHLORIDE 0.9% 1,000 ML IV STA ×2 (07:33→12:20)
[2024-02-12] MEDS: ONDANSETRON 4 MG/2 ML VIAL IVP STA (07:33)
[2024-02-12 07:42] LABS: Basophils % (A) 0 %; Eosinophils % (A) 0 %; HCT 45.7 % (34.0-46.0); HGB 15.1 gm/dL (11.4-16.0); Lymphocytes # (A) 1.7 k/uL (1.0-4.8); Lymphocytes % (A) 23 %; MCH 30.4 pg (25.0-35.0); Mean Platelet Volume 7.3; Monocytes # (A) 0.5 k/uL (0-1.0); Monocytes % (A) 6 %; Neutrophils # (A) 5.3 k/uL (1.3-7.7); Neutrophils % (A) 69 %; Platelet Count 383 k/uL (150-450); RBC 4.95 m/uL (3.80-5.40); RDW 13.6 % (11.5-15.5); WBC 7.6 k/uL (3.8-10.6)
[2024-02-12 07:57] LABS: ALT 15 U/L (4-34); AST 29 U/L (14-36); African American GFR (CKD) >90 (>60 ml/min/1.73 sqM); Albumin 4.9 g/dL (3.5-5.0); Alkaline Phosphatase 89 U/L (38-126); Anion Gap 13 mmol/L; Blood Urea Nitrogen 20 mg/dL (7-17); Calcium 10.5 mg/dL (8.4-10.2); Carbon Dioxide 28 mmol/L (22-30); Chloride 97 mmol/L (98-107); Glucose 130 mg/dL (74-99); Lipase 52 U/L (23-300); Magnesium 1.7 mg/dL (1.6-2.3); Non-African American GFR(CKD) 89 (>60 ml/min/1.73 sqM); Potassium 3.6 mmol/L (3.5-5.1); Sodium 138 mmol/L (137-145); Total Bilirubin 0.6 mg/dL (0.2-1.3); Total Protein 7.8 g/dL (6.3-8.2)
[2024-02-12 08:07] LABS: MCV 92.3 fL (80.0-100.0)
--- NOTE | 2024-02-12 08:12 | ED ---
Nausea/Vomiting/Diarrhea HPI - General Chief complaint: Nausea/Vomiting/Diarrhea Stated complaint: NV, High BP Source: patient, family Mode of arrival: ambulatory Limitations: no limitations - History of Present Illness Initial comments: This is a 73-year-old female presenting with for nausea, vomiting, weakness, decreased appetite with abdominal pain (5 out of 10) x 3 days. Patient also endorses constipation for past 3 days that has been resolving recently. Endorses history of similar symptoms for the past month, received to see abdominal CT at that time revealing an issue with her left proximal ureter requiring a stent. Patient denies receiving imaging since confirmation of stent placement. Patient describes lower abdominal pain is cramping, associated with nausea vomiting. Patient states she has been taking oral Zofran and Compazine for her nausea symptoms with minimal relief relief. States she is unsure if tablets came up due to vomiting this morning around 3 AM. States Ativan works well for nausea. Endorses current use of Zofran patches for history of lower back surgery along with Percocets only as needed. Patient denies fever, chills, urinary symptoms, hematochezia, melena, coffee-ground emesis, hematemesis. Patient endorses losing 10 pounds within the past month. MD complaint: nausea, vomiting, abdominal pain Onset/Timin -: days(s) Description of Vomiting: food contents, watery, bilious Associated Abdominal Pain: Yes (Diffuse lower abdominal pain) Location: diffuse - Related Data Home Medications Medication Instructions Recorded Confirmed Rosuvastatin Calcium [Crestor] 5 mg PO DAILY 10/19/18 02/12/24 Sertraline [Zoloft] 150 mg PO DAILY 10/19/18 02/12/24 oxyCODONE-APAP 10-325MG [Percocet 1 tab PO TID PRN 10/19/18 02/12/24 10-325 mg] Cholecalciferol [Vitamin D3 (25 50 mcg PO DAILY 12/05/21 02/12/24 Mcg = 1000 Iu)] Metoprolol Succinate (ER) [Toprol 12.5 mg PO DAILY 12/05/21 02/12/24 XL] diazePAM [Valium] 5 mg PO BID PRN 12/05/21 02/12/24 Calcium Carbonate 1,500 mg PO DAILY 07/22/22 02/12/24 fentaNYL 50MCG/HR PATCH [Duragesic 1 patch TRANSDERM Q72H 07/22/22 02/12/24 50MCG/HR] Losartan-Hctz 50-12.5 mg [Hyzaar 1 tab PO BID 01/15/24 02/12/24 50-12.5] Magnesium Oxide [Magox 400] 400 mg PO DAILY 01/15/24 02/12/24 Ondansetron [Zofran] 4 mg PO TID PRN 01/15/24 02/12/24 valACYclovir HCL [Valtrex] 500 mg PO BID 01/17/24 02/12/24 Previous Rx's Medication Instructions Recorded Prochlorperazine [Compazine] 10 mg PO Q6H PRN #30 tab 01/19/24 Meclizine [Antivert] 25 mg PO TID #20 tab 02/12/24 Metoclopramide [Reglan] 10 mg PO TID PRN #15 tab 02/12/24 Allergies Allergy/AdvReac Type Severity Reaction Status Date / Time No Known Allergies Allergy Verified 02/12/24 11:29 Review of Systems ROS Statement: Those systems with pertinent positive or pertinent negative responses have been documented in the HPI. ROS Other: All systems not noted in ROS Statement are negative. Past Medical History Past Medical History: Coronary Artery Disease (CAD), COPD, Osteoarthritis (OA), Respiratory Disorder Additional Past Medical History / Comment(s): having abd cramping intermittently, no apetite and 10lb wt loss, hx mild COPD, colitis,UTIs History of Any Multi-Drug Resistant Organisms: None Reported Past Surgical History: Back Surgery, Section, Ear Surgery, Heart Catheterization, Orthopedic Surgery, Tonsillectomy, Tubal Ligation Additional Past Surgical History / Comment(s): Right knee, x2, tubes in ears, lumbar fusion L2-S1, T9-L3 fusion october 08, right ureter stent placement Past Anesthesia/Blood Transfusion Reactions: No Reported Reaction Past Psychological History: Anxiety Smoking Status: Light tobacco smoker Past Alcohol Use History: None Reported Past Drug Use History: None Reported - Past Family History Son(s) Family Medical History: No Reported History Additional Family Medical History / Comment(s): autism Mother History Unknown: Yes Family Medical History: CVA/TIA Father Additional Family Medical History / Comment(s): suicide at 47 Brother(s) Additional Family Medical History / Comment(s): from alcohol and drug use. Sister(s) Family Medical History: Hypertension General Exam Limitations: no limitations General appearance: alert, in distress (Patient appears distressed, sitting on commode while also vomiting/dry heaving.) Head exam: Present: atraumatic, normocephalic, normal inspection Eye exam: Present: normal appearance, PERRL, EOMI. Absent: scleral icterus, conjunctival injection, periorbital swelling ENT exam: Present: normal exam, mucous membranes moist Neck exam: Present: normal inspection. Absent: tenderness, meningismus, lym phadenopathy Respiratory exam: Present: normal lung sounds bilaterally. Absent: respiratory distress, wheezes, rales, rhonchi, stridor Cardiovascular Exam: Present: regular rate, normal rhythm, normal heart sounds. Absent: systolic murmur, diastolic murmur, rubs, gallop, clicks GI/Abdominal exam: Present: soft, tenderness, rebound (Positive diffuse tenderness and hepatic tenderness especially in right lower quadrant. Negative guarding. Positive McBurney's point. Positive rebound tenderness. Negative Santos sign.), normal bowel sounds. Absent: distended, guarding, rigid Extremities exam: Present: normal inspection, full ROM, normal capillary refill. Absent: tenderness, pedal edema, joint swelling, calf tenderness Back exam: Present: normal inspection Neurological exam: Present: alert, oriented X3, CN II-XII intact Psychiatric exam: Present: normal affect, normal mood Skin exam: Present: warm, dry, intact, normal color. Absent: rash Course Vital Signs 02/12/24 02/12/24 06:38 12:00 Temperature 98.3 F Pulse Rate 84 77 Respiratory 22 17 Rate Blood Pressure 160/98 131/79 O2 Sat by Pulse 97 97 Oximetry Medical Decision Making - Medical Decision Making Was pt. sent in by a medical professional or institution (, PA, SHEET PILE HAMMER OPERATOR, urgent care, hospital, or assisted...) When possible be specific @ -No Did you speak to anyone other than the patient for history (EMS, parent, family, police, friend...)? What history was obtained from this source @ -No Did you review nursing and triage notes (agree or disagree)? Why? @ -I reviewed and agree with nursing and triage notes Were old charts reviewed (outside hosp., previous admission, EMS record, old EKG, old radiological studies, urgent care reports/EKG's, assisted records)? Report findings @ -No old charts were reviewed Differential Diagnosis (chest pain, altered mental status, abdominal pain women, abdominal pain men, vaginal bleeding, weakness, fever, dyspnea, syncope, headache, dizziness, GI bleed, back pain, seizure, CVA, palpatations, mental health, musculoskeletal)? @ -Differential Abdominal Pain Women: Appendicitis, Cholecystitis, diverticulosis, ischemic bowel, pancreatitis, hepatitis, UTI, gastroenteritis, AAA, incarcerated hernia, bowel obstruction, constipation, inflammatory bowel, hepatitis, peptic ulcer disease, splenic infarction, perforated viscus, vulvitis, ovarian torsion, PID, kidney stone, placenta abruption, this is not meant to be an all-inclusive list EKG interpreted by me (3pts min.). @ -Twelve-lead EKG shows sinus rhythm. No obvious ST elevation, ST depression, T wave inversion. Ventricular rate 62 bpm, OK interval 120 ms, QRS duration 102 ms, QT/QTc 431/436 ms. X-rays interpreted by me (1pt min.). @ -None done CT interpreted by me (1pt min.). @ -Abdominal CT shows right ureteral stent in correct position. CT otherwise mostly unremarkable. U/S interpreted by me (1pt. min.). @ -None done What testing was considered but not performed or refused? (CT, X-rays, U/S, labs)? Why? @ -None What meds were considered but not given or refused? Why? @ -None Did you discuss the management of the patient with other professionals (professionals i.e. , PA, SHEET PILE HAMMER OPERATOR, lab, RT, psych nurse, elementary school social worker, educational programming director, teacher, environmental compliance officer, rn case mgr)? Give summary @ -No Was smoking cessation discussed for >3mins.? @ -No Was critical care preformed (if so, how long)? @ -No Were there social determinants of health that impacted care today? How? (Homelessness, low income, unemployed, alcoholism, drug addiction, transportation, low edu. Level, literacy, decrease access to med. care, [place] [facility], rehab)? @ -No Was there de-escalation of care discussed even if they declined (Discuss DNR or withdrawal of care, Hospice)? DNR status @ -No What co-morbidities impacted this encounter? (DM, HTN, Smoking, COPD, CAD, Cancer, CVA, ARF, Chemo, Hep., AIDS, mental health diagnosis, sleep apnea, morbid obesity)? @ -None Was patient admitted / discharged? Hospital course, mention meds given and route, prescriptions, significant lab abnormalities, going to OR and other pertinent info. @ -Admitted. Imaging and lab work reveals no concerning findings. Attempted Zofran, Reglan, meclizine for symptoms with minimal relief patient endorses significant relief following Valium IV. Patient endorses ongoing concern for vertigo and nausea with vomiting. States she is still unable to hold down food. Undiagnosed new problem with uncertain prognosis? @ -No Drug Therapy requiring intensive monitoring for toxicity (Heparin, Nitro, Insulin, Cardizem)? @ -No Were any procedures done? @ -No Diagnosis/symptom? @ -Anxiety induced vomiting, idiopathic vertigo Acute, or Chronic, or Acute on Chronic? @ -Acute Uncomplicated (without systemic symptoms) or Complicated (systemic symptoms)? @ -Complicated Side effects of treatment? @ -No Exacerbation, Progression, or Severe Exacerbation? @ -No Poses a threat to life or bodily function? How? (Chest pain, USA, CA, pneumonia, PE, COPD, DKA, ARF, appy, cholecystitis, CVA, Diverticulitis, Homicidal, Suicidal, threat to staff... and all critical care pts) @ -No - Lab Data Result diagrams: 02/12/24 07:02 02/12/24 07:02 Lab Results 02/12/24 02/12/24 02/12/24 Range/Units 07:02 07:02 07:02 WBC 7.6 (3.8-10.6) k/uL RBC 4.95 (3.80-5.40) m/uL Hgb 15.1 (11.4-16.0) gm/dL Hct 45.7 (34.0-46.0) % MCV 92.3 D (80.0-100.0) fL MCH 30.4 (25.0-35.0) pg MCHC 33.0 (31.0-37.0) g/dL RDW 13.6 (11.5-15.5) % Plt Count 383 (150-450) k/uL MPV 7.3 Neutrophils % 69 % Lymphocytes % 23 % Monocytes % 6 % Eosinophils % 0 % Basophils % 0 % Neutrophils # 5.3 (1.3-7.7) k/uL Lymphocytes # 1.7 (1.0-4.8) k/uL Monocytes # 0.5 (0-1.0) k/uL Eosinophils # 0.0 (0-0.7) k/uL Basophils # 0.0 (0-0.2) k/uL Sodium 138 (137-145) mmol/L Potassium 3.6 (3.5-5.1) mmol/L Chloride 97 L (98-107) mmol/L Carbon Dioxide 28 (22-30) mmol/L Anion Gap 13 mmol/L BUN 20 H (7-17) mg/dL Creatinine 0.66 (0.52-1.04) mg/dL Est GFR (CKD-EPI)AfAm >90 (>60 ml/min/1.73 sqM) Est GFR (CKD-EPI)NonAf 89 (>60 ml/min/1.73 sqM) Glucose 130 H (74-99) mg/dL Calcium 10.5 H (8.4-10.2) mg/dL Magnesium 1.7 (1.6-2.3) mg/dL Total Bilirubin 0.6 (0.2-1.3) mg/dL AST 29 (14-36) U/L ALT 15 (4-34) U/L Alkaline Phosphatase 89 (38-126) U/L Troponin I <0.012 (0.000-0.034) ng/mL Total Protein 7.8 (6.3-8.2) g/dL Albumin 4.9 (3.5-5.0) g/dL Lipase 52 (23-300) U/L Urine RBC (0-5) /hpf Urine WBC (0-5) /hpf Urine Bacteria (None) /hpf Hyaline Casts (0-2) /lpf Urine Mucus (None) /hpf Urine Yeast (Budding) (None) /hpf Influenza Type A (PCR) (Not Detectd) Influenza Type B (PCR) (Not Detectd) RSV (PCR) (Not Detectd) SARS-CoV-2 (PCR) (Not Detectd) 02/12/24 02/12/24 Range/Units 07:38 12:26 WBC (3.8-10.6) k/uL RBC (3.80-5.40) m/uL Hgb (11.4-16.0) gm/dL Hct (34.0-46.0) % MCV (80.0-100.0) fL MCH (25.0-35.0) pg MCHC (31.0-37.0) g/dL RDW (11.5-15.5) % Plt Count (150-450) k/uL MPV Neutrophils % % Lymphocytes % % Monocytes % % Eosinophils % % Basophils % % Neutrophils # (1.3-7.7) k/uL Lymphocytes # (1.0-4.8) k/uL Monocytes # (0-1.0) k/uL Eosinophils # (0-0.7) k/uL Basophils # (0-0.2) k/uL Sodium (137-145) mmol/L Potassium (3.5-5.1) mmol/L Chloride (98-107) mmol/L Carbon Dioxide (22-30) mmol/L Anion Gap mmol/L BUN (7-17) mg/dL Creatinine (0.52-1.04) mg/dL Est GFR (CKD-EPI)AfAm (>60 ml/min/1.73 sqM) Est GFR (CKD-EPI)NonAf (>60 ml/min/1.73 sqM) Glucose (74-99) mg/dL Calcium (8.4-10.2) mg/dL Magnesium (1.6-2.3) mg/dL Total Bilirubin (0.2-1.3) mg/dL AST (14-36) U/L ALT (4-34) U/L Alkaline Phosphatase (38-126) U/L Troponin I (0.000-0.034) ng/mL Total Protein (6.3-8.2) g/dL Albumin (3.5-5.0) g/dL Lipase (23-300) U/L Urine RBC 4 (0-5) /hpf Urine WBC 34 H (0-5) /hpf Urine Bacteria Occasional H (None) /hpf Hyaline Casts 1 (0-2) /lpf Urine Mucus Rare H (None) /hpf Urine Yeast (Budding) Occasional H (None) /hpf Influenza Type A (PCR) Not Detected (Not Detectd) Influenza Type B (PCR) Not Detected (Not Detectd) RSV (PCR) Not Detected (Not Detectd) SARS-CoV-2 (PCR) Not Detected (Not Detectd) Disposition Clinical Impression: Anxiety as acute reaction to exceptional stress, Anxiety, Vertigo Disposition: ADMITTED IP TO THIS [facility] Condition: Fair Instructions (If sedation given, give patient instructions): Acute Nausea and Vomiting (ED) Prescriptions: Meclizine [Antivert] 25 mg PO TID #20 tab Metoclopramide [Reglan] 10 mg PO TID PRN #15 tab PRN Reason: Nausea Is patient prescribed a controlled substance at d/c from ED?: No Referrals: Tal Almendarez MD [Primary Care Provider] - 1-2 days Time of Disposition: 11:24 Decision Date: 02/12/24 (Admit to [facility] observation) Decision Time: 12:30
--- NOTE | 2024-02-12 08:29 | CT ---
EXAMINATION TYPE: CT abdomen pelvis wo con CT DLP: 375.8 mGycm, Automated exposure control for dose reduction was used. DATE OF EXAM: 02/12/2024 8:14 AM COMPARISON: CT abdomen pelvis most recent from 01/16/2024 CLINICAL INDICATION: Female, 73 years old with history of Abdominal pain; nausea/vomiting TECHNIQUE: Axial CT abdomen pelvis wo con;Sagittal and coronal reformats were created on a separate workstation. Contrast used: mL of , (none if empty) Oral contrast used: without Oral Contrast (none if empty) FINDINGS: LOWER CHEST: Unremarkable ABDOMEN LIVER: Unremarkable GALLBLADDER AND BILE DUCTS: Unremarkable. PANCREAS: Unremarkable. SPLEEN: Unremarkable. ADRENAL GLANDS: Unremarkable. KIDNEYS AND URETERS: Right ureteral stent superior and inferior pigtails in appropriate position. No evidence of hydronephrosis or renal calculus. The ureters are unremarkable. PELVIS BLADDER: Unremarkable REPRODUCTIVE: Unremarkable. ABDOMEN & PELVIS STOMACH AND BOWEL: No evidence of bowel obstruction. Scattered colonic diverticula present. PERITONEUM/RETROPERITONEUM: No evidence of pneumoperitoneum or free fluid. VASCULATURE: Severe atherosclerotic calcifications are present throughout the abdominal aorta and its branches. No evidence of aortic aneurysm. MUSCULOSKELETAL: No acute osseous abnormalities, fixation hardware in the spine limits evaluation. Briceño rdware appears intact. LYMPH NODES: No gross evidence for lymphadenopathy. SOFT TISSUE/ABDOMINAL WALL: Unremarkable IMPRESSION: 1. Limited noncontrast exam, no evidence for acute abdominal process. 2. Right ureteral stent superior and inferior pigtails in appropriate position. 3. Colonic diverticulosis. [facility], , 02/12/2024 8:27 AM
[2024-02-12] MEDS: MECLIZINE 12.5 MG TAB PO STA (09:03)
[2024-02-12] MEDS: METOCLOPRAMIDE 5 MG/ML 2 ML VIAL IVP STA (09:03)
[2024-02-12] MEDS ORDERED: MECLIZINE 25 MG TAB PO PRN ×2 (12:03→12:39)
[2024-02-12] MEDS ORDERED: ONDANSETRON 4 MG/2 ML VIAL IVP PRN (12:03)
[2024-02-12 12:42] LABS: Bacteria,Urine Occasional /hpf; Budding Yeast,Urine Occasional /hpf; Hyaline Casts,Urine 1 /lpf (0-2); Mucus,Urine Rare /hpf; RBC,Urine 4 /hpf (0-5); WBC,Urine 34 /hpf (0-5)
[2024-02-12 12:56] LABS: Appearance,Urine Cloudy (Clear); Bilirubin,Urine Negative (Negative); Color,Urine Colorless; Glucose,Urine (UA) Negative (Negative); Ketones,Urine 2+ (Negative); PH, Urine 6.5 (5.0-8.0); Protein,Urine Trace (Negative); Specific Gravity,Urine 1.013 (1.001-1.035)
[2024-02-12 12:57] LABS: Blood,Urine Trace (Negative); Leukocyte Esterase,Urine Large (Negative); Nitrite,Urine Positive (Negative); Urobilinogen,Urine 0.2 mg/dL (<2.0)
[2024-02-12] MEDS: PROCHLORPERAZINE INJ 10 MG/2 ML VIAL IVP STA (13:59)
[2024-02-12] MEDS: TRIMETHOBENZAMIDE 100 MG/ML 2 ML VIAL IM STA (13:59)
[2024-02-12] MEDS: oxyCODONE-APAP 10-325MG 1 EACH TAB PO PRN (14:00)
--- NOTE | 2024-02-12 16:57 | P.HPIM ---
History of Present Illness H&P Date: 02/12/24 History of Presenting Illness: Patient is a very pleasant 73-year-old female with past medical history of CAD status post stent, hypertension, hyperlipidemia, osteoarthritis, and chronic back pain status post multiple spinal surgeries with fusions from T9-S1. She presented to the emergency department with a chief complaint of intractable nausea and vomiting x 3 days. Patient reports this has been accompanied by lightheadedness, increased weakness, decreased appetite, abdominal cramping and weight loss. Patient states she is not sure if this is from anxiety knowing that she has to go and get her ureteral stent removed on the or if something more is going on. She denies having any fevers, chills, headache, changes in vision or hearing, chest pain or palpitations, shortness of breath, cough or congestion, hematemesis, melena, hematochezia, urinary frequency/urgency/retention/hematuria/dysuria or any other complaints. She does report mild constipation over the past 3 days but states she has not eaten any food or been able to keep anything down. Patient recently hospitalized for similar complaints 01/17/2024 through 01/19/2024 and underwent cystoscopy with right retrograde pyelogram and stent placement on 01/18/2024 secondary to hydronephrosis from right kidney. Patient reports initially feeling great but over the past 3 days began feeling anxious over upcoming stent removal and this is when her intractable nausea and vomiting began. She states she has been taking Zofran and Compazine at home as well as Valium with attempts to control her vomiting but they have been unsuccessful. Upon arrival to our facility, patient underwent evaluation in the emergency department. Vital signs upon arrival show blood pressure 160/98, heart rate 84, respiratory rate 22, temp 98.3 F, and SpO2 of 97% on room air. Labs were completed and reviewed. CBC unremarkable. BMP showing high anion gap metabolic alkalosis with chloride of 97, bicarb of 28, and anion gap of 13. Glucose 130. Magnesium slightly low at 1.7. Liver profile unremarkable. Troponin negative at less than 0.012. Influenza A, influenza B, RSV, and COVID PCR negative. CT abdomen and pelvis without contrast was completed showing no evidence of acute intra-abdominal process showing right ureteral stent superior and inferior pigtails in appropriate position and mild colonic diverticulosis without reports of diverticulitis. Patient was given multiple medications in the emergency department to attempt to control nausea and vomiting, but patient continued with persistent nausea and vomiting and complaints of dizziness. She was admitted under our services observation unit. Review of systems: Pertinent positives and negatives as discussed in HPI, a complete review of systems was performed and all other systems are negative. Physical exam: Vital signs reviewed and stable. General: Nontoxic, no distress and appears stated age. Derm: Skin warm and dry, normal coloration for ethnicity. Head: Atraumatic, normocephalic and symmetric. Eyes: EOM's intact, no lid lag, and anicteric sclera Mouth: no lip lesions, mucus membranes moist Cardiovascular: regular rate and rhythm with normal S1S2, no murmur, positive posterior tibial pulses bilaterally, and cap refill < 2 seconds. Lungs: Respirations even, regular, and unlabored on room air. Lungs CTA bilaterally, no rhonchi, no rales, no wheezing, and no accessory muscle usage. Abdominal: soft, nontender to palpation, no guarding, no appreciable organomegaly Ext: ROM intact. No gross muscle atrophy, no edema, no contractures Neuro: Speech clear, face symmetrical and CN II-XII grossly intact with no noted focal neuro deficits Psych: Alert and oriented to person, place, time, and situation. Appropriate and pleasant affect. Assessment and Plan of Care: Acute Pyelonephritis Intractable nausea and vomiting, likely secondary to above High anion gap metabolic alkalosis, secondary to above -Order placed for IV antibiotics with Rocephin 2 g IVPB every 24 hours. -Order placed for Compazine 10 mg IVP and Tigan 200 mg IM x 1 dose. -Continue Compazine 10 mg IVP every 6 hours as needed for nausea and vomiting. -Gentle IV fluid hydration with 0.9% normal saline -Patient started on Rocephin 2 g IVPB daily -Follow-up on urine culture and blood culture results. -Consult placed to urology secondary to acute pyelonephritis. Chronic mid and lower back pain with history of multiple spinal surgeries -Symptomatic care and pain managment. Continue fentanyl patch 50 mcg every 72 hours and IV Toradol 15 mg every 6 hours with Percocet 10/325 mg tablets every 8 hours as needed for breakthrough pain. CAD status post stent Hypertension Hyperlipidemia -Continue daily medication regimen with amlodipine 2.5 mg twice daily, atorvastatin 10 mg daily, losartan/hydrochlorothiazide 50-12.5 mg twice daily and metoprolol 12.5 mg daily. Anxiety and depression Continue Zoloft 150 mg daily and Valium 5 mg twice daily as needed for anxiety. Data and imaging reviewed: -As stated above in HPI CODE STATUS: Full code DVT prophylaxis: Lovenox Anticipated discharge date: Pending clinical course Anticipated discharge place: Home Patient was seen independently by Nurse Practitioner. This document was prepared using [employer] dictation software. Please allow for errors in environmental health officer while rare they do occur. Mark Goff NP rendered care for this patient independently, reviewed the findings and plan as documented in the note above. I did not physically speak with or examine the patient on this date. Past Medical History Past Medical History: Coronary Artery Disease (CAD), COPD, Osteoarthritis (OA), Respiratory Disorder Additional Past Medical History / Comment(s): having abd cramping in termittently, no apetite and 10lb wt loss, hx mild COPD, colitis,UTIs History of Any Multi-Drug Resistant Organisms: None Reported Past Surgical History: Back Surgery, Section, Ear Surgery, Heart Catheterization, Orthopedic Surgery, Tonsillectomy, Tubal Ligation Additional Past Surgical History / Comment(s): Right knee, x2, tubes in ears, lumbar fusion L2-S1, T9-L3 fusion october 08, right ureter stent pl acement Past Anesthesia/Blood Transfusion Reactions: No Reported Reaction Past Psychological History: Anxiety Smoking Status: Light tobacco smoker Past Alcohol Use History: None Reported Past Drug Use History: None Reported - Past Family History Son(s) Family Medical History: No Reported History Additional Family Medical History / Comment(s): autism Mother History Unknown: Yes Family Medical History: CVA/TIA Father Additional Family Medical History / Comment(s): suicide at 47 Brother(s) Additional Family Medical History / Comment(s): from alcohol and drug use. Sister(s) Family Medical History: Hypertension Medications and Allergies Home Medications Medication Instructions Recorded Confirmed Type Rosuvastatin Calcium [Crestor] 5 mg PO DAILY 10/19/18 02/12/24 History Sertraline [Zoloft] 150 mg PO DAILY 10/19/18 02/12/24 History oxyCODONE-APAP 10-325MG [Percocet 1 tab PO TID PRN 10/19/18 02/12/24 History 10-325 mg] Cholecalciferol [Vitamin D3 (25 50 mcg PO DAILY 12/05/21 02/12/24 History Mcg = 1000 Iu)] Metoprolol Succinate (ER) [Toprol 12.5 mg PO DAILY 12/05/21 02/12/24 History XL] diazePAM [Valium] 5 mg PO BID PRN 12/05/21 02/12/24 History Calcium Carbonate 1,500 mg PO DAILY 07/22/22 02/12/24 History fentaNYL 50MCG/HR PATCH [Duragesic 1 patch TRANSDERM Q72H 07/22/22 02/12/24 History 50MCG/HR] Losartan-Hctz 50-12.5 mg [Hyzaar 1 tab PO BID 01/15/24 02/12/24 History 50-12.5] Magnesium Oxide [Magox 400] 400 mg PO DAILY 01/15/24 02/12/24 History Ondansetron [Zofran] 4 mg PO TID PRN 01/15/24 02/12/24 History valACYclovir HCL [Valtrex] 500 mg PO BID 01/17/24 02/12/24 History Prochlorperazine [Compazine] 10 mg PO Q6H PRN #30 tab 01/19/24 02/12/24 Rx Meclizine [Antivert] 25 mg PO TID #20 tab 02/12/24 Rx Metoclopramide [Reglan] 10 mg PO TID PRN #15 tab 02/12/24 Rx Allergies Allergy/AdvReac Type Severity Reaction Status Date / Time No Known Allergies Allergy Verified 02/12/24 11:29 Physical Exam Vitals: Vital Signs Temp Pulse Resp BP Pulse Ox 02/12/24 12:00 77 17 131/79 97 02/12/24 06:38 98.3 F 84 22 160/98 97 Intake and Output 02/12/24 02/12/24 02/12/24 06:59 14:59 22:59 Other: Weight 45.359 kg Results CBC & Chem 7: 02/13/24 02:34 02/13/24 02:34 Labs: Abnormal Lab Results - Last 24 Hours (Table) 02/12/24 02/12/24 Range/Units 07:02 12:26 Chloride 97 L (98-107) mmol/L BUN 20 H (7-17) mg/dL Glucose 130 H (74-99) mg/dL Calcium 10.5 H (8.4-10.2) mg/dL Urine Appearance Cloudy H (Clear) Urine Protein Trace H (Negative) Urine WBC 34 H (0-5) /hpf Urine Bacteria Occasional H (None) /hpf Urine Mucus Rare H (None) /hpf Urine Yeast (Budding) Occasional H (None) /hpf
[2024-02-12] MEDS: MAGNESIUM SULFATE-D5W PMX 1 GM in DEXTROSE/WATER 1 100ML.BAG IVPB SCH (18:40)
[2024-02-12] MEDS: valACYclovir HCL 500 MG TAB PO SCH (20:44)
[2024-02-12] MEDS: LOSARTAN-HCTZ 50-12.5 MG 1 EACH TAB PO SCH (20:44)
[2024-02-13] MEDS: PROCHLORPERAZINE INJ 10 MG/2 ML VIAL IVP PRN (01:31)
[2024-02-13 03:42] LABS: ALT 11 U/L (4-34); AST 31 U/L (14-36); African American GFR (CKD) >90 (>60 ml/min/1.73 sqM); Albumin 3.5 g/dL (3.5-5.0); Alkaline Phosphatase 59 U/L (38-126); Anion Gap 1 mmol/L; Blood Urea Nitrogen 11 mg/dL (7-17); Calcium 8.7 mg/dL (8.4-10.2); Carbon Dioxide 29 mmol/L (22-30); Chloride 109 mmol/L (98-107); Glucose 122 mg/dL (74-99); Magnesium 2.3 mg/dL (1.6-2.3); Non-African American GFR(CKD) >90 (>60 ml/min/1.73 sqM); Potassium 2.9 mmol/L (3.5-5.1); Sodium 139 mmol/L (137-145); Total Bilirubin 0.4 mg/dL (0.2-1.3); Total Protein 5.6 g/dL (6.3-8.2)
[2024-02-13 03:50] LABS: HCT 35.9 % (34.0-46.0); MCH 31.1 pg (25.0-35.0); MCHC 32.9 g/dL (31.0-37.0); MCV 94.5 fL (80.0-100.0); Mean Platelet Volume 7.1; Platelet Count 263 k/uL (150-450); RBC 3.79 m/uL (3.80-5.40); RDW 13.8 % (11.5-15.5); WBC 5.5 k/uL (3.8-10.6)
[2024-02-13 03:54] LABS: HGB 11.8 gm/dL (11.4-16.0)
[2024-02-13] MEDS ORDERED: Potassium Replacement Protocol 1 EACH MISC MISCELLANE PRN (04:19)
[2024-02-13] MEDS: POTASSIUM CHLORIDE ER 20 MEQ TAB.ER PO SCH (04:40)
[2024-02-13] MEDS ORDERED: KETOROLAC 15 MG/ML 1 ML VIAL IVP PRN (07:51)
[2024-02-13] MEDS ORDERED: POTASSIUM CHLORIDE ER 20 MEQ TAB.ER PO STA (07:52)
--- NOTE | 2024-02-13 07:57 | P.GSCN ---
History of Present Illness Consult date: 02/13/24 History of present illness: 73 yo female admitted with nausea, vomitting ,vertigo and abnormal labs. SHe is thought tohave a pyelonephritis. SHe is known to Dr abebe for a stent placement right for hydronephrosis of indeterminate cause. She is scheduled to have the stent removed feb 10 with retrogrades. She does not have notable stent pain. The stent is in good position on the ct scan and the hydro has resolved. The patient has a very bad back with chronic pain and usage of pain medication associated with that. She is feeling better this am after antibiotics Review of Systems All systems: negative - Constitutional Denies fever, Denies weight loss - EENT Eyes: denies blurred vision Ears, nose, mouth and throat: Denies dysphagia - Cardiovascular Denies chest pain, Denies shortness of breath - Respiratory Denies cough, Denies 7 - Gastrointestinal Reports as per HPI - Genitourinary Genitourinary: Denies dysuria, Denies hematuria - Integumentary Denies rash, Denies unusual bruising - Neurological Denies headaches, Denies syncope - Hematologic/Lymphatic Denies easy bleeding, Denies easy bruising Past Medical History Past Medical History: Coronary Artery Disease (CAD), COPD, Osteoarthritis (OA), Respiratory Disorder Additional Past Medical History / Comment(s): having abd cramping intermittently, no apetite and 10lb wt loss, hx mild COPD, colitis,UTIs History of Any Multi-Drug Resistant Organisms: None Reported Past Surgical History: Back Surgery, Section, Ear Surgery, Heart Catheterization, Orthopedic Surgery, Tonsillectomy, Tubal Ligation Additional Past Surgical History / Comment(s): Right knee, x2, tubes in ears, lumbar fusion L2-S1, T9-L3 fusion october 08, right ureter stent placement Past Anesthesia/Blood Transfusion Reactions: No Reported Reaction Past Psychological History: Anxiety Smoking Status: Former smoker Past Alcohol Use History: None Reported Additional Past Alcohol Use History / Comment(s): quit smoking 1997 but in this oct started smoking again (due to stress) smoked 1 cig per day then quit 04/23/17. Past Drug Use History: None Reported - Past Family History Son(s) Family Medical History: No Reported History Additional Family Medical History / Comment(s): autism Mother History Unknown: Yes Family Medical History: CVA/TIA Father Additional Family Medical History / Comment(s): suicide at 47 Brother(s) Additional Family Medical History / Comment(s): from alcohol and marlene g use. Sister(s) Family Medical History: Hypertension Medications and Allergies Home Medications Medication Instructions Recorded Confirmed Type Rosuvastatin Calcium [Crestor] 5 mg PO DAILY 10/19/18 02/12/24 History Sertraline [Zoloft] 150 mg PO DAILY 10/19/18 02/12/24 History oxyCODONE-APAP 10-325MG [Percocet 1 tab PO TID PRN 10/19/18 02/12/24 History 10-325 mg] Cholecalciferol [Vitamin D3 (25 50 mcg PO DAILY 12/05/21 02/12/24 History Mcg = 1000 Iu)] Metoprolol Succinate (ER) [Toprol 12.5 mg PO DAILY 12/05/21 02/12/24 History XL] diazePAM [Valium] 5 mg PO BID PRN 12/05/21 02/12/24 History Calcium Carbonate 1,500 mg PO DAILY 07/22/22 02/12/24 History fentaNYL 50MCG/HR PATCH [Duragesic 1 patch TRANSDERM Q72H 07/22/22 02/12/24 History 50MCG/HR] Losartan-Hctz 50-12.5 mg [Hyzaar 1 tab PO BID 01/15/24 02/12/24 History 50-12.5] Magnesium Oxide [Magox 400] 400 mg PO DAILY 01/15/24 02/12/24 History Ondansetron [Zofran] 4 mg PO TID PRN 01/15/24 02/12/24 History valACYclovir HCL [Valtrex] 500 mg PO BID 01/17/24 02/12/24 History Prochlorperazine [Compazine] 10 mg PO Q6H PRN #30 tab 01/19/24 02/12/24 Rx Meclizine [Antivert] 25 mg PO TID #20 tab 02/12/24 Rx Metoclopramide [Reglan] 10 mg PO TID PRN #15 tab 02/12/24 Rx Allergies Allergy/AdvReac Type Severity Reaction Status Date / Time No Known Allergies Allergy Verified 02/12/24 11:29 Surgical - Exam Vital Signs Temp Pulse Resp BP Pulse Ox 98.3 F 84 22 160/98 97 02/12/24 06:38 02/12/24 06:38 02/12/24 06:38 02/12/24 06:38 02/12/24 06:38 - General well developed, well nourished, no distress - Eyes normal ocular movement, no icteric - ENT no hearing loss, no congestion - Neck no masses, trachea midline - Respiratory normal respiratory effort, clear to auscultation - Abdomen Abdomen: soft, non tender, no guarding, no rigid, no rebound - Integumentary no rash, no abnormal pigmentation - Neurologic no disoriented, no combative - Psychiatric oriented to time, oriented to person, oriented to place, speech is normal, memory intact Results - Labs 02/13/24 02:34 02/13/24 02:34 Abnormal Lab Results - Last 24 Hours (Table) 02/12/24 02/12/24 02/13/24 Range/Units 07:02 12:26 02:34 RBC 3.79 L (3.80-5.40) m/uL Potassium (3.5-5.1) mmol/L Chloride 97 L (98-107) mmol/L BUN 20 H (7-17) mg/dL Glucose 130 H (74-99) mg/dL Calcium 10.5 H (8.4-10.2) mg/dL Total Protein (6.3-8.2) g/dL Urine Appearance Cloudy H (Clear) Urine Protein Trace H (Negative) Urine WBC 34 H (0-5) /hpf Urine Bacteria Occasional H (None) /hpf Urine Mucus Rare H (None) /hpf Urine Yeast (Budding) Occasional H (None) /hpf 02/13/24 Range/Units 02:34 RBC (3.80-5.40) m/uL Potassium 2.9 L (3.5-5.1) mmol/L Chloride 109 H (98-107) mmol/L BUN (7-17) mg/dL Glucose 122 H (74-99) mg/dL Calcium (8.4-10.2) mg/dL Total Protein 5.6 L (6.3-8.2) g/dL Urine Appearance (Clear) Urine Protein (Negative) Urine WBC (0-5) /hpf Urine Bacteria (None) /hpf Urine Mucus (None) /hpf Urine Yeast (Budding) (None) /hpf Diabetes panel 02/12/24 02/13/24 Range/Units 07:02 02:34 Sodium 138 139 (137-145) mmol/L Potassium 3.6 2.9 L (3.5-5.1) mmol/L Chloride 97 L 109 H (98-107) mmol/L Carbon Dioxide 28 29 (22-30) mmol/L BUN 20 H 11 (7-17) mg/dL Creatinine 0.66 0.55 (0.52-1.04) mg/dL Glucose 130 H 122 H (74-99) mg/dL Calcium 10.5 H 8.7 (8.4-10.2) mg/dL AST 29 31 (14-36) U/L ALT 15 11 (4-34) U/L Alkaline Phosphatase 89 59 (38-126) U/L Total Protein 7.8 5.6 L (6.3-8.2) g/dL Albumin 4.9 3.5 (3.5-5.0) g/dL Calcium panel 02/12/24 02/13/24 Range/Units 07:02 02:34 Calcium 10.5 H 8.7 (8.4-10.2) mg/dL Albumin 4.9 3.5 (3.5-5.0) g/dL Pituitary panel 02/12/24 02/13/24 Range/Units 07:02 02:34 Sodium 138 139 (137-145) mmol/L Potassium 3.6 2.9 L (3.5-5.1) mmol/L Chloride 97 L 109 H (98-107) mmol/L Carbon Dioxide 28 29 (22-30) mmol/L BUN 20 H 11 (7-17) mg/dL Creatinine 0.66 0.55 (0.52-1.04) mg/dL Glucose 130 H 122 H (74-99) mg/dL Calcium 10.5 H 8.7 (8.4-10.2) mg/dL Adrenal panel 02/12/24 02/13/24 Range/Units 07:02 02:34 Sodium 138 139 (137-145) mmol/L Potassium 3.6 2.9 L (3.5-5.1) mmol/L Chloride 97 L 109 H (98-107) mmol/L Carbon Dioxide 28 29 (22-30) mmol/L BUN 20 H 11 (7-17) mg/dL Creatinine 0.66 0.55 (0.52-1.04) mg/dL Glucose 130 H 122 H (74-99) mg/dL Calcium 10.5 H 8.7 (8.4-10.2) mg/dL Total Bilirubin 0.6 0.4 (0.2-1.3) mg/dL AST 29 31 (14-36) U/L ALT 15 11 (4-34) U/L Alkaline Phosphatase 89 59 (38-126) U/L Total Protein 7.8 5.6 L (6.3-8.2) g/dL Albumin 4.9 3.5 (3.5-5.0) g/dL - Imaging CT scan - abdomen: report reviewed, image reviewed CT scan - pelvis: report reviewed, image reviewed Assessment and Plan Assessment: Impression: nausea, vomiting and abnormal ua. Chronic pain, anxiety, multiple medical issues. Plan: I agree with the antibiotics for a possible pyelonephritis. I would not want to remove the stent until the uti has been treated especially in light of the indetrminate cause for the hydronephrosis, right. Since she is feeling better I would leave the stent to remived as previously scheduled. I will discuss with Dr abebe for further recommendations.
[2024-02-13] MEDS ORDERED: POTASSIUM CHLORIDE 10 MEQ in WATER FOR INJECTION 1 100ML.BAG IVPB SCH (08:00)
[2024-02-13] MEDS: ENOXAPARIN 40 MG/0.4 ML SYRINGE SQ SCH (08:06)
[2024-02-13] MEDS: CALCIUM CARBONATE 500 MG CHEWABLE PO SCH (08:06)
[2024-02-13] MEDS: SERTRALINE 100 MG TAB PO SCH (08:07)
[2024-02-13] MEDS: ATORVASTATIN 10 MG TAB PO SCH (08:07)
[2024-02-13] MEDS: MAGNESIUM OXIDE 400 MG TAB PO SCH (08:07)
[2024-02-13] MEDS: CHOLECALCIFEROL 25 MCG (1000 IU) TABLET PO SCH (08:07)
[2024-02-13] MEDS: METOPROLOL SUCCINATE (ER) 25 MG TAB.ER.24H PO SCH (08:07)
--- NOTE | 2024-02-13 10:38 | P.PN ---
Subjective Progress Note Date: 02/13/24 Hospital Course:: Patient is a very pleasant 73-year-old female with past medical history of CAD status post stent, hypertension, hyperlipidemia, osteoarthritis, and chronic back pain status post multiple spinal surgeries with fusions from T9-S1. She presented to the emergency department with a chief complaint of intractable nausea and vomiting x 3 days. Patient reports this has been accompanied by lightheadedness, increased weakness, decreased appetite, abdominal cramping and weight loss. Patient states she is not sure if this is from anxiety knowing candace t she has to go and get her ureteral stent removed on the or if something more is going on. She denies having any fevers, chills, headache, changes in vision or hearing, chest pain or palpitations, shortness of breath, cough or congestion, hematemesis, melena, hematochezia, urinary frequency/u rgency/retention/hematuria/dysuria or any other complaints. She does report mild constipation over the past 3 days but states she has not eaten any food or been able to keep anything down. Patient recently hospitalized for similar complaints 01/17/2024 through 01/19/2024 and underwent cystoscopy with right retrograde pyelogram and stent placement on 01/18/2024 secondary to hydronephrosis from right kidney. Patient reports initially feeling great but over the past 3 days began feeling anxious over upcoming stent removal and this is when her intractable nausea and vomiting began. She states she has been taking Zofran and Compazine at home as well as Valium with attempts to control her vomiting b ut they have been unsuccessful. Upon arrival to our facility, patient underwent evaluation in the emergency department. Vital signs upon arrival show blood pressure 160/98, heart rate 84, respiratory rate 22, temp 98.3 F, and SpO2 of 97% on room air. Labs were completed and reviewed. CBC unremarkable. BMP showing high anion gap metabolic alkalosis with chloride of 97, bicarb of 28, and anion gap of 13. Glucose 130. Magnesium slightly low at 1.7. Liver profile unremarkable. Troponin negative at less than 0.012. Influenza A, influenza B, RSV, and COVID PCR negative. CT abdomen and pelvis without contrast was completed showing no evidence of acute intra-abdominal process showing right ureteral stent superior and inferior pigtails in appropriate position and mild colonic diverticulosis without reports of diverticulitis. Patient was given multiple medications in the emergency department to attempt to control nausea and vomiting, but patient continued with persistent nausea and vomiting and complaints of dizziness. She was admitted under our services observation unit. Urinalysis resulting positive for large leukocyte Estrace and nitrites. Patient started on IV antibiotics with Rocephin. Urology was consulted secondary to concerns of acute pyelonephritis with recent stent placement. Physical exam: Vital signs reviewed and stable. General: Nontoxic, no distress and appears stated age. Derm: Skin warm and dry, normal coloration for ethnicity. Head: Atraumatic, normocephalic and symmetric. Eyes: EOM's intact, no lid lag, and anicteric sclera Mouth: no lip lesions, mucus membranes moist Cardiovascular: regular rate and rhythm with normal S1S2, no murmur, positive posterior tibial pulses bilaterally, and cap refill < 2 seconds. Lungs: Respirations even, regular, and unlabored on room air. Lungs CTA bilaterally, no rhonchi, no rales, no wheezing, and no accessory muscle usage. Abdominal: soft, nontender to palpation, no guarding, no appreciable organomegaly Ext: ROM intact. No gross muscle atrophy, no edema, no contractures Neuro: Speech clear, face symmetrical and CN II-XII grossly intact with no noted focal neuro deficits Psych: Alert and oriented to person, place, time, and situation. Appropriate and pleasant affect. Assessment and Plan of Care: Acute Pyelonephritis Intractable nausea and vomiting, likely secondary to above High anion gap metabolic alkalosis, secondary to above Status post cystoscopy with right retrograde pyelogram and stent placement on 01/18/2024 -Continue IV antibiotics with Rocephin 2 g IVPB every 24 hours. -Continue Compazine 10 mg IVP every 6 hours as needed for nausea and vomiting. -Gentle IV fluid hydration with 0.9% normal saline -Follow-up on urine culture and blood culture results. -Consult placed to urology secondary to acute pyelonephritis status post recent cystoscopy with right retrograde pyelogram and stent placement on 01/18/2024. Rule out GI bleed -CBC showing a decrease in hemoglobin from 15.1 down to 11.8 this morning. Dede ent was initially dehydrated and presented with intractable nausea and vomiting and has received IV fluid hydration over the past 24 hours. Changes in hemoglobin may possibly be secondary to concentrated hemoglobin upon arrival and after IV fluid hydration back at baseline or possible dilution. -Patient reported dark black gelatinous stool this morning. Fecal occult was sent to lab for analysis. -Decrease in hemoglobin possibly secondary to dilution from IV fluids received over the past 24 hours but may also be secondary to GI bleed. Will continue to monitor hemoglobin closely and transfuse if needed for hemoglobin less than 7. -Patient placed on Protonix 40 mg IVP twice daily pending results. hypokalemia Potassium 2.9. Replaced with a total of 60 mEq K-Dur. Will continue to monitor with repeat a.m. labs and replace abnormal electrolyte values as indicated based upon findings. Chronic mid and lower back pain with history of multiple spinal surgeries -Symptomatic care and pain managment. Continue fentanyl patch 50 mcg every 72 hours and IV Toradol 15 mg every 6 hours with Percocet 10/325 mg tablets every 8 hours as needed for breakthrough pain. CAD status post stent Hypertension Hyperlipidemia -Continue daily medication regimen with amlodipine 2.5 mg twice daily, atorvastatin 10 mg daily, losartan/hydrochlorothiazide 50-12.5 mg twice daily and metoprolol 12.5 mg daily. Anxiety and depression Continue Zoloft 150 mg daily and Valium 5 mg twice daily as needed for anxiety. Data and imaging reviewed: -Morning labs reviewed. CBC showing a decrease in hemoglobin from 15.1 down to 11.8 this morning. Patient was initially dehydrated and presented with intractable nausea and vomiting and has received IV fluid hydration over the past 24 hours. Changes in hemoglobin may possibly be secondary to concentrated hemoglobin upon arrival and after IV fluid hydration back at baseline or possible dilution. -Vital signs reviewed. Blood pressure 151/72, heart rate 69, respiratory rate 16, temp 98.5 F, and SpO2 of 94% on room air. CODE STATUS: Full code DVT prophylaxis: Lovenox Anticipated discharge date: Pending clinical course Anticipated discharge place: Home Patient was seen independently by Nurse Practitioner. This document was prepared using [employer] dictation software. Please allow for errors in engineering consultant while rare they do occur. Mark Goff NP rendered care for this patient independently, reviewed the findings and plan as documented in the note above. I did not physically speak with or examine the patient on this date. Objective - Vital Signs Vital signs: Vital Signs Temp 98.1 F 02/13/24 02:00 Pulse 61 02/13/24 02:00 Resp 14 02/13/24 02:00 BP 116/68 02/13/24 02:00 Pulse Ox 95 02/13/24 02:00 FiO2 Intake & Output 02/12/24 02/13/24 02/13/24 18:59 06:59 18:59 Intake Total 970 Balance 970 Weight 45.359 kg Intake: Intake, IV Titration 850 Amount Magnesium Sulfate-D5w Pmx 100 1 gm In Dextrose/Water 1 100ml.bag @ 100 mls/hr IVPB Q1H BIRDIE Rx#: [id number] Sodium Chloride 0.9% 1, 750 000 ml @ 75 mls/hr IV . [id number] STA Rx#:[id number] Oral 120 Other: Voiding Method Toilet # Voids 1 - Labs CBC & Chem 7: 02/13/24 02:34 02/13/24 02:34 Labs: Abnormal Lab Results - Last 24 Hours (Table) 02/12/24 02/12/24 02/13/24 Range/Units 07:02 12:26 02:34 RBC 3.79 L (3.80-5.40) m/uL Potassium (3.5-5.1) mmol/L Chloride 97 L (98-107) mmol/L BUN 20 H (7-17) mg/dL Glucose 130 H (74-99) mg/dL Calcium 10.5 H (8.4-10.2) mg/dL Total Protein (6.3-8.2) g/dL Urine Appearance Cloudy H (Clear) Urine Protein Trace H (Negative) Urine WBC 34 H (0-5) /hpf Urine Bacteria Occasional H (None) /hpf Urine Mucus Rare H (None) /hpf Urine Yeast (Budding) Occasional H (None) /hpf 02/13/24 Range/Units 02:34 RBC (3.80-5.40) m/uL Potassium 2.9 L (3.5-5.1) mmol/L Chloride 109 H (98-107) mmol/L BUN (7-17) mg/dL Glucose 122 H (74-99) mg/dL Calcium (8.4-10.2) mg/dL Total Protein 5.6 L (6.3-8.2) g/dL Urine Appearance (Clear) Urine Protein (Negative) Urine WBC (0-5) /hpf Urine Bacteria (None) /hpf Urine Mucus (None) /hpf Urine Yeast (Budding) (None) /hpf
[2024-02-13] MEDS: PANTOPRAZOLE 40 MG/10 ML VIAL IVP SCH (11:31)
[2024-02-13 12:35] VITALS: BMI 18.3
[2024-02-13] MEDS: PEG 3350 (236 GM/BTL) + LYTES 4,000 ML BOTTLE PO ONE (15:05)
[2024-02-13] MEDS: SODIUM CHLORIDE 0.9% 1,000 ML IV SCH (18:23)
--- NOTE | 2024-02-13 19:50 | P.GSCN ---
History of Present Illness Consult date: 02/13/24 History of present illness: 73-year-old female presented to the emergency department with complaint of intractable nausea or vomiting. She has history of recent ureteral stent. She also complains of abdominal pain. Patient has had workup with CT of the abdomen pelvis showing no acute process. During her admission, patient was noted to have large bowel movement that was very dark. This was tested for fecal occult and was noted to be positive. Patient denies any previous history of GI bleeding. She states her last colonoscopy was about 2 years ago with no sig nificant findings. She also was noted to have initial presentation hemoglobin of 15 with dropped to 11. Review of Systems All systems: negative Past Medical History Past Medical History: Coronary Artery Disease (CAD), COPD, Osteoarthritis (OA), Respiratory Disorder Additional Past Medical History / Comment(s): having abd cramping intermittently, no apetite and 10lb wt loss, hx mild COPD, colitis,UTIs History of Any Multi-Drug Resistant Organisms: None Reported Past Surgical History: Back Surgery, Section, Ear Surgery, Heart Larissa terization, Orthopedic Surgery, Tonsillectomy, Tubal Ligation Additional Past Surgical History / Comment(s): Right knee, x2, tubes in ears, lumbar fusion L2-S1, T9-L3 fusion october 08, right ureter stent placement Past Anesthesia/Blood Transfusion Reactions: No Reported Reaction Past Psychological History: Anxiety Smoking Status: Light tobacco smoker Past Alcohol Use History: None Reported Past Drug Use History: None Reported - Past Family History Son(s) Family Medical History: No Reported History Additional Family Medical History / Comment(s): autism Mother History Unknown: Yes Family Medical History: CVA/TIA Father Additional Family Medical History / Comment(s): suicide at 47 Brother(s) Additional Family Medical History / Comment(s): from alcohol and drug use. Sister(s) Family Medical History: Hypertension Medications and Allergies Home Medications Medication Instructions Recorded Confirmed Type Rosuvastatin Calcium [Crestor] 5 mg PO DAILY 10/19/18 02/12/24 History Sertraline [Zoloft] 150 mg PO DAILY 10/19/18 02/12/24 History oxyCODONE-APAP 10-325MG [Percocet 1 tab PO TID PRN 10/19/18 02/12/24 History 10-325 mg] Cholecalciferol [Vitamin D3 (25 50 mcg PO DAILY 12/05/21 02/12/24 History Mcg = 1000 Iu)] Metoprolol Succinate (ER) [Toprol 12.5 mg PO DAILY 12/05/21 02/12/24 History XL] diazePAM [Valium] 5 mg PO BID PRN 12/05/21 02/12/24 History Calcium Carbonate 1,500 mg PO DAILY 07/22/22 02/12/24 History fentaNYL 50MCG/HR PATCH [Duragesic 1 patch TRANSDERM Q72H 07/22/22 02/12/24 History 50MCG/HR] Losartan-Hctz 50-12.5 mg [Hyzaar 1 tab PO BID 01/15/24 02/12/24 History 50-12.5] Magnesium Oxide [Magox 400] 400 mg PO DAILY 01/15/24 02/12/24 History Ondansetron [Zofran] 4 mg PO TID PRN 01/15/24 02/12/24 History valACYclovir HCL [Valtrex] 500 mg PO BID 01/17/24 02/12/24 History Prochlorperazine [Compazine] 10 mg PO Q6H PRN #30 tab 01/19/24 02/12/24 Rx Meclizine [Antivert] 25 mg PO TID #20 tab 02/12/24 Rx Metoclopramide [Reglan] 10 mg PO TID PRN #15 tab 02/12/24 Rx Allergies Allergy/AdvReac Type Severity Reaction Status Date / Time No Known Allergies Allergy Verified 02/12/24 11:29 Surgical - Exam Osteopathic Statement: *. No significant issues noted on an osteopathic structural exam other than those noted in the History and Physical/Consult. Vital Signs Temp Pulse Resp BP Pulse Ox 98.3 F 84 22 160/98 97 02/12/24 06:38 02/12/24 06:38 02/12/24 06:38 02/12/24 06:38 02/12/24 06:38 - General well developed, well nourished - Eyes normal ocular movement - Neck trachea midline - Respiratory normal respiratory effort - Abdomen Abdomen: soft, non tender - Psychiatric oriented to time, oriented to person, oriented to place Results - Labs 02/13/24 02:34 02/13/24 02:34 Abnormal Lab Results - Last 24 Hours (Table) 02/13/24 02/13/24 02/13/24 Range/Units 02:34 02:34 08:54 RBC 3.79 L (3.80-5.40) m/uL Potassium 2.9 L (3.5-5.1) mmol/L Chloride 109 H (98-107) mmol/L Glucose 122 H (74-99) mg/dL Total Protein 5.6 L (6.3-8.2) g/dL Stool Occult Blood Positive H (Negative) Diabetes panel 02/13/24 Range/Units 02:34 Sodium 139 (137-145) mmol/L Potassium 2.9 L (3.5-5.1) mmol/L Chloride 109 H (98-107) mmol/L Carbon Dioxide 29 (22-30) mmol/L BUN 11 (7-17) mg/dL Creatinine 0.55 (0.52-1.04) mg/dL Glucose 122 H (74-99) mg/dL Calcium 8.7 (8.4-10.2) mg/dL AST 31 (14-36) U/L ALT 11 (4-34) U/L Alkaline Phosphatase 59 (38-126) U/L Total Protein 5.6 L (6.3-8.2) g/dL Albumin 3.5 (3.5-5.0) g/dL Calcium panel 02/13/24 Range/Units 02:34 Calcium 8.7 (8.4-10.2) mg/dL Albumin 3.5 (3.5-5.0) g/dL Pituitary panel 02/13/24 Range/Units 02:34 Sodium 139 (137-145) mmol/L Potassium 2.9 L (3.5-5.1) mmol/L Chloride 109 H (98-107) mmol/L Carbon Dioxide 29 (22-30) mmol/L BUN 11 (7-17) mg/dL Creatinine 0.55 (0.52-1.04) mg/dL Glucose 122 H (74-99) mg/dL Calcium 8.7 (8.4-10.2) mg/dL Adrenal panel 02/13/24 Range/Units 02:34 Sodium 139 (137-145) mmol/L Potassium 2.9 L (3.5-5.1) mmol/L Chloride 109 H (98-107) mmol/L Carbon Dioxide 29 (22-30) mmol/L BUN 11 (7-17) mg/dL Creatinine 0.55 (0.52-1.04) mg/dL Glucose 122 H (74-99) mg/dL Calcium 8.7 (8.4-10.2) mg/dL Total Bilirubin 0.4 (0.2-1.3) mg/dL AST 31 (14-36) U/L ALT 11 (4-34) U/L Alkaline Phosphatase 59 (38-126) U/L Total Protein 5.6 L (6.3-8.2) g/dL Albumin 3.5 (3.5-5.0) g/dL Assessment and Plan Plan: Case discussed with patient. Due to finding of fecal occult blood on black stool with recent drop in hemoglobin and intractable nausea and vomiting, we will plan for endoscopy. Based on patient's history, we will plan for both upper and lower endoscopy. Prep was started. Continue to monitor for any further or active bleeding. Further recommendations after endoscopy completed. Continue with medical recommendations. Keep n.p.o. after midnight.
[2024-02-13 20:24] LABS: Basophils # (A) 0.1 k/uL (0-0.2); Basophils % (A) 1 %; Eosinophils % (A) 1 %; HCT 40.7 % (34.0-46.0); HGB 13.1 gm/dL (11.4-16.0); Lymphocytes # (A) 1.7 k/uL (1.0-4.8); Lymphocytes % (A) 29 %; MCH 30.2 pg (25.0-35.0); MCHC 32.1 g/dL (31.0-37.0); Mean Platelet Volume 7.2; Monocytes # (A) 0.4 k/uL (0-1.0); Monocytes % (A) 6 %; Neutrophils # (A) 3.5 k/uL (1.3-7.7); Neutrophils % (A) 61 %; Platelet Count 277 k/uL (150-450); RBC 4.33 m/uL (3.80-5.40); RDW 13.6 % (11.5-15.5); WBC 5.8 k/uL (3.8-10.6)
[2024-02-13] MEDS: diazePAM 5 MG TAB PO PRN (23:44)
--- NOTE | 2024-02-14 08:17 | P.PN ---
Subjective Progress Note Date: 02/14/24 Objective - Vital Signs Vital signs: Vital Signs Temp 98.5 F 02/14/24 07:54 Pulse 71 02/14/24 07:54 Resp 16 02/14/24 07:54 BP 161/87 02/14/24 07:54 Pulse Ox 95 02/14/24 07:54 FiO2 Intake & Output 02/13/24 02/14/24 02/14/24 18:59 06:59 18:59 Weight 45.359 kg Other: Voiding Method Toilet # Voids 3 2 # Bowel Movements 2 6 - Labs CBC & Chem 7: 02/13/24 19:30 02/13/24 02:34 Labs: Abnormal Lab Results - Last 24 Hours (Table) 02/13/24 Range/Units 08:54 Stool Occult Blood Positive H (Negative) Microbiology - Last 24 Hours (Table) 02/12/24 12:26 Urine Culture - Preliminary Urine,Voided Gram Neg Bacilli
[2024-02-14 08:18] LABS: ALT 12 U/L (4-34); AST 34 U/L (14-36); African American GFR (CKD) >90 (>60 ml/min/1.73 sqM); Albumin/Globulin Ratio 1.7; Alkaline Phosphatase 73 U/L (38-126); Anion Gap 7 mmol/L; Blood Urea Nitrogen 6 mg/dL (7-17); Calcium 9.4 mg/dL (8.4-10.2); Carbon Dioxide 28 mmol/L (22-30); Chloride 105 mmol/L (98-107); Globulin 2.3 g/dL; Glucose 93 mg/dL (74-99); Magnesium 1.7 mg/dL (1.6-2.3); Non-African American GFR(CKD) >90 (>60 ml/min/1.73 sqM); Potassium 3.3 mmol/L (3.5-5.1); Sodium 140 mmol/L (137-145); Total Bilirubin 0.5 mg/dL (0.2-1.3); Total Protein 6.3 g/dL (6.3-8.2)
[2024-02-14] MEDS ORDERED: PROPOFOL 10 MG/ML 20 ML VIAL IV ONE (08:47)
[2024-02-14] MEDS: IV FLUID CONTINUATION 950 ML IV ONE (08:58)
[2024-02-14] MEDS: POTASSIUM CHLORIDE ER 20 MEQ TAB.ER PO STA (10:20)
[2024-02-14 11:24] LABS: Basophils # (A) 0.07 X 10*3/uL (0.00-0.10); Basophils % (A) 1.1 %; Eosinophils # (A) 0.05 X 10*3/uL (0.04-0.35); Eosinophils % (A) 0.8 %; HCT 38.5 % (37.2-46.3); Lymphocytes % (A) 32.2 %; MCH 30.4 pg (27.0-32.0); MCHC 33.8 g/dL (32.0-37.0); Mean Platelet Volume 10.2 FL (9.5-12.2); Monocytes # (A) 0.51 X 10*3/uL (0.20-1.00); Monocytes % (A) 8.2 %; NRBC Per 100 WBC 0 X 10*3/uL (0.00-0.01); Neutrophils # (A) 3.57 X 10*3/uL (1.80-7.70); Neutrophils % (A) 57.5 %; Platelet Count 278 X 10*3/uL (140-440); RBC 4.28 X 10*6/uL (4.10-5.20); RDW 13.9 % (11.5-14.5); WBC 6.21 X 10*3/uL (4.50-10.00)
--- NOTE | 2024-02-14 17:27 | P.PN ---
Subjective Progress Note Date: 02/14/24 Hospital Course:: Patient is a very pleasant 73-year-old female with past medical history of CAD status post stent, hypertension, hyperlipidemia, osteoarthritis, and chronic back pain status post multiple spinal surgeries with fusions from T9-S1. She presented to the emergency department with a chief complaint of intractable nausea and vomiting x 3 days. Patient reports this has been accompanied by lightheadedness, increased weakness, decreased appetite, abdominal cramping and weight loss. Patient states she is not sure if this is from anxiety knowing candace t she has to go and get her ureteral stent removed on the or if something more is going on. She denies having any fevers, chills, headache, changes in vision or hearing, chest pain or palpitations, shortness of breath, cough or congestion, hematemesis, melena, hematochezia, urinary frequency/u rgency/retention/hematuria/dysuria or any other complaints. She does report mild constipation over the past 3 days but states she has not eaten any food or been able to keep anything down. Patient recently hospitalized for similar complaints 01/17/2024 through 01/19/2024 and underwent cystoscopy with right retrograde pyelogram and stent placement on 01/18/2024 secondary to hydronephrosis from right kidney. Patient reports initially feeling great but over the past 3 days began feeling anxious over upcoming stent removal and this is when her intractable nausea and vomiting began. She states she has been taking Zofran and Compazine at home as well as Valium with attempts to control her vomiting b ut they have been unsuccessful. Upon arrival to our facility, patient underwent evaluation in the emergency department. Vital signs upon arrival show blood pressure 160/98, heart rate 84, respiratory rate 22, temp 98.3 F, and SpO2 of 97% on room air. Labs were completed and reviewed. CBC unremarkable. BMP showing high anion gap metabolic alkalosis with chloride of 97, bicarb of 28, and anion gap of 13. Glucose 130. Magnesium slightly low at 1.7. Liver profile unremarkable. Troponin negative at less than 0.012. Influenza A, influenza B, RSV, and COVID PCR negative. CT abdomen and pelvis without contrast was completed showing no evidence of acute intra-abdominal process showing right ureteral stent superior and inferior pigtails in appropriate position and mild colonic diverticulosis without reports of diverticulitis. Patient was given multiple medications in the emergency department to attempt to control nausea and vomiting, but patient continued with persistent nausea and vomiting and complaints of dizziness. She was admitted under our services observation unit. Urinalysis resulting positive for large leukocyte Estrace and nitrites. Patient started on IV antibiotics with Rocephin. Urology was consulted secondary to concerns of acute pyelonephritis with recent stent placement. Physical exam: Vital signs reviewed and stable. General: Nontoxic, no distress and appears stated age. Derm: Skin warm and dry, normal coloration for ethnicity. Head: Atraumatic, normocephalic and symmetric. Eyes: EOM's intact, no lid lag, and anicteric sclera Mouth: no lip lesions, mucus membranes moist Cardiovascular: regular rate and rhythm with normal S1S2, no murmur, positive posterior tibial pulses bilaterally, and cap refill < 2 seconds. Lungs: Respirations even, regular, and unlabored on room air. Lungs CTA bilaterally, no rhonchi, no rales, no wheezing, and no accessory muscle usage. Abdominal: soft, nontender to palpation, no guarding, no appreciable organomegaly Ext: ROM intact. No gross muscle atrophy, no edema, no contractures Neuro: Speech clear, face symmetrical and CN II-XII grossly intact with no noted focal neuro deficits Psych: Alert and oriented to person, place, time, and situation. Appropriate and pleasant affect. Assessment and Plan of Care: Acute Pyelonephritis Intractable nausea and vomiting, likely secondary to above High anion gap metabolic alkalosis, secondary to above Status post cystoscopy with right retrograde pyelogram and stent placement on 01/18/2024 -Continue IV antibiotics with Rocephin 2 g IVPB every 24 hours. -Continue Compazine 10 mg IVP every 6 hours as needed for nausea and vomiting. -Gentle IV fluid hydration with 0.9% normal saline at 75 cc/h -Preliminary urine culture positive for gram-negative bacilli, awaiting final culture and sensitivity report as patient will require placement on antibiotics until after removal of ureteral stent on 02/20/2024 -Consult placed to urology secondary to acute pyelonephritis status post recent cystoscopy with right retrograde pyelogram and stent placement on 01/18/2024. Bleed, ruled out -Fecal occult was positive. -General surgery was consulted, discussed in detail with Dr. Conti. EGD and colonoscopy negative for acute GI bleed. -Decrease in hemoglobin likely secondary to dilution from IV fluids received vs hemoconcentration -Continue Protonix 40 mg IVP twice daily Hypokalemia Potassium 3.3. Replaced with a total of 40 mEq K-Dur. Will continue to monitor with repeat a.m. labs and replace abnormal electrolyte values as indicated based upon findings. Chronic mid and lower back pain with history of multiple spinal surgeries -Symptomatic care and pain managment. Continue fentanyl patch 50 mcg every 72 ho urs and IV Toradol 15 mg every 6 hours with Percocet 10/325 mg tablets every 8 hours as needed for breakthrough pain. CAD status post stent Hypertension Hyperlipidemia -Continue daily medication regimen with amlodipine 2.5 mg twice daily, atorvastatin 10 mg daily, losartan/hydrochlorothiazide 50-12.5 mg twice daily and metoprolol 12.5 mg daily. Anxiety and depression Continue Zoloft 150 mg daily and Valium 5 mg twice daily as needed for anxiety. Data and imaging reviewed: -Morning labs reviewed. CBC showing stable hemoglobin of 13.0. BMP revealed mild hypokalemia with potassium of 3.3 otherwise normal findings. Magnesium slightly low at 1.7. Liver profile unremarkable. -Vital signs reviewed. Blood pressure 161/87, heart rate 71, respiratory rate 16, temp 98.5 F, and SpO2 of 95% on room air. CODE STATUS: Full code DVT prophylaxis: Lovenox Anticipated discharge date: Pending clinical course Anticipated discharge place: Home Patient was seen independently by Nurse Practitioner. This document was prepared using [employer] dictation software. Please allow for errors in park manager while rare they do occur. I reviewed the documentation as provided by the KARIN above, who is the original author of this note. I agree with the documented assessment and plan, with the following changes: none Objective - Vital Signs Vital signs: Vital Signs Temp 98.5 F 02/14/24 07:54 Pulse 71 02/14/24 07:54 Resp 16 02/14/24 07:54 BP 161/87 02/14/24 07:54 Pulse Ox 95 02/14/24 07:54 FiO2 Intake & Output 02/13/24 02/14/24 02/14/24 18:59 06:59 18:59 Weight 45.359 kg Other: Voiding Method Toilet # Voids 3 2 # Bowel Movements 2 6 - Labs CBC & Chem 7: 02/14/24 06:49 02/14/24 06:49 Labs: Abnormal Lab Results - Last 24 Hours (Table) 02/13/24 02/14/24 Range/Units 08:54 06:49 Potassium 3.3 L (3.5-5.1) mmol/L BUN 6 L (7-17) mg/dL Stool Occult Blood Positive H (Negative) Microbiology - Last 24 Hours (Table) 02/12/24 12:26 Urine Culture - Preliminary Urine,Voided Gram Neg Bacilli
--- NOTE | 2024-02-14 19:59 | P.OP ---
Date of Procedure: 02/14/24 Preoperative Diagnosis: gi bleed Postoperative Diagnosis: lower gi bleed Procedure(s) Performed: EGD/Colonscopy Anesthesia: local Surgeon: Sushil Conti Pathology: none sent Condition: stable Disposition: floor Indications for Procedure: gi bleeding Operative Findings: diverticulosis Description of Procedure: Patient was brought to the operative suite where a timeout was performed and everyone agreed with the information recited. Next an adult sized olymposcope was then used to traverse the mouth, esophagus, stomach into the second portion of the duodenum. The scope was slowly retracted looking at the mucosa in a circumferential fashion. No ulcers or signs of gastritis were noticed in the antrum. The scope was retroflexed looking at the cardia of the stomch. No hiatal hernia was observed. The z line was inspected and no abnormalities were seen. The esophagus was inspected and was strictured in the distal 3rd and at the crycopharygeus muscle as well. The scope was retracted intact. The patient was repositioned and an adult sized olymposcope was used to traverse the anus, rectum, sigmoid colon, descending, transverse and ascending colon. The cecum was identified the appendiceal orifice. The scope was retracted looking at the mucosa in a circumferential. No masses were observed in the ascending, transverse, and descending colon. Multiple diverticulum was observed in the sigmoid colon but no signs of active bleeding. The scope was retracted out the rectum/anus intact. Scope retraction greater than 8 minutes. The patient was also placed in left lateral decubitus position. The patient was transferred to pacu in stable condition. Recommend repeat colonoscopy in 1 year as prep was moderately poor.
[2024-02-14 20:53] VITALS: PULSE 69
[2024-02-15 04:32] VITALS: TEMP 98.3
[2024-02-15 07:19] VITALS: BP 168/92; RESP 17
--- NOTE | 2024-02-15 10:07 | P.PN ---
Progress Note - Text Progress Note Date: 02/15/24 CHIEF COMPLAINT: GI Bleed HISTORY OF PRESENT ILLNESS: NAEO. No bleeding overnight. EGD/Colonoscopy performed 02/14/24 showed no active bleeding PHYSICAL EXAM: VITAL SIGNS: Reviewed. GENERAL: no acute distress. Abdomen: non-distended. Non-tender ASSESSMENT: 1. GI Bleed 2. EGD and Colonoscopy 02/14/24 showed no active bleeding PLAN: -Monitor Hgb. Hgb has remained stable -Regular Diet -No acute surgical intervention -OK for discharge from surgery standpoint Yves Zamorano DO [facility] [phone]
--- NOTE | 2024-02-15 16:18 | P.DS ---
Providers Date of admission: 02/12/24 13:51 Expected date of discharge: 02/15/24 Attending physician: Cornelio Bernal Consults: 02/12/24 17:21 Consult Physician Routine Consulting Provider: Betito Chavira Consult Reason/Comments: Pyelonephritis Do you want consulting provider notified?: Yes 02/13/24 14:08 Consult Physician Routine Consulting Provider: Jigar Garza Consult Reason/Comments: R/O GI bleed Do you want consulting provider notified?: Yes Primary care physician: [facility] Hospital Course: Discharge Diagnosis: Acute Pyelonephritis. Klebsiella pneumoniae UTI, discharged home on Ceftin 500 mg twice daily x 7 days due to need for antibiotic until removal of stent. Intractable nausea and vomiting, likely secondary to above High anion gap metabolic alkalosis, secondary to above Status post cystoscopy with right retrograde pyelogram and stent placement on 01/18/2024 GI Bleed, ruled out Hypokalemia, replaced. Chronic mid and lower back pain with history of multiple spinal surgeries CAD status post stent Hypertension Hyperlipidemia Anxiety and depression Hospital Course:: Patient is a very pleasant 73-year-old female with past medical history of CAD status post stent, hypertension, hyperlipidemia, osteoarthritis, and chronic back pain status post multiple spinal surgeries with fusions from T9-S1. She presented to the emergency department with a chief complaint of intractable nausea and vomiting x 3 days. Patient reports this has been accompanied by lightheadedness, increased weakness, decreased appetite, abdominal cramping and weight loss. Patient states she is not sure if this is from anxiety knowing that she has to go and get her ureteral stent removed on the or if something more is going on. She denies having any fevers, chills, headache, changes in vision or hearing, chest pain or palpitations, shortness of breath, cough or congestion, hematemesis, melena, hematochezia, urinary frequency/urgency/retention/hematuria/dysuria or any other complaints. She does report mild constipation over the past 3 days but states she has not eaten any food or been able to keep anything down. Patient recently hospitalized for similar complaints 01/17/2024 through 01/19/2024 and underwent cystoscopy with right retrograde pyelogram and stent placement on 01/18/2024 secondary to hydronephrosis from right kidney. Patient reports initially feeling great but over the past 3 days began feeling anxious over upcoming stent removal and this is when her intractable nausea and vomiting began. She states she has been taking Zofran and Compazine at home as well as Valium with attempts to control her vomiting but they have been unsuccessful. Upon arrival to our facility, patient underwent evaluation in the emergency department. Vital signs upon arrival show blood pressure 160/98, heart rate 84, respiratory rate 22, temp 98.3 F, and SpO2 of 97% on room air. Labs were completed and reviewed. CBC unremarkable. BMP showing high anion gap metabolic alkalosis with chloride of 97, bicarb of 28, and anion gap of 13. Glucose 130. Magnesium slightly low at 1.7. Liver profile unremarkable. Troponin negative at less than 0.012. Influenza A, influenza B, RSV, and COVID PCR negative. CT abdomen and pelvis without contrast was completed showing no evidence of acute intra-abdominal process showing right ureteral stent superior and inferior pigtails in appropriate position and mild colonic diverticulosis without reports of diverticulitis. Patient was given multiple medications in the emergency department to attempt to control nausea and vomiting, but patient continued with persistent nausea and vomiting and complaints of dizziness. She was admitted under our services observation unit. Urinalysis resulting positive for large leukocyte Estrace and nitrites. Patient started on IV antibiotics with Rocephin. Urology was consulted secondary to concerns of acute pyelonephritis with recent stent placement. During hospitalization patient also had greater than 3 g drop in hemoglobin followed by episode of dark gelatinous stools which was sent to lab with a fecal occult positive. Evaluated by general surgery and was taken for EGD and colonoscopy which were reported to be negative for acute findings of GI bleed. Hemoglobin stable and was likely low secondary to hemoconcentrated upon arrival. Patient's intractable nausea and vomiting subsided. Urine culture resulting positive for Klebsiella pneumoniae. Blood cultures showed no growth to date. Discussed with urologist clearing patient from their perspective for discharge on Ceftin 500 mg twice daily and to remain on antibiotic until stent removal. Patient to follow-up with PCP in 1 to 2 days and urologist on 02/20/2024. Physical exam: Vital signs reviewed and stable. General: Nontoxic, no distress and appears stated age. Derm: Skin warm and dry, normal coloration for ethnicity. Head: Atraumatic, normocephalic and symmetric. Eyes: EOM's intact, no lid lag, and anicteric sclera. Mouth: no lip lesions, mucus membranes moist. Cardiovascular: regular rate and rhythm with normal S1S2, no murmur, positive posterior tibial pulses bilaterally, and cap refill < 2 seconds. Lungs: Respirations even, regular, and unlabored on room air. Lungs CTA bilaterally, no rhonchi, no rales, no wheezing, and no accessory muscle usage. Abdominal: soft, nontender to palpation, no guarding, no appreciable organomegaly. Ext: ROM intact. No gross muscle atrophy, no edema, no contractures. Neuro: Speech clear, face symmetrical and CN II-XII grossly intact with no noted focal neuro deficits. Psych: Alert and oriented to person, place, time, and situation. Appropriate and pleasant affect. A total of 35 minutes of time were spent [facility] was discharged on 02/15/2024 at 9:40 AM Patient was seen independently by Nurse Practitioner. This document was prepared using [employer] dictation software. Please allow for errors in universal winding machine operator while rare they do occur. I reviewed the documentation as provided by the KARIN above, who is the original author of this note. I agree with the documented assessment and plan, with the following changes: none Patient Condition at Discharge: Stable Plan - Discharge Summary Discharge Rx Participant: No New Discharge Prescriptions: New Meclizine [Antivert] 25 mg PO TID #20 tab Metoclopramide [Reglan] 10 mg PO TID PRN #15 tab PRN Reason: Nausea cefUROXime axetiL [Ceftin] 500 mg PO BID 7 Days #14 tab Continue oxyCODONE-APAP 10-325MG [Percocet 10-325 mg] 1 tab PO TID PRN PRN Reason: Pain Rosuvastatin Calcium [Crestor] 5 mg PO DAILY Sertraline [Zoloft] 150 mg PO DAILY diazePAM [Valium] 5 mg PO BID PRN PRN Reason: Anxiety Metoprolol Succinate (ER) [Toprol XL] 12.5 mg PO DAILY fentaNYL 50MCG/HR PATCH [Duragesic 50MCG/HR] 1 patch TRANSDERM Q72H Magnesium Oxide [Magox 400] 400 mg PO DAILY Ondansetron [Zofran] 4 mg PO TID PRN PRN Reason: Nausea And Vomiting Prochlorperazine [Compazine] 10 mg PO Q6H PRN #30 tab PRN Reason: Nausea And Vomiting Cholecalciferol [Vitamin D3 (25 Mcg = 1000 Iu)] 50 mcg PO DAILY Calcium Carbonate 1,500 mg PO DAILY Losartan-Hctz 50-12.5 mg [Hyzaar 50-12.5] 1 tab PO BID valACYclovir HCL [Valtrex] 500 mg PO BID Discharge Medication List Rosuvastatin Calcium [Crestor] 5 mg PO DAILY 10/19/18 [History] Sertraline [Zoloft] 150 mg PO DAILY 10/19/18 [History] oxyCODONE-APAP 10-325MG [Percocet 10-325 mg] 1 tab PO TID PRN 10/19/18 [History] Cholecalciferol [Vitamin D3 (25 Mcg = 1000 Iu)] 50 mcg PO DAILY 12/05/21 [History] Metoprolol Succinate (ER) [Toprol XL] 12.5 mg PO DAILY 12/05/21 [History] diazePAM [Valium] 5 mg PO BID PRN 12/05/21 [History] Calcium Carbonate 1,500 mg PO DAILY 07/22/22 [History] fentaNYL 50MCG/HR PATCH [Duragesic 50MCG/HR] 1 patch TRANSDERM Q72H 07/22/22 [History] Losartan-Hctz 50-12.5 mg [Hyzaar 50-12.5] 1 tab PO BID 01/15/24 [History] Magnesium Oxide [Magox 400] 400 mg PO DAILY 01/15/24 [History] Ondansetron [Zofran] 4 mg PO TID PRN 01/15/24 [History] valACYclovir HCL [Valtrex] 500 mg PO BID 01/17/24 [History] Meclizine [Antivert] 25 mg PO TID #20 tab 02/12/24 [Rx] Metoclopramide [Reglan] 10 mg PO TID PRN #15 tab 02/12/24 [Rx] Prochlorperazine [Compazine] 10 mg PO Q6H PRN #30 tab 02/15/24 [Rx] cefUROXime axetiL [Ceftin] 500 mg PO BID 7 Days #14 tab 02/15/24 [Rx] Follow up Appointment(s)/Referral(s): Tal Almendarez MD [Primary Care Provider] - 1-2 days Patient Instructions/Handouts: Urinary Tract Infection in Women (DC), Kidney Infection (DC), Acute Nausea and Vomiting (ED) Activity/Diet/Wound Care/Special Instructions: Activity: As tolerated. Take breaks as needed. Diet: Heart healthy and carb consistent diet. Avoid salts, or foods with hidden salts such as canned or boxed foods and frozen dinners. Extra salt makes your heart work harder and traps the fluid in your body for longer. Special Instructions: Take all of your medications as directed and remember to keep all of your d octor's appointments and follow-up as needed. It is important to take your antibiotic as prescribed twice daily without missing any doses until after follow-up with your urologist (Dr. Chavira) and ureteral stent is removed. Thank you for allowing us to participate in your care, again it was truly a pleasure having you for my patient!!! Discharge Disposition: HOME SELF-CARE
== END 2024-02-15 11:21 | disposition home or self-care (01) ==
LOC: EC 06:28 → 1SOBS 13:51 → 6NMEDSUR 02-13 17:32
PROVIDERS: ADMIT Student in an Organized Health Care Education/Training Program; ATTEND Student in an Organized Health Care Education/Training Program
DX: N10 Acute pyelonephritis (principal); B96.1 Klebsiella pneumoniae [K. pneumoniae] as the cause of diseases classified elsewhere; R11.2 Nausea with vomiting, unspecified; E87.3 Alkalosis; E87.6 Hypokalemia; K22.2 Esophageal obstruction; K57.30 Diverticulosis of large intestine without perforation or abscess without bleeding; F43.0 Acute stress reaction; I25.10 Atherosclerotic heart disease of native coronary artery without angina pectoris; J44.9 Chronic obstructive pulmonary disease, unspecified; F41.1 Generalized anxiety disorder; I10 Essential (primary) hypertension; E78.5 Hyperlipidemia, unspecified; G89.29 Other chronic pain; M54.50 Low back pain, unspecified; F32.A Depression, unspecified; F17.200 Nicotine dependence, unspecified, uncomplicated; Z11.52 Encounter for screening for COVID-19; Z95.5 Presence of coronary angioplasty implant and graft; Z79.899 Other long term (current) drug therapy
CPT/HCPCS: 96376 ×2; 96361 ×3; 96365; 96366 ×3; 96367; 96372 ×2; 96375 ×2; 99285; 36415; 93005; 80053 ×3; 83690; 83735 ×3; 84484; 85025 ×3; 85027; 82272; 81001; 87040; 87324; 87086; 87077; 87186; 87636; 74176; 45378; 43235; G0378 ×4; J0780 ×2; J2765; J3250; J3360; J2405; J0696 ×4; J1650; J3475; J2704; J2470 ×2

== ENCOUNTER → 2024-03-28 | Outpatient (CLI) | payer MEDICARE ==
[2024-03-28 09:41] LABS: Appearance,Urine Cloudy (Clear); Color,Urine Colorless; PH, Urine 6.5 (5.0-8.0); Protein,Urine Negative (Negative); Specific Gravity,Urine 1.012 (1.001-1.035)
[2024-03-28 09:42] LABS: Bacteria,Urine Rare /hpf; Bilirubin,Urine Negative (Negative); Blood,Urine Negative (Negative); Glucose,Urine (UA) Negative (Negative); Ketones,Urine Negative (Negative); Leukocyte Esterase,Urine Large (Negative); Mucus,Urine Rare /hpf; Nitrite,Urine Positive (Negative); RBC,Urine 2 /hpf (0-5); Urobilinogen,Urine <2.0 mg/dL (<2.0); WBC,Urine 53 /hpf (0-5)
[2024-03-28 12:52] LABS: Basophils # (A) 0.02 X 10*3/uL (0.00-0.10); Basophils % (A) 0.4 %; Eosinophils % (A) 1.8 %; HCT 37.6 % (37.2-46.3); HGB 12.2 g/dL (12.0-15.0); Lymphocytes # (A) 1.69 X 10*3/uL (0.90-5.00); Lymphocytes % (A) 29.6 %; MCH 30.9 pg (27.0-32.0); MCHC 32.4 g/dL (32.0-37.0); MCV 95.2 FL (80.0-97.0); Mean Platelet Volume 9.8 FL (9.5-12.2); Monocytes # (A) 0.39 X 10*3/uL (0.20-1.00); Monocytes % (A) 6.8 %; NRBC Per 100 WBC 0 X 10*3/uL (0.00-0.01); Neutrophils # (A) 3.48 X 10*3/uL (1.80-7.70); Platelet Count 205 X 10*3/uL (140-440); RBC 3.95 X 10*6/uL (4.10-5.20); RDW 13.8 % (11.5-14.5)
[2024-03-28 13:07] LABS: BUN/Creat Ratio 28.86 Ratio (12.00-20.00); Blood Urea Nitrogen 20.2 mg/dL (9.0-27.0); Calcium 9.3 mg/dL (8.7-10.3); Carbon Dioxide 33.2 mmol/L (21.6-31.8); Chloride 103 mmol/L (96-109); Chol/HDL Ratio 2.94 Ratio; Glucose 103 mg/dL (70-110); LDL Cholesterol,Calculated 104.6 mg/dL (0.0-131.0); Potassium 4.8 mmol/L (3.5-5.5); Sodium 145 mmol/L (135-145); VLDL Calculation 16.14 mg/dL (5.00-40.00)
== END | disposition home or self-care (01) ==
LOC: LABPAT 07:56
PROVIDERS: ATTEND Urology
DX: Z01.812 Encounter for preprocedural laboratory examination (principal); N13.30 Unspecified hydronephrosis
CPT/HCPCS: 80048; 80061; 81001; 85025; 87077; 87086; 87186

== ENCOUNTER 2024-04-02 09:12 | Day surgery (SDC) | payer MEDICARE ==
--- NOTE | 2024-03-31 13:26 | P.HPIHPCON ---
History of Present Illness H&P Date: 03/31/24 Chief Complaint: Hydronephrosis This is a 73-year-old female with history of right-sided hydronephrosis, secondary to a crossing vessel. Option of a right-sided pyeloplasty was discussed with her. 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 Discussed with her the risk which includes but not limited to bleeding, infection, injury to nearby organs. Discussed also the potential of if there is injury into the renal blood vessel the potential of converting to a radical nephrectomy. Discussed also risk of obstruction recurrence. Discussed given her history of stent insertion her case is more complicated and there is potential if there is significant adhesions I may not be able to perform the procedure. Discussed we will proceed with right- sided ureteral catheter insertion prior to proceeding with a robotic portion, discussed this would allow me to distend the renal pelvis if needed she understood all the risk and agreed to proceed Consent for Procedure: I have explained the operation/procedure to the patient, including the risks, benefits, side effects, alternative therapies (including not receiving the proposed treatment or service), the likelihood of the patient achieving his/her goals, and potential recuperation problems for the procedure/sedation/analgesia, as well as any blood products, if indicated. I also explained to the patient the risks, benefits and side effects of the alternatives, as well as the risks related to not receiving the proposed procedure, care, treatment, or services. Past Medical History Past Medical History: Coronary Artery Disease (CAD), COPD, Osteoarthritis (OA), Respiratory Disorder Additional Past Medical History / Comment(s): having abd cramping intermittently, no apetite and 10lb wt loss, hx mild COPD, colitis,UTIs History of Any Multi-Drug Resistant Organisms: None Reported Past Surgical History: Back Surgery, Section, Ear Surgery, Heart Catheterization, Orthopedic Surgery, Tonsillectomy, Tubal Ligation Additional Past Surgical History / Comment(s): Right knee, x2, tubes in ears, lumbar fusion L2-S1, T9-L3 fusion october 08, right ureter stent placement Past Anesthesia/Blood Transfusion Reactions: No Reported Reaction Past Psychological History: Anxiety Smoking Status: Light tobacco smoker Past Alcohol Use History: None Reported Past Drug Use History: None Reported - Past Family History Son(s) Family Medical History: No Reported History Additional Family Medical History / Comment(s): autism Mother History Unknown: Yes Family Medical History: CVA/TIA Father Additional Family Medical History / Comment(s): suicide at 47 Brother(s) Additional Family Medical History / Comment(s): from alcohol and drug use. Sister(s) Family Medical History: Hypertension Medications and Allergies Home Medications Medication Instructions Recorded Confirmed Type Rosuvastatin Calcium [Crestor] 5 mg PO DAILY 10/19/18 02/12/24 History Sertraline [Zoloft] 150 mg PO DAILY 10/19/18 02/12/24 History oxyCODONE-APAP 10-325MG [Percocet 1 tab PO TID PRN 10/19/18 02/12/24 History 10-325 mg] Cholecalciferol [Vitamin D3 (25 50 mcg PO DAILY 12/05/21 02/12/24 History Mcg = 1000 Iu)] Metoprolol Succinate (ER) [Toprol 12.5 mg PO DAILY 12/05/21 02/12/24 History XL] diazePAM [Valium] 5 mg PO BID PRN 12/05/21 02/12/24 History Calcium Carbonate 1,500 mg PO DAILY 07/22/22 02/12/24 History fentaNYL 50MCG/HR PATCH [Duragesic 1 patch TRANSDERM Q72H 07/22/22 02/12/24 History 50MCG/HR] Losartan-Hctz 50-12.5 mg [Hyzaar 1 tab PO BID 01/15/24 02/12/24 History 50-12.5] Magnesium Oxide [Magox 400] 400 mg PO DAILY 01/15/24 02/12/24 History Ondansetron [Zofran] 4 mg PO TID PRN 01/15/24 02/12/24 History valACYclovir HCL [Valtrex] 500 mg PO BID 01/17/24 02/12/24 History Meclizine [Antivert] 25 mg PO TID #20 tab 02/12/24 Rx Metoclopramide [Reglan] 10 mg PO TID PRN #15 tab 02/12/24 Rx Prochlorperazine [Compazine] 10 mg PO Q6H PRN #30 tab 02/15/24 Rx cefuroxime axetiL [Ceftin] 500 mg PO BID 7 Days #14 tab 02/15/24 Rx Allergies Allergy/AdvReac Type Severity Reaction Status Date / Time No Known Allergies Allergy Verified 02/12/24 11:29 Surgical - Exam - General no distress, no pain - Eyes normal ocular movement, no pale - ENT normal nares, normal mucosa - Respiratory normal expansion, normal respiratory effort - Abdomen Abdomen: soft, non tender Assessment and Plan Assessment: OR for right-sided robotic pyeloplasty, with right sided ureteral catheterization
[2024-04-01 10:43] VITALS: BMI 19.7
[~2024-04-02 09:12] MED LIST changes: -LIDOCAINE 2% INJ 20 MG/ML (2 ML VIAL) ONE; +MIDAZOLAM 2 MG/2 ML VIAL IV PRN; -PROPOFOL 10 MG/ML 20 ML VIAL IV ONE; +fentaNYL (PF) 50 MCG/ML 2 ML AMP IVP PRN
[2024-04-02] MEDS: IV FLUID CONTINUATION 1,000 ML IV ONE ×3 (09:46→10:02)
[2024-04-02] MEDS: DEXAMETHASONE SOD PHOSPHATE 4 MG/ML 1 ML VIAL IV ONE (10:06)
[2024-04-02] MEDS: LACTATED RINGERS 1,000 ML IV SCH (10:06)
[2024-04-02] MEDS: ONDANSETRON 4 MG/2 ML VIAL IVP ONE (10:07)
[2024-04-02] MEDS ORDERED: LIDOCAINE 1% INJ 10MG/ML (20 ML MDV) ONE (11:26)
[2024-04-02] MEDS ORDERED: HYDROmorphone (PF) 1 MG/ML ONE (11:26)
[2024-04-02] MEDS ORDERED: GLYCOPYRROLATE 0.2 MG/ML 2 ML VIAL ONE (11:26)
[2024-04-02] MEDS ORDERED: fentaNYL (PF) 50 MCG/ML 2 ML AMP ONE (11:26)
[2024-04-02] MEDS ORDERED: ROCURONIUM 10 MG/ML (5 ML VIAL) IV ONE (11:26)
[2024-04-02] MEDS ORDERED: MIDAZOLAM 2 MG/2 ML VIAL ONE (11:26)
[2024-04-02] MEDS ORDERED: PROPOFOL 10 MG/ML 20 ML VIAL IV ONE (11:26)
[2024-04-02] MEDS ORDERED: INDOCYANINE GREEN 25 MG VIAL IV ONE (11:26)
[2024-04-02] MEDS ORDERED: SUCCINYLCHOLINE CHLORIDE 200 MG/10 ML VIAL IV ONE (11:26)
[2024-04-02] MEDS ORDERED: hydrALAZINE HCL 20 MG/ML 1 ML VIAL ONE (11:26)
[2024-04-02] MEDS ORDERED: ePHEDrine 50 MG/ML 1 ML VIAL ONE (11:26)
[2024-04-02] MEDS ORDERED: NEOSTIGMINE 1 MG/ML 10 ML VIAL ONE (11:26)
[2024-04-02] MEDS: BUPIVACAINE (PF) 0.25% 30 ML VIAL SQ ONE (12:37)
[2024-04-02] MEDS ORDERED: diazePAM 5 MG TAB PO PRN (15:08)
[2024-04-02] MEDS ORDERED: PROCHLORPERAZINE 10 MG TAB PO PRN (15:08)
--- NOTE | 2024-04-02 15:18 | P.OP ---
Date of Procedure: 04/02/24 Preoperative Diagnosis: Right hydronephrosis Postoperative Diagnosis: Same Procedure(s) Performed: Robotic assisted laparoscopic right-sided pyeloplasty, stent exchange, right ureter catheterization Implants: 6 [place] by 24 cm stent in the right ureter Anesthesia: BRONWYN Surgeon: Betito Chavira Estimated Blood Loss (ml): 150 Pathology: other (right UPJ) Condition: stable Disposition: PACU Indications for Procedure: This is a 73-year-old female with history of right-sided hydronephrosis, secondary to a crossing vessel. Option of a right-sided pyeloplasty was discussed with her. 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 Discussed with her the risk which includes but not limited to bleeding, infection, injury to nearby organs. Discussed also the potential of if there is injury into the renal blood vessel the potential of converting to a radical nephrectomy. Discussed also risk of obstruction recurrence. Discussed given her history of stent insertion her case is more complicated and there is potential if there is significant adhesions I may not be able to perform the procedure. Discussed we will proceed with right- sided ureteral catheter insertion prior to proceeding with a robotic portion, discussed this would allow me to distend the renal pelvis if needed she understood all the risk and agreed to proceed Description of Procedure: The patient was taken to the operating room . General anesthesia was induced. She was prepped and draped in sterile fashion and placed in a frog-leg position on the OR table. At this time a cystoscope with a 22 [place] sheath was inserted per urethra, the stent was visualized protruding from the right ureteral orifice this was grasped and removed to the meatus. Next a sensor wire was advanced through the stent and the stent was removed with the wire in place. Next a 7 [place] balloon including catheter was passed over the wire and into the proximal ureter. A 16 [place] Duffy was placed. she was placed in modified flank position . All pressure points were padded. At this point a Veress needle was placed in the right upper quadrant, upon insertion of the Veress needle and aspiration small amount of blood was noticed, at this point more inferiorly a 5 mm port was advanced under vision into the peritoneal cavity and insufflation was obtained. Under fluoroscopy it was observed that the Veress needle poked the liver. There was minimal amount of bleeding, no active bleeding was appreciated, no other injuries were appreciated. Of note the patient had significant hepatomegaly, I was unable to completely visualize the kidney secondary to the hepatomegaly. At this point the remaining robotic trocars were placed A 8 mm camera port was placed. Robotic trocars and 5mm educational program assistant ports were placed under direct vision. An additional 5 mm liver retractor was also placed and the liver was retracted off of the kidney. Surgicel was applied over the liver. The robot was docked into place. The colon was mobilized medially by incising along the white line of Toldt. At this time the gonadal vessel was visualized. Once the gonadal vessel and ureter was visualized , next after the psoas plane was developed the ureter awas retracted anteriorly off the psoas muscle. Ureter was retracted and dissected all the way up to the renal pelvis, of note there was significant fibrosis involving the proximal ureter and the UPJ which was dissected off, in addition to the ureter was highly inserting into the kidney, there was no crossing vessel visualized at this point given the high insertion decision was made to perform a dismembered pyeloplasty, the ureter was incised and at this point the kidney and the ureter were disconnected. Next the ureter was spatulated, the ureteral renal pelvis anastomosis was performed using 4-0 V-Loc in running fashion. Lindstrom through the anastomosis, at this point a 14-gauge Angiocath was placed through the abdominal wall, and a sensor wire was advanced through the Angiocath and down into the ureter. Next a ureteral stent was passed over the wire. The proximal curl of the stent was situated in the renal pelvis, the anastomosis was completed at this point the liver retractor was removed. A 10 [place] flat MEGAN was placed through the left lower quadrant incision. At this point the robot was undocked, all skin incisions were closed with 4-0 Monocryl. The MEGAN drain was secured with 3-0 silk patient tolerated procedure well was taken to recovery in stable condition
[2024-04-02] MEDS: HYDROmorphone 0.5 MG/0.5 ML SYRINGE IVP PRN (15:23)
[2024-04-02] MEDS: KETOROLAC 15 MG/ML 1 ML VIAL IVP SCH (17:39)
[2024-04-02] MEDS: HEPARIN SODIUM,PORCINE 5,000 UNIT/ML 1 ML VIAL SQ SCH (17:40)
[2024-04-02] MEDS: oxyCODONE-APAP 10-325MG 1 EACH TAB PO PRN (20:29)
[2024-04-02] MEDS: CIPROFLOXACIN HCL 500 MG TAB PO SCH (20:30)
[2024-04-02] MEDS: LOSARTAN-HCTZ 50-12.5 MG 1 EACH TAB PO SCH (21:36)
[2024-04-02] MEDS: D5-0.45% NACL WITH KCL 20MEQ/L 1,000 ML IV SCH (23:53)
[2024-04-03 07:42] VITALS: BP 104/60; PULSE 89; RESP 18; TEMP 97.8
[2024-04-03] MEDS: HYDROmorphone 1 MG/ML 1 ML SYRINGE IVP PRN (08:30)
[2024-04-03 08:41] LABS: Basophils # (A) 0.02 X 10*3/uL (0.00-0.10); Basophils % (A) 0.3 %; Eosinophils # (A) 0.02 X 10*3/uL (0.04-0.35); Eosinophils % (A) 0.3 %; HCT 31.8 % (37.2-46.3); HGB 10.3 g/dL (12.0-15.0); Lymphocytes % (A) 26.1 %; MCH 31.2 pg (27.0-32.0); MCHC 32.4 g/dL (32.0-37.0); MCV 96.4 FL (80.0-97.0); Mean Platelet Volume 10.7 FL (9.5-12.2); Monocytes # (A) 0.49 X 10*3/uL (0.20-1.00); Monocytes % (A) 7.1 %; NRBC Per 100 WBC 0 X 10*3/uL (0.00-0.01); Neutrophils # (A) 4.56 X 10*3/uL (1.80-7.70); Neutrophils % (A) 66.1 %; Platelet Count 214 X 10*3/uL (140-440); RDW 14.2 % (11.5-14.5)
[2024-04-03] MEDS: SERTRALINE 50 MG TAB PO SCH (09:18)
[2024-04-03] MEDS: ATORVASTATIN 10 MG TAB PO SCH (09:18)
[2024-04-03] MEDS: DOCUSATE 100 MG CAP PO SCH (09:18)
[2024-04-03] MEDS: MAGNESIUM OXIDE 400 MG TAB PO SCH (09:19)
[2024-04-03] MEDS: CALCIUM CARBONATE 500 MG CHEWABLE PO SCH (09:19)
[2024-04-03] MEDS: METOPROLOL SUCCINATE (ER) 25 MG TAB.ER.24H PO SCH (09:21)
[2024-04-03] MEDS: ONDANSETRON 4 MG/2 ML VIAL IVP PRN (10:08)
--- NOTE | 2024-04-03 12:12 | P.DS ---
Providers Attending physician: Betito Chavira MD Primary care physician: [facility] Hospital Course: This is a 73-year-old female with history of UPJ obstruction. She underwent a robotic pyeloplasty on April 02. Please see updated note dated April 02 for surgery details. She was admitted to the hospital postoperatively. Duffy catheter and MEGAN drain were removed on postop day #1 she was discharged home on postop day #1, at time of discharge she was tolerating a diet, ambulating, and pain was controlled Plan - Discharge Summary Discharge Rx Participant: No New Discharge Prescriptions: No Action oxyCODONE-APAP 10-325MG [Percocet 10-325 mg] 1 tab PO TID PRN PRN Reason: Pain Rosuvastatin Calcium [Crestor] 5 mg PO DAILY Sertraline [Zoloft] 150 mg PO QAM diazePAM [Valium] 5 mg PO BID PRN PRN Reason: Anxiety Metoprolol Succinate (ER) [Toprol XL] 12.5 mg PO QAM fentaNYL 50MCG/HR PATCH [Duragesic 50MCG/HR] 1 patch TRANSDERM Q72H Magnesium Oxide [Magox 400] 400 mg PO DAILY Prochlorperazine [Compazine] 10 mg PO Q6H PRN #30 tab PRN Reason: Nausea And Vomiting Cholecalciferol [Vitamin D3 (25 Mcg = 1000 Iu)] 50 mcg PO DAILY Calcium Carbonate 1,500 mg PO DAILY Losartan-Hctz 50-12.5 mg [Hyzaar 50-12.5] 1 tab PO BID valACYclovir HCL [Valtrex] 500 mg PO BID PRN PRN Reason: hx HSV Ciprofloxacin HCl [Cipro] 500 mg PO Q12HR Docusate [Colace] 100 mg PO DAILY Aspirin 81 mg PO DAILY Discharge Medication List Rosuvastatin Calcium [Crestor] 5 mg PO DAILY 10/19/18 [History] Sertraline [Zoloft] 150 mg PO QAM 10/19/18 [History] oxyCODONE-APAP 10-325MG [Percocet 10-325 mg] 1 tab PO TID PRN 10/19/18 [History] Cholecalciferol [Vitamin D3 (25 Mcg = 1000 Iu)] 50 mcg PO DAILY 12/05/21 [History] Metoprolol Succinate (ER) [Toprol XL] 12.5 mg PO QAM 12/05/21 [History] diazePAM [Valium] 5 mg PO BID PRN 12/05/21 [History] Calcium Carbonate 1,500 mg PO DAILY 07/22/22 [History] fentaNYL 50MCG/HR PATCH [Duragesic 50MCG/HR] 1 patch TRANSDERM Q72H 07/22/22 [History] Losartan-Hctz 50-12.5 mg [Hyzaar 50-12.5] 1 tab PO BID 01/15/24 [History] Magnesium Oxide [Magox 400] 400 mg PO DAILY 01/15/24 [History] valACYclovir HCL [Valtrex] 500 mg PO BID PRN 01/17/24 [History] Prochlorperazine [Compazine] 10 mg PO Q6H PRN #30 tab 02/15/24 [Rx] Aspirin 81 mg PO DAILY 04/01/24 [History] Ciprofloxacin HCl [Cipro] 500 mg PO Q12HR 04/01/24 [History] Docusate [Colace] 100 mg PO DAILY 04/01/24 [History] Activity/Diet/Wound Care/Special Instructions: No heavy lifting or straining for 4 weeks It is normal to have blood in the urine
== END 2024-04-03 14:02 ==
LOC: OR 09:12 → 4FBP 14:48 → 4SSUR 14:48 → OR 04-03 14:02
PROVIDERS: ATTEND Urology
DX: N13.30 Unspecified hydronephrosis (principal); I25.10 Atherosclerotic heart disease of native coronary artery without angina pectoris; J44.9 Chronic obstructive pulmonary disease, unspecified; M19.90 Unspecified osteoarthritis, unspecified site; Z90.89 Acquired absence of other organs; Z98.51 Tubal ligation status; Z82.3 Family history of stroke; Z87.891 Personal history of nicotine dependence; Z82.49 Family history of ischemic heart disease and other diseases of the circulatory system; Z79.624 Long term (current) use of inhibitors of nucleotide synthesis
CPT/HCPCS: 52332; 85025; C2625; C2628; C1769; J1644 ×2; J1100; J2405 ×2; J0690; J1171 ×2; J1885 ×2; J0665; 88305

== ENCOUNTER → 2024-07-28 | Outpatient (CLI) | payer MEDICARE ==
[~2024-07-28] MED LIST changes: +FUROSEMIDE 10 MG/ML 2 ML VIAL IV ONE; -LIDOCAINE 1% (10MG/ML) FOR IV START INTRADERMA PRN; -MIDAZOLAM 2 MG/2 ML VIAL IV PRN; -fentaNYL (PF) 50 MCG/ML 2 ML AMP IVP PRN
--- NOTE | 2024-07-28 14:31 | NM ---
EXAMINATION TYPE: NM lasix renogram DATE OF EXAM: 07/28/2024 COMPARISON: CT CLINICAL INDICATION: Female, 73 years old with history of N13.30 UNSPECIFIED HYDRONEPHROSIS; Following administration of 10.2 mCi Tc 99m MAG3 with 20mg Lasix. Immediate images post injection FINDINGS: Left: 49 %. Right: 51 %. Max renal flow left: 3.5 minutes. Max renal flow right: 9 minutes. Satisfactory accumulation of radiotracer within both renal collecting systems. After the administrati on of Lasix, there is prompt excretion from both collecting systems. T 1/2 left: 19.9 minutes minutes. T 1/2 right: 29.1 minutes minutes. IMPRESSION: Slight asymmetric decreased left renal function with dilated nonobstructing collecting systems bilate rally. [facility], , 07/28/2024 2:29 PM
== END | disposition home or self-care (01) ==
LOC: RADNMMAIN 11:52
PROVIDERS: ATTEND Urology
DX: N13.30 Unspecified hydronephrosis (principal); N28.89 Other specified disorders of kidney and ureter
CPT/HCPCS: 78708; A9562

== ENCOUNTER 2024-08-27 23:35 | Inpatient (IN) | payer MEDICARE ==
[2024-08-28 00:25] LABS: Glucose,Whole Blood 102 mg/dL (70-110)
[2024-08-28] MEDS: ONDANSETRON 4 MG/2 ML VIAL IVP STA (00:49)
[2024-08-28] MEDS: LACTATED RINGERS 1,000 ML IV ONE (00:52)
[2024-08-28] MEDS: ACETAMINOPHEN IV (For NPO) 1,000 MG in EMPTY BAG 1 BAG IVPB STA (00:53)
[2024-08-28 01:17] LABS: Basophils # (A) 0.03 10*3/uL (0.00-0.10); Basophils % (A) 0.3 %; Eosinophils # (A) 0.01 10*3/uL (0.04-0.35); Eosinophils % (A) 0.1 %; HCT 36.3 % (37.2-46.3); HGB 12.8 g/dL (12.0-15.0); Lymphocytes % (A) 2.6 %; MCH 30.9 pg (27.0-32.0); MCHC 35.3 g/dL (32.0-37.0); MCV 87.7 fL (80.0-97.0); Mean Platelet Volume 9.7 fL (9.5-12.2); Monocytes # (A) 0.29 10*3/uL (0.20-1.00); Monocytes % (A) 2.5 %; Neutrophils # (A) 10.72 10*3/uL (1.80-7.70); Neutrophils % (A) 94.1 %; Platelet Count 194 10*3/uL (140-440); RBC 4.14 10*6/uL (4.10-5.20); RDW 14.4 % (11.5-14.5); WBC 11.39 10*3/uL (4.50-10.00)
--- NOTE | 2024-08-28 01:24 | ED ---
General Adult HPI - General Source: patient Mode of arrival: ambulatory Limitations: no limitations <Gayle Yeh - Last Filed: 08/28/24 04:19> <Zulema Paulino - Last Filed: 08/29/24 08:28> - General Chief complaint: Nausea/Vomiting/Diarrhea Stated complaint: NVD Time Seen by Provider: 08/27/24 23:50 - History of Present Illness Initial comments: 73-year-old female brought in by her with chief complaint of altered mental status. reports that throughout the day the patient seemed to be quite tired but otherwise was acting herself. He states that she went to bed a bit earlier tonight because she was feeling so tired around 8:15 PM. Around an hour prior to arrival states the patient woke up coughing and gagging on phlegm. She was very confused and very weak. 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 He also states that she felt very warm, however she refused to take any medication for her suspected fever at home. Patient is complaining of nausea. She is nodding off in conversation and speaking with limited words. She is able to tell me her name, where she is, and who the president is. Cannot answer what year it is. When asked if she is having abdominal pain she responds with "a little" but is unable to give me more details. (Gayle Yeh) - Related Data Home Medications Medication Instructions Recorded Confirmed Rosuvastatin Calcium [Crestor] 5 mg PO DAILY 10/19/18 08/28/24 Sertraline [Zoloft] 150 mg PO QAM 10/19/18 08/28/24 oxyCODONE-APAP 10-325MG [Percocet 1 tab PO TID PRN 10/19/18 08/28/24 10-325 mg] Cholecalciferol [Vitamin D3 (25 50 mcg PO DAILY 12/05/21 08/28/24 Mcg = 1000 Iu)] Metoprolol Succinate (ER) [Toprol 12.5 mg PO QAM 12/05/21 08/28/24 XL] Calcium Carbonate 1,500 mg PO DAILY 07/22/22 08/28/24 fentaNYL 50MCG/HR PATCH [Duragesic 1 patch TRANSDERM Q72H 07/22/22 08/28/24 50MCG/HR] Losartan-Hctz 50-12.5 mg [Hyzaar 1 tab PO BID 01/15/24 08/28/24 50-12.5] Magnesium Oxide [Magox 400] 400 mg PO HS 01/15/24 08/28/24 Aspirin 81 mg PO DAILY 04/01/24 08/28/24 Docusate [Colace] 100 mg PO DAILY 04/01/24 08/28/24 Omeprazole [PriLOSEC] 20 mg PO DAILY 06/18/24 08/28/24 diazePAM [Valium] 5 mg PO BID PRN 08/28/24 08/28/24 Allergies Allergy/AdvReac Type Severity Reaction Status Date / Time No Known Allergies Allergy Verified 08/28/24 07:51 Review of Systems ROS Other: All systems not noted in ROS Statement are negative. <Gayle Yeh - Last Filed: 08/28/24 04:19> ROS Other: All systems not noted in ROS Statement are negative. <Zulema Paulino - Last Filed: 08/29/24 08:28> ROS Statement: Those systems with pertinent positive or pertinent negative responses have been documented in the HPI. Past Medical History Past Medical History: Coronary Artery Disease (CAD), COPD, Osteoarthritis (OA), Respiratory Disorder Additional Past Medical History / Comment(s): having abd cramping intermittently, no apetite and 10lb wt loss, hx mild COPD, colitis,UTIs History of Any Multi-Drug Resistant Organisms: None Reported Past Surgical History: Back Surgery, Section, Ear Surgery, Heart Catheterization, Orthopedic Surgery, Tonsillectomy, Tubal Ligation Additional Past Surgical History / Comment(s): Right knee, x2, tubes in ears, lumbar fusion L2-S1, T9-L3 fusion october 08, right ureter stent placement Past Anesthesia/Blood Transfusion Reactions: No Reported Reaction Past Psychological History: Anxiety Smoking Status: Light tobacco smoker Past Alcohol Use History: None Reported Past Drug Use History: None Reported - Past Family History Son(s) Family Medical History: No Reported History Additional Family Medical History / Comment(s): autism Mother History Unknown: Yes Family Medical History: CVA/TIA Father Additional Family Medical History / Comment(s): suicide at 47 Brother(s) Additional Family Medical History / Comment(s): from alcohol and drug use. Sister(s) Family Medical History: Hypertension <Gayle Yeh - Last Filed: 08/28/24 04:19> General Exam Limitations: no limitations General appearance: lethargic, obtunded Head exam: Present: atraumatic, normocephalic Eye exam: Absent: periorbital swelling Neck exam: Present: normal inspection. Absent: meningismus Respiratory exam: Present: normal lung sounds bilaterally. Absent: respiratory distress, wheezes, rales, rhonchi, stridor Cardiovascular Exam: Present: regular rate, normal rhythm, normal heart sounds. Absent: systolic murmur, diastolic murmur, rubs, gallop, clicks GI/Abdominal exam: Present: soft. Absent: distended, tenderness, guarding, rebound, rigid Neurological exam: Present: alert, altered Expanded Eye Response: (3) open to voice Motor Response: (6) obeys commands Verbal Response: (4) confused conversation Skin exam: Present: warm, dry <Gayle Yeh - Last Filed: 08/28/24 04:19> Course Vital Signs 08/27/24 08/28/24 08/28/24 23:36 00:13 01:44 Temperature 100.4 F H 100.2 F H 98.9 F Pulse Rate 86 82 76 Respiratory 12 18 20 Rate Blood Pressure 130/73 122/73 92/46 O2 Sat by Pulse 91 L 91 L 95 Oximetry 08/28/24 08/28/24 08/28/24 02:22 02:38 03:00 Temperature 100.7 F H Pulse Rate 76 75 65 Respiratory 20 Rate Blood Pressure 89/60 101/57 92/49 O2 Sat by Pulse 95 95 Oximetry 08/28/24 08/28/24 08/28/24 04:00 04:28 05:20 Temperature 98.9 F Pulse Rate 63 60 Respiratory 20 Rate Blood Pressure 86/52 90/45 90/52 O2 Sat by Pulse 97 96 Oximetry 08/28/24 08/28/24 08/28/24 06:15 08:02 11:28 Temperature 97.9 F 97.8 F Pulse Rate 61 62 61 Respiratory 16 16 18 Rate Blood Pressure 104/53 122/66 111/58 O2 Sat by Pulse 98 98 98 Oximetry 08/28/24 08/28/24 12:41 14:01 Temperature 98.6 F 98.6 F Pulse Rate 60 64 Respiratory 18 Rate Blood Pressure 100/52 115/65 O2 Sat by Pulse 97 98 Oximetry Medical Decision Making - Lab Data Result diagrams: 08/28/24 00:57 08/28/24 00:57 <Gayle Yeh - Last Filed: 08/28/24 04:19> - Lab Data Result diagrams: 08/29/24 06:05 08/29/24 06:05 <LoraZulema A - Last Filed: 08/29/24 08:28> - Medical Decision Making 73-year-old female presenting with altered mental status and fever, she is brought in by her who states that the symptoms started abruptly this evening. History and physical examination are conducted. Patient is A&O x 3 though slow to respond and answers in incomplete sentences. She is febrile upon arrival. She is started on Ofirmev and 2 L fluid bolus lactated Ringer's. White count 11.39. Potassium 2.9, patient is receiving IV potassium. Urine is positive for UTI with positive nitrites moderate blood and large leukocytes. Postvoid residual ranges from 160-200, Duffy catheter is ordered. She is negative for influenza, RSV, COVID. Brain CT shows no acute process. Patient did become hypotensive, however with fluids going we are maintaining a MAP above 60. Patient is receiving 2 g of Rocephin for her UTI. She is more awake and alert and talking to me more. She will be admitted for UTI with sepsis. is agreeable with this plan. I discussed this case with my attending Dr. Paulino (Gayle Yeh) Was pt. sent in by a medical professional or institution (, PA, FAMILY SPECIALIST, urgent ca re, hospital, or [facility]...) When possible be specific @ -No Did you speak to anyone other than the patient for history (EMS, parent, family, police, friend...)? What history was obtained from this source @ -Spoke with for history Did you review nursing and triage notes (agree or disagree)? Why? @ -I reviewed and agree with nursing and triage notes Were old charts reviewed (outside hosp., previous admission, EMS record, old EKG, old radiological studies, urgent care reports/EKG's, mcc records)? Report findings @ -No old charts were reviewed Differential Diagnosis (chest pain, altered mental status, abdominal pain women, abdominal pain men, vaginal bleeding, weakness, fever, dyspnea, syncope, headache, dizziness, GI bleed, back pain, seizure, CVA, palpatations, mental health, musculoskeletal)? @ -Differential Altered Mental Status: Hypoglycemia, DKA, hypercapnia, ETOH, overdose, CO poisoning, trauma, myxedema coma, HTN encephalopathy, infection, encephalitis, psychosis, intercranial hemorrhage, hepatic encephalopathy, meningitis, CVA, this is not meant to be an all-inclusive list EKG interpreted by me (3pts min.). @ -Please see midlevel note X-rays interpreted by me (1pt min.). @ -Yes which demonstrates pleural effusion with atelectasis versus infiltrate CT interpreted by me (1pt min.). @ -Yes which demonstrates dilated renal pelvis U/S interpreted by me (1pt. min.). @ -None done What testing was considered but not performed or refused? (CT, X-rays, U/S, labs)? Why? @ -None What meds were considered but not given or refused? Why? @ -None Did you discuss the management of the patient with other professionals (professionals i.e. , PA, FAMILY SPECIALIST, lab, RT, psych nurse, social secretary, line up examiner, teacher, biosecurity officer, top case assembler)? Give summary @ -Spoke with Dr. Shetty for admission Was smoking cessation discussed for >3mins.? @ -No Was critical care preformed (if so, how long)? @ -No Were there social determinants of health that impacted care today? How? (Homelessness, low income, unemployed, alcoholism, drug addiction, transportat ion, low edu. Level, literacy, decrease access to med. care, residential, rehab)? @ -No Was there de-escalation of care discussed even if they declined (Discuss DNR or withdrawal of care, Hospice)? DNR status @ -No What co-morbidities impacted this encounter? (DM, HTN, Smoking, COPD, CAD, Cancer, CVA, ARF, Chemo, Hep., AIDS, mental health diagnosis, sleep apnea, morbid obesity)? @ -None Was patient admitted / discharged? Hospital course, mention meds given and route, prescriptions, significant lab abnormalities, going to OR and other pertinent info. @ -Upon arrival patient seen and evaluated in bed 15. She was taken care of by the midlevel provider. I evaluate the patient myself as well. She did receive antipyretics and Rocephin. Previous urine cultures demonstrate resistance and therefore I did order Levaquin. Patient does have improvement in her blood pressure and her mental status. She will be admitted. Spoke with Dr. Shetty for the admission. I will place Dr. Chavira on consult due to the dilated renal pelvis with known history of ureteral surgery. Undiagnosed new problem with uncertain prognosis? @ -No Drug Therapy requiring intensive monitoring for toxicity (Heparin, Nitro, Insulin, Cardizem)? @ -No Were any procedures done? @ -No Diagnosis/symptom? @ -Acute encephalopathy, acute pyrexia UTI, possible community-acquired pneumonia, hypokalemia Acute, or Chronic, or Acute on Chronic? @ -Acute Uncomplicated (without systemic symptoms) or Complicated (systemic symptoms)? @ -Complicated Side effects of treatment? @ -Allergic reaction Exacerbation, Progression, or Severe Exacerbation? @ -No Poses a threat to life or bodily function? How? (Chest pain, [place], [place], pneumonia, PE, COPD, DKA, ARF, appy, cholecystitis, CVA, Diverticulitis, Homicidal, Suicidal, threat to staff... and all critical care pts) @ -Yes as patient was significantly altered at onset (Zulema Paulino) - Lab Data Lab Results 08/28/24 08/28/24 08/28/24 Range/Units 00:23 00:57 00:57 WBC 11.39 H (4.50-10.00) 10*3/uL RBC 4.14 (4.10-5.20) 10*6/uL Hgb 12.8 (12.0-15.0) g/dL Hct 36.3 L (37.2-46.3) % MCV 87.7 (80.0-97.0) fL MCH 30.9 (27.0-32.0) pg MCHC 35.3 (32.0-37.0) g/dL Plt Count 194 (140-440) 10*3/uL MPV 9.7 (9.5-12.2) fL Immature Gran % (Auto) 0.4 % Neutrophils % 94.1 % Lymphocytes % 2.6 % Monocytes % 2.5 % Eosinophils % 0.1 % Basophils % 0.3 % Immature Gran # 0.04 (0.00-0.04) 10*3/uL Neutrophils # 10.72 H (1.80-7.70) 10*3/uL Lymphocytes # 0.30 L (0.90-5.00) 10*3/uL Monocytes # 0.29 (0.20-1.00) 10*3/uL Eosinophils # 0.01 L (0.04-0.35) 10*3/uL Basophils # 0.03 (0.00-0.10) 10*3/uL Sodium 139 (137-145) mmol/L Potassium 2.9 L (3.5-5.1) mmol/L Chloride 98 (98-107) mmol/L Carbon Dioxide 33 H (22-30) mmol/L Anion Gap 8 mmol/L BUN 27 H (7-17) mg/dL Creatinine 0.81 (0.52-1.04) mg/dL Est GFR (CKD-EPI)AfAm 85 (>60 ml/min/1.73 sqM) Est GFR (CKD-EPI)NonAf 74 (>60 ml/min/1.73 sqM) Glucose 100 H (74-99) mg/dL POC Glucose (mg/dL) 102 (70-110) mg/dL POC Glu Fishing Instructor ID SELIMOVIC BAILEY Plasma Lactic Acid Zi (0.7-2.0) mmol/L Calcium 9.7 (8.4-10.2) mg/dL Magnesium 1.6 (1.6-2.3) mg/dL Total Bilirubin 0.5 (0.2-1.3) mg/dL AST 23 (14-36) U/L ALT 14 (4-34) U/L Alkaline Phosphatase 83 (38-126) U/L Total Protein 6.6 (6.3-8.2) g/dL Albumin 4.3 (3.5-5.0) g/dL Urine Color Urine Appearance (Clear) Urine pH (5.0-8.0) Ur Specific [place] (1.001-1.035) Urine Protein (Negative) Urine Glucose (UA) (Negative) Urine Ketones (Negative) Urine Blood (Negative) Urine Nitrite (Negative) Urine Bilirubin (Negative) Urine Urobilinogen (<2.0) mg/dL Ur Leukocyte Esterase (Negative) Urine RBC (0-5) /hpf Urine WBC (0-5) /hpf Urine Bacteria (None) /hpf Urine Mucus (None) /hpf Influenza Type A (PCR) (Not Detectd) Influenza Type B (PCR) (Not Detectd) RSV (PCR) (Not Detectd) SARS-CoV-2 (PCR) (Not Detectd) 08/28/24 08/28/24 08/28/24 Range/Units 00:57 00:57 02:50 WBC (4.50-10.00) 10*3/uL RBC (4.10-5.20) 10*6/uL Hgb (12.0-15.0) g/dL Hct (37.2-46.3) % MCV (80.0-97.0) fL MCH (27.0-32.0) pg MCHC (32.0-37.0) g/dL Plt Count (140-440) 10*3/uL MPV (9.5-12.2) fL Immature Gran % (Auto) % Neutrophils % % Lymphocytes % % Monocytes % % Eosinophils % % Basophils % % Immature Gran # (0.00-0.04) 10*3/uL Neutrophils # (1.80-7.70) 10*3/uL Lymphocytes # (0.90-5.00) 10*3/uL Monocytes # (0.20-1.00) 10*3/uL Eosinophils # (0.04-0.35) 10*3/uL Basophils # (0.00-0.10) 10*3/uL Sodium (137-145) mmol/L Potassium (3.5-5.1) mmol/L Chloride (98-107) mmol/L Carbon Dioxide (22-30) mmol/L Anion Gap mmol/L BUN (7-17) mg/dL Creatinine (0.52-1.04) mg/dL Est GFR (CKD-EPI)AfAm (>60 ml/min/1.73 sqM) Est GFR (CKD-EPI)NonAf (>60 ml/min/1.73 sqM) Glucose (74-99) mg/dL POC Glucose (mg/dL) (70-110) mg/dL POC Glu Fishing Instructor ID Plasma Lactic Acid Zi 2.0 (0.7-2.0) mmol/L Calcium (8.4-10.2) mg/dL Magnesium (1.6-2.3) mg/dL Total Bilirubin (0.2-1.3) mg/dL AST (14-36) U/L ALT (4-34) U/L Alkaline Phosphatase (38-126) U/L Total Protein (6.3-8.2) g/dL Albumin (3.5-5.0) g/dL Urine Color Colorless Urine Appearance Cloudy H (Clear) Urine pH 6.5 (5.0-8.0) Ur Specific [place] 1.018 (1.001-1.035) Urine Protein 1+ H (Negative) Urine Glucose (UA) Negative (Negative) Urine Ketones Negative (Negative) Urine Blood Moderate H (Negative) Urine Nitrite Positive H (Negative) Urine Bilirubin Negative (Negative) Urine Urobilinogen <2.0 (<2.0) mg/dL Ur Leukocyte Esterase Large H (Negative) Urine RBC 17 H (0-5) /hpf Urine WBC >182 H (0-5) /hpf Urine Bacteria Many H (None) /hpf Urine Mucus Rare H (None) /hpf Influenza Type A (PCR) Not Detected (Not Detectd) Influenza Type B (PCR) Not Detected (Not Detectd) RSV (PCR) Not Detected (Not Detectd) SARS-CoV-2 (PCR) Not Detected (Not Detectd) Disposition Time of Disposition: 04:11 <Gayle Yeh - Last Filed: 08/28/24 04:19> Is patient prescribed a controlled substance at d/c from ED?: No Decision to Admit Reason: Admit from EC Decision Date: 08/28/24 Decision Time: 05:36 <Zulema Paulino - Last Filed: 08/29/24 08:28> Clinical Impression: Sepsis secondary to UTI, Hypokalemia Disposition: ADMITTED IP TO THIS HOSP Condition: Serious
[2024-08-28 01:29] LABS: ALT 14 U/L (4-34); AST 23 U/L (14-36); African American GFR (CKD) 85 (>60 ml/min/1.73 sqM); Albumin 4.3 g/dL (3.5-5.0); Alkaline Phosphatase 83 U/L (38-126); Anion Gap 8 mmol/L; Blood Urea Nitrogen 27 mg/dL (7-17); Calcium 9.7 mg/dL (8.4-10.2); Carbon Dioxide 33 mmol/L (22-30); Chloride 98 mmol/L (98-107); Glucose 100 mg/dL (74-99); Magnesium 1.6 mg/dL (1.6-2.3); Non-African American GFR(CKD) 74 (>60 ml/min/1.73 sqM); Potassium 2.9 mmol/L (3.5-5.1); Sodium 139 mmol/L (137-145); Total Bilirubin 0.5 mg/dL (0.2-1.3); Total Protein 6.6 g/dL (6.3-8.2)
[2024-08-28] MEDS ORDERED: Potassium Replacement Protocol 1 EACH MISC MISCELLANE PRN (01:47)
[2024-08-28 01:53] LABS: Influenza A Not Detected (Not Detectd); Influenza B Not Detected (Not Detectd); RSV Not Detected (Not Detectd)
[2024-08-28] MEDS: LACTATED RINGERS 500 ML IV ONE (02:18)
--- NOTE | 2024-08-28 02:34 | CT ---
EXAM: CT Head Without Intravenous Contrast CLINICAL HISTORY: ITS.REASON CT Reason: AMS TECHNIQUE: Axial computed tomography images of the head/brain without intravenous contrast. CTDI is 49.1 mGy and DLP is 1112.4 mGy-cm. This CT exam was performed using one or more of the following dose reduction techniques: automated exposure control, adjustment of the mA and/or kV according to patient size, and/or use of iterative reconstruction technique. COMPARISON: No relevant prior studies available. FINDINGS: No acute intracranial hemorrhage. No midline shift or mass effect. The territorial luque-white matter differentiation is maintained throughout. Age-related cerebral volume loss. Periventricular and subcortical white matter hypoattenuation, consistent with chronic microangiopathy. The visualized orbits appear grossly unremarkable. The calvarium is intact. The visualized paranasal sinuses and mastoid air cells are grossly clear. IMPRESSION: No acute intracranial hemorrhage, midline shift, or mass effect.
[2024-08-28 03:46] LABS: Appearance,Urine Cloudy (Clear); Bacteria,Urine Many /hpf; Bilirubin,Urine Negative (Negative); Blood,Urine Moderate (Negative); Color,Urine Colorless; Glucose,Urine (UA) Negative (Negative); Ketones,Urine Negative (Negative); Leukocyte Esterase,Urine Large (Negative); Mucus,Urine Rare /hpf; Nitrite,Urine Positive (Negative); PH, Urine 6.5 (5.0-8.0); Protein,Urine 1+ (Negative); RBC,Urine 17 /hpf (0-5); Specific Gravity,Urine 1.018 (1.001-1.035); Urobilinogen,Urine <2.0 mg/dL (<2.0); WBC,Urine >182 /hpf (0-5)
[2024-08-28] MEDS: IBUPROFEN 600 MG TAB PO STA (03:46)
[2024-08-28] MEDS: POTASSIUM CHLORIDE 10 MEQ in WATER FOR INJECTION 1 100ML.BAG IVPB SCH (03:48)
[2024-08-28] MEDS: LACTATED RINGERS 1,000 ML IV SCH (04:02)
--- NOTE | 2024-08-28 04:59 | XR ---
EXAM: XR Chest, 1 View CLINICAL HISTORY: ITS.REASON XR Reason: fever TECHNIQUE: Frontal view of the chest. COMPARISON: X-ray dated 01/15/2024. FINDINGS: Lungs: Opacification of the left lung base. Chronic lung markings are seen bilaterally. Pleural space: Left-sided pleural effusion. No pneumothorax. Heart: Unremarkable. No cardiomegaly. Mediastinum: Unremarkable. Normal mediastinal contour. Bones/joints: Degenerative changes are seen in the spine and shoulders. Partial characterization of thoracolumbar fusion hardware. No acute fracture. Vasculature: Calcifications overlie the aorta. IMPRESSION: Left-sided pleural effusion with adjacent atelectasis and/or pneumonia not excluded.
--- NOTE | 2024-08-28 05:28 | CT ---
EXAM: CT Abdomen and Pelvis With Intravenous Contrast CLINICAL HISTORY: ITS.REASON CT Reason: fever TECHNIQUE: Axial computed tomography images of the abdomen and pelvis with intravenous contrast. CTDI is 15.11 mGy and DLP is 765 mGy-cm. This CT exam was performed using one or more of the following dose reduction techniques: automated exposure control, adjustment of the mA and/or kV according to patient size, and/or use of iterative reconstruction technique. COMPARISON: CT abdomen/pelvis dated February 12, 2024 FINDINGS: Artifacts: Motion artifact limits evaluation. Lung bases: Unremarkable. No mass. No consolidation. Heart: Cardiomegaly. Coronary artery calcifications. ABDOMEN: Liver: Unremarkable. No mass. Gallbladder and bile ducts: Unremarkable. No calcified stones. No ductal dilation. Pancreas: Unremarkable. No mass. No ductal dilation. Spleen: Unremarkable. No splenomegaly. Adrenals: Unremarkable. No mass. Kidneys and ureters: Dilated left renal pelvis which may relate to UPJ obstruction. Consider further workup. Simple right renal cyst. No follow-up of this simple cyst is necessary. Stomach and bowel: No evidence of bowel obstruction. No mucosal thickening. PELVIS: Appendix: Normal appendix. Bladder: Unremarkable. No mass. Reproductive: Unremarkable as visualized. ABDOMEN and PELVIS: Intraperitoneal space: Unremarkable. No free air. No significant fluid collection. Bones/joints: Partially thoracolumbar spinal fusion hardware with associated laminectomy changes. No acute fracture. No dislocation. Soft tissues: Unremarkable. Vasculature: Atherosclerotic disease. Lymph nodes: Unremarkable. No enlarged lymph nodes. IMPRESSION: 1. Normal appendix. 2. No evidence of bowel obstruction. 3. Dilated left renal pelvis which may relate to UPJ obstruction. Consider further workup. 4. No other acute findings. 5. Incidental findings as described.
[2024-08-28] MEDS ORDERED: NALOXONE 0.4 MG/ML 1 ML VIAL IV PRN (05:38)
[2024-08-28] MEDS: LEVOFLOXACIN 750MG-D5W PMX 750 MG in DEXTROSE/WATER 1 150ML.BAG IVPB STA (06:28)
[2024-08-28] MEDS: MAGNESIUM SULFATE-D5W PMX 1 GM in DEXTROSE/WATER 1 100ML.BAG IVPB SCH (10:03)
--- NOTE | 2024-08-28 14:18 | P.HPIM ---
History of Present Illness H&P Date: 08/28/24 73 year old F with PMH of CAD status post stent, hypertension, hyperlipidemia, osteoarthritis, and chronic back pain status post multiple spinal surgeries with fusions from T9-S1 presents to the ED for confusion, reported altered mental status and nausea. She denies any headache, lower extremity edema, fever or chills, cough, chest pain, shortness of breath, palpitations, dizziness, changes in urination or bowel habits. No dysuria or abdominal pain. In the ED she underwent extensive evaluation. Vital signs on admission Tmax 100.7F, BP as low as 89/60, HR 76, RR 20, 95% on 3L NC. CBC, CMP significant for WBC 11.39, Hct 36.3, K 2.9, bicarb 33, BUN 27, glu 100. Lactic 2. Mag 1.6. UA positive nitrite and large LE with > 182 WBCs. COVID, RSV, Flu negative. CT no acute process. CXR left pleural effusion. EKG sinus rhythm rate of 86. CT AP dilated left renal pelvis may be related to UPJ obstruction. Patient is started on Levaquin, given 1.5L LR bolus and admitted for further workup and management. General: toxic, no distress, appears older than stated age Derm: warm, dry Head: atraumatic, normocephalic, symmetric Eyes: EOMI, no lid lag, anicteric sclera Mouth: no lip lesion, mucus membranes moist Cardiovascular: S1S2 reg, no murmur Lungs: Decreased BS bilateral, no rhonchi, no rales , no accessory muscle use Ext: no gross muscle atrophy, no edema, no contractures Neuro: no focal neuro deficits Psych: Alert, oriented, anxious Based on my assessment of this patient, this patient meets a high complexity level of care. Sepsis and acute metabolic encephalopathy secondary to complicated UTI: Recently underwent right pyeloplasy with stent exchange with Dr. Chavira on 08/2023. Previous UCx growing Enterobacter cloacae. Start Levaquin 750 mg IV QD. Start LR at 130 cc/hr. Obtain BCx and UCx. Tylenol 650 mg PO Q6H PRN fever. Telemetry monitoring. Urology consulted. Severe hypokalemia: Mag of 1.6. KCl 60 meq IV x 1. Mag sulfate 4g IV x 1. Prerenal azotemia and metabolic alkalosis: Likely due to dehydration. IV hydration as above. Hold Losartan-HCTZ and Metoprolol for now. CAD status post stent: ASA 81 mg PO QD. Lipitor 10 mg PO QD. Holding Metoprolol for now. Hypertension: Now borderline hypotensive. Holding antihypertensive medications as above. Hyperlipidemia: Lipitor as above. Chronic back pain status post multiple spinal surgeries with fusions from T9-S1: Hold Valium, Fentanyl patch, Percocet until pain is improved. Depression: Zoloft 150 mg PO QD. CODE STATUS: FULL CODE. DVT Prophylaxis: Lovenox SQ GI Prophylaxis: Protonix PO Designated medical POA if patient is not able to make medical decisions for themselves: I have reviewed the following desktop support consultant notes: ED note I have reviewed the results of the following tests: As above I have ordered the following tests: As above I have discussed the care of this patient with the following independent histor fabio: I have independently interpreted the following test below: EKG I have discussed the management of this patient with the following physician: Past Medical History Past Medical History: Coronary Artery Disease (CAD), COPD, Osteoarthritis (OA), Respiratory Disorder Additional Past Medical History / Comment(s): having abd cramping intermittently, no apetite and 10lb wt loss, hx mild COPD, colitis,UTIs History of Any Multi-Drug Resistant Organisms: None Reported Past Surgical History: Back Surgery, Section, Ear Surgery, Heart Catheterization, Orthopedic Surgery, Tonsillectomy, Tubal Ligation Additional Past Surgical History / Comment(s): Right knee, x2, tubes in ears, lumbar fusion L2-S1, T9-L3 fusion october 08, right ureter stent placement Past Anesthesia/Blood Transfusion Reactions: No Reported Reaction Past Psychological History: Anxiety Smoking Status: Light tobacco smoker Past Alcohol Use History: None Reported Past Drug Use History: None Reported - Past Family History Son(s) Family Medical History: No Reported History Additional Family Medical History / Comment(s): autism Mother History Unknown: Yes Family Medical History: CVA/TIA Father Additional Family Medical History / Comment(s): suicide at 47 Brother(s) Additional Family Medical History / Comment(s): from alcohol and dr ug use. Sister(s) Family Medical History: Hypertension Medications and Allergies Home Medications Medication Instructions Recorded Confirmed Type Rosuvastatin Calcium [Crestor] 5 mg PO DAILY 10/19/18 08/28/24 History Sertraline [Zoloft] 150 mg PO QAM 10/19/18 08/28/24 History oxyCODONE-APAP 10-325MG [Percocet 1 tab PO TID PRN 10/19/18 08/28/24 History 10-325 mg] Cholecalciferol [Vitamin D3 (25 50 mcg PO DAILY 12/05/21 08/28/24 History Mcg = 1000 Iu)] Metoprolol Succinate (ER) [Toprol 12.5 mg PO QAM 12/05/21 08/28/24 History XL] Calcium Carbonate 1,500 mg PO DAILY 07/22/22 08/28/24 History fentaNYL 50MCG/HR PATCH [Duragesic 1 patch TRANSDERM Q72H 07/22/22 08/28/24 History 50MCG/HR] Losartan-Hctz 50-12.5 mg [Hyzaar 1 tab PO BID 01/15/24 08/28/24 History 50-12.5] Magnesium Oxide [Magox 400] 400 mg PO HS 01/15/24 08/28/24 History Aspirin 81 mg PO DAILY 04/01/24 08/28/24 History Docusate [Colace] 100 mg PO DAILY 04/01/24 08/28/24 History Omeprazole [PriLOSEC] 20 mg PO DAILY 06/18/24 08/28/24 History diazePAM [Valium] 5 mg PO BID PRN 08/28/24 08/28/24 History Allergies Allergy/AdvReac Type Severity Reaction Status Date / Time No Known Allergies Allergy Verified 08/28/24 07:51 Physical Exam Vitals: Vital Signs Temp Pulse Resp BP Pulse Ox 08/28/24 12:41 98.6 F 60 18 100/52 97 08/28/24 11:28 61 18 111/58 98 08/28/24 08:02 97.8 F 62 16 122/66 98 08/28/24 06:15 97.9 F 61 16 104/53 98 08/28/24 05:20 90/52 08/28/24 04:28 60 20 90/45 96 08/28/24 04:00 98.9 F 63 86/52 97 08/28/24 03:00 65 92/49 08/28/24 02:38 75 101/57 95 08/28/24 02:22 100.7 F H 76 20 89/60 95 08/28/24 01:44 98.9 F 76 20 92/46 95 08/28/24 00:13 100.2 F H 82 18 122/73 91 L 08/27/24 23:36 100.4 F H 86 12 130/73 91 L Intake and Output 08/27/24 08/28/24 08/28/24 22:59 06:59 14:59 Other: Weight 58.967 kg Results CBC & Chem 7: 08/28/24 00:57 08/28/24 00:57 Labs: Abnormal Lab Results - Last 24 Hours (Table) 08/28/24 08/28/24 08/28/24 Range/Units 00:57 00:57 02:50 WBC 11.39 H (4.50-10.00) 10*3/uL Hct 36.3 L (37.2-46.3) % Neutrophils # 10.72 H (1.80-7.70) 10*3/uL Lymphocytes # 0.30 L (0.90-5.00) 10*3/uL Eosinophils # 0.01 L (0.04-0.35) 10*3/uL Potassium 2.9 L (3.5-5.1) mmol/L Carbon Dioxide 33 H (22-30) mmol/L BUN 27 H (7-17) mg/dL Glucose 100 H (74-99) mg/dL Urine Appearance Cloudy H (Clear) Urine Protein 1+ H (Negative) Urine Blood Moderate H (Negative) Urine Nitrite Positive H (Negative) Ur Leukocyte Esterase Large H (Negative) Urine RBC 17 H (0-5) /hpf Urine WBC >182 H (0-5) /hpf Urine Bacteria Many H (None) /hpf Urine Mucus Rare H (None) /hpf
[2024-08-28] MEDS: oxyCODONE-APAP 10-325MG 1 EACH TAB PO PRN (19:56)
[2024-08-28] MEDS ORDERED: LOSARTAN-HCTZ 50-12.5 MG 1 EACH TAB PO SCH (21:00)
--- NOTE | 2024-08-28 21:45 | P.GSCN ---
History of Present Illness Consult date: 08/28/24 Reason for Consult: UTI right hydronephrosis History of present illness: This is a 73-year-old female with a history of right-sided UPJ obstruction. She is status post right-sided robotic pyeloplasty in March 2024. Presented to the hospital with altered mental status and fever. Patient urinalysis was positive on presentation, and her blood cultures are currently growing gram- negative bacilli. She underwent a CT abdomen and pelvis on presentation which showed dilation of the right renal pelvis, no stranding was seen around the kidn ey. She did have a follow-up Lasix renogram post pyeloplasty which showed adequate drainage from the right kidney and prompt response to Lasix. She denies any flank pain, gross hematuria, dysuria. Review of Systems - Constitutional Reports chills, Reports fatigue, Reports fever, Reports weakness, Denies weight loss - EENT Ears, nose, mouth and throat: Denies dysphagia - Cardiovascular Denies chest pain, Denies shortness of breath - Respiratory Denies cough, Denies 7 - Gastrointestinal Reports as per HPI - Neurological Reports confusion Past Medical History Past Medical History: Coronary Artery Disease (CAD), COPD, Osteoarthritis (OA), Respiratory Disorder Additional Past Medical History / Comment(s): having abd cramping intermi ttently, no apetite and 10lb wt loss, hx mild COPD, colitis,UTIs History of Any Multi-Drug Resistant Organisms: None Reported Past Surgical History: Back Surgery, Section, Ear Surgery, Heart Catheterization, Orthopedic Surgery, Tonsillectomy, Tubal Ligation Additional Past Surgical History / Comment(s): Right knee, x2, tubes in ears, lumbar fusion L2-S1, T9-L3 fusion october 08, right ureter stent placeme nt Past Anesthesia/Blood Transfusion Reactions: No Reported Reaction Past Psychological History: Anxiety Smoking Status: Light tobacco smoker Past Alcohol Use History: None Reported Past Drug Use History: None Reported - Past Family History Son(s) Family Medical History: No Reported History Additional Family Medical History / Comment(s): autism Mother History Unknown: Yes Family Medical History: CVA/TIA Father Additional Family Medical History / Comment(s): suicide at 47 Brother(s) Additional Family Medical History / Comment(s): from alcohol and drug use. Sister(s) Family Medical History: Hypertension Medications and Allergies Home Medications Medication Instructions Recorded Confirmed Type Rosuvastatin Calcium [Crestor] 5 mg PO DAILY 10/19/18 08/28/24 History Sertraline [Zoloft] 150 mg PO QAM 10/19/18 08/28/24 History oxyCODONE-APAP 10-325MG [Percocet 1 tab PO TID PRN 10/19/18 08/28/24 History 10-325 mg] Cholecalciferol [Vitamin D3 (25 50 mcg PO DAILY 12/05/21 08/28/24 History Mcg = 1000 Iu)] Metoprolol Succinate (ER) [Toprol 12.5 mg PO QAM 12/05/21 08/28/24 History XL] Calcium Carbonate 1,500 mg PO DAILY 07/22/22 08/28/24 History fentaNYL 50MCG/HR PATCH [Duragesic 1 patch TRANSDERM Q72H 07/22/22 08/28/24 History 50MCG/HR] Losartan-Hctz 50-12.5 mg [Hyzaar 1 tab PO BID 01/15/24 08/28/24 History 50-12.5] Magnesium Oxide [Magox 400] 400 mg PO HS 01/15/24 08/28/24 History Aspirin 81 mg PO DAILY 04/01/24 08/28/24 History Docusate [Colace] 100 mg PO DAILY 04/01/24 08/28/24 History Omeprazole [PriLOSEC] 20 mg PO DAILY 06/18/24 08/28/24 History diazePAM [Valium] 5 mg PO BID PRN 08/28/24 08/28/24 History Allergies Allergy/AdvReac Type Severity Reaction Status Date / Time No Known Allergies Allergy Verified 08/28/24 07:51 Surgical - Exam Vital Signs Temp Pulse Resp BP Pulse Ox 100.4 F H 86 12 130/73 91 L 08/27/24 23:36 08/27/24 23:36 08/27/24 23:36 08/27/24 23:36 08/27/24 23:36 - General no distress, no pain - Eyes normal ocular movement, no pale - ENT normal nares, normal mucosa - Respiratory normal expansion, normal respiratory effort - Abdomen Abdomen: soft, non tender Results - Labs 08/28/24 00:57 08/28/24 00:57 Abnormal Lab Results - Last 24 Hours (Table) 08/28/24 08/28/24 08/28/24 Range/Units 00:57 00:57 02:50 WBC 11.39 H (4.50-10.00) 10*3/uL Hct 36.3 L (37.2-46.3) % Neutrophils # 10.72 H (1.80-7.70) 10*3/uL Lymphocytes # 0.30 L (0.90-5.00) 10*3/uL Eosinophils # 0.01 L (0.04-0.35) 10*3/uL Potassium 2.9 L (3.5-5.1) mmol/L Carbon Dioxide 33 H (22-30) mmol/L BUN 27 H (7-17) mg/dL Glucose 100 H (74-99) mg/dL Urine Appearance Cloudy H (Clear) Urine Protein 1+ H (Negative) Urine Blood Moderate H (Negative) Urine Nitrite Positive H (Negative) Ur Leukocyte Esterase Large H (Negative) Urine RBC 17 H (0-5) /hpf Urine WBC >182 H (0-5) /hpf Urine Bacteria Many H (None) /hpf Urine Mucus Rare H (None) /hpf Diabetes panel 08/28/24 Range/Units 00:57 Sodium 139 (137-145) mmol/L Potassium 2.9 L (3.5-5.1) mmol/L Chloride 98 (98-107) mmol/L Carbon Dioxide 33 H (22-30) mmol/L BUN 27 H (7-17) mg/dL Creatinine 0.81 (0.52-1.04) mg/dL Glucose 100 H (74-99) mg/dL Calcium 9.7 (8.4-10.2) mg/dL AST 23 (14-36) U/L ALT 14 (4-34) U/L Alkaline Phosphatase 83 (38-126) U/L Total Protein 6.6 (6.3-8.2) g/dL Albumin 4.3 (3.5-5.0) g/dL Calcium panel 08/28/24 Range/Units 00:57 Calcium 9.7 (8.4-10.2) mg/dL Albumin 4.3 (3.5-5.0) g/dL Pituitary panel 08/28/24 Range/Units 00:57 Sodium 139 (137-145) mmol/L Potassium 2.9 L (3.5-5.1) mmol/L Chloride 98 (98-107) mmol/L Carbon Dioxide 33 H (22-30) mmol/L BUN 27 H (7-17) mg/dL Creatinine 0.81 (0.52-1.04) mg/dL Glucose 100 H (74-99) mg/dL Calcium 9.7 (8.4-10.2) mg/dL Adrenal panel 08/28/24 Range/Units 00:57 Sodium 139 (137-145) mmol/L Potassium 2.9 L (3.5-5.1) mmol/L Chloride 98 (98-107) mmol/L Carbon Dioxide 33 H (22-30) mmol/L BUN 27 H (7-17) mg/dL Creatinine 0.81 (0.52-1.04) mg/dL Glucose 100 H (74-99) mg/dL Calcium 9.7 (8.4-10.2) mg/dL Total Bilirubin 0.5 (0.2-1.3) mg/dL AST 23 (14-36) U/L ALT 14 (4-34) U/L Alkaline Phosphatase 83 (38-126) U/L Total Protein 6.6 (6.3-8.2) g/dL Albumin 4.3 (3.5-5.0) g/dL Assessment and Plan Assessment: 73-year-old female with history of right-sided UPJ obstruction status post r obotic right upper pyeloplasty on March 2024, had a follow-up Lasix renogram in July that showed adequate drainage of within the right collecting system. Admitted to the hospital with sepsis secondary to UTI. CT abdomen and pelvis showed evidence of dilation of the right renal collecting system. Dilation seen on CT is most likely secondary to chronic dilation from her history of UPJ obstruction rather than an obstructive etiology. From urology standpoint no further intervention is needed, recommend continuing IV antibiotics until cultures finalized. From urology standpoint she can be discharged on appropriate antibiotics once cultures finalized.
[2024-08-29] MEDS: LEVOFLOXACIN 750MG-D5W PMX 750 MG in DEXTROSE/WATER 1 150ML.BAG IVPB SCH (06:05)
[2024-08-29 06:24] LABS: Basophils # (A) 0.02 10*3/uL (0.00-0.10); Basophils % (A) 0.2 %; Eosinophils # (A) 0.05 10*3/uL (0.04-0.35); Eosinophils % (A) 0.4 %; HCT 32.7 % (37.2-46.3); HGB 10.8 g/dL (12.0-15.0); Lymphocytes # (A) 1.08 10*3/uL (0.90-5.00); Lymphocytes % (A) 8.8 %; MCH 29.8 pg (27.0-32.0); MCV 90.3 fL (80.0-97.0); Mean Platelet Volume 10.2 fL (9.5-12.2); Monocytes # (A) 0.78 10*3/uL (0.20-1.00); Monocytes % (A) 6.4 %; Neutrophils # (A) 10.24 10*3/uL (1.80-7.70); Neutrophils % (A) 83.6 %; Platelet Count 149 10*3/uL (140-440); RBC 3.62 10*6/uL (4.10-5.20); RDW 15.1 % (11.5-14.5); WBC 12.24 10*3/uL (4.50-10.00)
[2024-08-29 06:50] LABS: African American GFR (CKD) >90 (>60 ml/min/1.73 sqM); Anion Gap 3 mmol/L; Blood Urea Nitrogen 17 mg/dL (7-17); Calcium 8.7 mg/dL (8.4-10.2); Carbon Dioxide 32 mmol/L (22-30); Chloride 104 mmol/L (98-107); Glucose 86 mg/dL (74-99); Non-African American GFR(CKD) >90 (>60 ml/min/1.73 sqM); Potassium 3.7 mmol/L (3.5-5.1); Sodium 139 mmol/L (137-145)
[2024-08-29] MEDS: SERTRALINE 50 MG TAB PO SCH (08:39)
[2024-08-29] MEDS: ATORVASTATIN 10 MG TAB PO SCH (08:39)
[2024-08-29] MEDS: ASPIRIN 81 MG PO SCH (08:39)
[2024-08-29] MEDS: PANTOPRAZOLE 40 MG TABLET PO SCH (08:39)
[2024-08-29] MEDS ORDERED: METOPROLOL SUCCINATE (ER) 25 MG TAB.ER.24H PO SCH (09:00)
[2024-08-29] MEDS ORDERED: ONDANSETRON 4 MG/2 ML VIAL IVP PRN (10:28)
--- NOTE | 2024-08-29 10:34 | P.PN ---
Subjective Progress Note Date: 08/29/24 73 year old F with PMH of CAD status post stent, hypertension, hyperlipidemia, osteoarthritis, and chronic back pain status post multiple spinal surgeries with fusions from T9-S1 presents to the ED for confusion, reported altered mental status and nausea. She denies any headache, lower extremity edema, fever or chills, cough, chest pain, shortness of breath, palpitations, dizziness, changes in urination or bowel habits. No dysuria or abdominal pain. In the ED she underwent extensive evaluation. Vital signs on admission Tmax 100.7F, BP as low as 89/60, HR 76, RR 20, 95% on 3L NC. CBC, CMP significant for WBC 11.39, Hct 36.3, K 2.9, bicarb 33, BUN 27, glu 100. Lactic 2. Mag 1.6. UA positive nitrite and large LE with > 182 WBCs. COVID, RSV, Flu negative. CT no acute process. CXR left pleural effusion. EKG sinus rhythm rate of 86. CT AP dilated left renal pelvis may be related to UPJ obstruction. Patient is started on Levaquin, given 1.5L LR bolus and admitted for further workup and management. Started on Levaquin for treatment of UTI. Urology recommended no surgical intervention. BCx growing presumptive E. coli. 08/29 Patient was seen and examined. Reports fatigue. Feeling anxious and naus eated. CBC and BMP significant for WBC 12.24, RBC 3.62, Hg 10.8, Hct 32.7, bicarb 32. BCx growing presumptive E. coli. General: toxic, no distress, appears older than stated age Derm: warm, dry Head: atraumatic, normocephalic, symmetric Eyes: EOMI, no lid lag, anicteric sclera Mouth: no lip lesion, mucus membranes moist Cardiovascular: S1S2 reg, no murmur Lungs: Decreased BS bilateral, no rhonchi, no rales , no accessory muscle use Ext: no gross muscle atrophy, no edema, no contractures Neuro: no focal neuro deficits Psych: Alert, oriented, anxious Based on my assessment of this patient, this patient meets a high complexity level of care. Sepsis and acute metabolic encephalopathy secondary to complicated UTI and E. coli bacteremia: Recently underwent right pyeloplasy with stent exchange with Dr. Chavira on 08/2023. Previous UCx growing Enterobacter cloacae. BCx presumptive E. coli. Continue Levaquin 750 mg IV QD. Continue LR at 130 cc/hr. Follow final BCx and UCx. Repeat BCx in the AM. Tylenol 650 mg PO Q6H PRN fever. Telemetry monitoring. Urology and ID consulted. CAD status post stent: ASA 81 mg PO QD. Lipitor 10 mg PO QD. Holding Metoprolol for now. Hypertension: Now borderline hypotensive. Holding Metoprolol, HCTZ, Losartan for now. Hyperlipidemia: Lipitor as above. Chronic back pain status post multiple spinal surgeries with fusions from T9-S1: Restart Valium 5 mg PO BID PRN, Fentanyl patch 50 mcg/hr Q72H, Percocet 10-325 mg PO TID PRN. Depression: Zoloft 150 mg PO QD. Resolved: Hypokalemia, prerenal azotemia CODE STATUS: FULL CODE. DVT Prophylaxis: Lovenox SQ GI Prophylaxis: Protonix PO Designated medical POA if patient is not able to make medical decisions for themselves: I have reviewed the following market consultant notes: Urology. I have reviewed the results of the following tests: CBC, BMP, BCx. I have ordered the following tests: CBC, BMP, repeat BCx in the AM. I have discussed the care of this patient with the following independent historian: RN. Mari. I have independently interpreted the following test below: I have discussed the management of this patient with the following physician: Objective - Vital Signs Vital signs: Vital Signs Temp 97.4 F L 08/29/24 03:38 Pulse 65 08/29/24 03:38 Resp 16 08/29/24 03:38 BP 121/62 08/29/24 03:38 Pulse Ox 95 08/29/24 03:38 FiO2 Intake & Output 08/28/24 08/29/24 08/29/24 18:59 06:59 18:59 Intake Total 180 150 Balance 180 150 Weight 58.967 kg 50 kg Intake: Oral 180 150 Other: Voiding Method Toilet Toilet # Voids 1 1 2 - Labs CBC & Chem 7: 08/29/24 06:05 08/29/24 06:05 Labs: Abnormal Lab Results - Last 24 Hours (Table) 08/29/24 08/29/24 Range/Units 06:05 06:05 WBC 12.24 H (4.50-10.00) 10*3/uL RBC 3.62 L (4.10-5.20) 10*6/uL Hgb 10.8 L (12.0-15.0) g/dL Hct 32.7 L (37.2-46.3) % Immature Gran # 0.07 H (0.00-0.04) 10*3/uL Neutrophils # 10.24 H (1.80-7.70) 10*3/uL Carbon Dioxide 32 H (22-30) mmol/L Microbiology - Last 24 Hours (Table) 08/28/24 00:44 Blood Culture Gram Stain - Preliminary Blood Blood Culture - Preliminary Molecular ID
[2024-08-29] MEDS: ONDANSETRON 4 MG/2 ML VIAL IVP STA (10:45)
[2024-08-29] MEDS: LORazepam 1 MG/0.5 ML VIAL IV STA (10:45)
[2024-08-29] MEDS: cefTRIAXone 2 GM in DEXTROSE 5% IN WATER 50 ML IVPB SCH (13:00)
[2024-08-29 13:53] VITALS: BMI 18.3
[2024-08-29] MEDS: diazePAM 5 MG TAB PO PRN (20:07)
[2024-08-30] MEDS: ACETAMINOPHEN TAB 325 MG TAB PO PRN (01:07)
[2024-08-30 07:42] LABS: HCT 34.1 % (37.2-46.3); HGB 11.3 g/dL (12.0-15.0); MCH 30.1 pg (27.0-32.0); MCHC 33.1 g/dL (32.0-37.0); MCV 90.9 fL (80.0-97.0); Mean Platelet Volume 10.5 fL (9.5-12.2); Platelet Count 156 10*3/uL (140-440); RBC 3.75 10*6/uL (4.10-5.20); RDW 14.5 % (11.5-14.5); WBC 6.32 10*3/uL (4.50-10.00)
[2024-08-30 08:07] LABS: African American GFR (CKD) >90 (>60 ml/min/1.73 sqM); Anion Gap 4 mmol/L; Blood Urea Nitrogen 15 mg/dL (7-17); Calcium 8.7 mg/dL (8.4-10.2); Carbon Dioxide 30 mmol/L (22-30); Chloride 104 mmol/L (98-107); Glucose 79 mg/dL (74-99); Magnesium 1.8 mg/dL (1.6-2.3); Non-African American GFR(CKD) 85 (>60 ml/min/1.73 sqM); Potassium 3.5 mmol/L (3.5-5.1); Sodium 138 mmol/L (137-145)
[2024-08-30] MEDS: DOCUSATE 100 MG CAP PO SCH (08:14)
--- NOTE | 2024-08-30 09:41 | P.CONS ---
History of Present Illness - Reason for Consult Consult date: 08/29/24 E. coli bacteremia Requesting physician: Alisia Lopez - Chief Complaint Fever and mental status changes x 1 day - History of Present Illness Patient is a 73-year-old female with a past medical history significant for coronary artery disease COPD osteoarthritis patient was brought into the hospital for evaluation of mental status changes apparently patient was noticed to be confused and not responding appropriately to the the day of presentation to the hospital patient was also complaining of feeling weak no energy did have rigors and chills and also have an episode of vomiting for the patient has been brought to the hospital on arrival to the ER patient did have a fever of 100.4 F patient was mildly bradycardic but not hypotensive or hypoxic and no need for supplemental oxygen she did have a white count of 12.24 with a left shift creatinine 0.61 urine has been positive influenza RSV COVID testing negative patient did have a chest x-ray left-sided effusion with adjacent atelectasis and or pneumonia not excluded she did have abdominal pelvis CT normal appendix pelvis of bowel obstruction dilated left renal pelvis which may be related to UPJ obstruction patient blood cultures came back positive with E. coli with the patient has been treated with Levaquin infectious disease was consulted because of bacteremia patient currently denies having any headache or URI symptoms no chest pain shortness of breath or cough has been complaining of some right flank pain mostly dull aching mild to moderate intense without patient no further nausea vomiting denies having any colostomy he did episode of diarrhea no burning or frequency of urine Review of Systems Positive point and negatives has been mentioned in the HPI, complete review of systems was performed and all other systems are negative Past Medical History Past Medical History: Coronary Artery Disease (CAD), COPD, Osteoarthritis (OA), Respiratory Disorder Additional Past Medical History / Comment(s): having abd cramping intermittently, no apetite and 10lb wt loss, hx mild COPD, colitis,UTIs History of Any Multi-Drug Resistant Organisms: None Reported Past Surgical History: Back Surgery, Section, Ear Surgery, Heart Cat heterization, Orthopedic Surgery, Tonsillectomy, Tubal Ligation Additional Past Surgical History / Comment(s): Right knee, x2, tubes in ears, lumbar fusion L2-S1, T9-L3 fusion october 08, right ureter stent placement Past Anesthesia/Blood Transfusion Reactions: No Reported Reaction Past Psychological History: Anxiety Smoking Status: Light tobacco smoker Past Alcohol Use History: None Reported Past Drug Use History: None Reported - Past Family History Son(s) Family Medical History: No Reported History Additional Family Medical History / Comment(s): autism Mother History Unknown: Yes Family Medical History: CVA/TIA Father Additional Family Medical History / Comment(s): suicide at 47 Brother(s) Additional Family Medical History / Comment(s): from alcohol and drug use. Sister(s) Family Medical History: Hypertension Medications and Allergies Home Medications Medication Instructions Recorded Confirmed Type Rosuvastatin Calcium [Crestor] 5 mg PO DAILY 10/19/18 08/28/24 History Sertraline [Zoloft] 150 mg PO QAM 10/19/18 08/28/24 History oxyCODONE-APAP 10-325MG [Percocet 1 tab PO TID PRN 10/19/18 08/28/24 History 10-325 mg] Cholecalciferol [Vitamin D3 (25 50 mcg PO DAILY 12/05/21 08/28/24 History Mcg = 1000 Iu)] Metoprolol Succinate (ER) [Toprol 12.5 mg PO QAM 12/05/21 08/28/24 History XL] Calcium Carbonate 1,500 mg PO DAILY 07/22/22 08/28/24 History fentaNYL 50MCG/HR PATCH [Duragesic 1 patch TRANSDERM Q72H 07/22/22 08/28/24 History 50MCG/HR] Losartan-Hctz 50-12.5 mg [Hyzaar 1 tab PO BID 01/15/24 08/28/24 History 50-12.5] Magnesium Oxide [Magox 400] 400 mg PO HS 01/15/24 08/28/24 History Aspirin 81 mg PO DAILY 04/01/24 08/28/24 History Docusate [Colace] 100 mg PO DAILY 04/01/24 08/28/24 History Omeprazole [PriLOSEC] 20 mg PO DAILY 06/18/24 08/28/24 History diazePAM [Valium] 5 mg PO BID PRN 08/28/24 08/28/24 History Allergies Allergy/AdvReac Type Severity Reaction Status Date / Time No Known Allergies Allergy Verified 08/28/24 07:51 Physical Exam Vitals: Vital Signs Temp Pulse Pulse Resp BP BP Pulse Ox 08/29/24 08:00 97.5 F L 65 16 156/72 98 08/29/24 03:38 97.4 F L 65 16 121/62 95 08/29/24 02:00 59 L 16 08/28/24 23:27 97.4 F L 59 L 16 121/74 99 08/28/24 19:38 97.9 F 57 L 16 115/66 98 08/28/24 15:07 97.9 F 58 L 16 109/61 96 08/28/24 14:01 98.6 F 64 115/65 98 08/28/24 12:41 98.6 F 60 18 100/52 97 Intake and Output 08/28/24 08/29/24 08/29/24 22:59 06:59 14:59 Intake Total 180 150 Balance 180 150 Intake: Oral 180 150 Other: Voiding Method Toilet Toilet Toilet # Voids 1 1 2 Weight 58.967 kg 50 kg GENERAL DESCRIPTION: Elderly female lying in bed, no distress. No tachypnea or accessory muscle of respiration use. HEENT: Shows Pallor , no scleral icterus. Oral mucous membrane is dry. NECK: Trachea central, no thyromegaly. LUNGS: Unlabored breathing. Clear to auscultation anteriorly. No wheeze or crackle. HEART: S1, S2, regular rate and rhythm. No loud murmur ABDOMEN: Soft, no tenderness , guarding or rigidity, no organomegaly EXTREMITIES: No edema of feet. SKIN: No rash, no masses palpable. NEUROLOGICAL: The patient is awake, alert, oriented x3, mood and affect normal. Results CBC & Chem 7: 08/30/24 07:01 08/30/24 07:01 Labs: Abnormal Lab Results - Last 24 Hours (Table) 08/29/24 08/29/24 Range/Units 06:05 06:05 WBC 12.24 H (4.50-10.00) 10*3/uL RBC 3.62 L (4.10-5.20) 10*6/uL Hgb 10.8 L (12.0-15.0) g/dL Hct 32.7 L (37.2-46.3) % Immature Gran # 0.07 H (0.00-0.04) 10*3/uL Neutrophils # 10.24 H (1.80-7.70) 10*3/uL Carbon Dioxide 32 H (22-30) mmol/L Microbiology - Last 24 Hours (Table) 08/28/24 02:50 Urine Culture - Preliminary Urine,Voided Gram Neg Bacilli 08/28/24 00:44 Blood Culture Gram Stain - Preliminary Blood Blood Culture - Preliminary Molecular ID Assessment and Plan (1) UTI (urinary tract infection) Current Visit: Yes Status: Acute Code(s): N39.0 - URINARY TRACT INFECTION, SITE NOT SPECIFIED SNOMED Code(s): 44941022 (2) E coli bacteremia Current Visit: Yes Status: Acute Code(s): R78.81 - BACTEREMIA; B96.20 - UNSP ESCHERICHIA COLI THE CAUSE OF DISEASES CLASSD [facility] SNOMED Code(s): 056060148808 (3) Sepsis Current Visit: No Status: Acute Code(s): A41.9 - SEPSIS, UNSPECIFIED ORGANISM SNOMED Code(s): 09047782 Plan: 1patient presented to hospital with sepsis in this patient who did have fever elevated white count meeting criteria for SIRS source is urinary this patient who did have a positive UA right flank pain concerning for right-sided pyelonephritis though CT shows some abnormality on the left side. 2E. coli bacteremia source likely urinary. 3discontinue Levaquin. 4we will start the patient on Rocephin 2 g daily awaiting final sensitivity. We will follow on clinical condition and cultures to further adjust medication if needed Thank you for this consultation we will follow the patient along with you Dictation was produced using [employer] dictation software. please excuse any grammatical, word or spelling errors. Time with Patient: Greater than 30
--- NOTE | 2024-08-30 10:14 | P.PN ---
Subjective Progress Note Date: 08/30/24 No acute overnight event, denies any flank pain. White count is back to normal she remains afebrile creatinine is stable at 0.6. Urine culture is growing gram-negative bacilli and blood cultures growing E. coli. Objective - Vital Signs Vital signs: Vital Signs Temp 97.7 F 08/30/24 03:00 Pulse 68 08/30/24 03:00 Resp 16 08/30/24 03:00 BP 143/78 08/30/24 03:00 Pulse Ox 91 L 08/30/24 03:00 FiO2 Intake & Output 08/29/24 08/30/24 08/30/24 18:59 06:59 18:59 Intake Total 1420 Balance 1420 Weight 50 kg 51.1 kg Intake: Intake, IV Titration 1050 Amount Lactated Ringers 1,000 ml 1000 @ 130 mls/hr IV .Q7H42M [facility] Rx#:[id number] cefTRIAXone 2 gm In 50 Dextrose 5% in Water 50 ml @ 100 mls/hr IVPB Q24HR [facility] Rx#:[id number] Oral 370 Other: Voiding Method Toilet Toilet # Voids 1 1 - Constitutional General appearance: Present: no acute distress - Gastrointestinal General gastrointestinal: Present: soft. Absent: distended, tenderness - Labs CBC & Chem 7: 08/30/24 07:01 08/30/24 07:01 Labs: Abnormal Lab Results - Last 24 Hours (Table) 08/30/24 Range/Units 07:01 RBC 3.75 L (4.10-5.20) 10*6/uL Hgb 11.3 L (12.0-15.0) g/dL Hct 34.1 L (37.2-46.3) % Microbiology - Last 24 Hours (Table) 08/28/24 00:44 Blood Culture Gram Stain - Preliminary Blood Blood Culture - Preliminary Escherichia coli Molecular ID 08/28/24 02:50 Urine Culture - Preliminary Urine,Voided Gram Neg Bacilli Assessment and Plan Assessment: 73-year-old female with history of right-sided UPJ obstruction status post robotic right upper pyeloplasty on March 2024, had a follow-up Lasix renogram in July that showed adequate drainage of within the right collecting system. Admitted to the hospital with sepsis secondary to UTI. CT abdomen and pelvis showed evidence of dilation of the right renal collecting system. Dilation seen on CT is most likely secondary to chronic dilation from her history of UPJ obstruction rather than an obstructive etiology. From urology standpoint no further intervention is needed, recommend continuing IV antibiotics until cultures finalized. From urology standpoint she can be discharged on appropriate antibiotics once cultures finalized, infectious disease is on board, will defer to them for antibiotics
--- NOTE | 2024-08-30 11:09 | P.PN ---
Subjective Progress Note Date: 08/30/24 73 year old F with PMH of CAD status post stent, hypertension, hyperlipidemia, osteoarthritis, and chronic back pain status post multiple spinal surgeries with fusions from T9-S1 presents to the ED for confusion, reported altered mental status and nausea. She denies any headache, lower extremity edema, fever or chills, cough, chest pain, shortness of breath, palpitations, dizziness, changes in urination or bowel habits. No dysuria or abdominal pain. In the ED she underwent extensive evaluation. Vital signs on admission Tmax 100.7F, BP as low as 89/60, HR 76, RR 20, 95% on 3L NC. CBC, CMP significant for WBC 11.39, Hct 36.3, K 2.9, bicarb 33, BUN 27, glu 100. Lactic 2. Mag 1.6. UA positive nitrite and large LE with > 182 WBCs. COVID, RSV, Flu negative. CT no acute process. CXR left pleural effusion. EKG sinus rhythm rate of 86. CT AP dilated left renal pelvis may be related to UPJ obstruction. Patient is started on Levaquin, given 1.5L LR bolus and admitted for further workup and management. Started on Levaquin for treatment of UTI. Urology recommended no surgical intervention. BCx growing presumptive E. coli. ID consulted, Levaquin switched to Rocephin 2g IV QD. 08/30 Patient was seen and examined. Continued fatigue. Nausea and anxiety improved. CBC and BMP significant for RBC 3.75, Hg 11.3, Hct 34.1. Mag 1.8. BCx growing presumptive E. coli. UCx growing E. coli. General: no distress, appears older than stated age Derm: warm, dry Head: atraumatic, normocephalic, symmetric Eyes: EOMI, no lid lag, anicteric sclera Mouth: no lip lesion, mucus membranes moist Cardiovascular: S1S2 reg, no murmur Lungs: Decreased BS bilateral, no rhonchi, no rales , no accessory muscle use Ext: no gross muscle atrophy, no edema, no contractures Neuro: no focal neuro deficits Psych: Alert, oriented, anxious Based on my assessment of this patient, this patient meets a high complexity level of care. Sepsis and acute metabolic encephalopathy secondary to complicated UTI and E. coli bacteremia: Recently underwent right pyeloplasy with stent exchange with Dr. Chavira on 08/2023. UCx E. coli. BCx presumptive E. coli. Rocephin 2g IV QD (D2). Decrease LR rate from 130 to 50 cc/hr. Repeat BCx collected today. Tylenol 650 mg PO Q6H PRN fever. Telemetry monitoring. Urology and ID on board. CAD status post stent: ASA 81 mg PO QD. Lipitor 10 mg PO QD. Restart Metoprolol 12.5 mg PO QD today. Hypertension: Initially hypotensive, BP has now improved. Restart Metoprolol as above today. Restart Losartan 50 mg PO QD + HCTZ 12.5 mg PO QD starting tomorrow. Hyperlipidemia: Lipitor as above. Chronic back pain status post multiple spinal surgeries with fusions from T9-S1: Valium 5 mg PO BID PRN, Fentanyl patch 50 mcg/hr Q72H, Percocet 10-325 mg PO TID PRN. Depression: Zoloft 150 mg PO QD. Resolved: Hypokalemia, prerenal azotemia Patient appears debilitated. Fall precautions added. PT and OT consulted. She is pending clinical improvement. CODE STATUS: FULL CODE. DVT Prophylaxis: Lovenox SQ GI Prophylaxis: Protonix PO Designated medical POA if patient is not able to make medical decisions for themselves: I have reviewed the following interventional sale consultant notes: Urology, ID. I have reviewed the results of the following tests: CBC, BMP, BCx, UCx. I have ordered the following tests: Repeat BCx collected today. I have discussed the care of this patient with the following independent historian: LIUDMILA. I have independently interpreted the following test below: I have discussed the management of this patient with the following physician: Objective - Vital Signs Vital signs: Vital Signs Temp 98.2 F 08/30/24 08:10 Pulse 62 08/30/24 08:10 Resp 18 08/30/24 08:10 BP 146/69 08/30/24 08:10 Pulse Ox 94 L 08/30/24 08:20 FiO2 Intake & Output 08/29/24 08/30/24 08/30/24 18:59 06:59 18:59 Intake Total 1420 Balance 1420 Weight 50 kg 51.1 kg Intake: Intake, IV Titration 1050 Amount Lactated Ringers 1,000 ml 1000 @ 130 mls/hr IV .Q7H42M [facility] Rx#:[id number] cefTRIAXone 2 gm In 50 Dextrose 5% in Water 50 ml @ 100 mls/hr IVPB Q24HR [facility] Rx#:[id number] Oral 370 Other: Voiding Method Toilet Toilet Toilet # Voids 1 1 - Labs CBC & Chem 7: 08/30/24 07:01 08/30/24 07:01 Labs: Abnormal Lab Results - Last 24 Hours (Table) 08/30/24 Range/Units 07:01 RBC 3.75 L (4.10-5.20) 10*6/uL Hgb 11.3 L (12.0-15.0) g/dL Hct 34.1 L (37.2-46.3) % Microbiology - Last 24 Hours (Table) 08/28/24 02:50 Urine Culture - Final Urine,Voided Escherichia coli 08/28/24 00:44 Blood Culture Gram Stain - Preliminary Blood Blood Culture - Preliminary Escherichia coli Molecular ID
[2024-08-30] MEDS: METOPROLOL SUCCINATE (ER) 25 MG TAB.ER.24H PO SCH (12:35)
--- NOTE | 2024-08-30 14:00 | XR ---
EXAMINATION TYPE: XR chest 1V portable DATE OF EXAM: 08/30/2024 COMPARISON: 08/28/2024 CLINICAL INDICATION: Female, 73 years old with history of Pleural effusion on CXR; TECHNIQUE: Single frontal view of the chest is obtained. FINDINGS: There are Fitzpatrick rods in the thoracic spine. There are small bilateral pleural effusion. There is no airspace consolidation. The heart and pulmonary vasculature are normal. IMPRESSION: Interval development of small bilateral pleural effusions. [facility], , 08/30/2024 1:58 PM
--- NOTE | 2024-08-30 15:02 | P.PN ---
Subjective Progress Note Date: 08/30/24 Principal diagnosis: Reason for follow-up is E. coli UTI and bacteremia Patient is a 73-year-old female with a past medical history significant for coronary artery disease COPD osteoarthritis patient was brought into the hospital for evaluation of mental status changes, patient did have fever positive blood culture prompted this consultation. On today's evaluation that is 08/30/2024, Patient is afebrile patient is currently on 2 L nasal cannula oxygen and denies having any shortness of breath, the patient denies any chest pain or cough, the patient denies any nausea vomiting did not have any abdominal pain and no diarrhea. Patient white count normalized to 6.32, creatinine 0.72 blood and urine with an E. coli sensitive pathogen Objective - Vital Signs Vital signs: Vital Signs Temp 98.2 F 08/30/24 08:10 Pulse 60 08/30/24 11:55 Resp 17 08/30/24 11:55 BP 147/74 08/30/24 11:55 Pulse Ox 98 08/30/24 11:55 FiO2 Intake & Output 08/29/24 08/30/24 08/30/24 18:59 06:59 18:59 Intake Total 1420 240 Balance 1420 240 Weight 50 kg 51.1 kg Intake: Intake, IV Titration 1050 Amount Lactated Ringers 1,000 ml 1000 @ 130 mls/hr IV .Q7H42M [facility] Rx#:[id number] cefTRIAXone 2 gm In 50 Dextrose 5% in Water 50 ml @ 100 mls/hr IVPB Q24HR [facility] Rx#:[id number] Oral 370 240 Other: Voiding Method Toilet Toilet Toilet # Voids 1 1 - Exam GENERAL DESCRIPTION: An elderly female lying in bed in no distress RESPIRATORY SYSTEM: Unlabored breathing , decreased breath sounds at bases HEART: S1 S2 regular rate and rhythm , ABDOMEN: Soft , no tenderness EXTREMITIES: No edema feet - Labs CBC & Chem 7: 08/30/24 07:01 08/30/24 07:01 Labs: Abnormal Lab Results - Last 24 Hours (Table) 08/30/24 Range/Units 07:01 RBC 3.75 L (4.10-5.20) 10*6/uL Hgb 11.3 L (12.0-15.0) g/dL Hct 34.1 L (37.2-46.3) % Microbiology - Last 24 Hours (Table) 08/28/24 00:44 Blood Culture Gram Stain - Final Blood Blood Culture - Final Escherichia coli Molecular ID 08/28/24 02:50 Urine Culture - Final Urine,Voided Escherichia coli Assessment and Plan (1) UTI (urinary tract infection) Current Visit: Yes Status: Acute Code(s): N39.0 - URINARY TRACT INFECTION, SITE NOT SPECIFIED SNOMED Code(s): 90632698 (2) E coli bacteremia Current Visit: Yes Status: Acute Code(s): R78.81 - BACTEREMIA; B96.20 - UNSP ESCHERICHIA COLI THE CAUSE OF DISEASES CLASSD [facility] SNOMED Code(s): 100456805819 (3) Sepsis Current Visit: No Status: Acute Code(s): A41.9 - SEPSIS, UNSPECIFIED O RGANISM SNOMED Code(s): 31823203 Plan: 1patient presented to hospital with sepsis in this patient who did have fever elevated white count meeting criteria for SIRS source is urinary this patient who did have a positive UA right flank pain concerning for right-sided pyelonephritis though CT shows some abnormality on the left side. 2E. coli bacteremia source likely urinary. 3patient is currently being treated with Rocephin 2 g will be able to finish therapy with oral Ceftin Dictation was produced using [employer] dictation software. please excuse any grammatical, word or spelling errors. Time with Patient: Less than 30
[2024-08-30] MEDS ORDERED: LORazepam 2 MG/ML INJ IV PRN (18:24)
[2024-08-30] MEDS: LORazepam 1 MG/0.5 ML VIAL IV STA (18:33)
[2024-08-30 23:28] VITALS: RESP 16
[2024-08-31] MEDS: LOSARTAN-HCTZ 50-12.5 MG 1 EACH TAB PO SCH (08:05)
[2024-08-31 11:30] VITALS: BP 157/81; PULSE 55; TEMP 97.7
--- NOTE | 2024-08-31 15:01 | P.DS ---
Providers Date of admission: 08/28/24 05:42 Attending physician: Jesse Shetty MD Consults: 08/28/24 05:38 Consult Physician Urgent Consulting Provider: Betito Chavira Consult Reason/Comments: uti, recent ureteral sugery Do you want consulting provider notified?: Yes 08/29/24 09:04 Consult Physician Routine Consulting Provider: Neha Mendenhall Consult Reason/Comments: ecoli bacteremia Do you want consulting provider notified?: Yes [facility] Course: Discharge Diagnosis: Sepsis and acute metabolic encephalopathy secondary to complicated UTI and E. coli bacteremia CAD status post stents Hypertension Hyperlipidemia Chronic back pain status post multiple spinal surgeries with fusion from T9-S1 Depression Hyperkalemia Prerenal azotemia Hospital Course: 73 year old F with PMH of CAD status post stent, hypertension, hyperlipidemia, osteoarthritis, and chronic back pain status post multiple spinal surgeries with fusions from T9-S1 presents to the ED for confusion, reported altered mental status and nausea. She denies any headache, lower extremity edema, fever or chills, cough, chest pain, shortness of breath, palpitations, dizziness, changes in urination or bowel habits. No dysuria or abdominal pain. In the ED she underwent extensive evaluation. Vital signs on admission Tmax 100.7F, BP as low as 89/60, HR 76, RR 20, 95% on 3L NC. CBC, CMP significant for WBC 11.39, Hct 36.3, K 2.9, bicarb 33, BUN 27, glu 100. Lactic 2. Mag 1.6. UA positive nitrite and large LE with > 182 WBCs. COVID, RSV, Flu negative. CT no acute process. CXR left pleural effusion. EKG sinus rhythm rate of 86. CT AP dilated left renal pelvis may be related to UPJ obstruction. Patient is started on Levaquin, given 1.5L LR bolus and admitted for further workup and management. Started on Levaquin for treatment of UTI. Urology recommended no surgical intervention. BCx growing presumptive E. coli. ID consulted, Levaquin switched to Rocephin 2g IV QD. Blood and urine cultures growing E. coli, pansensitive, ID recommends Ceftin at discharge, patient will be discharged on Ceftin 250 twice daily for 7 days to complete 10 days total treatment, follow-up with PCP and infectious disease Patient seen and examined at bedside.[] Vital signs reviewed and stable. General: [nontoxic], [no distress], [appears at stated age] Derm: [warm], [dry] Head: [atraumatic], [normocephalic], [symmetric] Eyes: [EOMI], [no lid lag], [anicteric sclera] Mouth: [no lip lesion], [mucus membranes moist] Cardiovascular: [S1S2 reg], [no murmur] Lungs: [CTA bilateral], [no rhonchi, no rales] , [no accessory muscle use] Abdominal: [soft], [ nontender to palpation], [no guarding], [no appreciable organomegaly] Ext: [no gross muscle atrophy], [no edema], [no contractures] Neuro: [ CN II-XI grossly intact], [no focal neuro deficits] Psych: [Alert], [oriented], [appropriate affect] A total of 38 minutes of time were spent preparing this complex discharge summary. Patient was discharged on 08/31/2024. Patient Condition at Discharge: Serious Plan - Discharge Summary Discharge Rx Participant: No New Discharge Prescriptions: New Cefuroxime [Ceftin] 250 mg PO BID 7 Days #6 tab Continue oxyCODONE-APAP 10-325MG [Percocet 10-325 mg] 1 tab PO TID PRN PRN Reason: Pain Rosuvastatin Calcium [Crestor] 5 mg PO DAILY Sertraline [Zoloft] 150 mg PO QAM Metoprolol Succinate (ER) [Toprol XL] 12.5 mg PO QAM fentaNYL 50MCG/HR PATCH [Duragesic 50MCG/HR] 1 patch TRANSDERM Q72H Magnesium Oxide [Magox 400] 400 mg PO HS diazePAM [Valium] 5 mg PO BID PRN PRN Reason: Anxiety Cholecalciferol [Vitamin D3 (25 Mcg = 1000 Iu)] 50 mcg PO DAILY Calcium Carbonate 1,500 mg PO DAILY Losartan-Hctz 50-12.5 mg [Hyzaar 50-12.5] 1 tab PO BID Docusate [Colace] 100 mg PO DAILY Aspirin 81 mg PO DAILY Omeprazole [PriLOSEC] 20 mg PO DAILY Discharge Medication List Rosuvastatin Calcium [Crestor] 5 mg PO DAILY 10/19/18 [History] Sertraline [Zoloft] 150 mg PO QAM 10/19/18 [History] oxyCODONE-APAP 10-325MG [Percocet 10-325 mg] 1 tab PO TID PRN 10/19/18 [History] Cholecalciferol [Vitamin D3 (25 Mcg = 1000 Iu)] 50 mcg PO DAILY 12/05/21 [History] Metoprolol Succinate (ER) [Toprol XL] 12.5 mg PO QAM 12/05/21 [History] Calcium Carbonate 1,500 mg PO DAILY 07/22/22 [History] fentaNYL 50MCG/HR PATCH [Duragesic 50MCG/HR] 1 patch TRANSDERM Q72H 07/22/22 [History] Losartan-Hctz 50-12.5 mg [Hyzaar 50-12.5] 1 tab PO BID 01/15/24 [History] Magnesium Oxide [Magox 400] 400 mg PO HS 01/15/24 [History] Aspirin 81 mg PO DAILY 04/01/24 [History] Docusate [Colace] 100 mg PO DAILY 04/01/24 [History] Omeprazole [PriLOSEC] 20 mg PO DAILY 06/18/24 [History] diazePAM [Valium] 5 mg PO BID PRN 08/28/24 [History] Cefuroxime [Ceftin] 250 mg PO BID 7 Days #6 tab 08/31/24 [Rx] Follow up Appointment(s)/Referral(s): Tal Almendarez MD [Primary Care Provider] - 1-2 days Neha Mendenhall MD [STAFF PHYSICIAN] - 1 Week Patient Instructions/Handouts: Urinary Tract Infection in Women (DC) Activity/Diet/Wound Care/Special Instructions: Please, follow-up with your primary care physician, infectious disease specialist Discharge Disposition: HOME WITH HOME HEALTH SERVICES
--- NOTE | 2024-09-01 14:13 | P.PN ---
Subjective Progress Note Date: 08/31/24 Principal diagnosis: Reason for follow-up is E. coli UTI and bacteremia Patient is a 73-year-old female with a past medical history significant for coronary artery disease COPD osteoarthritis patient was brought into the hospital for evaluation of mental status changes, patient did have fever positive blood culture prompted this consultation. On today's evaluation that is 08/31/2024, patient has been afebrile, patient is breathing comfortably and is currently on room air, patient denies having any chest pain and cough, patient denies nausea vomiting or diarrhea and no abdominal pain, mention feeling better wants to go home. Patient white count 6.32 as of yesterday no lab draw today blood culture repeat has been negative so far Objective - Vital Signs Vital signs: Vital Signs Temp 97.7 F 08/31/24 11:30 Pulse 55 L 08/31/24 11:30 Resp 16 08/31/24 11:30 BP 157/81 08/31/24 11:30 Pulse Ox 92 L 08/31/24 12:21 FiO2 Intake & Output 08/30/24 08/31/24 08/31/24 18:59 06:59 18:59 Intake Total 480 240 Balance 480 240 Weight 50.5 kg Intake: Oral 480 240 Other: Voiding Method Toilet Toilet Toilet # Voids 5 4 3 - Exam GENERAL DESCRIPTION: An elderly female lying in bed in no distress RESPIRATORY SYSTEM: Unlabored breathing , decreased breath sounds at bases HEART: S1 S2 regular rate and rhythm , ABDOMEN: Soft , no tenderness EXTREMITIES: No edema feet - Labs CBC & Chem 7: 08/30/24 07:01 08/30/24 07:01 Labs: Microbiology - Last 24 Hours (Table) 08/28/24 00:44 Blood Culture Gram Stain - Final Blood Blood Culture - Final Escherichia coli Molecular ID 08/28/24 02:50 Urine Culture - Final Urine,Voided Escherichia coli Assessment and Plan (1) UTI (urinary tract infection) Status: Acute Code(s): N39.0 - URINARY TRACT INFECTION, SITE NOT SPECIFIED SNOMED Code(s): 96566979 (2) E coli bacteremia Status: Acute Code(s): R78.81 - BACTEREMIA; B96.20 - UNSP ESCHERICHIA COLI THE CAUSE OF DISEASES [facility] SNOMED Code(s): 827901774639 (3) Sepsis Status: Acute Code(s): A41.9 - SEPSIS, UNSPECIFIED ORGANISM SNOMED Code(s): 91669230 Plan: 1patient presented to hospital with sepsis in this patient who did have fever elevated white count meeting criteria for SIRS source is urinary this patient who did have a positive UA right flank pain concerning for right-sided pyelonephritis though CT shows some abnormality on the left side. 2E. coli bacteremia source likely urinary. 3patient has shown clinical improvement on Rocephin she will finish therapy with a 10-day Oral Ceftin on discharge Dictation was produced using [employer] dictation software. please excuse any grammatical, word or spelling errors. Time with Patient: Less than 30
== END 2024-08-31 16:18 | disposition home or self-care (01) | DRG 871 ==
LOC: EC 23:35 → 3SCARD 08-28 05:42
PROVIDERS: ADMIT Internal Medicine; ATTEND Internal Medicine
DX: A41.51 Sepsis due to Escherichia coli [E. coli] (principal); G93.41 Metabolic encephalopathy; I10 Essential (primary) hypertension; F32.A Depression, unspecified; N13.6 Pyonephrosis; E87.3 Alkalosis; I25.10 Atherosclerotic heart disease of native coronary artery without angina pectoris; E78.5 Hyperlipidemia, unspecified; G89.29 Other chronic pain; M54.9 Dorsalgia, unspecified; E87.5 Hyperkalemia; F17.200 Nicotine dependence, unspecified, uncomplicated; E87.6 Hypokalemia; E86.0 Dehydration; Z95.5 Presence of coronary angioplasty implant and graft; Z79.899 Other long term (current) drug therapy; Z79.82 Long term (current) use of aspirin
CPT/HCPCS: 36415; 70450; 71045; 74177; 80048; 80053; 81001; 83605; 83735; 85025; 85027; 87040; 87077; 87086; 87186; 87636; 93005; 96361; 96365; 96366; 96367; 96368; 96375; 99285

== ENCOUNTER → 2024-12-01 | Outpatient (CLI) | payer MEDICARE ==
--- NOTE | 2024-12-01 15:49 | MM ---
Reason for Exam: Screening (asymptomatic). Last mammogram was performed 1 year(s) and 1 month(s) ago. Patient History: Menarche at age 15. First Full-Term at age 34. Late child-bearing (after 30). Postmenopausal. Progesterone for 3 years from age 52 until age 55. Patient used Hormonal Contraceptives for 2 years. Maternal aunt had breast cancer, age 60. Risk Values: Jessy 5 year model risk: 2.4%. NCI Lifetime model risk: 6.3%. Prior Study Comparison: 08/09/2021 Bilateral Screening Mammogram, [facility]. 09/13/2022 Bilateral MG 3D screening mammo w/cad, [facility]. 10/24/2023 Bilateral MG 3D screening mammo w/cad, [facility]. Tissue Density: The breasts are extremely dense, which lowers the sensitivity of mammography. Findings: Analyzed By CAD. Right breast: There is no suspicious group of microcalcifications or new suspicious mass. Benign-appearing calcifications right breast. Left breast: There is no suspicious group of microcalcifications or new suspicious mass. Benign-appearing calcifications left breast. Overall Assessment: Benign, BI-RAD 2 Management: Screening Mammogram of both breasts in [address] [facility] will attempt to contact patient to return for supplemental views and ultrasound if indicated. Patient should continue monthly self-breast exams. A clinical breast exam by your physician is recommended on an annual basis. This exam should not preclude additional follow-up of suspicious palpable abnormalities. Note on Jessy scores and lifetime risk: 1. A Jessy score greater than 3% is considered moderate risk. If this is the case, consider specialist referral to assess eligibility for a risk reducing agent. 2. If overall lifetime risk for the development of breast cancer is 20% or higher, the patient may qualify for future screening with alternating mammogram and breast MRI. [facility], , 12/01/2024 3:46 PM. Electronically signed and approved by: Nikita Valdes DO
== END | disposition home or self-care (01) ==
LOC: RADMAMWWP 14:04
PROVIDERS: ATTEND Family Medicine
DX: Z12.31 Encounter for screening mammogram for malignant neoplasm of breast (principal); R92.343 Mammographic extreme density, bilateral breasts; R92.1 Mammographic calcification found on diagnostic imaging of breast; Z80.3 Family history of malignant neoplasm of breast; Z92.0 Personal history of contraception
CPT/HCPCS: 77063; 77067